=== PATIENT | female | born 1935 | race Caucasian/White ===

== ENCOUNTER 2018-07-26 19:15 | Inpatient (IN) ==
[2018-07-26 20:57] LABS: Basophils % 0.2 %; Eosinophils # 0.1 K/mcL (0.0-0.6); Eosinophils % 3.1 %; Hemoglobin 9.4 g/dL (11.5-15.4); Immature Granulocytes % 0.2 % (0-4); Lymphocytes # 0.7 K/mcL (0.6-4.6); Lymphocytes % 14.7 %; Mean Corpuscular HGB Conc 30.3 g/dL (31.6-35.5); Mean Corpuscular Hemoglobin 24.4 pg (28.0-33.3); Mean Corpuscular Volume 80.5 fL (83.0-100.0); Mean Platelet Volume 8.3 fL (9.4-12.4); Monocytes # 0.7 K/mcL (0.0-1.3); Monocytes % 15.6 %; Platelet Count 316 K/mcL (140-400); Red Blood Count 3.85 M/mcL (3.82-4.97); Red Cell Distribution Width 16.9 % (11.5-14.5); Segmented Neutrophils % 66.2 %; White Blood Count 4.5 K/mcL (4.3-11.1)
[2018-07-26 21:19] LABS: Alanine Aminotransferase 9 Units/L (7-52); Albumin 3.2 g/dL (3.5-5.7); Albumin/Globulin Ratio 1.2 (1.1-2.2); Alkaline Phosphatase 59 Units/L (34-104); Aspartate Amino Transferase 13 Units/L (13-39); BUN/Creatinine Ratio 20 (6-26); Bilirubin,Direct 0.1 mg/dL (0.0-0.2); Bilirubin,Indirect 0.2 mg/dL (0.0-1.2); Bilirubin,Total 0.3 mg/dL (0.3-1.0); Blood Urea Nitrogen 16 mg/dL (8-23); Calcium 9.3 mg/dL (8.6-10.3); Carbon Dioxide 28 mEq/L (23-29); Chloride 102 mEq/L (98-107); Globulin 2.7 g/dL (2.4-3.5); Glucose 104 mg/dL (70-105); Lipase 20 Units/L (11-82); Osmolality,Calculated 287 (280-300); Potassium 3.9 mEq/L (3.5-5.1); Sodium 138 mEq/L (136-145); Total Protein 5.9 g/dL (6.4-8.9); Troponin I < 0.03 ng/mL (< 0.04); eGFR For African Americans > 60 (> 60); eGFR For Non-African Americans > 60 (> 60)
--- NOTE | 2018-07-26 22:02 | Emergency Department Note ---
Disposition Clinical Impression: Decreased hemoglobin, Generalized weakness, Intussusception Abdominal pain Qualifiers: Abdominal location: generalized Qualified Code(s): R10.84 - Generalized abdominal pain Disposition: Admitted As Inpatient Condition: Fair Time of Disposition: 22:53 General Adult HPI - General Chief complaint: ED General Medical Stated complaint: swelling to feet/diarrhea Time Seen by Provider: 07/26/18 19:30 Source: patient, family Mode of arrival: ambulatory Limitations: no limitations Nursing Notes Reviewed: Yes Vital Signs Reviewed: Yes - History of Present Illness HPI Narrative: 83-year-old female presenting to the emergency department with multiple complaints. According to the patient biggest concern is diffuse abdominal pain. Has been intermittent for the past 3-4 weeks. She states that when she has a bowel movement there is a foam like liquid that comes out after. She states she is only able to eat bull and watermelon. She denies any nausea or vomiting. Denies any chest pain. Denies any changes in her baseline shortness of breath. Patient had followed up with her primary care physician who did baseline laboratory analysis, chest x-ray and a stool sample for C. difficile which were all negative. Patient continues to have symptoms this evening is having severe abdominal pain and came in for further evaluation. Pain Scale: 6 - Related Data Home Medications Medication Instructions Recorded Confirmed Lisinopril [Zestril] 5 mg PO DAILY 07/26/18 07/26/18 Torsemide [Demadex] 10 mg PO DAILY 07/26/18 07/26/18 Previous Rx's Medication Instructions Recorded Levothyroxine [Synthroid] 50 mcg PO DAILY 365 Days tablet 07/25/16 Simvastatin [Zocor] 20 mg PO HS 365 Days tablet 07/25/16 Allergies Allergy/AdvReac Type Severity Reaction Status Date / Time No Known Allergies Allergy Verified 07/26/18 19:17 All systems ED: reviewed and negative except as stated. Constitutional: Denies: fever Eyes: Reports: as per HPI ENT ED: Reports: as per HPI Cardiovascular: Denies: chest pain Respiratory: Reports: as per HPI Gastrointestinal: Reports: abdominal pain Genitourinary: Reports: as per HPI Musculoskeletal: Reports: as per HPI Integumentary: Reports: as per HPI Neurological: Reports: as per HPI Psychiatric: Reports: as per HPI Endocrine: Reports: as per HPI Hematological/Lymphatic: Reports: as per HPI Allergic/Immunologic: Reports: as per HPI Past Medical History - Past Medical History Attestation: Yes The following information was validated with the patient. Medical history: Reports: cancer, hypertension, other Psychiatric history: Reports: no psych history YARN WRAPPER history: Reports: no YARN WRAPPER history - Social History Smoking Status: Never smoker Smokeless Tobacco Status: No Alcohol use: Reports: none Drug use: Reports: none Physical Exam - General Limitations: no limitations General appearance: alert, in no apparent distress - Head Head exam: atraumatic, normocephalic, normal inspection - Eye Eye exam: Absent: scleral icterus - ENT ENT exam: mucous membranes moist - Neck Neck exam: Present: full ROM - Chest Chest inspection: Present: symmetric chest wall rise - Respiratory Respiratory exam: Present: normal lung sounds bilaterally. Absent: respiratory distress, wheezes - Cardiovascular Cardiovascular exam: Present: normal rhythm, tachycardia, normal heart sounds - Abdominal Exam Abdominal exam: Present: soft, tenderness. Absent: distention, guarding, rebound, rigidity Abdominal tenderness: Present: diffuse, moderate - Extremities Exam Extremities exam: Present: full ROM - Neurological Exam Neurological exam: Present: alert - Psychiatric Psychiatric exam: Present: normal affect - Skin Skin exam: Present: warm Course Course Narrative: 83-year-old female presenting with abdominal pain and stool changes. In the room she is alert and oriented 3 and hemodynamically stable. Her physical exam is significant for diffuse abdominal tenderness. Abdomen is not rigid at this time. Patient will obtain laboratory analysis and a CT of the abdomen and pelvis. Disposition pending. Patient agrees with this plan. - Reevaluation(s) Reevaluation #1: Patient's laboratory analysis significant for new onset anemia. CT of the abdomen and pelvis concerning for intussusception and possible neoplasm. I sp lawanda with the surgicalist projection technician Dr. Hernandez who states the patient will need colonoscopy tomorrow. Otherwise no further recommendation at this time. We will plan to admit to the hospitalist service. Patient remains alert and oriented 3 and hemodynamically stable. Patient agrees with this plan. I spoke with the hospitalist projection technician Dr. Smith who agrees to accept the patient at this time. Vital Signs Temperature 98.4 F 07/26/18 19:17 Pulse Rate 109 07/26/18 19:17 Respiratory Rate 18 07/26/18 19:17 Blood Pressure 110/57 07/26/18 19:17 O2 Sat by Pulse Oximetry 93 07/26/18 19:17 Temperature 98.1 F 07/27/18 06:54 Pulse Rate 91 07/27/18 06:54 Respiratory Rate 16 07/27/18 06:54 Blood Pressure 129/70 07/27/18 06:54 O2 Sat by Pulse Oximetry 95 07/27/18 06:54 Oxygen Delivery Oxygen Delivery Room Air Medical Decision Making - Lab Data Result diagrams: 07/26/18 20:42 07/26/18 20:42 Lab Results 07/26/18 07/26/18 07/26/18 Range/Units 20:42 20:42 21:54 WBC 4.5 (4.3-11.1) K/mcL RBC 3.85 (3.82-4.97) M/mcL Hgb 9.4 L (11.5-15.4) g/dL Hct 31.0 L (35.3-44.9) % MCV 80.5 L (83.0-100.0) fL MCH 24.4 L (28.0-33.3) pg MCHC 30.3 L (31.6-35.5) g/dL RDW 16.9 H (11.5-14.5) % Plt Count 316 (140-400) K/mcL MPV 8.3 L (9.4-12.4) fL Immature Gran % 0.2 (0-4) % Seg Neutrophils % 66.2 % Lymphocytes % 14.7 % Monocytes % 15.6 % Eosinophils % 3.1 % Basophils % 0.2 % Neutrophils # 3.0 (1.6-8.9) K/mcL Lymphocytes # 0.7 (0.6-4.6) K/mcL Monocytes # 0.7 (0.0-1.3) K/mcL Eosinophils # 0.1 (0.0-0.6) K/mcL Basophils # 0.0 (0.0-0.2) K/mcL Sodium 138 (136-145) mEq/L Potassium 3.9 (3.5-5.1) mEq/L Chloride 102 (98-107) mEq/L Carbon Dioxide 28 (23-29) mEq/L BUN 16 (8-23) mg/dL Creatinine 0.82 (0.60-1.20) mg/dL Est GFR ( Amer) > 60 (> 60) Est GFR (Non-Af Amer) > 60 (> 60) BUN/Creatinine Ratio 20 (6-26) Glucose 104 (70-105) mg/dL Calculated Osmolality 287 (280-300) Calcium 9.3 (8.6-10.3) mg/dL Total Bilirubin 0.3 (0.3-1.0) mg/dL Direct Bilirubin 0.1 (0.0-0.2) mg/dL Indirect Bilirubin 0.2 (0.0-1.2) mg/dL AST 13 (13-39) Units/L ALT 9 (7-52) Units/L Alkaline Phosphatase 59 (34-104) Units/L Troponin I < 0.03 (< 0.04) ng/mL Serum Total Protein 5.9 L (6.4-8.9) g/dL Albumin 3.2 L (3.5-5.7) g/dL Globulin 2.7 (2.4-3.5) g/dL Albumin/Globulin Ratio 1.2 (1.1-2.2) Lipase 20 (11-82) Units/L Urine Color Yellow (Yellow) Urine Clarity Clear (Clear) Urine pH 6.0 (5.0-8.0) pH Units Ur Specific [place] < 1.005 L (1.010-1.025) Urine Protein Negative (Neg-Trace) mg/dL Urine Glucose (UA) Normal (Normal) mg/dL Urine Ketones Negative (Negative) mg/dL Urine Blood Negative (Negative) Urine Nitrite Negative (Negative) Urine Bilirubin Negative (Negative) Urine Urobilinogen Normal (Normal) mg/dL Ur Leukocyte Esterase Negative (Negative) Ur Culture Indicated? NO (NO) - EKG Data EKG #1 EKG attestation: Yes I reviewed and interpreted this EKG. EKG results narrative: Sinus rhythm. Left bundle branch block. 93 bpm. WI interval 152, QRS 129, QTC 43. No sign of acute ST segment elevation or ischemia. Attestation Statement - Attestation Attestation: I have seen this patient with the resident physician, I have personally evaluated this patient. I had reviewed the chart and document dictation by the resident physician and aM in agreement with the information documented by the resident physician. Please see documentation by the resident physician for complete chart including past medical history, family medical history, review of systems, current history and physical and laboratory and imaging studies. I was present for all procedures, provided direct supervision for all procedures, was present for the entirety of all procedures and provided direct guidance during the procedures. Please see documentation by the resident physician for any procedures performed. I have reviewed all interpretations of EKGs, and reviewed all EKGs performed on patient's as well. I have also reviewed reports of imaging as provided by osmin bailey.
[2018-07-26 22:04] LABS: Bilirubin,Urine Negative (Negative); Blood,Urine Negative (Negative); Clarity,Urine Clear (Clear); Color,Urine Yellow (Yellow); Glucose,Urine (UA) Normal (Normal); Ketones,Urine Negative (Negative); Leukocyte Esterase,Urine Negative (Negative); Nitrite,Urine Negative (Negative); Protein,Urine Negative (Neg-Trace); Specific Gravity,Urine < 1.005 (1.010-1.025); Urobilinogen,Urine Normal (Normal)
--- NOTE | 2018-07-26 22:21 | Emergency Department Note ---
Disposition Clinical Impression: Decreased hemoglobin, Abdominal pain, Generalized weakness, Intussusception Disposition: Admitted As Inpatient Condition: Fair Referrals: NONE,PCP [Primary Care Provider] - Forms: ED Satisfaction Letter, Work/School Release Time of Disposition: 22:21 General Adult HPI - General Chief complaint: ED General Medical Stated complaint: swelling to feet/diarrhea Time Seen by Provider: 07/26/18 19:30 Source: patient Limitations: no limitations - History of Present Illness Pain Scale: 6 - Related Data Home Medications Medication Instructions Recorded Confirmed Lisinopril [Zestril] 5 mg PO DAILY 07/26/18 07/26/18 Torsemide [Demadex] 10 mg PO DAILY 07/26/18 07/26/18 Previous Rx's Medication Instructions Recorded Levothyroxine [Synthroid] 50 mcg PO DAILY 365 Days tablet 07/25/16 Simvastatin [Zocor] 20 mg PO HS 365 Days tablet 07/25/16 Allergies Allergy/AdvReac Type Severity Reaction Status Date / Time No Known Allergies Allergy Verified 07/26/18 19:17 Past Medical History - Past Medical History Medical history: Reports: cancer, hypertension, other Psychiatric history: Reports: no psych history COLD ROLLER history: Reports: no COLD ROLLER history - Social History Smoking Status: Never smoker Smokeless Tobacco Status: No Alcohol use: Reports: none Drug use: Reports: none Physical Exam - General Limitations: no limitations General appearance: alert Course Vital Signs Temperature 98.4 F 07/26/18 19:17 Pulse Rate 109 07/26/18 19:17 Respiratory Rate 18 07/26/18 19:17 Blood Pressure 110/57 07/26/18 19:17 O2 Sat by Pulse Oximetry 93 07/26/18 19:17 Temperature 98.4 F 07/26/18 19:43 Pulse Rate 93 07/26/18 20:44 Respiratory Rate 18 07/26/18 20:44 Blood Pressure 110/57 07/26/18 19:43 O2 Sat by Pulse Oximetry 100 07/26/18 20:44 Oxygen Delivery Oxygen Delivery Room Air Medical Decision Making - Lab Data Result diagrams: 07/26/18 20:42 07/26/18 20:42 Lab Results 07/26/18 07/26/18 07/26/18 Range/Units 20:42 20:42 21:54 WBC 4.5 (4.3-11.1) K/mcL RBC 3.85 (3.82-4.97) M/mcL Hgb 9.4 L (11.5-15.4) g/dL Hct 31.0 L (35.3-44.9) % MCV 80.5 L (83.0-100.0) fL MCH 24.4 L (28.0-33.3) pg MCHC 30.3 L (31.6-35.5) g/dL RDW 16.9 H (11.5-14.5) % Plt Count 316 (140-400) K/mcL MPV 8.3 L (9.4-12.4) fL Immature Gran % 0.2 (0-4) % Seg Neutrophils % 66.2 % Lymphocytes % 14.7 % Monocytes % 15.6 % Eosinophils % 3.1 % Basophils % 0.2 % Neutrophils # 3.0 (1.6-8.9) K/mcL Lymphocytes # 0.7 (0.6-4.6) K/mcL Monocytes # 0.7 (0.0-1.3) K/mcL Eosinophils # 0.1 (0.0-0.6) K/mcL Basophils # 0.0 (0.0-0.2) K/mcL Sodium 138 (136-145) mEq/L Potassium 3.9 (3.5-5.1) mEq/L Chloride 102 (98-107) mEq/L Carbon Dioxide 28 (23-29) mEq/L BUN 16 (8-23) mg/dL Creatinine 0.82 (0.60-1.20) mg/dL Est GFR ( Amer) > 60 (> 60) Est GFR (Non-Af Amer) > 60 (> 60) BUN/Creatinine Ratio 20 (6-26) Glucose 104 (70-105) mg/dL Calculated Osmolality 287 (280-300) Calcium 9.3 (8.6-10.3) mg/dL Total Bilirubin 0.3 (0.3-1.0) mg/dL Direct Bilirubin 0.1 (0.0-0.2) mg/dL Indirect Bilirubin 0.2 (0.0-1.2) mg/dL AST 13 (13-39) Units/L ALT 9 (7-52) Units/L Alkaline Phosphatase 59 (34-104) Units/L Troponin I < 0.03 (< 0.04) ng/mL Serum Total Protein 5.9 L (6.4-8.9) g/dL Albumin 3.2 L (3.5-5.7) g/dL Globulin 2.7 (2.4-3.5) g/dL Albumin/Globulin Ratio 1.2 (1.1-2.2) Lipase 20 (11-82) Units/L Urine Color Yellow (Yellow) Urine Clarity Clear (Clear) Urine pH 6.0 (5.0-8.0) pH Units Ur Specific [place] < 1.005 L (1.010-1.025) Urine Protein Negative (Neg-Trace) mg/dL Urine Glucose (UA) Normal (Normal) mg/dL Urine Ketones Negative (Negative) mg/dL Urine Blood Negative (Negative) Urine Nitrite Negative (Negative) Urine Bilirubin Negative (Negative) Urine Urobilinogen Normal (Normal) mg/dL Ur Leukocyte Esterase Negative (Negative) Ur Culture Indicated? NO (NO) Attestation Statement - Attestation Attestation: I have seen this patient with the resident physician, I have personally evaluated this patient. I had reviewed the chart and document dictation by the resident physician and aM in agreement with the information documented by the resident physician. Please see documentation by the resident physician for complete chart including past medical history, family medical history, review of systems, current history and physical and laboratory and imaging studies. I was present for all procedures, provided direct supervision for all procedures, was present for the entirety of all procedures and provided direct guidance during the procedures. Please see documentation by the resident physician for any procedures performed. I have reviewed all interpretations of EKGs, and reviewed all EKGs performed on patient's as well. I have also reviewed reports of imaging as provided by radiology. Patient presented emergency department with a few weeks of increasing episodic abdominal pain diarrhea generalized weakness. She has been seen by her primary care doctor throughout this and laboratory studies performed as an outpatient at a report were unremarkable and they were going to refer this patient. No imaging performed as an outpatient. Basic laboratory studies were ordered, showed a slight downtrend never hemoglobin, no other significant acute findings CT scan abdomen and pelvis show findings concerning for potential intussusception. Patient will require admission to the hospital will consult surgery discuss surgical admission versus medical admission with surgical consult.
[2018-07-27] MEDS ORDERED: Acetaminophen 325 MG TABLET PO PRN (07:33)
[2018-07-27] MEDS ORDERED: Naloxone 0.4 MG/ML INJ IVP PRN (07:33)
--- NOTE | 2018-07-27 08:19 | Internal Med History&Physical ---
Date of Encounter: 07/27/18 Time of Encounter: 08:18 Internal Medicine - H&P: HPI Chief complaint: Abd pain Admitted From: Emergency Dept History of present illness: Nicole Gunn is a pleasant deaf 83 F w hx HTN, HLD, hypothyroidism, remote breast cancer, who p/w abdominal pain. Pain persistent for a very long time but noticeably worse in last few weeks, and became unbearable which is why she came to ED. She also states that she has had frothy stool mixed with normal stool. No colonoscopy in several years. Says her PCP checked for C diff which was negative. Denies N/V and no blood in stool that she is aware of. No fevers, no CP, no SOB. In the ED, pt vitals remarkable for HR 100s. Labs showing Hb 9.4, Cr 0.8, normal UA. CT a/p showing telescoped appearance of the rectum concerning for intussusception. Pt admitted with GenSurg consultation. Past medical, surgical, social, and family histories reviewed and updated as below. Past Med Surg Social Fam HX - Past Medical History Medical history: cancer, hypertension, other Additional medical history: breast cancer , bilateral lymth nodes removed. Psychiatric history: no psych history - Past Surgical History Additional surgical history: GOITER REMOVED , - Social History Smoking Status: Never smoker Smokeless Tobacco Status: No Alcohol use: none Drug use: none - Family History Father Living Status: Hx Family Cardiac Disorders: Yes (CHF) Internal Medicine - H&P: Meds Levothyroxine [Synthroid] 50 mcg PO DAILY 365 Days tablet 07/25/16 [Rx] Simvastatin [Zocor] 20 mg PO HS 365 Days tablet 07/25/16 [Rx] Lisinopril [Zestril] 5 mg PO DAILY 07/26/18 [History] Torsemide [Demadex] 10 mg PO DAILY 07/26/18 [History] Allergy/AdvReac Type Severity Reaction Status Date / Time No Known Allergies Allergy Verified 07/26/18 19:17 All Systems PM: A 10-system review of systems was performed and is negative for pertinent findings except as documented above in the HPI. - Constitutional Vitals: Temp Pulse Resp BP Pulse Ox 98.1 F 91 16 129/70 95 07/27/18 06:54 07/27/18 06:54 07/27/18 06:54 07/27/18 06:54 07/27/18 06:54 Exam: General: NAD, AAOx3, good eye contact, well appearing, elderly, deaf and reads lips Head: Atraumatic, normocephalic. Face symmetric Eyes: EOMI, sclerae anicteric ENT: Mucous membranes dry. Normal oral mucosa. Trachea midline. Thoracic: No visible chest wall deformities. Normal breath sounds b/l, no wheezing or crackles Cardio: Normal S1 and S2, regular rate and rhythm, no murmurs. Abdomen: Soft, nontender, nondistended Extremities: Warm, well perfused. DP pulses 2+ b/l. No clubbing, cyanosis. No edema Skin: Intact. No rashes, bruises, or ulcers Neuro: Awake, fully oriented. Good memory, concentration, attention. Speech fluent. Unable to hear but can read lips. Strength 5/5 in b/l UE and LE. Internal Med - H&P Results - Labs CBC & Chem 7: 07/27/18 08:35 07/27/18 08:35 Labs: Short CBC 07/26/18 Range/Units 20:42 WBC 4.5 (4.3-11.1) K/mcL Hgb 9.4 L (11.5-15.4) g/dL Hct 31.0 L (35.3-44.9) % Plt Count 316 (140-400) K/mcL Neutrophils # 3.0 (1.6-8.9) K/mcL BMP 07/26/18 20:42 Sodium 138 Potassium 3.9 Chloride 102 Carbon Dioxide 28 BUN 16 Creatinine 0.82 Glucose 104 Calcium 9.3 Cardiac Enzymes 07/26/18 Range/Units 20:42 Troponin I < 0.03 (< 0.04) ng/mL Liver Function 07/26/18 Range/Units 20:42 Total Bilirubin 0.3 (0.3-1.0) mg/dL Direct Bilirubin 0.1 (0.0-0.2) mg/dL AST 13 (13-39) Units/L ALT 9 (7-52) Units/L Alkaline Phosphatase 59 (34-104) Units/L Albumin 3.2 L (3.5-5.7) g/dL Urine 07/26/18 Range/Units 21:54 Urine Color Yellow (Yellow) Urine Clarity Clear (Clear) Urine pH 6.0 (5.0-8.0) pH Units Ur Specific [place] < 1.005 L (1.010-1.025) Urine Protein Negative (Neg-Trace) mg/dL Urine Glucose (UA) Normal (Normal) mg/dL - Impressions ITS Impressions Abdomen/Pelvis CT 07/26/18 20:25 IMPRESSION: Telescoped appearance of the rectum has appearance concerning for intussusception. Associated filling defects can reflect impacted stool or neoplasm. Correlation with direct visualization would be helpful for further assessment. Sequela of granulomatous disease. Small hiatal hernia. D/ / Naman Hernández MD / Naman Hernández MD Interpreting Provider: Naman Hernández MD - Summary of Assessment and Plan Summary of Assessment and Plan: Nicole Gunn is a pleasant deaf 83 F w hx HTN, HLD, hypothyroidism, remote breast cancer, who p/w abdominal pain, tachycardia, CT showing possible intussusception. Abdominal pain: CT showing possible rectal pathology, the differential of which includes malignancy. Does not have acute abd. - GenSurg consultation, appreciate rec's - plan for bowel prep today and colonoscopy tomorrow - tylenol prn pain Acute microcytic anemia: unknown duration, normal Hb in early 2017, could be related to possible GI pathology/malignancy above - iron labs HTN: home lisinopril 5 HLD: home simvastatin 20 Hypothyroidism: home synthroid 50 mcg Unclear why on home torsemide 10 daily, will hold for now PPx: lovenox FEN: clears then NPO@MN, MIVF NS@75 while NPO Lines: PIV Consults: GenSurg Code: Full Dispo: patient requires inpatient eval and management at this time. Anticipate 2-3 days. Will be homegoing
--- NOTE | 2018-07-27 08:36 | AcuteCare Surgery Consult Note ---
Date of Encounter: 07/27/18 Time of Encounter: 06:30 Assessment and Plan (1) Abnormal abdominal CT scan Current Visit: Yes Status: Acute Abnormal rectum on CT. Recommend colonoscopy. Procedure, risk and benefits of colonscopy are discussed. Pt has not had colonoscopy in many years. Pt understands risks and possible complications. Possible complications include but, are not limited to bleeding, infection or perforation. Pt understands and wishes to proceed as recommended. Consent is obtained. Inpatient colonoscopy is scheduled. Prep today and scope tomorrow. (2) Abdominal pain Current Visit: Yes Status: Acute Qualifiers: Abdominal location: generalized Qualified Code(s): R10.84 - Generalized abdominal pain History of Present Illness Reason for consult: abdominal pain Requesting physician: Mindy Ramires History of present illness: This 83 y/o pt presents to [facility] ED c/o severe abdominal pain. Pt reports pain is predominantly diffuse. Known right low abdominal or inguinal hernia. Pain doesn't radiates. Pt reports pain has been present for months associated with abnormal BM. Pt states that the pain worsened to the point of intolerence today. Now, pain is resolving. Pt denies nausea or vomiting. Denies hemaochezia or melena. Denies fever. Denies CP or SOB. Reports normal appetite. Reports BM are followed by frothy movement. C. diff test neg. Past Med Surg Social Fam HX - Past Medical History Medical history: cancer, hypertension, other Additional medical history: breast cancer , bilateral lymth nodes removed. Psychiatric history: no psych history - Past Surgical History Additional surgical history: GOITER REMOVED , - Social History Smoking Status: Never smoker Smokeless Tobacco Status: No Alcohol use: none Drug use: none - Family History Father Living Status: Hx Family Cardiac Disorders: Yes (CHF) Medications and Allergies Levothyroxine [Synthroid] 50 mcg PO DAILY 365 Days tablet 07/25/16 [Rx] Simvastatin [Zocor] 20 mg PO HS 365 Days tablet 07/25/16 [Rx] Lisinopril [Zestril] 5 mg PO DAILY 07/26/18 [History] Torsemide [Demadex] 10 mg PO DAILY 07/26/18 [History] Allergy/AdvReac Type Severity Reaction Status Date / Time No Known Allergies Allergy Verified 07/26/18 19:17 Review of Systems All systems PM: The remainder of the systems were reviewed and are negative - Constitutional as per HPI, fatigue, weakness, no anorexia, no chills, no fever(s), no night sweats, no weight loss - EENT Ears: bilateral: decreased hearing Nose, mouth and throat: no dysphagia, no nasal congestion, no nasal discharge, no sinus pain, no sinus pressure, no sore throat - Cardiovascular no chest pain, no diaphoresis, no dyspnea, no edema - Respiratory no cough, no dyspnea, no wheezing - Gastrointestinal abdominal pain, bloating, change in bowel habits, cramping, no belching, no hematochezia, no melena, no nausea, no vomiting - Genitourinary Genitourinary: no dysuria, no flank pain, no urinary frequency - Musculoskeletal no back pain, no joint swelling, no limited range of motion, no neck pain - Integumentary no dry skin, no pruritus, no rash, no wounds, no jaundice - Neurological weakness, no dizziness, no focal weakness - Psychiatric no anxiety, no depression - Hematologic/Lymphatic no easy bleeding, no easy bruising General Surgery Exam Initial Vital Signs Temp Pulse Resp BP Pulse Ox 98.4 F 109 18 110/57 93 07/26/18 19:17 07/26/18 19:07/26/18 19:07/26/18 19:07/26/18 19:17 - General physical appearance no distress, no pain. negative: jaundice - Eyes PERRL, normal ocular movement - ENT Other (very [place]) - Neck no masses, no lymphadectomy, no venous distension - Respiratory normal respiratory effort, clear to auscultation - Cardiovascular Cardiovascular exam: Present: RRR. Absent: murmurs - Abdomen Abdomen general surgery: Present: bowel sounds present, soft, non tender. Absent: distended - Genitourinary Present: normal external genitalia - Integumentary Integumentary general surgery: Present: warm and dry - Neurologic Present: CN 2-12 grossly intact (very [place]), normal coordination - Musculoskeletal Present: normal posture - Psychiatric Psychiatric general surgery: Present: A&Ox3, appropriate Exam Initial Vital Signs Temp Pulse Resp BP Pulse Ox 98.4 F 109 18 110/57 93 07/26/18 19:17 07/26/18 19:17 07/26/18 19:17 07/26/18 19:17 07/26/18 19:17 Results - Labs 07/26/18 20:42 07/26/18 20:42 Abnormal lab results Hgb 9.4 g/dL (11.5-15.4) L 07/26/18 20:42 Hct 31.0 % (35.3-44.9) L 07/26/18 20:42 MCV 80.5 fL (83.0-100.0) L 07/26/18 20:42 MCH 24.4 pg (28.0-33.3) L 07/26/18 20:42 MCHC 30.3 g/dL (31.6-35.5) L 07/26/18 20:42 RDW 16.9 % (11.5-14.5) H 07/26/18 20:42 MPV 8.3 fL (9.4-12.4) L 07/26/18 20:42 5.9 g/dL (6.4-8.9) L 07/26/18 20:42 3.2 g/dL (3.5-5.7) L 07/26/18 20:42 Ur Specific [place] < 1.005 (1.010-1.025) L 07/26/18 21:54 Diabetes panel 07/26/18 Range/Units 20:42 Sodium 138 (136-145) mEq/L Potassium 3.9 (3.5-5.1) mEq/L Chloride 102 (98-107) mEq/L Carbon Dioxide 28 (23-29) mEq/L BUN 16 (8-23) mg/dL Creatinine 0.82 (0.60-1.20) mg/dL Glucose 104 (70-105) mg/dL Calcium 9.3 (8.6-10.3) mg/dL AST 13 (13-39) Units/L ALT 9 (7-52) Units/L Alkaline Phosphatase 59 (34-104) Units/L Albumin 3.2 L (3.5-5.7) g/dL Calcium panel 07/26/18 Range/Units 20:42 Calcium 9.3 (8.6-10.3) mg/dL Albumin 3.2 L (3.5-5.7) g/dL Pituitary panel 07/26/18 Range/Units 20:42 Sodium 138 (136-145) mEq/L Potassium 3.9 (3.5-5.1) mEq/L Chloride 102 (98-107) mEq/L Carbon Dioxide 28 (23-29) mEq/L BUN 16 (8-23) mg/dL Creatinine 0.82 (0.60-1.20) mg/dL Glucose 104 (70-105) mg/dL Calcium 9.3 (8.6-10.3) mg/dL Adrenal panel 07/26/18 Range/Units 20:42 Sodium 138 (136-145) mEq/L Potassium 3.9 (3.5-5.1) mEq/L Chloride 102 (98-107) mEq/L Carbon Dioxide 28 (23-29) mEq/L BUN 16 (8-23) mg/dL Creatinine 0.82 (0.60-1.20) mg/dL Glucose 104 (70-105) mg/dL Calcium 9.3 (8.6-10.3) mg/dL Total Bilirubin 0.3 (0.3-1.0) mg/dL AST 13 (13-39) Units/L ALT 9 (7-52) Units/L Alkaline Phosphatase 59 (34-104) Units/L Albumin 3.2 L (3.5-5.7) g/dL All other labs normal. - Imaging CT scan - abdomen: image reviewed CT scan - pelvis: image reviewed (Possible rectal intussusception. Cannot r/o neoplasm.) Consult Discharge Plan - Plan Referrals: NONE,PCP [Primary Care Provider] -
[2018-07-27] MEDS: 0.9 % Sodium Chloride 1,000 ML IVC SCH ×2 (08:57→20:58)
[2018-07-27 09:30] LABS: Basophils % 0.5 %; Eosinophils # 0.2 K/mcL (0.0-0.6); Eosinophils % 3.9 %; Hematocrit 30.7 % (35.3-44.9); Hemoglobin 9.2 g/dL (11.5-15.4); Immature Granulocytes % 0.3 % (0-4); Lymphocytes # 0.7 K/mcL (0.6-4.6); Lymphocytes % 18.8 %; Mean Corpuscular Hemoglobin 24.3 pg (28.0-33.3); Mean Corpuscular Volume 81.2 fL (83.0-100.0); Mean Platelet Volume 8.5 fL (9.4-12.4); Monocytes # 0.6 K/mcL (0.0-1.3); Monocytes % 16.7 %; Neutrophils # 2.3 K/mcL (1.6-8.9); Platelet Count 295 K/mcL (140-400); Red Blood Count 3.78 M/mcL (3.82-4.97); Red Cell Distribution Width 16.7 % (11.5-14.5); Segmented Neutrophils % 59.8 %; White Blood Count 3.8 K/mcL (4.3-11.1)
--- NOTE | 2018-07-27 09:37 | Electrocardiograph Report ---
[place] [address] Test Date: 2018-07-26 Pat Name: Nicole Gunn Department: [id number] Room: 3A35 Gender: F Presser Automatic: : 1935 Requested By: Mindy Ramires Order Number: [id number] Reading MD: Ike Dash Measurements Intervals [place] Rate: 93 P: 34 WV: 152 QRS: -13 QRSD: 129 T: 75 QT: 388 QTc: 483 Interpretive Statements Sinus rhythm Left bundle branch block Electronically Signed On 07-27-2018 9:36:19 EDT by Ike Dash
[2018-07-27 09:49] LABS: Alanine Aminotransferase 8 Units/L (7-52); Albumin/Globulin Ratio 1.3 (1.1-2.2); Alkaline Phosphatase 51 Units/L (34-104); BUN/Creatinine Ratio 19 (6-26); Bilirubin,Total 0.4 mg/dL (0.3-1.0); Blood Urea Nitrogen 13 mg/dL (8-23); Carbon Dioxide 25 mEq/L (23-29); Chloride 106 mEq/L (98-107); Globulin 2.3 g/dL (2.4-3.5); Glucose 97 mg/dL (70-105); Osmolality,Calculated 292 (280-300); Potassium 3.7 mEq/L (3.5-5.1); Sodium 141 mEq/L (136-145); Total Protein 5.3 g/dL (6.4-8.9); eGFR For African Americans > 60 (> 60); eGFR For Non-African Americans > 60 (> 60)
[2018-07-27 10:53] LABS: Aspartate Amino Transferase 13 Units/L (13-39)
[2018-07-28] MEDS: Ondansetron 4 MG/2 ML VIAL IVP PRN ×2 (00:26→20:39)
[2018-07-28] MEDS: *HR* Enoxaparin 40 MG/0.4 ML SYRINGE SQ SCH (05:00)
[2018-07-28 05:40] LABS: Hematocrit 30.4 % (35.3-44.9); Hemoglobin 8.9 g/dL (11.5-15.4); Mean Corpuscular HGB Conc 29.3 g/dL (31.6-35.5); Mean Corpuscular Hemoglobin 24.1 pg (28.0-33.3); Mean Corpuscular Volume 82.2 fL (83.0-100.0); Mean Platelet Volume 8.2 fL (9.4-12.4); Platelet Count 283 K/mcL (140-400); Red Cell Distribution Width 16.6 % (11.5-14.5); White Blood Count 5.3 K/mcL (4.3-11.1)
[2018-07-28 06:05] LABS: % Iron Saturation 4 % (15-50); BUN/Creatinine Ratio 15 (6-26); Blood Urea Nitrogen 9 mg/dL (8-23); Calcium 8.5 mg/dL (8.6-10.3); Carbon Dioxide 25 mEq/L (23-29); Chloride 110 mEq/L (98-107); Glucose 106 mg/dL (70-105); Iron 13 mcg/dL (50-170); Osmolality,Calculated 289 (280-300); Potassium 3.7 mEq/L (3.5-5.1); Sodium 140 mEq/L (136-145); Transferrin 241 mg/dL (203-362); eGFR For African Americans > 60 (> 60); eGFR For Non-African Americans > 60 (> 60)
[2018-07-28 06:20] LABS: Ferritin < 8 ng/mL (10-120)
[2018-07-28] MEDS ORDERED: *HR* Midazolam HCl 5 MG/5 ML VIAL IVP ONE ×2 (09:47→10:11)
[2018-07-28] MEDS ORDERED: *HR* FentaNYL (PF) 100 MCG/2 ML VIAL ONE (09:47)
[2018-07-28] MEDS ORDERED: *HR* FentaNYL (PF) 200 MCG/4 ML SYRINGE IVP PRN (10:11)
--- NOTE | 2018-07-28 10:11 | Internal Med Progress Note ---
<Riki Lamb R - Last Filed: 07/28/18 13:15> Hospitalist Progress Note - Encounter Date of Encounter: 07/28/18 Time of Encounter: 09:46 - Subjective Interval History: Ms. Gunn is a deaf 83 F with PMH of HTN, HLD, hypothyroidism, remote breast cancer, who p/w abdominal pain. CT with concern for intussesception. Awaiting colonoscopy. Patient seen and examined at bedside. No acute overnight events. Reports continued vomiting, diarrhea, and diffuse abdominal pain. Also reporting some rhinorrhea, lower extremity pain, and edema bilaterally. Denies fevers, chills, chest pain, dyspnea, or dysuria. - Exam Vitals: Temp Pulse Resp BP Pulse Ox 98.3 F 91 18 144/70 96 07/28/18 06:54 07/28/18 09:48 07/28/18 09:48 07/28/18 09:48 07/28/18 09:48 Exam: GEN: No acute distress, A&O3, good eye contact, reads lips well HEAD: Atraumatic, normocephalic EYES: Pupils symmetric, sclera white, conjunctiva pink HEART: RRR, normal S1 and S2, no murmurs LUNGS: Clear to auscultation bilaterally, no wheezes, rhonchi, or crackles ABD: Soft, diffuse tenderness, nondistended, no guarding or rigidity EXT: Mild pedal edema noted, pulses 2/4 NEURO: No focal deficits, cooperative with exam - Assessment and Plan (1) Abdominal pain Current Visit: Yes Status: Acute Assessment and Plan: Diffuse pain without rigidity or guarding CT with possible intusseception, filling defects possible impacted stool vs malignancy Liquid stool with BRB per nursing Gen Surg consulted - colonoscopy today - 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 Normal transferrin Possible related to rectal pathology (3) Hypertension Current Visit: Yes Status: Chronic Assessment and Plan: Stable. Continue home lisinopril (4) Hypothyroidism Current Visit: Yes Status: Acute Assessment and Plan: Continue home levothyroxine (5) Hyperlipidemia Current Visit: Yes Status: Acute Assessment and Plan: Continue home simvastatin DVT Prophylaxis: Lovenox - Time Spent with Patient Total time spent is greater than 50% in coordination of care (as documented) at patient's floor/unit and/or counseling patient: Internal Medicine: Result - Labs CBC & Chem 7: 07/28/18 05:20 07/28/18 05:20 Labs: Short CBC 07/28/18 Range/Units 05:20 WBC 5.3 (4.3-11.1) K/mcL Hgb 8.9 L (11.5-15.4) g/dL Hct 30.4 L (35.3-44.9) % Plt Count 283 (140-400) K/mcL BMP 07/28/18 05:20 Sodium 140 Potassium 3.7 Chloride 110 H Carbon Dioxide 25 BUN 9 Creatinine 0.59 L Glucose 106 H Calcium 8.5 L Liver Function 07/27/18 Range/Units 08:35 AST 13 (13-39) Units/L Consult Discharge Plan - Plan Referrals: Rashad Bullard MD [Partnered Physician] - <Aldo Murray - Last Filed: 07/28/18 15:32> Hospitalist Progress Note - Encounter Date of Encounter: 07/28/18 Internal Medicine: Result - Labs CBC & Chem 7: 07/28/18 05:20 07/28/18 05:20 - Attending Attestation Patient seen and examined independently, including review of objective data including labs. I agree with plan of care as documented above by the resident with the following comments: Pt went for colonoscopy today per GenSurg which showed large fungating rectal mass which was biopsied. Patient tolerated procedure well. Discussed results with patient and her daughter who is poa and they are determined that if it's cancer to fight it however necessary including surgery/chemo/radiation, and understand need to determine type and stage. Patient to remain clears then NPO@MA for possible resection tomorrow. <Riki Lamb R - Last Filed: 07/28/18 13:15> (1) Abdominal pain Qualifiers: Abdominal location: generalized Qualified Code(s): R10.84 - Generalized abdominal pain (3) Hypertension Qualifiers: Hypertension type: essential hypertension Qualified Code(s): I10 - Essential (primary) hypertension (4) Hypothyroidism Qualifiers: Hypothyroidism type: unspecified Qualified Code(s): E03.9 - Hypothyroidism, unspecified (5) Hyperlipidemia Qualifiers: Hyperlipidemia type: unspecified Qualified Code(s): E78.5 - Hyperlipidemia, unspecified
--- NOTE | 2018-07-28 10:15 | Pre-Sedation Evaluation ---
Pre-sedation evaluation - Pre-sedation checklist Date of procedure: 07/28/18 Procedure: colon Recent Vitals: Last Vital Signs Temp 98.3 F 07/28/18 06:54 Pulse 91 07/28/18 09:48 Resp 18 07/28/18 09:48 BP 144/70 07/28/18 09:48 Pulse Ox 96 07/28/18 09:48 H&P (including ROS) documented in medical record: Yes Dietary Status: NPO after Midnight Dentition: poor dentition ASA Classification *see protocol: CLASS III-Severe systemic disease Cardiac Registry (Cardio Only) - Functional Capacity Functional Capacity: < 4 METS - Clincal Frailty Scale Clinical Frailty Scale: Mildly Frail
[2018-07-28] MEDS ORDERED: *HR* FentaNYL (PF) 100 MCG/2 ML VIAL IVP ONE (10:20)
--- NOTE | 2018-07-28 12:19 | Acute Care Surgery Event Note ---
Date of Encounter: 07/28/18 Time of Encounter: 11:30 Pt underwent colonoscopy for abnormal rectum on CT. Colonoscopy reveals a fungating mass with intususception near the rectosigmoid juntion (15-20cm.) Biopsies taken. Bowel prep led to minor bleeding of the mass, as well as bx. At time of scope conclusion there was no active bleeding. Pt had c/o RLE calf pain beforescope. Will obtain RLE venous doppler. Will obtain chest CT for SOB and r/o lung mets. Plan for Low anterior resection in 1-2 days. Will discuss with patient after sedation resolves. Clear liquids only. NPO after MN.
[2018-07-28] MEDS ORDERED: Isovue-370 500 ML BOTTLE IVP ONE (13:19)
[2018-07-28 13:43] LABS: Carcinoembryonic Antigen 2.9 ng/mL (Less than 5.0)
[2018-07-29 04:38] LABS: Hematocrit 30.7 % (35.3-44.9); Hemoglobin 9.1 g/dL (11.5-15.4); Mean Corpuscular HGB Conc 29.6 g/dL (31.6-35.5); Mean Corpuscular Hemoglobin 24.4 pg (28.0-33.3); Mean Corpuscular Volume 82.3 fL (83.0-100.0); Mean Platelet Volume 8.5 fL (9.4-12.4); Platelet Count 280 K/mcL (140-400); Red Blood Count 3.73 M/mcL (3.82-4.97); Red Cell Distribution Width 16.4 % (11.5-14.5); White Blood Count 4.9 K/mcL (4.3-11.1)
[2018-07-29 04:57] LABS: BUN/Creatinine Ratio 15 (6-26); Blood Urea Nitrogen 10 mg/dL (8-23); Calcium 8.4 mg/dL (8.6-10.3); Carbon Dioxide 23 mEq/L (23-29); Chloride 108 mEq/L (98-107); Glucose 118 mg/dL (70-105); Osmolality,Calculated 282 (280-300); Potassium 3.7 mEq/L (3.5-5.1); Sodium 136 mEq/L (136-145); eGFR For African Americans > 60 (> 60); eGFR For Non-African Americans > 60 (> 60)
[2018-07-29] MEDS: *HR* Enoxaparin 40 MG/0.4 ML SYRINGE SQ SCH (05:25)
--- NOTE | 2018-07-29 08:26 | Internal Med Progress Note ---
<Riki Lamb R - Last Filed: 07/29/18 13:43> Hospitalist Progress Note - Encounter Date of Encounter: 07/29/18 Time of Encounter: 10:14 - Subjective Interval History: Ms. Gunn is a deaf 83 F with PMH of HTN, HLD, hypothyroidism, remote breast cancer, who p/w abdominal pain. CT with concern for intussesception. Awaiting colonoscopy. Patient seen and examined at bedside. No acute overnight events. Reports her abdominal pain is improving, and less nausea. She feels her leg pain has improved since yesterday. Also reporting some rhinorrhea. Denies fevers, chills, chest pain, dyspnea, or dysuria. She has surgery upcoming later today. - Exam Vitals: Temp Pulse Resp BP Pulse Ox 98.2 F 94 15 105/62 96 07/29/18 06:33 07/29/18 06:33 07/29/18 06:33 07/29/18 06:33 07/29/18 06:33 Exam: GEN: No acute distress, A&O3, good eye contact, reads lips well HEAD: Atraumatic, normocephalic EYES: Pupils symmetric, sclera white, conjunctiva pink HEART: RRR, normal S1 and S2, no murmurs LUNGS: Clear to auscultation bilaterally, no wheezes, rhonchi, or crackles ABD: Soft, diffuse tenderness, nondistended, no guarding or rigidity EXT: Mild pedal edema noted, pulses 2/4 NEURO: No focal deficits, cooperative with exam - Assessment and Plan (1) Abdominal pain Current Visit: Yes Status: Acute Assessment and Plan: Diffuse pain without rigidity or guarding - improving Liquid stool with BRB per nursing Tylenol PRN for pain Zofran for N/V (2) Microcytic anemia Current Visit: Yes Status: Acute Assessment and Plan: Hgb stable Likely multifactorial: chronic disease, iron deficiency, and blood loss related to rectal mass Will start iron supplement once able (3) Hypertension Current Visit: Yes Status: Chronic Assessment and Plan: Stable. 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 Planning resection later today DVT Prophylaxis: Lovenox - Time Spent with Patient Total time spent is greater than 50% in coordination of care (as documented) at patient's floor/unit and/or counseling patient: Internal Medicine: Result - Labs CBC & Chem 7: 07/29/18 04:01 07/29/18 04:01 Labs: Short CBC 07/29/18 Range/Units 04:01 WBC 4.9 (4.3-11.1) K/mcL Hgb 9.1 L (11.5-15.4) g/dL Hct 30.7 L (35.3-44.9) % Plt Count 280 (140-400) K/mcL BMP 07/29/18 04:01 Sodium 136 Potassium 3.7 Chloride 108 H Carbon Dioxide 23 BUN 10 Creatinine 0.66 Glucose 118 H Calcium 8.4 L - Impressions Impressions Chest CT 07/28/18 13:19 IMPRESSION: 1. No acute abnormality or evidence of metastatic disease in the chest. 2. 2 and 3 mm right lower lobe nodules which are most likely infectious or inflammatory given the small size. As there are no prior imaging studies for comparison, consider short-term CT follow-up to document stability given the history. 3. Left basilar atelectasis/scarring related to elevation of the hemidiaphragm. D/ / 07/28/2018 14:26:03 Leonardo Whitmore MD / [facility] Interpreting Provider: Leonardo Whitmore MD Consult Discharge Plan - Plan Referrals: Rashad Bullard MD [Partnered Physician] - <Aldo Murray - Last Filed: 07/29/18 16:47> Hospitalist Progress Note - Encounter Date of Encounter: 07/29/18 - Assessment and Plan (1) Hypertension Current Visit: Yes Status: Chronic (2) Abdominal pain Current Visit: Yes Status: Acute (3) Microcytic anemia Current Visit: Yes Status: Acute (4) Hyperlipidemia Current Visit: Yes Status: Acute (5) Hypothyroidism Current Visit: Yes Status: Acute (6) Mass of colon Current Visit: Yes Status: Acute Internal Medicine: Result - Labs CBC & Chem 7: 07/29/18 04:01 07/29/18 04:01 - Attending Attestation Patient seen and examined independently, including review of objective data including labs. I agree with plan of care as documented above by the resident with the following comments: Large mass on colonoscopy yesterday. Plan for resection today per Cammie Morris this afternoon. Pt remains full code and family wants to pursue treatment. Will have PT/OT see pt tomorrow. <Riki Lamb - Last Filed: 07/29/18 13:43> (1) Abdominal pain Qualifiers: Abdominal location: generalized Qualified Code(s): R10.84 - Generalized abdominal pain (3) Hypertension Qualifiers: Hypertension type: essential hypertension Qualified Code(s): I10 - Essential (primary) hypertension (4) Hypothyroidism Qualifiers: Hypothyroidism type: unspecified Qualified Code(s): E03.9 - Hypothyroidism, unspecified (5) Hyperlipidemia Qualifiers: Hyperlipidemia type: unspecified Qualified Code(s): E78.5 - Hyperlipidemia, unspecified <Aldo Murray - Last Filed: 07/29/18 16:47> (1) Hypertension Qualifiers: Hypertension type: essential hypertension Qualified Code(s): I10 - Essential (primary) hypertension (2) Abdominal pain Qualifiers: Abdominal location: generalized Qualified Code(s): R10.84 - Generalized abdominal pain (4) Hyperlipidemia Qualifiers: Hyperlipidemia type: unspecified Qualified Code(s): E78.5 - Hyperlipidemia, unspecified (5) Hypothyroidism Qualifiers: Hypothyroidism type: unspecified Qualified Code(s): E03.9 - Hypothyroidism, unspecified
--- NOTE | 2018-07-29 12:09 | Anesthesia Evaluation PreOp ---
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 Any Significant HX Other Medical History: Thyroid (hypo), Other (pt is deaf and can only read lips, hx of breast ca, colon mass, anemia) Anesthesia History: No Prior Anesthetic Complications, Past Anesthesia (madi, hysterectomy, breast) Alcohol Use: none Drug use: none Medications and Allergies Levothyroxine [Synthroid] 50 mcg PO DAILY 365 Days tablet 07/25/16 [Rx] Simvastatin [Zocor] 20 mg PO HS 365 Days tablet 07/25/16 [Rx] Lisinopril [Zestril] 5 mg PO DAILY 07/26/18 [History] Torsemide [Demadex] 10 mg PO DAILY 07/28/18 [History] Allergy/AdvReac Type Severity Reaction Status Date / Time No Known Allergies Allergy Verified 07/26/18 19:17 - Meds/Allergy Pre-op Review Medications Reviewed: Yes Allergies Reviewed: Yes Beta Blockers on Current Med List: No Anesthesia Results - Labs 07/29/18 04:01 07/29/18 04:01 - Imaging EKG: report reviewed (Sinus rhythm Left bundle branch block Electronically Signed On 07-27-2018 9:36:19 EDT by Ike Dash) Anesthesia Exam Vital Signs/O2 Sat/Glucose, Most Current Temp Pulse Resp BP Pulse Ox 07/29/18 11:27 98.2 F 85 15 104/57 97 Weight: 67kg NPO (# of Hours): >8 - HEENT Pupil (Motor): Pupils equal, EOMI Mallampati: II Teeth: Edentulous (upper), Poor dentition (lower) Oral Opening: Greater than 3 - BRAZING MACHINE SETTER LOC: Oriented BRAZING MACHINE SETTER Motor: Normal RUE, Normal LUE, Normal RLE, Normal LLE, Normal Face BRAZING MACHINE SETTER Sensory: Normal: RUE, LUE, RLE, LLE, Face - Cardiac Rhythm: Regular - Pulmonary Breath Sounds: bilateral Clear Respiratory Effort: Symmetrical Anesthesia Assess/Plan ASA Score: 2 Level of consciousness: Cooperative Anesthetic Plan: General Monitoring Plan: Standard Monitors Recovery Plan: PACU
[2018-07-29] MEDS ORDERED: Lidocaine -MPF 4% 5 ML AMPUL ONE (12:45)
[2018-07-29] MEDS ORDERED: *HR* Propofol 200 MG/20 ML VIAL IVP ONE (12:49)
[2018-07-29] MEDS ORDERED: Ondansetron 4 MG/2 ML VIAL ONE (12:49)
[2018-07-29] MEDS ORDERED: Lidocaine -MPF 2% 2 ML VIAL ONE (12:49)
[2018-07-29] MEDS ORDERED: Dexamethasone 4 MG/ML VIAL ONE (12:49)
[2018-07-29] MEDS ORDERED: *HR* FentaNYL (PF) 100 MCG/2 ML VIAL ONE (12:50)
[2018-07-29] MEDS ORDERED: *HR* FentaNYL (PF) 100 MCG/2 ML VIAL IVP PRN (13:37)
[2018-07-29] MEDS ORDERED: Ondansetron 4 MG/2 ML VIAL IVP ONE (13:37)
[2018-07-29] MEDS ORDERED: *HR* OxyCODONE Immed Rel 5 MG TABLET PO PRN (13:37)
[2018-07-29] MEDS ORDERED: Acetaminophen IV 1,000 MG/100 ML INFUS..BTL ONE (13:44)
[2018-07-29] MEDS ORDERED: MetroNIDAZOLE 500 MG/100 ML 500 MG/100 ML BAG IVPB ONE ×2 (14:19→15:34)
[2018-07-29] MEDS ORDERED: EPHEDrine 50 MG/ML VIAL ONE (14:49)
[2018-07-29] MEDS ORDERED: ceFAZolin 2,000 MG in Water for inj. (sterile) 20 ML IVP ONE (15:34)
[2018-07-29] MEDS ORDERED: CeFAZolin Syr 2,000MG/20 ML 2,000 MG/20 ML SYRINGE IVPB ONE (16:45)
[2018-07-29] MEDS ORDERED: SUGAMMADEX SODIUM 500 MG/5 ML VIAL IV ONE (20:37)
[2018-07-29] MEDS ORDERED: ROPIVACAINE HCL/PF 0.5% 30 ML VIAL ONE (20:43)
[2018-07-29] MEDS ORDERED: *HR* HYDROmorphone (PF) 1 MG/ML SYRINGE IVP PRN (20:56)
--- NOTE | 2018-07-29 21:25 | Anesthesia Procedures ---
Date of Encounter: 07/29/18 Time of Encounter: 20:55 Procedures: Anesthesia - Nerve Block Procedure Date: 07/29/18 Time: 20:55 Allergies/Adv Reactions: NKDA Checklist: Correct Patient Identifier, Correct procedure, History checked Blood Thinner: No Monitor Applied: EKG, BP, Pulse Oximetry Indication: Post Op Analgesia Pre-op Neuro Deficits: No Block Type: Other (Bilateral Subcostal TAP Blocks) Catheter placed: No Sterile Technique: Yes Ultrasound used: Yes Anatomy identified: Yes Visual spread of Local: Yes Neuro Stimulation: No Blood on Needle Aspiration: No Smooth Injection of Local: Yes Pain with Injection of Local: No Prep: Chlorhexadine Needle: 21 x 100 mm Stimuplex Local: Ropivacaine (Bilateral Subcostal TAP Blocks with 0.25% Ropivacaine (30mL on R and L side).) Number of Attempts: 1 Vitals: See Anesthesia Record. Comments: Pt under GA during block placement.
--- NOTE | 2018-07-29 21:47 | Anesthesia Evaluation Post Op ---
Date of Encounter: 07/29/18 Time of Encounter: 21:47 - Discharge PostOp Status: Transfer Patient to floor (Patient's vital signs have been reviewed. Patient is stable postoperatively and has adequately recovered from anesthesia. Patient is determined to have stable airway patency and respiratory function including respiratory rate and oxygen saturation. Patient has a stable heart rate, blood pressure and adequate hydration. Patients mental status is acceptable. Patients temperature is appropriate. Pain and nausea are adequately controlled.)
--- NOTE | 2018-07-29 21:47 | Event Note ---
Date of Encounter: 07/29/18 Time of Encounter: 20:40 Bilateral TAP block requested by surgeon, Dr. Taylor, to improve post operative pain control. This was not discussed with the patient preoperatively, but is entirely indicated and appropriate. Will proceed with the TAP blocks.
--- NOTE | 2018-07-29 21:52 | Operative Note ---
Date of procedure: 07/29/18 Pre-op diagnosis: obstructing rectal mass Post-op diagnosis: same Procedure: open low anterior resection repair of itragenic repair of left ureter - by urology Implants: none Complications: itragenic injury/distal transection of left ureter Anesthesia: GETA Local Anesthetics: 0.5% Sensorcaine HCL SubQ (cc) Surgeon: Giancarlo Taylor Was there an clinical data assistant present: Yes [place] Neck Whipper: Elvira Kowalski [place] Neck Whipper Other: Stewart - urology Estimated blood loss (cc): 100 Specimen: rectal mass, mesenteric lymph node, anastamotic ring Condition: stable Disposition: PACU Procedure in Detail: patient was brought into the operating room suite. placed in supine position. mechanical dvt prophylaxis was placed. patient underwent smooth induction of anesthesia. preoperative antibiotics were given. patient was placed in stirrups. patient was prepped and draped in the usual fashion. A timeout was held identifying correct patient, pathology, procedure, and physician. I created a midline incision, dissected through the soft tissue layers until I entered the abdomen. I set up the bookwalter self retaining system and exposed the pelvis by retracting the small bowel from the pelvis. I right away noticed the tattooing of the colon and the segment of bowel that had intussuscepted into the distal rectum down into the pelvis. I began to mobilize the bowel beginning at the lateral wall. I mobilized the descending and sigmoid colon along the white line of toldt and continued by the retroperitoneum. I was able to quickly identify the left ureter and swept it away from my dissection plane and the specimen. I then continued my dissection towards the peritoneal reflection and continued along the lateral aspect of the proximal rectum. I then began mobilizing along the medial aspect of the bowel. i scored the mesentery, the retroperitoneum and exposed the vascular pedical. using the ligasure/Impact machine I was able to perform a high ligation. i then stapled the bowel at the sacral promontory. I then performed by total meseorectum excision. I reflected the rectal stump anteriorly and using the electocautery and the impact/ligasure, I dissected within the aerolar plane until I reached the pelvic floor. I also dissected along the lateral aspect of the rectum in the same fashion. Again I was careful to avoid the left ureter. I then began my anterior dissection until I was able to appreciate that I was distal to the mass. I then used the contour stapler to staple distal to the mass. As I attempted to remove the specimen I noticed that the distal aspect of the left ureter was also stapled and connected to the left lateral aspect of the specimen. I then called urology to assist with the repair. please see their note for more details. I then used the automatic pursestringer to place the anvil for the anastamosis. My assisted then dilated the distal rectal stump, which measured about 5cm. The stapler was then inserted into the rectum, the male counter part was released and connected to the anvil. The anastamosis was made, tested and found not to have any evidence of leaking. A 19fr ashleigh drain was placed in the pelvis. I then closed the fascia in a running fashion with a 1 looped PDS. The subcutaneous layer was reapproximated with 3-0 vicryl and the skin was closed with a skin stapler. The patient tolerated the procedure and was escorted to pacu in stable condition.
--- NOTE | 2018-07-29 22:21 | AcuteCareSurgery Progress Note ---
Date of Encounter: 07/29/18 Time of Encounter: 22:18 - Assessment and Plan (1) Rectal mass Current Visit: Yes Status: Acute 83F with near obstructing rectal mass now s/p open low anterior resection with repair of itragenic injury of left ureter by urology; NPO except ice chips, meds IVF - likely will need TPN pain control: will order INVESTMENT ACCOUNTANT OOBTC when able to tolerate keep alejandro in place; do not manipulate do not take rectal temps or any rectal manipulation; Subjective Patient reports: no new complaints Objective Vital Signs - Last 8 Hours Temp Pulse Resp BP Pulse Ox 07/29/18 21:50 97.5 F L 75 16 126/66 98 07/29/18 21:40 97.5 F L 74 16 109/68 100 07/29/18 21:30 74 18 98/61 100 07/29/18 21:20 73 18 112/59 98 07/29/18 21:10 97.1 F L 74 16 112/53 95 Intake and Output 07/29/18 07/29/18 07/29/18 07:59 15:59 23:59 Intake Total 120 / 120 Output Total 0 / 390 0 / 390 390 / 390 Balance 0 / -270 120 / -270 -390 / -270 Intake: IV Fluids 120 / 120 Ancef 2,000 MG In Water for inj 20 / 20 . (sterile) 20 ML @ 200 mls/hr IVP [facility] Rx#:[id number] Flagyl Premix 500 MG/100 ML 500 100 / 100 mg In 100 ml @ 100 mls/hr IVPB ONCE ONE Rx#:[id number] Output: Urine 0 / 0 0 / 0 Estimated Blood Loss 100 / 100 Urine Amount (Catheter) 200 / 200 Wound Drainage 90 / 90 Other: Meal npo Stool Size Moderate Stool Consistency liquid Stool Color Brown Bright Red Blood Blood Tinged # Voids 1 # Bowel Movements 1 Weight 67.5 kg Blood Glucose* 113 123 Patient Weight 07/29/18 23:59 Weight 67.5 kg - General physical appearance no distress - Respiratory normal expansion, normal respiratory effort - Cardiovascular Cardiovascular exam: Present: RRR - Abdomen Abdomen: Present: soft, non tender - Incision Incision: Present: clean and dry, intact - Neurologic CN 2-12 grossly intact - Labs 07/29/18 04:01 07/29/18 04:01 Diabetes panel 07/29/18 Range/Units 04:01 Sodium 136 (136-145) mEq/L Potassium 3.7 (3.5-5.1) mEq/L Chloride 108 H (98-107) mEq/L Carbon Dioxide 23 (23-29) mEq/L BUN 10 (8-23) mg/dL Creatinine 0.66 (0.60-1.20) mg/dL Glucose 118 H (70-105) mg/dL Calcium 8.4 L (8.6-10.3) mg/dL Calcium panel 07/29/18 Range/Units 04:01 Calcium 8.4 L (8.6-10.3) mg/dL Pituitary panel 07/29/18 Range/Units 04:01 Sodium 136 (136-145) mEq/L Potassium 3.7 (3.5-5.1) mEq/L Chloride 108 H (98-107) mEq/L Carbon Dioxide 23 (23-29) mEq/L BUN 10 (8-23) mg/dL Creatinine 0.66 (0.60-1.20) mg/dL Glucose 118 H (70-105) mg/dL Calcium 8.4 L (8.6-10.3) mg/dL Adrenal panel 07/29/18 Range/Units 04:01 Sodium 136 (136-145) mEq/L Potassium 3.7 (3.5-5.1) mEq/L Chloride 108 H (98-107) mEq/L Carbon Dioxide 23 (23-29) mEq/L BUN 10 (8-23) mg/dL Creatinine 0.66 (0.60-1.20) mg/dL Glucose 118 H (70-105) mg/dL Calcium 8.4 L (8.6-10.3) mg/dL Consult Discharge Plan - Plan Referrals: Rashad Bullard MD [Partnered Physician] -
[2018-07-29] MEDS ORDERED: Ondansetron 4 MG/2 ML VIAL IVP PRN (22:22)
[2018-07-29] MEDS ORDERED: Naloxone 0.4 MG/ML INJ IVP PRN (22:22)
[2018-07-29] MEDS ORDERED: D5% in 0.45% NACL 1,000 ML IVC SCH (22:22)
[2018-07-30] MEDS: *HR* Enoxaparin 40 MG/0.4 ML SYRINGE SQ SCH (05:26)
[2018-07-30 07:26] LABS: Basophils % 0.1 %; Hematocrit 32.8 % (35.3-44.9); Hemoglobin 9.8 g/dL (11.5-15.4); Immature Granulocytes % 0.2 % (0-4); Lymphocytes # 0.3 K/mcL (0.6-4.6); Lymphocytes % 2.7 %; Mean Corpuscular HGB Conc 29.9 g/dL (31.6-35.5); Mean Corpuscular Hemoglobin 24.3 pg (28.0-33.3); Mean Corpuscular Volume 81.2 fL (83.0-100.0); Mean Platelet Volume 8.8 fL (9.4-12.4); Monocytes # 0.7 K/mcL (0.0-1.3); Monocytes % 6.1 %; Neutrophils # 9.7 K/mcL (1.6-8.9); Platelet Count 318 K/mcL (140-400); Red Blood Count 4.04 M/mcL (3.82-4.97); Red Cell Distribution Width 16.2 % (11.5-14.5); Segmented Neutrophils % 90.9 %
[2018-07-30 07:29] LABS: White Blood Count 10.7 K/mcL (4.3-11.1)
[2018-07-30] MEDS ORDERED: 0.9 % Sodium Chloride 1,000 ML IVC SCH (07:30)
[2018-07-30 07:44] LABS: Magnesium 1.8 mg/dL (1.6-2.6); Phosphorous 3.4 mg/dL (2.7-4.5)
[2018-07-30 07:46] LABS: BUN/Creatinine Ratio 21 (6-26); Blood Urea Nitrogen 15 mg/dL (8-23); Calcium 8.4 mg/dL (8.6-10.3); Carbon Dioxide 22 mEq/L (23-29); Chloride 107 mEq/L (98-107); Glucose 249 mg/dL (70-105); Osmolality,Calculated 287 (280-300); Potassium 3.9 mEq/L (3.5-5.1); Sodium 134 mEq/L (136-145); eGFR For African Americans > 60 (> 60); eGFR For Non-African Americans > 60 (> 60)
[2018-07-30] MEDS ORDERED: *HR* Metoprolol 5 MG/5 ML VIAL IVP PRN (09:18)
--- NOTE | 2018-07-30 09:18 | Oncology Inp Consult Note ---
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 CT abdomen with contrast not performed, to be obtained at later date for staging purposes. CT scan of the chest possible inflammation 3 nodule. Baseline CEA stable. Hgb slightly dropped. She is a prior history of left breast cancer, stage I treated with surgery, radiation therapy after that. She was noncompliant to Femara. I discussed with her pending diagnosis possible treatment options for rectal malignancy. She is concerned with chemotherapy, state that she would be willing to take it if it is a pill (was non compliant previously) . She has no desire to take radiation therapy and stated she does not want to go into the tunnel/tube again. Will follow up with more details after surgical pathology results. Plan was reviewed by me with patient bedside. - Data of Consult Requesting Physician: Aldo Murray Primary Care Provider: PCP NONE - Consult Narrative Reason for consult: colorectal mass History of present illness: 83-year-old female with medical history significant for left breast cancer stage I status post reresection in November 2011, noncompliant with treatments, history of hypertension, hyperlipidemia, hypothyroidism, who came to the hospital with abdominal pain with worsening prior to hospital stay, patient underwent a CT scan of the abdomen and pelvis and was seen by acute care surgical team. CT scan of the chest showed 2-3 mm right lower lobe nodules likely infectious or inflammatory origin, CT scan of the abdomen showed dilated rectum, with dense intraluminal filling defects, possible bowel intussusception in the rectal area. Lab work showed anemia, patient underwent a colonoscopy that showed obstructing rectal mass. Patient underwent open low anterior resection, iatrogenic injury of left ureter, s/p repair. Oncology consulted with the diagnosis of obstructing rectal mass/possible malignancy. CEA pre-op ~2 Past Med Surg Social Fam HX - Past Medical History Medical history: cancer, hypertension, other Additional medical history: breast cancer , bilateral lymth nodes removed. Psychiatric history: no psych history - Past Surgical History Additional surgical history: GOITER REMOVED , - Social History Smoking Status: Never smoker Smokeless Tobacco Status: No Alcohol use: none Drug use: none - Family History Father Living Status: Hx Family Cardiac Disorders: Yes (CHF) Medications and Allergies Levothyroxine [Synthroid] 50 mcg PO DAILY 365 Days tablet 07/25/16 [Rx] Simvastatin [Zocor] 20 mg PO HS 365 Days tablet 07/25/16 [Rx] Lisinopril [Zestril] 5 mg PO DAILY 07/26/18 [History] Torsemide [Demadex] 10 mg PO DAILY 07/28/18 [History] Allergy/AdvReac Type Severity Reaction Status Date / Time No Known Allergies Allergy Verified 07/26/18 19:17 Additional comments: denies pain, fatigue Additional comments: NGT bilious material Additional comments: left breast cancer, denies lumps Additional comments: denies chest discomfort or palpitations Additional comments: no cough/sob Additional comments: s/p surgery. denies pain Additional comments: swelling lt upper-cr Additional comments: denies headaches. deafness. Oncology - Exam - Constitutional General appearance: no acute distress - Head Head exam: Present: atraumatic, normal inspection - Eye Eye exam: Present: conjuntiva pink, sclera anicteric - ENT ENT exam: Present: mucous membranes moist Additional comments: NGT+ - Neck Neck exam: Present: full ROM Additional comments: no palpable mass - Respiratory Respiratory exam: Present: CTAB - Cardiovascular Cardiovascular exam: Present: +S1, +S2 - GI/Abdominal GI/Abdominal exam: Present: soft Additional comments: Dressing LAR, non distended - Extremities Exam Additional comments: LUext slight edema - Neurological Exam Neurological exam: Present: alert, oriented X3 Additional comments: no motor deficit, +hearing loss - Psychiatric Psychiatric exam: Present: normal affect Oncology Inpatient Results Ct abd 06/2018 reviewed. Endoscopy findings reviewed Consult Discharge Plan - Plan Referrals: Rashad Bullard MD [Partnered Physician] - Inpatient Charges Provider: Dr. Sp Smith Consult - Inpatient: [id number]
--- NOTE | 2018-07-30 09:18 | Operative Note ---
Date of procedure: 07/30/18 Pre-op diagnosis: Left ureteral injury Post-op diagnosis: same Procedure: Left ureteral reimplantation. Ureteral stent placement Anesthesia: GETA Surgeon: Jayce William Was there an video production assistant present: No Estimated blood loss (cc): 0 (For urology portion of the procedure) Specimen: None Condition: stable Disposition: PACU Procedure in Detail: I was called regarding a possible left ureteral injury during the APR procedure. As I entered the room, the patient was under anesthesia with a vertical midline incision and Bookwalter in place for retraction. I examined the left salvador- abdomen and pelvis. The specimen which which consisted of colon and associated mesentery was still attached to the left ureteral segment. It was evident that the left ureter had been transected by the staple device. Using Metzenbaum scissors I was able to free the specimen from the ureter and preserve significant length. The colon and mesenteric specimen was passed from the field. I examined the ureteral segment and excised approximately 1 cm of length which did contain some of the seun. This was done with Metzenbaum scissors. Clear urine was seen effluxing from the segment. I then attempted to identify the distal segment. Initially, I had some difficulty identifying its location. There was a tubular structure that was identified and dissected but it appeared to be the round ligament. Eventually I was able to identify a small distal segment of ureter. There were seun present further confirming my suspicion. Using the Metzenbaum scissors I did incise the seun and then obtained a 5- Vietnamese ureteral catheter, cannulated the segment and injected a small amount of methylene blue. The blue color was evident within the Lee bag indicating identification of the ureteral segment. I felt that the injury had occurred to distal to perform a primary ureteral anastomosis. I elected to proceed with a left ureteral reimplantation. I placed two 10 mm clips on the distal ureteral segment. The case was then turned back over to Dr. Taylor to complete the bowel anastomosis prior to performing the reimplant. Once the bowel anastomosis was completed. I proceeded with the left ureteral reimplantation. I performed a cystotomy by making a vertical incision near the dome of the bladder. I was able to enter the bladder lumen. Grossly the bladder appeared normal and the Lee catheter was in proper position. I then used a right angle to puncture a small opening in the bladder posterior to my cystotomy. Using the right angle leg graft the proximal ureteral segment and brought this through the small opening. The ureter coursed beneath the descending colon as this was the position seemed to provide the least tension. I placed 3 4-0 Vicryl sutures on the outer aspect of the bladder to the periureteral tissue to help secure the ureteral segment and place. I incised a small segment of the distal ureter to provide a "fresh" edge and then spatulated the ureteral segment using Zepeda scissors. I proceeded to anastomose the edges of the ureteral segment to the bladder mucosa. There is a total of 8 4-0 Monocryl sutures to complete the anastomosis. I then passed a zip wire which was placed without resistance. I could feel the zip wire within the more proximal portion of the ureter. I then threaded a 4.8 x 24 ureteral stent over the zip wire. Once the zip wire was removed and there was significant reflux of urine from the stent. The ureteral anastomosis appeared secure and without tension. I then closed my cystotomy in 3 layers. 4-0 Monocryl was used to close the mucosa and detrusor muscle was closed with a 3-0 Vicryl and then the peritoneal layer with 3-0 Vicryl. I appeared to have a watertight closure. At the end of the procedure I did secure the omentum posterior to my anastomosis to provide separation from the bowel anastomosis. The case was then turned back over to Dr. Taylor.
--- NOTE | 2018-07-30 09:20 | Urology Progress Note ---
Date of Encounter: 07/30/18 Time of Encounter: 09: - Assessment and Plan (1) Left ureteral injury Current Visit: Yes Status: Resolved Assessment and plan: Left ureteral reimplant completed intraoperatively. Patient doing well postop day #1. Urine is clearing. Patient will need catheter left in place for 2 weeks prior to removal. Ureteral stent will need left in place for 4 weeks. We will continue to follow while in the hospital. We will arrange appropriate follow-up after discharge. Do not remove catheter for any reason. Qualifiers: Encounter type: subsequent encounter Qualified Code(s): S37.10XD - Unspecified injury of ureter, subsequent encounter Progress Note Narrative: Patient states she feels okay. Minimal bladder spasms Objective Initial Vital Signs Temp Pulse Resp BP Pulse Ox 98.4 F 109 18 110/57 93 07/26/18 19:17 07/26/18 19:17 07/26/18 19:17 07/26/18 19:17 07/26/18 19:17 - General physical appearance Present: no distress - Additional Exam Urine with only light hematuria. - Labs 07/30/18 06:35 07/30/18 06:35 Diabetes panel 07/30/18 Range/Units 06:35 Sodium 134 L (136-145) mEq/L Potassium 3.9 (3.5-5.1) mEq/L Chloride 107 (98-107) mEq/L Carbon Dioxide 22 L (23-29) mEq/L BUN 15 (8-23) mg/dL Creatinine 0.70 (0.60-1.20) mg/dL Glucose 249 H (70-105) mg/dL Calcium 8.4 L (8.6-10.3) mg/dL Calcium panel 07/30/18 07/30/18 Range/Units 06:35 06:35 Calcium 8.4 L (8.6-10.3) mg/dL Phosphorus 3.4 (2.7-4.5) mg/dL Pituitary panel 07/30/18 Range/Units 06:35 Sodium 134 L (136-145) mEq/L Potassium 3.9 (3.5-5.1) mEq/L Chloride 107 (98-107) mEq/L Carbon Dioxide 22 L (23-29) mEq/L BUN 15 (8-23) mg/dL Creatinine 0.70 (0.60-1.20) mg/dL Glucose 249 H (70-105) mg/dL Calcium 8.4 L (8.6-10.3) mg/dL Adrenal panel 07/30/18 Range/Units 06:35 Sodium 134 L (136-145) mEq/L Potassium 3.9 (3.5-5.1) mEq/L Chloride 107 (98-107) mEq/L Carbon Dioxide 22 L (23-29) mEq/L BUN 15 (8-23) mg/dL Creatinine 0.70 (0.60-1.20) mg/dL Glucose 249 H (70-105) mg/dL Calcium 8.4 L (8.6-10.3) mg/dL Consult Discharge Plan - Plan Referrals: Rashad Bullard MD [Partnered Physician] -
[2018-07-30] MEDS ORDERED: OXYCODONE Oral CONC 10 MG/0.5 ML ORAL.SYG SL PRN (09:21)
[2018-07-30] MEDS: Ketorolac 15 MG/ML VIAL IVP SCH ×3 (11:22→18:05)
[2018-07-30] MEDS: 0.9 % Sodium Chloride 1,000 ML IVC SCH (11:38)
[2018-07-30] MEDS: Levothyroxine Sodium 100 MCG VIAL IVP SCH (11:39)
[2018-07-30] MEDS: Acetaminophen IV 1,000 MG/100 ML INFUS..BTL IVPB SCH ×2 (11:40→18:03)
--- NOTE | 2018-07-30 12:18 | AcuteCareSurgery Progress Note ---
<Cary Alvares - Last Filed: 07/30/18 12:16> Date of Encounter: 07/30/18 Time of Encounter: 08:15 - Assessment and Plan (1) Mass of colon Current Visit: Yes Status: Acute ate of procedure: 07/29/18 Pre-op diagnosis: obstructing rectal mass Post-op diagnosis: same Procedure: open low anterior resection repair of itragenic repair of left ureter - by urology Implants: none Complications: itragenic injury/distal transection of left ureter Anesthesia: GETA Local Anesthetics: 0.5% Sensorcaine HCL SubQ (cc) Surgeon: Giancarlo Taylor POD #1 as above. Pathology is pending. She is recovering as expected for POD1. NG is secure, no bowel sounds, denies n/v, pain is tolerable. Plan: -ABSOLUTELY NOTHING PER RECTUM -DO NOT MANIPULATE ORTIZ CATHETER; DO NOT REMOVE ORTIZ CATHETER -Continue supportive care and discomfort management while awaiting full return of bowel function scheduled Ofirmev, Toradol, and PRN oxycodone for moderate and severe breakthrough pain, antiemetics -Continue G.I. and DVT prophylaxis -Incentive spirometry 10 times every hour while awake -Out of bed to chair TID -Activity as tolerated, PT/OT/SW -Apply ice 20 minutes on 20 minutes off as needed -trend labs -cares per primary team -fully management per urology -trend labs (2) Intussusception Current Visit: Yes Status: Acute SEE ABOVE (3) Left ureteral injury Current Visit: Yes Status: Acute See above. See urology. Do not manipulate or remove Ortiz catheter for any reason. Qualifiers: Encounter type: subsequent encounter Qualified Code(s): S37.10XD - Unspecified injury of ureter, subsequent encounter Subjective Patient reports: no new complaints, still having pain, voiding w/o difficulty (per ortiz), no flatus, no bowel movement, afebrile Objective Vital Signs - Last 8 Hours Temp Pulse Resp BP Pulse Ox 07/30/18 07:00 98 F 104 18 122/76 95 Intake and Output 07/29/18 07/30/18 07/30/18 23:59 07:59 15:59 Intake Total 0 / 120 800 / 800 Output Total 390 / 390 325 / 355 30 / 355 Balance -390 / -270 475 / 445 -30 / 445 Intake: IV Fluids 800 / 800 D5% And 0.45% Nacl 1000 Ml Bag 800 / 800 1,000 ML @ 100 mls/hr IVC .Q10H [facility] Rx#:[id number] Oral 0 / 0 Output: Gastric Tube Lavage Amount 0 / 0 Right Nare 0 / 0 Estimated Blood Loss 100 / 100 Urine Amount (Catheter) 200 / 200 Catheter 250 / 250 Wound Drainage 90 / 90 75 / 105 30 / 105 Left lower quadrant 75 / 105 30 / 105 Other: Weight 67.812 kg Blood Glucose* 240 152 Patient Weight 07/30/18 23:59 Weight 67.812 kg - General physical appearance no distress - ENT normal nares, normal mucosa (NG secured Righ nares), Other (Edentulous) - Neck Neck exam: trachea midline - Respiratory other (Decreased) - Cardiovascular Cardiovascular exam: Present: RRR - Abdomen Abdomen: Present: soft, tender (Expected postoperative), wound (RAJAN site unremarkable). Absent: bowel sounds present - Incision Incision: Present: clean and dry, intact - Integumentary no rash - Neurologic normal sensation - Musculoskeletal normal posture - Psychiatric oriented to time, oriented to person, oriented to place, memory intact - Labs 07/30/18 06:35 07/30/18 06:35 Diabetes panel 07/30/18 Range/Units 06:35 Sodium 134 L (136-145) mEq/L Potassium 3.9 (3.5-5.1) mEq/L Chloride 107 (98-107) mEq/L Carbon Dioxide 22 L (23-29) mEq/L BUN 15 (8-23) mg/dL Creatinine 0.70 (0.60-1.20) mg/dL Glucose 249 H (70-105) mg/dL Calcium 8.4 L (8.6-10.3) mg/dL Calcium panel 07/30/18 07/30/18 Range/Units 06:35 06:35 Calcium 8.4 L (8.6-10.3) mg/dL Phosphorus 3.4 (2.7-4.5) mg/dL Pituitary panel 07/30/18 Range/Units 06:35 Sodium 134 L (136-145) mEq/L Potassium 3.9 (3.5-5.1) mEq/L Chloride 107 (98-107) mEq/L Carbon Dioxide 22 L (23-29) mEq/L BUN 15 (8-23) mg/dL Creatinine 0.70 (0.60-1.20) mg/dL Glucose 249 H (70-105) mg/dL Calcium 8.4 L (8.6-10.3) mg/dL Adrenal panel 07/30/18 Range/Units 06:35 Sodium 134 L (136-145) mEq/L Potassium 3.9 (3.5-5.1) mEq/L Chloride 107 (98-107) mEq/L Carbon Dioxide 22 L (23-29) mEq/L BUN 15 (8-23) mg/dL Creatinine 0.70 (0.60-1.20) mg/dL Glucose 249 H (70-105) mg/dL Calcium 8.4 L (8.6-10.3) mg/dL Consult Discharge Plan - Plan Referrals: Rashad Bullard MD [Partnered Physician] - <Alex Tran - Last Filed: 07/30/18 15:56> Date of Encounter: 07/30/18 - Assessment and Plan (1) Abnormal abdominal CT scan Current Visit: Yes Status: Acute (2) Abdominal pain Current Visit: Yes Status: Acute Qualifiers: Abdominal location: generalized Qualified Code(s): R10.84 - Generalized abdominal pain Objective Vital Signs - Last 8 Hours Temp Pulse Resp BP Pulse Ox 07/30/18 12:05 98 F 110 16 110/68 94 Intake and Output 07/29/18 07/30/18 07/30/18 23:59 07:59 15:59 Intake Total 0 / 120 800 / 800 Output Total 390 / 390 325 / 480 155 / 480 Balance -390 / -270 475 / 320 -155 / 320 Intake: IV Fluids 800 / 800 D5% And 0.45% Nacl 1000 Ml Bag 800 / 800 1,000 ML @ 100 mls/hr IVC .Q10H [facility] Rx#:[id number] Oral 0 / 0 Output: Gastric Tube Lavage Amount 0 / 0 Right Nare 0 / 0 Estimated Blood Loss 100 / 100 Urine Amount (Catheter) 200 / 200 Catheter 250 / 350 100 / 350 Wound Drainage 90 / 90 75 / 130 55 / 130 Left lower quadrant 75 / 130 55 / 130 Other: Weight 67.812 kg Blood Glucose* 240 152 Patient Weight 07/30/18 23:59 Weight 67.812 kg - Labs 07/30/18 06:35 07/30/18 06:35 Diabetes panel 07/30/18 Range/Units 06:35 Sodium 134 L (136-145) mEq/L Potassium 3.9 (3.5-5.1) mEq/L Chloride 107 (98-107) mEq/L Carbon Dioxide 22 L (23-29) mEq/L BUN 15 (8-23) mg/dL Creatinine 0.70 (0.60-1.20) mg/dL Glucose 249 H (70-105) mg/dL Calcium 8.4 L (8.6-10.3) mg/dL Calcium panel 07/30/18 07/30/18 Range/Units 06:35 06:35 Calcium 8.4 L (8.6-10.3) mg/dL Phosphorus 3.4 (2.7-4.5) mg/dL Pituitary panel 07/30/18 Range/Units 06:35 Sodium 134 L (136-145) mEq/L Potassium 3.9 (3.5-5.1) mEq/L Chloride 107 (98-107) mEq/L Carbon Dioxide 22 L (23-29) mEq/L BUN 15 (8-23) mg/dL Creatinine 0.70 (0.60-1.20) mg/dL Glucose 249 H (70-105) mg/dL Calcium 8.4 L (8.6-10.3) mg/dL Adrenal panel 07/30/18 Range/Units 06:35 Sodium 134 L (136-145) mEq/L Potassium 3.9 (3.5-5.1) mEq/L Chloride 107 (98-107) mEq/L Carbon Dioxide 22 L (23-29) mEq/L BUN 15 (8-23) mg/dL Creatinine 0.70 (0.60-1.20) mg/dL Glucose 249 H (70-105) mg/dL Calcium 8.4 L (8.6-10.3) mg/dL - Attending Attestation I examined this patient and my medical decision-making was reviewed with the SAWMILL PRODUCTION WORKER. I agree with the documented findings, disposition and treatment plan as described except to the extent set forth below.
--- NOTE | 2018-07-30 13:51 | Internal Med Progress Note ---
<AdonisRiki R - Last Filed: 07/30/18 15:49> Hospitalist Progress Note - Encounter Date of Encounter: 07/30/18 Time of Encounter: 13:48 - Subjective Interval History: Ms. 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 No acute overnight events. Patient states that her pain is fairly well-controlled from surgery. She does report d ifficulty with her left hand, stating that it "turns over on it's own" and it "comes up and hits me". She does feel that it is improving since earlier this morning. She feels her left hand is weaker than her right at this time. Denies any other acute complaints at this time. - Exam Vitals: Temp Pulse Resp BP Pulse Ox 98 F 104 18 122/76 95 07/30/18 07:00 07/30/18 07:00 07/30/18 07:00 07/30/18 07:00 07/30/18 07:00 Exam: GEN: No acute distress, A&O3, good eye contact, reads lips well HEAD: Atraumatic, normocephalic EYES: Pupils symmetric, sclera white, conjunctiva pink HEART: RRR, normal S1 and S2, no murmurs LUNGS: Clear to auscultation bilaterally, no wheezes, rhonchi, or crackles ABD: Soft, diffuse tenderness, nondistended, RAJAN drain with serosanginous fluid, bandage C/D/I EXT: Mild pedal edema noted, pulses 2/4, some mild left shoulder tenderness NEURO: Weakness of left charcoal unloader strength, decreased sensation of lateral left forearm, no facial drooping, speech clear, cooperative with exam - Assessment and Plan (1) Mass of colon Current Visit: Yes Status: Acute Assessment and Plan: s/p open low anterior resection on 07/29/[address] Taylor NG tube, RAJAN drain, and bandage appear in place Pain control, antiemetics, PT/OT Gen Surg following - appreciate recommendations Oncology consulted - appreciate recommendations (2) Abdominal pain Current Visit: Yes Status: Acute Assessment and Plan: Plan as above (3) Microcytic anemia Current Visit: Yes Status: Acute Assessment and Plan: Hgb stable Likely multifactorial: chronic disease, iron deficiency, and blood loss related to rectal mass Will start iron supplement once able (4) Hypertension Current Visit: Yes Status: Chronic Assessment and Plan: Stable. Continue home lisinopril (5) Hypothyroidism Current Visit: Yes Status: Acute Assessment and Plan: Continue home levothyroxine (6) Hyperlipidemia Current Visit: Yes Status: Acute Assessment and Plan: Continue home simvastatin (7) Left ureteral injury Current Visit: Yes Status: Acute Assessment and Plan: Iatrogenic left ureter injury - repair per urology Do not remove alejandro (8) Left hand weakness Current Visit: Yes Status: Acute Assessment and Plan: Left hand weakness appears to be distal nerve palsy either from compression while laying in bed or during surgery - possibly musculocutaneous (decreased sensation of lateral proximal forearm) or median nerve (weakness in first 3 digits of left hand) Conservative treatment at this time, decrease compression with padding under the left arm No other deficits noted on exam DVT Prophylaxis: Lovenox - Time Spent with Patient Total time spent is greater than 50% in coordination of care (as documented) at patient's floor/unit and/or counseling patient: Internal Medicine: Result - Labs CBC & Chem 7: 07/30/18 06:35 07/30/18 06:35 Labs: Short CBC 07/30/18 Range/Units 06:35 WBC 10.7 D (4.3-11.1) K/mcL Hgb 9.8 L (11.5-15.4) g/dL Hct 32.8 L (35.3-44.9) % Plt Count 318 (140-400) K/mcL Neutrophils # 9.7 H (1.6-8.9) K/mcL BMP 07/30/18 06:35 Sodium 134 L Potassium 3.9 Chloride 107 Carbon Dioxide 22 L BUN 15 Creatinine 0.70 Glucose 249 H Calcium 8.4 L Consult Discharge Plan - Plan Referrals: Rashad Bullard MD [Partnered Physician] - <Aldo Murray - Last Filed: 07/30/18 17:01> Hospitalist Progress Note - Encounter Date of Encounter: 07/30/18 - Assessment and Plan (1) Mass of colon Current Visit: Yes Status: Acute (2) Left ureteral injury Current Visit: Yes Status: Acute (3) Left hand weakness Current Visit: Yes Status: Acute Internal Medicine: Result - Labs CBC & Chem 7: 07/30/18 06:35 07/30/18 06:35 - Attending Attestation Patient seen and examined independently, including review of objective data including labs. I agree with plan of care as documented above by the resident with the following comments: Underwent open low anterior resection of rectal mass with repair of transected L ureter. Alejandro in place not to be removed/manipulated. NG in place, tolerated. RAJAN drain present. Pt says she tolerated procedure well and has only minimal abdominal pain. Pt wearing SCDs and enjoys the "massage". Does have LUE paresthesia and palsy, difficult to assess but appears possibly to be radial nerve palsy with wrist drop, difficulty extending elbow, and scattered numbness; is starting to get sensation and movement back and is able to oppose thumb; possibly from positioning of arm either during surgery or lying overnight in bed; will pad the arm at shoulder and elbow to offload pressure. Appreciate [facility] co-management. <Riki Lamb - Last Filed: 07/30/18 15:49> (2) Abdominal pain Qualifiers: Abdominal location: generalized Qualified Code(s): R10.84 - Generalized abdominal pain (4) Hypertension Qualifiers: Hypertension type: essential hypertension Qualified Code(s): I10 - Essential (primary) hypertension (5) Hypothyroidism Qualifiers: Hypothyroidism type: unspecified Qualified Code(s): E03.9 - Hypothyroidism, unspecified (6) Hyperlipidemia Qualifiers: Hyperlipidemia type: unspecified Qualified Code(s): E78.5 - Hyperlipidemia, unspecified (7) Left ureteral injury Qualifiers: Encounter type: subsequent encounter Qualified Code(s): S37.10XD - Unspecified injury of ureter, subsequent encounter <Aldo Murray - Last Filed: 07/30/18 17:01> (2) Left ureteral injury Qualifiers: Encounter type: subsequent encounter Qualified Code(s): S37.10XD - Unspecified injury of ureter, subsequent encounter
[2018-07-31] MEDS: Ketorolac 15 MG/ML VIAL IVP SCH ×4 (00:02→18:26)
[2018-07-31] MEDS: Acetaminophen IV 1,000 MG/100 ML INFUS..BTL IVPB SCH ×4 (00:03→18:27)
[2018-07-31] MEDS: OXYCODONE Oral CONC 10 MG/0.5 ML ORAL.SYG SL PRN ×2 (00:04→21:04)
[2018-07-31] MEDS: 0.9 % Sodium Chloride 1,000 ML IVC SCH (00:05)
[2018-07-31] MEDS: *HR* Enoxaparin 40 MG/0.4 ML SYRINGE SQ SCH (05:49)
[2018-07-31 06:40] LABS: Hematocrit 28.9 % (35.3-44.9); Hemoglobin 8.8 g/dL (11.5-15.4); Immature Granulocytes % 0.6 % (0-4); Lymphocytes # 0.6 K/mcL (0.6-4.6); Lymphocytes % 6.9 %; Mean Corpuscular HGB Conc 30.4 g/dL (31.6-35.5); Mean Corpuscular Hemoglobin 24.4 pg (28.0-33.3); Mean Corpuscular Volume 80.1 fL (83.0-100.0); Mean Platelet Volume 8.6 fL (9.4-12.4); Monocytes # 0.8 K/mcL (0.0-1.3); Monocytes % 9.2 %; Neutrophils # 7.6 K/mcL (1.6-8.9); Platelet Count 340 K/mcL (140-400); Red Blood Count 3.61 M/mcL (3.82-4.97); Red Cell Distribution Width 16.6 % (11.5-14.5); Segmented Neutrophils % 83.3 %; White Blood Count 9.1 K/mcL (4.3-11.1)
[2018-07-31 06:53] LABS: BUN/Creatinine Ratio 29 (6-26); Blood Urea Nitrogen 28 mg/dL (8-23); Calcium 8.5 mg/dL (8.6-10.3); Carbon Dioxide 25 mEq/L (23-29); Chloride 109 mEq/L (98-107); Glucose 122 mg/dL (70-105); Osmolality,Calculated 295 (280-300); Potassium 4.5 mEq/L (3.5-5.1); Sodium 139 mEq/L (136-145); eGFR For African Americans > 60 (> 60); eGFR For Non-African Americans 55 (> 60)
--- NOTE | 2018-07-31 07:57 | Urology Progress Note ---
Date of Encounter: 07/31/18 Time of Encounter: 07:56 - Assessment and Plan (1) Left ureteral injury Current Visit: Yes Status: Acute Assessment and plan: No issues postoperatively. Urine is clearing. No excessive drain output. Qualifiers: Encounter type: subsequent encounter Qualified Code(s): S37.10XD - Unspecified injury of ureter, subsequent encounter Progress Note Narrative: Postoperative day #2 status post left ureteral reimplantation. No acute issues. No issues with Lee catheter Objective Initial Vital Signs Temp Pulse Resp BP Pulse Ox 98.4 F 109 18 110/57 93 07/26/18 19:17 07/26/18 19:17 07/26/18 19:17 07/26/18 19:17 07/26/18 19:17 - General physical appearance Present: no distress - Additional Exam Lee catheter in place draining dusky transparent urine - Labs 07/31/18 06:15 07/31/18 06:15 Diabetes panel 07/31/18 Range/Units 06:15 Sodium 139 (136-145) mEq/L Potassium 4.5 (3.5-5.1) mEq/L Chloride 109 H (98-107) mEq/L Carbon Dioxide 25 (23-29) mEq/L BUN 28 H (8-23) mg/dL Creatinine 0.97 (0.60-1.20) mg/dL Glucose 122 H (70-105) mg/dL Calcium 8.5 L (8.6-10.3) mg/dL Calcium panel 07/31/18 Range/Units 06:15 Calcium 8.5 L (8.6-10.3) mg/dL Pituitary panel 07/31/18 Range/Units 06:15 Sodium 139 (136-145) mEq/L Potassium 4.5 (3.5-5.1) mEq/L Chloride 109 H (98-107) mEq/L Carbon Dioxide 25 (23-29) mEq/L BUN 28 H (8-23) mg/dL Creatinine 0.97 (0.60-1.20) mg/dL Glucose 122 H (70-105) mg/dL Calcium 8.5 L (8.6-10.3) mg/dL Adrenal panel 07/31/18 Range/Units 06:15 Sodium 139 (136-145) mEq/L Potassium 4.5 (3.5-5.1) mEq/L Chloride 109 H (98-107) mEq/L Carbon Dioxide 25 (23-29) mEq/L BUN 28 H (8-23) mg/dL Creatinine 0.97 (0.60-1.20) mg/dL Glucose 122 H (70-105) mg/dL Calcium 8.5 L (8.6-10.3) mg/dL Consult Discharge Plan - Plan Referrals: Rashad Bullard MD [Partnered Physician] -
[2018-07-31] MEDS: Levothyroxine Sodium 100 MCG VIAL IVP SCH (08:59)
--- NOTE | 2018-07-31 11:06 | Internal Med Progress Note ---
<AdonisRiki R - Last Filed: 07/31/18 11:04> Hospitalist Progress Note - Encounter Date of Encounter: 07/31/18 Time of Encounter: 11:04 - Subjective Interval History: Ms. 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 She is sitting upright in a chair. No acute overnight events. Patient states that her pain is fairly well-controlled from surgery. Reports her left hand is improving and she can move it more. Denies other acute complaints. - Exam Vitals: Temp Pulse Resp BP Pulse Ox 97.9 F 101 17 137/72 97 07/31/18 10:18 07/31/18 10:18 07/31/18 10:18 07/31/18 10:18 07/31/18 10:18 Exam: GEN: No acute distress, alert and oriented, good eye contact, reads lips well HEAD: Atraumatic, normocephalic EYES: Pupils symmetric, sclera white, conjunctiva pink HEART: RRR, normal S1 and S2, no murmurs LUNGS: Clear to auscultation bilaterally, no wheezes, rhonchi, or crackles ABD: Soft, diffuse tenderness, nondistended, RAJAN drain with serosanginous fluid, bandage C/D/I : alejandro with dark urine EXT: Mild pedal edema noted, pulses 2/4 NEURO: Weakness of left concrete sculptor strength (improving), decreased sensation of lateral left forearm, no facial drooping, speech clear, cooperative with exam - Assessment and Plan (1) Mass of colon Current Visit: Yes Status: Acute Assessment and Plan: s/p open low anterior resection on 07/29/[address] Taylor NG tube, RAJAN drain, and bandage appear in place Pain control, antiemetics, PT/OT Gen Surg following - appreciate recommendations Oncology consulted - appreciate recommendations (2) Left ureteral injury Current Visit: Yes Status: Acute Assessment and Plan: Iatrogenic left ureter injury - repair per urology Do not remove alejandro (3) Hypertension Current Visit: Yes Status: Chronic Assessment and Plan: Stable. Continue home lisinopril (4) Hyperlipidemia Current Visit: Yes Status: Acute Assessment and Plan: Continue home simvastatin (5) Hypothyroidism Current Visit: Yes Status: Acute Assessment and Plan: Continue home levothyroxine (6) Left hand weakness Current Visit: Yes Status: Acute Assessment and Plan: Left hand weakness appears to be distal nerve palsy either from compression while laying in bed or during surgery. Showing improvement. - possibly musculocutaneous (decreased sensation of lateral proximal forearm) or median nerve (weakness in first 3 digits of left hand) Conservative treatment at this time, decrease compression with padding under the left arm No other deficits noted on exam DVT Prophylaxis: Lovenox - Time Spent with Patient Total time spent is greater than 50% in coordination of care (as documented) at patient's floor/unit and/or counseling patient: Internal Medicine: Result - Labs CBC & Chem 7: 07/31/18 06:15 07/31/18 06:15 Labs: Short CBC 07/31/18 Range/Units 06:15 WBC 9.1 (4.3-11.1) K/mcL Hgb 8.8 L (11.5-15.4) g/dL Hct 28.9 L (35.3-44.9) % Plt Count 340 (140-400) K/mcL Neutrophils # 7.6 (1.6-8.9) K/mcL BMP 07/31/18 06:15 Sodium 139 Potassium 4.5 Chloride 109 H Carbon Dioxide 25 BUN 28 H Creatinine 0.97 Glucose 122 H Calcium 8.5 L Consult Discharge Plan - Plan Referrals: Rashad Bullard MD [Partnered Physician] - <Aldo Murray - Last Filed: 07/31/18 12:13> Hospitalist Progress Note - Encounter Date of Encounter: 07/31/18 - Exam Vitals: Temp Pulse Resp BP Pulse Ox 97.9 F 101 17 137/72 97 07/31/18 10:18 07/31/18 10:18 07/31/18 10:18 07/31/18 10:18 07/31/18 10:18 - Assessment and Plan (1) Mass of colon Current Visit: Yes Status: Acute (2) Left ureteral injury Current Visit: Yes Status: Acute (3) Left hand weakness Current Visit: Yes Status: Acute Internal Medicine: Result - Labs CBC & Chem 7: 07/31/18 06:15 07/31/18 06:15 - Attending Attestation Patient seen and examined independently, including review of objective data including labs. I agree with plan of care as documented above by the resident with the following comments: Doing relatively well, seen sitting in bedside chair today, reports improved post-op pain and wants to drink liquids today, and that her LUE sensation and motor function is gradually returning. CBC/BMP today unremarkable, stable mild anemia noted as well as some hyperchloremia for which we'll change from NS to LR. Management of diet, NG, and RAJAN per GenSurg. Management of Alejandro per Urology. PT/OT consulted. <Riki Lamb R - Last Filed: 07/31/18 11:04> (2) Left ureteral injury Qualifiers: Encounter type: subsequent encounter Qualified Code(s): S37.10XD - Unspecified injury of ureter, subsequent encounter (3) Hypertension Qualifiers: Hypertension type: essential hypertension Qualified Code(s): I10 - Essential (primary) hypertension (4) Hyperlipidemia Qualifiers: Hyperlipidemia type: unspecified Qualified Code(s): E78.5 - Hyperlipidemia, unspecified (5) Hypothyroidism Qualifiers: Hypothyroidism type: unspecified Qualified Code(s): E03.9 - Hypothyroidism, unspecified <Aldo Murray G - Last Filed: 07/31/18 12:13> (2) Left ureteral injury Qualifiers: Encounter type: subsequent encounter Qualified Code(s): S37.10XD - Unspecified injury of ureter, subsequent encounter
[2018-07-31] MEDS: Ringers Solution, Lactated 1,000 ML IVC SCH (15:51)
[2018-07-31] MEDS: Ondansetron 4 MG/2 ML VIAL IVP PRN (18:30)
--- NOTE | 2018-07-31 20:11 | AcuteCareSurgery Progress Note ---
Date of Encounter: 07/31/18 Time of Encounter: 08:00 - Assessment and Plan (1) Rectosigmoid cancer Current Visit: Yes Status: Acute POD#2 LAR withe repair ureter. Maintain NGT until increased bowel activity and no nausea. Increase activity. Subjective Patient reports: no new complaints, feels better, still having pain, pain is less, no flatus, no bowel movement (POD#2 LAR with ureter repair by reimplantation over stent, Pt c/o RUE loss of control and weakness and stinging pain in RLE.), nausea Objective Vital Signs - Last 8 Hours Temp Pulse Resp BP Pulse Ox 07/31/18 19:19 97.6 F 107 16 129/78 94 07/31/18 16:12 98.0 F 102 15 108/63 91 Intake and Output 07/31/18 07/31/18 07/31/18 07:59 15:59 23:59 Intake Total 1200 / 1200 0 / 1200 0 / 1200 Output Total 620 / 1620 450 / 1620 550 / 1620 Balance 580 / -420 -450 / -420 -550 / -420 Intake: IV Fluids 1200 / 1200 0 / 1200 0.9 % Sodium Chloride 1,000 ML 1000 / 1000 @ 75 mls/hr IVC .[id number] [facility] Rx #:[id number] Ofirmev 1,000 mg/100 ml 1,000 200 / 200 0 / 200 mg In 100 ml @ 400 mls/hr IVPB Q6HR [facility] Rx#:[id number] Oral 0 / 0 0 / 0 Output: Urine 0 / 0 Gastric Tube Lavage Amount 350 / 350 Right Nare 350 / 350 Catheter 100 / 400 300 / 400 0 / 400 Urethral (Lee) 100 / 100 Gastric Drainage 150 / 850 150 / 850 550 / 850 Wound Drainage 20 / 20 0 / 20 0 / 20 Left lower quadrant 20 / 20 0 / 20 0 / 20 Other: Meal NPO NPO Percent of Meal Consumed 0% Blood Glucose* 139 113 95 - General physical appearance no distress, moderate pain - Eyes PERRL, normal ocular movement - ENT no congestion, dry mucosa - Neck Neck exam: trachea midline, no lymphadectomy, no venous distension - Respiratory normal respiratory effort, clear to auscultation - Cardiovascular Cardiovascular exam: Present: RRR. Absent: murmurs, JVD - Abdomen Abdomen: Present: soft, tender. Absent: bowel sounds present - Incision Incision: Present: clean and dry, intact - Integumentary no rash - Neurologic CN 2-12 grossly intact, normal coordination - Musculoskeletal normal posture - Psychiatric oriented to time, oriented to person, oriented to place - Labs 07/31/18 06:15 07/31/18 06:15 Diabetes panel 07/31/18 Range/Units 06:15 Sodium 139 (136-145) mEq/L Potassium 4.5 (3.5-5.1) mEq/L Chloride 109 H (98-107) mEq/L Carbon Dioxide 25 (23-29) mEq/L BUN 28 H (8-23) mg/dL Creatinine 0.97 (0.60-1.20) mg/dL Glucose 122 H (70-105) mg/dL Calcium 8.5 L (8.6-10.3) mg/dL Calcium panel 07/31/18 Range/Units 06:15 Calcium 8.5 L (8.6-10.3) mg/dL Pituitary panel 07/31/18 Range/Units 06:15 Sodium 139 (136-145) mEq/L Potassium 4.5 (3.5-5.1) mEq/L Chloride 109 H (98-107) mEq/L Carbon Dioxide 25 (23-29) mEq/L BUN 28 H (8-23) mg/dL Creatinine 0.97 (0.60-1.20) mg/dL Glucose 122 H (70-105) mg/dL Calcium 8.5 L (8.6-10.3) mg/dL Adrenal panel 07/31/18 Range/Units 06:15 Sodium 139 (136-145) mEq/L Potassium 4.5 (3.5-5.1) mEq/L Chloride 109 H (98-107) mEq/L Carbon Dioxide 25 (23-29) mEq/L BUN 28 H (8-23) mg/dL Creatinine 0.97 (0.60-1.20) mg/dL Glucose 122 H (70-105) mg/dL Calcium 8.5 L (8.6-10.3) mg/dL Consult Discharge Plan - Plan Referrals: Rashad Bullard MD [Partnered Physician] -
[2018-08-01] MEDS: Acetaminophen IV 1,000 MG/100 ML INFUS..BTL IVPB SCH ×4 (00:14→17:57)
[2018-08-01] MEDS: Ketorolac 15 MG/ML VIAL IVP SCH ×4 (00:14→17:58)
[2018-08-01 02:32] LABS: Hematocrit 25.1 % (35.3-44.9); Hemoglobin 7.7 g/dL (11.5-15.4); Mean Corpuscular HGB Conc 30.7 g/dL (31.6-35.5); Mean Corpuscular Hemoglobin 24.8 pg (28.0-33.3); Mean Platelet Volume 8.3 fL (9.4-12.4); Platelet Count 305 K/mcL (140-400); Red Cell Distribution Width 16.9 % (11.5-14.5); White Blood Count 7.1 K/mcL (4.3-11.1)
[2018-08-01 02:50] LABS: BUN/Creatinine Ratio 45 (6-26); Blood Urea Nitrogen 35 mg/dL (8-23); Calcium 8.5 mg/dL (8.6-10.3); Carbon Dioxide 29 mEq/L (23-29); Chloride 107 mEq/L (98-107); Glucose 104 mg/dL (70-105); Magnesium 2.2 mg/dL (1.6-2.6); Osmolality,Calculated 302 (280-300); Potassium 3.7 mEq/L (3.5-5.1); Sodium 142 mEq/L (136-145); eGFR For African Americans > 60 (> 60); eGFR For Non-African Americans > 60 (> 60)
[2018-08-01] MEDS: *HR* Enoxaparin 40 MG/0.4 ML SYRINGE SQ SCH (05:19)
[2018-08-01] MEDS: Ringers Solution, Lactated 1,000 ML IVC SCH (05:48)
[2018-08-01] MEDS: Ondansetron 4 MG/2 ML VIAL IVP PRN (05:49)
--- NOTE | 2018-08-01 08:26 | Internal Med Progress Note ---
Hospitalist Progress Note - Encounter Date of Encounter: 08/01/18 Time of Encounter: 08:26 - Subjective Interval History: Pt still not passing flatus, NG still in place. Hands and legs are getting swollen. Her left hand and arm are much more functional today. Pt is concerned that she is not feeling all that well. - Exam Vitals: Temp Pulse Resp BP Pulse Ox 98.0 F 98 17 144/85 92 08/01/18 06:47 08/01/18 06:47 08/01/18 06:47 08/01/18 06:47 08/01/18 06:47 Exam: General: NAD, good eye contact, relatively well appearing, elderly, deaf but reads lips well Thoracic: Normal breath sounds b/l, no wheezing or crackles Cardio: Normal S1 and S2, regular rate and rhythm Abdomen: Soft, nondistended. Is mildly tender lower abd. Bandage in place. RAJAN drain L abd w small serosanguinous drainage Extremities: Warm, well perfused. DP pulses 2+ b/l. Does have distal LUE edema and mild edema b/l legs Neuro: Awake, fully oriented. Speech fluent - Summary of Assessment and Plan Summary of Assessment and Plan: Nicole Gunn is an 83 F w hx HTN, HLD, hypothyroidism, remote breast cancer, who p/w abd pain, CT showing rectal intussusception, admitted for concern for obstruction or mass. Follow up colonoscopy revealed rectal mass now s/p low anterior resection and iatrogenic ureter repair on 07/29. Rectal mass: s/p LAR 07/[address] Taylor, still not passing flatus - SurgPath pending - GenSurg following, NG management and diet - Oncology following, follow up pathology/immunology - pain control prn with oxycodone, tylenol - PT/OT consulted L ureteral iatrogenic resection and repair: Lee in place until outpatient Uro follow up LUE weakness and neuropathy: improving, pt has much better control of LUE today. Continue offloading pressure w padding under elbow Acute blood loss anemia: transfuse 1u prbc today HTN: home lisinopril 5 when able to PO HLD: home zocor 20 when able to PO Hypothyroidism: home synthroid when able to PO, currently synthroid 25 IV PPx: lovenox FEN: NPO, MIVF LR@75 Lines: PIV, NG, RAJAN, Lee Consults: GenSurg, Uro, Onc Code: Full Dispo: patient requires inpatient eval and management at this time. Anticipate 3-4 days. Will likely need SNF, to assist Internal Medicine: Result - Labs CBC & Chem 7: 08/01/18 02:16 08/01/18 02:16 Labs: Short CBC 08/01/18 Range/Units 02:16 WBC 7.1 (4.3-11.1) K/mcL Hgb 7.7 L (11.5-15.4) g/dL Hct 25.1 L (35.3-44.9) % Plt Count 305 (140-400) K/mcL BMP 08/01/18 02:16 Sodium 142 Potassium 3.7 Chloride 107 Carbon Dioxide 29 BUN 35 H Creatinine 0.78 Glucose 104 Calcium 8.5 L Consult Discharge Plan - Plan Referrals: Rashad Bullard MD [Partnered Physician] -
--- NOTE | 2018-08-01 08:28 | AcuteCareSurgery Progress Note ---
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 * vitals 98F, pul 98, BP 144/85 , sat 92% Labs : White cell count 7.1, hemoglobin 7.7, hematocrit 25.1 Plan : Continue IV fluid, NG tube * Watch for s/s nausea and vomiting, daily output, wound drainage, * Continue G.I. and DVT prophylaxis * out of bed to chair TID * Activity as tolerated, PT/OT/SW * trend labs * cares per primary team * fully management per urology (2) Abdominal pain Current Visit: Yes Status: Acute * The patient was admitted for abdominal pain for long time and getting more severe in last couple of days * POD#3 LAR with left repair ureter * patient gradually feeling better Qualifiers: Abdominal location: generalized Qualified Code(s): R10.84 - Generalized abdominal pain (3) Left ureteral injury Current Visit: Yes Status: Acute * today is 3 days status post left ureteral reimplantation procedure, urology team on board * Patient is aware she will likely require indwelling Lee catheter for extended period of time, up to 4 weeks ( urology recommendation) Qualifiers: Encounter type: subsequent encounter Qualified Code(s): S37.10XD - Unspecified injury of ureter, subsequent encounter Subjective Patient reports: no new complaints, feels better, pain is less, afebrile Narrative: Today's 3rd POD after LAR with repair of urethra , patient is gradually getting better after surgery, vital signs stable: Temperature 90.8 Fahrenheit, pulse 98 4 minute, blood pressure 144/85, saturation 92%. Abdomen pain is present but less . labs are within normal limit ( white cell count 7.1, hemoglobin 7.7, hematocrit 25.1 ).She has complaining swelling over her left hand , we planned to consult occupational therapist . Objective Vital Signs - Last 8 Hours Temp Pulse Resp BP Pulse Ox 08/01/18 06:47 98.0 F 98 17 144/85 92 08/01/18 04:55 98.1 F 110 15 150/76 89 Intake and Output 07/31/18 08/01/18 08/01/18 23:59 07:59 15:59 Intake Total 200 / 1400 1100 / 1100 Output Total 750 / 1840 705 / 705 Balance -550 / -440 395 / 395 Intake: IV Fluids 100 / 1300 1100 / 1100 Lactated Ringers 1,000 ML @ 75 1000 / 1000 mls/hr IVC .[id number] [facility] Rx#: [id number] Ofirmev 1,000 mg/100 ml 1,000 100 / 300 100 / 100 mg In 100 ml @ 400 mls/hr IVPB Q6HR [facility] Rx#:[id number] Oral 100 / 100 Output: Gastric Tube Lavage Amount 200 / 550 400 / 400 Right Nare 200 / 550 400 / 400 Catheter 0 / 400 75 / 75 Gastric Drainage 550 / 850 200 / 200 Wound Drainage 0 / 40 30 / 30 Left lower quadrant 0 / 40 30 / 30 Other: Meal NPO Percent of Meal Consumed 0% Blood Glucose* 95 117 - General physical appearance no distress, moderate pain - Eyes PERRL, normal ocular movement - ENT normal nares, normal mucosa, no congestion - Neck Neck exam: trachea midline, no lymphadectomy, no venous distension - Respiratory normal expansion, normal respiratory effort - Cardiovascular Cardiovascular exam: Present: RRR, regular rhythm, no murmurs/rubs/gallops - Abdomen Abdomen: Present: bowel sounds present, soft, distended, tender Hernia: none - Incision Incision: Present: clean and dry, intact - Integumentary no rash - Neurologic CN 2-12 grossly intact, normal coordination, normal sensation - Psychiatric oriented to time, oriented to person, speech is normal - Labs 08/01/18 02:16 08/01/18 02:16 Diabetes panel 08/01/18 Range/Units 02:16 Sodium 142 (136-145) mEq/L Potassium 3.7 (3.5-5.1) mEq/L Chloride 107 (98-107) mEq/L Carbon Dioxide 29 (23-29) mEq/L BUN 35 H (8-23) mg/dL Creatinine 0.78 (0.60-1.20) mg/dL Glucose 104 (70-105) mg/dL Calcium 8.5 L (8.6-10.3) mg/dL Calcium panel 08/01/18 Range/Units 02:16 Calcium 8.5 L (8.6-10.3) mg/dL Pituitary panel 08/01/18 Range/Units 02:16 Sodium 142 (136-145) mEq/L Potassium 3.7 (3.5-5.1) mEq/L Chloride 107 (98-107) mEq/L Carbon Dioxide 29 (23-29) mEq/L BUN 35 H (8-23) mg/dL Creatinine 0.78 (0.60-1.20) mg/dL Glucose 104 (70-105) mg/dL Calcium 8.5 L (8.6-10.3) mg/dL Adrenal panel 08/01/18 Range/Units 02:16 Sodium 142 (136-145) mEq/L Potassium 3.7 (3.5-5.1) mEq/L Chloride 107 (98-107) mEq/L Carbon Dioxide 29 (23-29) mEq/L BUN 35 H (8-23) mg/dL Creatinine 0.78 (0.60-1.20) mg/dL Glucose 104 (70-105) mg/dL Calcium 8.5 L (8.6-10.3) mg/dL Consult Discharge Plan - Plan Referrals: Rashad Bullard MD [Partnered Physician] - <Rashad Leal T - Last Filed: 08/01/18 12:37> Date of Encounter: 08/01/18 Objective Vital Signs - Last 8 Hours Temp Pulse Resp BP Pulse Ox 08/01/18 10:08 97.7 F 102 17 146/76 92 08/01/18 06:47 98.0 F 98 17 144/85 92 08/01/18 04:55 98.1 F 110 15 150/76 89 Intake and Output 07/31/18 08/01/18 08/01/18 23:59 07:59 15:59 Intake Total 200 / 1400 1100 / 1100 Output Total 750 / 1840 705 / 935 230 / 935 Balance -550 / -440 395 / 165 -230 / 165 Intake: IV Fluids 100 / 1300 1100 / 1100 Lactated Ringers 1,000 ML @ 75 1000 / 1000 mls/hr IVC .[id number] [facility] Rx#: [id number] Ofirmev 1,000 mg/100 ml 1,000 100 / 300 100 / 100 mg In 100 ml @ 400 mls/hr IVPB Q6HR [facility] Rx#:[id number] Oral 100 / 100 Output: Gastric Tube Lavage Amount 200 / 550 400 / 400 Right Nare 200 / 550 400 / 400 Catheter 0 / 400 75 / 125 50 / 125 Gastric Drainage 550 / 850 200 / 350 150 / 350 Wound Drainage 0 / 40 30 / 60 30 / 60 Left lower quadrant 0 / 40 30 / 60 30 / 60 Other: Meal NPO Percent of Meal Consumed 0% Stool Size Small Stool Consistency loose liquid Stool Color Brown # Bowel Movements 1 Blood Glucose* 95 117 102 - Labs 08/01/18 02:16 08/01/18 02:16 Diabetes panel 08/01/18 Range/Units 02:16 Sodium 142 (136-145) mEq/L Potassium 3.7 (3.5-5.1) mEq/L Chloride 107 (98-107) mEq/L Carbon Dioxide 29 (23-29) mEq/L BUN 35 H (8-23) mg/dL Creatinine 0.78 (0.60-1.20) mg/dL Glucose 104 (70-105) mg/dL Calcium 8.5 L (8.6-10.3) mg/dL Calcium panel 08/01/18 Range/Units 02:16 Calcium 8.5 L (8.6-10.3) mg/dL Pituitary panel 08/01/18 Range/Units 02:16 Sodium 142 (136-145) mEq/L Potassium 3.7 (3.5-5.1) mEq/L Chloride 107 (98-107) mEq/L Carbon Dioxide 29 (23-29) mEq/L BUN 35 H (8-23) mg/dL Creatinine 0.78 (0.60-1.20) mg/dL Glucose 104 (70-105) mg/dL Calcium 8.5 L (8.6-10.3) mg/dL Adrenal panel 08/01/18 Range/Units 02:16 Sodium 142 (136-145) mEq/L Potassium 3.7 (3.5-5.1) mEq/L Chloride 107 (98-107) mEq/L Carbon Dioxide 29 (23-29) mEq/L BUN 35 H (8-23) mg/dL Creatinine 0.78 (0.60-1.20) mg/dL Glucose 104 (70-105) mg/dL Calcium 8.5 L (8.6-10.3) mg/dL - Attending Attestation I examined this patient and my medical decision-making was reviewed with the Resident Physician. I agree with the documented findings, disposition and treatment plan as described except to the extent set forth below. The patient is seen and evaluated on morning rounds with the acute care surgery team. Bowel sounds are still silent. Continue nasogastric tube drainage. She had reconstruction of the left ureter over a double-J stent. Maintain urinary catheter. Management of the catheter per urology. Rashad Leal MD FACS
--- NOTE | 2018-08-01 08:36 | Urology Progress Note ---
<Jada Gomez N - Last Filed: 08/01/18 08:31> Date of Encounter: 08/01/18 Time of Encounter: 07:45 - Assessment and Plan (1) Left ureteral injury Current Visit: Yes Status: Acute Assessment and plan: Patient is an 83-year-old female who presents 3 days status post left ureteral reimplantation procedure. Lee catheter is indwelling and draining sufficiently. No new urologic concerns. Patient is aware she will likely require indwelling Lee catheter for extended period of time, up to 4 weeks. Patient is concerned as she does not have any caretaking at home. director of home health services have been consulted by primary team. Qualifiers: Encounter type: subsequent encounter Qualified Code(s): S37.10XD - Unspecified injury of ureter, subsequent encounter Progress Note Subjective: no new complaints Narrative: POD #3. Patient seen and examined sitting upright in chair. Patient reports pa in is well-controlled. Lee catheter indwelling and draining cloudy, pink lemonade urine into bedside bag. Objective Initial Vital Signs Temp Pulse Resp BP Pulse Ox 98.4 F 109 18 110/57 93 07/26/18 19:17 07/26/18 19:17 07/26/18 19:17 07/26/18 19:17 07/26/18 19:17 - General physical appearance Present: no distress, no pain - Respiratory Present: normal expansion, normal respiratory effort - Abdomen Present: wound (Primary dressings clean, dry, intact) - Genitourinary Urine Appearance: Present: Cloudy, Hematuria - Integumentary Present: no rash, no abnormal pigmentation - Musculoskeletal Present: normal posture - Psychiatric Present: oriented to time, oriented to person, oriented to place, speech is normal, memory intact - Labs 08/01/18 02:16 08/01/18 02:16 Diabetes panel 08/01/18 Range/Units 02:16 Sodium 142 (136-145) mEq/L Potassium 3.7 (3.5-5.1) mEq/L Chloride 107 (98-107) mEq/L Carbon Dioxide 29 (23-29) mEq/L BUN 35 H (8-23) mg/dL Creatinine 0.78 (0.60-1.20) mg/dL Glucose 104 (70-105) mg/dL Calcium 8.5 L (8.6-10.3) mg/dL Calcium panel 08/01/18 Range/Units 02:16 Calcium 8.5 L (8.6-10.3) mg/dL Pituitary panel 08/01/18 Range/Units 02:16 Sodium 142 (136-145) mEq/L Potassium 3.7 (3.5-5.1) mEq/L Chloride 107 (98-107) mEq/L Carbon Dioxide 29 (23-29) mEq/L BUN 35 H (8-23) mg/dL Creatinine 0.78 (0.60-1.20) mg/dL Glucose 104 (70-105) mg/dL Calcium 8.5 L (8.6-10.3) mg/dL Adrenal panel 08/01/18 Range/Units 02:16 Sodium 142 (136-145) mEq/L Potassium 3.7 (3.5-5.1) mEq/L Chloride 107 (98-107) mEq/L Carbon Dioxide 29 (23-29) mEq/L BUN 35 H (8-23) mg/dL Creatinine 0.78 (0.60-1.20) mg/dL Glucose 104 (70-105) mg/dL Calcium 8.5 L (8.6-10.3) mg/dL Consult Discharge Plan - Plan Referrals: Rashad Bullard MD [Partnered Physician] - <Jayce William - Last Filed: 08/02/18 06:46> Date of Encounter: 08/02/18 - Assessment and Plan (1) Left ureteral injury Current Visit: Yes Status: Acute Assessment and plan: Patient seen and examined in conjunction with physician music assistant. Lee catheter can actually be removed in 10-14 days after negative cystogram. Ureteral stent will need to be left in place for weeks Qualifiers: Encounter type: subsequent encounter Qualified Code(s): S37.10XD - Unspecified injury of ureter, subsequent encounter Objective Initial Vital Signs Temp Pulse Resp BP Pulse Ox 98.4 F 109 18 110/57 93 07/26/18 19:17 07/26/18 19:17 07/26/18 19:17 07/26/18 19:17 07/26/18 19:17 - Labs 08/02/18 04:47 08/02/18 04:47 Diabetes panel 08/02/18 Range/Units 04:47 Sodium 145 (136-145) mEq/L Potassium 3.6 (3.5-5.1) mEq/L Chloride 106 (98-107) mEq/L Carbon Dioxide 32 H (23-29) mEq/L BUN 35 H (8-23) mg/dL Creatinine 0.64 (0.60-1.20) mg/dL Glucose 111 H (70-105) mg/dL Calcium 8.6 (8.6-10.3) mg/dL Calcium panel 08/02/18 Range/Units 04:47 Calcium 8.6 (8.6-10.3) mg/dL Pituitary panel 08/02/18 Range/Units 04:47 Sodium 145 (136-145) mEq/L Potassium 3.6 (3.5-5.1) mEq/L Chloride 106 (98-107) mEq/L Carbon Dioxide 32 H (23-29) mEq/L BUN 35 H (8-23) mg/dL Creatinine 0.64 (0.60-1.20) mg/dL Glucose 111 H (70-105) mg/dL Calcium 8.6 (8.6-10.3) mg/dL Adrenal panel 08/02/18 Range/Units 04:47 Sodium 145 (136-145) mEq/L Potassium 3.6 (3.5-5.1) mEq/L Chloride 106 (98-107) mEq/L Carbon Dioxide 32 H (23-29) mEq/L BUN 35 H (8-23) mg/dL Creatinine 0.64 (0.60-1.20) mg/dL Glucose 111 H (70-105) mg/dL Calcium 8.6 (8.6-10.3) mg/dL
[2018-08-01] MEDS: Levothyroxine Sodium 100 MCG VIAL IVP SCH (11:22)
--- NOTE | 2018-08-01 11:39 | Oncology Inp Progress Note ---
Date of Encounter: 08/01/18 Time of Encounter: 09:00 (1) Mass of colon Current Visit: Yes Status: Acute Assessment and plan: Rectosigmoid mass, obstructive in nature, status post low anterior resection, trauma to ureter status post repair, margins, staging/LN status pending. CT abdomen with contrast not performed, to be obtained at later date for staging purposes. CT scan of the chest possible inflammation 3 nodule. Baseline CEA stable. Hgb slightly dropped. She is a prior history of left breast cancer, stage I treated with surgery, r adiation therapy after that. She was noncompliant to Femara. Hgb/Hct trending down. f/U labs/pathology. Oncology: Subj Interval history: No new events, patient states feeling well - Constitutional General appearance: no acute distress - Head Head exam: Present: atraumatic, normal inspection - Eye Eye exam: Present: sclera anicteric - ENT Additional comments: NGT - Neck Neck exam: Present: full ROM - Cardiovascular Cardiovascular exam: Present: +S1, +S2 - GI/Abdominal GI/Abdominal exam: Present: soft Additional comments: non tender surg dressing - Extremities Exam Additional comments: LUext swelling>rt no tenderness - Neurological Exam Neurological exam: Present: alert, oriented X3 Oncology: Obj Data - Labs CBC & Chem 7: 08/01/18 02:16 08/01/18 02:16 Consult Discharge Plan - Plan Referrals: Rashad Bullard MD [Partnered Physician] - Inpatient Charges Provider: Dr. Sp Smith Follow up - Inpatient: [id number]
[2018-08-01] MEDS ORDERED: 0.9 % Sodium Chloride Mini Bag 100 ML ONE (14:03)
[2018-08-01] MEDS ORDERED: 0.9 % Sodium Chloride 250 ML ONE (18:36)
[2018-08-01] MEDS: 0.9 % Sodium Chloride 1,000 ML IVC SCH (19:57)
[2018-08-02] MEDS: Ketorolac 15 MG/ML VIAL IVP SCH ×2 (00:09→05:12)
[2018-08-02] MEDS: Acetaminophen IV 1,000 MG/100 ML INFUS..BTL IVPB SCH ×5 (00:09→23:57)
[2018-08-02] MEDS: Ringers Solution, Lactated 1,000 ML IVC SCH ×2 (00:20→14:49)
[2018-08-02] MEDS: Ondansetron 4 MG/2 ML VIAL IVP PRN ×2 (01:41→08:50)
[2018-08-02 05:05] LABS: Hematocrit 32.6 % (35.3-44.9); Hemoglobin 10.1 g/dL (11.5-15.4); Mean Corpuscular Hemoglobin 25.1 pg (28.0-33.3); Mean Corpuscular Volume 81.1 fL (83.0-100.0); Mean Platelet Volume 8.4 fL (9.4-12.4); Platelet Count 282 K/mcL (140-400); Red Blood Count 4.02 M/mcL (3.82-4.97); Red Cell Distribution Width 16.5 % (11.5-14.5); White Blood Count 7.4 K/mcL (4.3-11.1)
[2018-08-02] MEDS: *HR* Enoxaparin 40 MG/0.4 ML SYRINGE SQ SCH (05:13)
[2018-08-02 05:22] LABS: BUN/Creatinine Ratio 55 (6-26); Blood Urea Nitrogen 35 mg/dL (8-23); Calcium 8.6 mg/dL (8.6-10.3); Carbon Dioxide 32 mEq/L (23-29); Chloride 106 mEq/L (98-107); Glucose 111 mg/dL (70-105); Osmolality,Calculated 309 (280-300); Potassium 3.6 mEq/L (3.5-5.1); Sodium 145 mEq/L (136-145); eGFR For African Americans > 60 (> 60); eGFR For Non-African Americans > 60 (> 60)
[2018-08-02] MEDS: Levothyroxine Sodium 100 MCG VIAL IVP SCH (08:55)
--- NOTE | 2018-08-02 09:09 | Urology Progress Note ---
Date of Encounter: 08/02/18 Time of Encounter: 08:20 - Assessment and Plan (1) Left ureteral injury Current Visit: Yes Status: Acute Assessment and plan: Patient is an 83-year-old female who presents 3 days status post left ureteral reimplantation, ureteral stent placement. Lee catheter indwelling and draining sufficiently. Patient will likely be discharged with catheter for 10- 14 days. Catheter may be removed only after a negative cystogram. Patient has indwelling ureteral stent, and she will follow up within 2-[address] William. Qualifiers: Encounter type: subsequent encounter Qualified Code(s): S37.10XD - Unspecified injury of ureter, subsequent encounter Progress Note Subjective: no new complaints Narrative: POD #3. Objective Initial Vital Signs Temp Pulse Resp BP Pulse Ox 98.4 F 109 18 110/57 93 07/26/18 19:17 07/26/18 19:17 07/26/18 19:17 07/26/18 19:17 07/26/18 19:17 - Labs 08/02/18 04:47 08/02/18 04:47 Diabetes panel 08/02/18 Range/Units 04:47 Sodium 145 (136-145) mEq/L Potassium 3.6 (3.5-5.1) mEq/L Chloride 106 (98-107) mEq/L Carbon Dioxide 32 H (23-29) mEq/L BUN 35 H (8-23) mg/dL Creatinine 0.64 (0.60-1.20) mg/dL Glucose 111 H (70-105) mg/dL Calcium 8.6 (8.6-10.3) mg/dL Calcium panel 08/02/18 Range/Units 04:47 Calcium 8.6 (8.6-10.3) mg/dL Pituitary panel 08/02/18 Range/Units 04:47 Sodium 145 (136-145) mEq/L Potassium 3.6 (3.5-5.1) mEq/L Chloride 106 (98-107) mEq/L Carbon Dioxide 32 H (23-29) mEq/L BUN 35 H (8-23) mg/dL Creatinine 0.64 (0.60-1.20) mg/dL Glucose 111 H (70-105) mg/dL Calcium 8.6 (8.6-10.3) mg/dL Adrenal panel 06/04/19 Range/Units 04:47 Sodium 145 (136-145) mEq/L Potassium 3.6 (3.5-5.1) mEq/L Chloride 106 (98-107) mEq/L Carbon Dioxide 32 H (23-29) mEq/L BUN 35 H (8-23) mg/dL Creatinine 0.64 (0.60-1.20) mg/dL Glucose 111 H (70-105) mg/dL Calcium 8.6 (8.6-10.3) mg/dL Consult Discharge Plan - Plan Referrals: Rashad Bullard MD [Partnered Physician] -
--- NOTE | 2018-08-02 09:36 | Event Note ---
Date of Encounter: 08/02/18 Time of Encounter: 09:34 Left RAJAN drain was not functional. Attempted replacement of bulb, cut end of line to bulb, and attempted to secure/tape around the site. Noted whistling and no suction maintained each time. Appeared to have hole in tubing, but was not able to identify/obstruct leak. ALso noted, RAJAN drain slipped in and out of suture. RAJAN drain removed. No drainage from abdomen noted.
--- NOTE | 2018-08-02 16:15 | Internal Med Progress Note ---
Hospitalist Progress Note - Encounter Date of Encounter: 08/02/18 Time of Encounter: 08:45 - Subjective Interval History: Pt states almost emphatically this AM that she had a BM overnight and again this AM, and is hoping she can have her NG removed and maybe even have some sips of the pearl neo that she's been wanting for a few days. Says her LUE is working almost back at baseline now. Her legs are swelling a bit. - Exam Vitals: Temp Pulse Resp BP Pulse Ox 98.1 F 92 14 159/74 98 08/02/18 13:46 08/02/18 13:46 08/02/18 13:46 08/02/18 13:46 08/02/18 13:46 Exam: General: NAD, good eye contact, relatively well appearing, elderly, deaf but reads lips well Thoracic: Normal breath sounds b/l, no wheezing or crackles Cardio: Normal S1 and S2, regular rate and rhythm Abdomen: Soft, nondistended. Is mildly tender lower abd. Bandage in place. RAJAN drain L abd w no serosanguinous drainage Extremities: Warm, well perfused. DP pulses 2+ b/l. Does have distal LUE edema and mild edema b/l legs Neuro: Awake, fully oriented. Speech fluent - Summary of Assessment and Plan Summary of Assessment and Plan: Nicole Gunn is an 83 F w hx HTN, HLD, hypothyroidism, remote breast cancer, who p/w abd pain, CT showing rectal intussusception, admitted for concern for obstruction or mass. Follow up colonoscopy revealed rectal mass now s/p low anterior resection of rectal mass and repair of iatrogenic ureter resection on 07/29. 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 07/[address] Taylor, path today shows adenocarcinoma, finally had BM evening of 6/3 and more BMs today - GenSurg following, NG management and diet, RAJAN drain removed - Oncology following, follow up pathology/immunology - pain control prn with oxycodone, tylenol - PT/OT consulted for deconditioning - consider medical office administrator consult when GenSurg advances diet L ureteral iatrogenic resection and repair: Lee in place until outpatient Uro follow up LUE weakness and neuropathy: nearly resolved, continue offloading pressure w padding under L elbow when sitting in chair and lying in bed Acute blood loss anemia: improved s/p transfusion 1u prbc on 08/01 HTN: home lisinopril 5 when able to PO HLD: home zocor 20 when able to PO Hypothyroidism: home synthroid when able to PO, currently synthroid 25 IV PPx: lovenox FEN: diet per [facility] Bonds LR@75 Lines: PIV, NG, RAJAN, Lee Consults: GenSurg, Uro, Onc Code: Full Dispo: patient requires inpatient eval and management at this time. Anticipate 3-4 days. Will likely need SNF, SW to assist Internal Medicine: Result - Labs CBC & Chem 7: 08/02/18 04:47 08/02/18 04:47 Labs: Short CBC 08/02/18 Range/Units 04:47 WBC 7.4 (4.3-11.1) K/mcL Hgb 10.1 L D (11.5-15.4) g/dL Hct 32.6 L (35.3-44.9) % Plt Count 282 (140-400) K/mcL BMP 08/02/18 04:47 Sodium 145 Potassium 3.6 Chloride 106 Carbon Dioxide 32 H BUN 35 H Creatinine 0.64 Glucose 111 H Calcium 8.6 Consult Discharge Plan - Plan Referrals: Rashad Bullard MD [Partnered Physician] -
--- NOTE | 2018-08-02 17:51 | Oncology Inp Progress Note ---
<Sandra Cross - Last Filed: 08/02/18 17:48> Date of Encounter: 08/02/18 Time of Encounter: 13:50 (1) Mass of colon Current Visit: Yes Status: Acute Assessment and plan: Rectosigmoid mass, obstructive in nature, status post low anterior resection, trauma to ureter status post repair, margins, staging/LN status pending. CT abdomen with contrast not performed, to be obtained at later date for staging purposes. CT scan of the chest possible inflammation 3 nodule. Baseline CEA stable. Hgb/Hct trending down. Received 2 units pRBCs on 08/01/18. Hgb 10.1 Hematuria noted (alejandro catheter intact and draining). NG clamped. RAJAN drained removed 08/02/18. Plan: Awaiting pathology results. Continue to monitor H+H. (2) Breast cancer, left Current Visit: No Status: Acute Assessment and plan: She is a prior history of left breast cancer, stage I treated with surgery, radiation therapy after that. She was noncompliant to Femara. Qualifiers: Estrogen receptor status: positive Patient sex: female Qualified Code(s): C50.912 - Malignant neoplasm of unspecified site of left female breast; Z17.0 - Estrogen receptor positive status [ER+] - Constitutional General appearance: cooperative, no acute distress - Respiratory Respiratory exam: Present: decreased breath sounds - Cardiovascular Cardiovascular exam: Present: RRR, +S1, +S2 - GI/Abdominal GI/Abdominal exam: Present: soft, tenderness Additional comments: dressing c/d/i. RAJAN drain removed earlier. Dressing c/d/i. - Additional comments: hematuria. Alejandro intact and draining. - Neurological Exam Neurological exam: Present: alert, oriented X3 - Psychiatric Psychiatric exam: Present: normal affect, normal mood Oncology: Obj Data - Labs CBC & Chem 7: 08/02/18 04:47 08/02/18 04:47 Consult Discharge Plan - Plan Referrals: Rashad Bullard MD [Partnered Physician] - Inpatient Charges Provider: Dr. Sp Smith <Javi Smith - Last Filed: 08/03/18 08:54> Date of Encounter: 08/03/18 (1) Mass of colon Current Visit: Yes Status: Acute Assessment and plan: PAtient was seen bedside, follow up plan reviewed. I examined this patient and my medical decision-making was reviewed with the Advanced Practice Nurse, Sandra Cross. I agree with the documented findings, disposition and treatment plan as described except to the extent set forth below. Oncology: Obj Data - Labs CBC & Chem 7: 08/03/18 05:12 08/03/18 05:12 Inpatient Charges Provider: Dr. Sp Smith Follow up - Inpatient: [id number]
--- NOTE | 2018-08-02 19:37 | AcuteCareSurgery Progress Note ---
Date of Encounter: 08/02/18 Time of Encounter: 07:15 - Assessment and Plan (1) Mass of colon Current Visit: Yes Status: Acute The patient is doing well after low anterior resection: And ureteral repair. She is having multiple bowel movements. We will place the nasogastric tube to Lee bag and try to remove this later today. Subjective Narrative: The patient is resting comfortably. She has excellent pain control. The drain in the left lower quadrant at the ureteral anastomosis is no longer functional. There is an air leak likely from a drain hole close to the skin edge. The patient had multiple bowel movements. We will place her nasogastric tube to Lee bag and removed the nasogastric tube if she fails to have any drainage today. She is progressing quite well from low anterior resection of a near obstructing colon mass Objective Vital Signs - Last 8 Hours Temp Pulse Resp BP Pulse Ox 08/02/18 16:09 98.3 F 96 15 159/75 94 08/02/18 13:46 98.1 F 92 14 159/74 98 Intake and Output 08/02/18 08/02/18 08/02/18 07:59 15:59 23:59 Intake Total 200 / 1400 1100 / 1400 100 / 1400 Output Total 1125 / 1900 650 / 1900 125 / 1900 Balance -925 / -500 450 / -500 -25 / -500 Intake: IV Fluids 200 / 1400 1100 / 1400 100 / 1400 Lactated Ringers 1,000 ML @ 75 1000 / 1000 mls/hr IVC .[id number] MARY Rx#: [id number] Ofirmev 1,000 mg/100 ml 1,000 200 / 400 100 / 400 100 / 400 mg In 100 ml @ 400 mls/hr IVPB Q6HR MARY Rx#:[id number] Oral 0 / 0 Output: Catheter 400 / 675 150 / 675 125 / 675 Gastric Drainage 700 / 1200 500 / 1200 Wound Drainage 25 / 25 Left lower quadrant 25 / 25 Other: Meal Npo Stool Size Moderate Moderate Stool Consistency loose soft Stool Color Brown Brown Yellow Yellow # Bowel Movements 0 0 # Bowel Movement Diapers 1 0 0 Weight 69.1 kg Blood Glucose* 100 91 83 Patient Weight 08/02/18 23:59 Weight 69.1 kg - General physical appearance well developed, chronically ill - Respiratory normal expansion, normal respiratory effort, clear to percussion, clear to auscultation - Cardiovascular Cardiovascular exam: Present: RRR, no murmurs/rubs/gallops - Abdomen Abdomen: Present: bowel sounds present, soft, non tender - Incision Incision: Present: clean and dry - Genitourinary other (Lee catheter is draining red tinged urine. No drainage in the pelvic Gregory-Michelle) - Neurologic normal coordination, normal sensation - Psychiatric oriented to time, oriented to person, oriented to place, speech is normal, memory intact - Labs 08/02/18 04:47 08/02/18 04:47 Diabetes panel 08/02/18 Range/Units 04:47 Sodium 145 (136-145) mEq/L Potassium 3.6 (3.5-5.1) mEq/L Chloride 106 (98-107) mEq/L Carbon Dioxide 32 H (23-29) mEq/L BUN 35 H (8-23) mg/dL Creatinine 0.64 (0.60-1.20) mg/dL Glucose 111 H (70-105) mg/dL Calcium 8.6 (8.6-10.3) mg/dL Calcium panel 08/02/18 Range/Units 04:47 Calcium 8.6 (8.6-10.3) mg/dL Pituitary panel 08/02/18 Range/Units 04:47 Sodium 145 (136-145) mEq/L Potassium 3.6 (3.5-5.1) mEq/L Chloride 106 (98-107) mEq/L Carbon Dioxide 32 H (23-29) mEq/L BUN 35 H (8-23) mg/dL Creatinine 0.64 (0.60-1.20) mg/dL Glucose 111 H (70-105) mg/dL Calcium 8.6 (8.6-10.3) mg/dL Adrenal panel 08/02/18 Range/Units 04:47 Sodium 145 (136-145) mEq/L Potassium 3.6 (3.5-5.1) mEq/L Chloride 106 (98-107) mEq/L Carbon Dioxide 32 H (23-29) mEq/L BUN 35 H (8-23) mg/dL Creatinine 0.64 (0.60-1.20) mg/dL Glucose 111 H (70-105) mg/dL Calcium 8.6 (8.6-10.3) mg/dL Consult Discharge Plan - Plan Referrals: Rashad Bullard MD [Partnered Physician] -
[2018-08-03] MEDS: Ondansetron 4 MG/2 ML VIAL IVP PRN ×3 (00:03→17:55)
[2018-08-03] MEDS: Acetaminophen IV 1,000 MG/100 ML INFUS..BTL IVPB SCH ×3 (05:12→17:53)
[2018-08-03] MEDS: *HR* Enoxaparin 40 MG/0.4 ML SYRINGE SQ SCH (05:12)
[2018-08-03 05:35] LABS: Hematocrit 30.3 % (35.3-44.9); Hemoglobin 9.5 g/dL (11.5-15.4); Mean Corpuscular HGB Conc 31.4 g/dL (31.6-35.5); Mean Corpuscular Hemoglobin 25.4 pg (28.0-33.3); Mean Platelet Volume 7.7 fL (9.4-12.4); Platelet Count 277 K/mcL (140-400); Red Blood Count 3.74 M/mcL (3.82-4.97); Red Cell Distribution Width 16.2 % (11.5-14.5)
[2018-08-03] MEDS: Ringers Solution, Lactated 1,000 ML IVC SCH ×2 (05:37→18:03)
[2018-08-03 05:57] LABS: BUN/Creatinine Ratio 54 (6-26); Blood Urea Nitrogen 29 mg/dL (8-23); Calcium 8.5 mg/dL (8.6-10.3); Carbon Dioxide 32 mEq/L (23-29); Chloride 106 mEq/L (98-107); Glucose 90 mg/dL (70-105); Osmolality,Calculated 301 (280-300); Potassium 3.7 mEq/L (3.5-5.1); Sodium 143 mEq/L (136-145); eGFR For African Americans > 60 (> 60); eGFR For Non-African Americans > 60 (> 60)
--- NOTE | 2018-08-03 08:16 | AcuteCareSurgery Progress Note ---
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 * vitals 97.9, BP 160/73 , sat 96% 1L Oxygen Labs : White cell count 6.0 hemoglobin 9.5, hematocrit 30.3 Plan : Gradually advance diet as she tolerates ,NG tube out * Watch for s/s nausea and vomiting, daily output, wound drainage, * Continue G.I. and DVT prophylaxis * out of bed to chair TID * Activity as tolerated, PT/OT/SW * trend labs * cares per primary team * fully management per urology (2) Abdominal pain Current Visit: Yes Status: Acute * The patient was admitted for abdominal pain for long time and getting more severe in last couple of days * POD#5 LAR with left repair ureter * patient gradually feeling better Qualifiers: Abdominal location: generalized Qualified Code(s): R10.84 - Generalized abdominal pain (3) Left ureteral injury Current Visit: Yes Status: Acute * today is 5th POD post left ureteral reimplantation procedure, urology team on board * Patient is aware she will likely require indwelling Lee catheter for extended period of time, up to 4 weeks ( urology recommendation) Qualifiers: Encounter type: subsequent encounter Qualified Code(s): S37.10XD - Unspecified injury of ureter, subsequent encounter Subjective Patient reports: no new complaints, feels better, pain is less, bowel movement Narrative: Today is fifth postop day, patient is gradually getting better, pain is progressively less and she has a bowel movement. We took out her NG tube and gradually advancing diet as she tolerated. Her vitals are stable; temperature 97.9, pulse 85, blood pressure 160/73, saturation 96% with 1 L oxygen. Her postop hemoglobin is 9.5 and hematocrit 30.3, sodium, electrolyte normal, renal function normal Objective Vital Signs - Last 8 Hours Temp Pulse Resp BP Pulse Ox 08/03/18 05:27 97.9 F 85 16 160/73 96 Intake and Output 08/02/18 08/03/18 08/03/18 23:59 07:59 15:59 Intake Total 100 / 1400 1200 / 1200 Output Total 125 / 1900 250 / 250 Balance -25 / -500 950 / 950 Intake: IV Fluids 100 / 1400 1200 / 1200 Lactated Ringers 1,000 ML @ 75 1000 / 1000 mls/hr IVC .[id number] MARY Rx#: [id number] Ofirmev 1,000 mg/100 ml 1,000 100 / 400 200 / 200 mg In 100 ml @ 400 mls/hr IVPB Q6HR MARY Rx#:[id number] Oral 0 / 0 Output: Catheter 125 / 675 250 / 250 Urethral (Lee) 250 / 250 Other: Meal NPO # Bowel Movements 0 # Bowel Movement Diapers 0 Blood Glucose* 83 78 - General physical appearance well developed, well nourished, no distress - Eyes PERRL, normal ocular movement - ENT normal nares, normal mucosa - Neck Neck exam: no bruits, trachea midline, no lymphadectomy - Respiratory normal expansion, normal respiratory effort, clear to percussion - Cardiovascular Cardiovascular exam: Present: regular rhythm, no murmurs/rubs/gallops - Abdomen Abdomen: Present: bowel sounds present, soft, non tender - Incision Incision: Present: clean and dry, intact - Integumentary no rash - Neurologic CN 2-12 grossly intact - Psychiatric oriented to time, oriented to person, oriented to place - Labs 08/03/18 05:12 08/03/18 05:12 Diabetes panel 08/03/18 Range/Units 05:12 Sodium 143 (136-145) mEq/L Potassium 3.7 (3.5-5.1) mEq/L Chloride 106 (98-107) mEq/L Carbon Dioxide 32 H (23-29) mEq/L BUN 29 H (8-23) mg/dL Creatinine 0.54 L (0.60-1.20) mg/dL Glucose 90 (70-105) mg/dL Calcium 8.5 L (8.6-10.3) mg/dL Calcium panel 08/03/18 Range/Units 05:12 Calcium 8.5 L (8.6-10.3) mg/dL Pituitary panel 08/03/18 Range/Units 05:12 Sodium 143 (136-145) mEq/L Potassium 3.7 (3.5-5.1) mEq/L Chloride 106 (98-107) mEq/L Carbon Dioxide 32 H (23-29) mEq/L BUN 29 H (8-23) mg/dL Creatinine 0.54 L (0.60-1.20) mg/dL Glucose 90 (70-105) mg/dL Calcium 8.5 L (8.6-10.3) mg/dL Adrenal panel 08/03/18 Range/Units 05:12 Sodium 143 (136-145) mEq/L Potassium 3.7 (3.5-5.1) mEq/L Chloride 106 (98-107) mEq/L Carbon Dioxide 32 H (23-29) mEq/L BUN 29 H (8-23) mg/dL Creatinine 0.54 L (0.60-1.20) mg/dL Glucose 90 (70-105) mg/dL Calcium 8.5 L (8.6-10.3) mg/dL Consult Discharge Plan - Plan Referrals: Rashad Bullard MD [Partnered Physician] - <Jose Benjamin - Last Filed: 08/04/18 05:56> Date of Encounter: 08/03/18 Objective Vital Signs - Last 8 Hours Temp Pulse Resp BP Pulse Ox 08/04/18 03:50 98.0 F 90 15 157/76 96 Intake and Output 08/03/18 08/03/18 08/04/18 15:59 23:59 07:59 Intake Total 100 / 2400 1100 / 2400 100 / 100 Output Total 450 / 700 250 / 250 Balance -350 / 1700 1100 / 1700 -150 / -150 Intake: IV Fluids 100 / 2400 1100 / 2400 100 / 100 Lactated Ringers 1,000 ML @ 75 1000 / 2000 mls/hr IVC .[id number] MARY Rx#: [id number] Ofirmev 1,000 mg/100 ml 1,000 100 / 400 100 / 400 100 / 100 mg In 100 ml @ 400 mls/hr IVPB Q6HR MARY Rx#:[id number] Output: Urine 250 / 250 Catheter 450 / 700 Other: Meal NPO for breakfast # Bowel Movement Diapers 0 Weight 78.471 kg Blood Glucose* 76 97 92 Patient Weight 08/04/18 23:59 Weight 78.471 kg - Labs 08/03/18 05:12 08/03/18 05:12 Diabetes panel 08/03/18 Range/Units 05:12 Sodium 143 (136-145) mEq/L Potassium 3.7 (3.5-5.1) mEq/L Chloride 106 (98-107) mEq/L Carbon Dioxide 32 H (23-29) mEq/L BUN 29 H (8-23) mg/dL Creatinine 0.54 L (0.60-1.20) mg/dL Glucose 90 (70-105) mg/dL Calcium 8.5 L (8.6-10.3) mg/dL Calcium panel 08/03/18 Range/Units 05:12 Calcium 8.5 L (8.6-10.3) mg/dL Pituitary panel 08/03/18 Range/Units 05:12 Sodium 143 (136-145) mEq/L Potassium 3.7 (3.5-5.1) mEq/L Chloride 106 (98-107) mEq/L Carbon Dioxide 32 H (23-29) mEq/L BUN 29 H (8-23) mg/dL Creatinine 0.54 L (0.60-1.20) mg/dL Glucose 90 (70-105) mg/dL Calcium 8.5 L (8.6-10.3) mg/dL Adrenal panel 08/03/18 Range/Units 05:12 Sodium 143 (136-145) mEq/L Potassium 3.7 (3.5-5.1) mEq/L Chloride 106 (98-107) mEq/L Carbon Dioxide 32 H (23-29) mEq/L BUN 29 H (8-23) mg/dL Creatinine 0.54 L (0.60-1.20) mg/dL Glucose 90 (70-105) mg/dL Calcium 8.5 L (8.6-10.3) mg/dL - Attending Attestation I examined this patient and my medical decision-making was reviewed with the Resident Physician. I agree with the documented findings, disposition and treatment plan as described except to the extent set forth below. I reviewed the above assessment and evaluation and agree with the above- mentioned plan.
[2018-08-03] MEDS: Levothyroxine Sodium 100 MCG VIAL IVP SCH (09:41)
--- NOTE | 2018-08-03 13:37 | Oncology Inp Progress Note ---
Date of Encounter: 08/03/18 Time of Encounter: 08:00 (1) Mass of colon Current Visit: Yes Status: Acute Assessment and plan: Rectosigmoid mass, obstructive in nature, status post low anterior resection, trauma to ureter status post repair, margins, staging/LN status pending. Will review path in tumor board. CT abdomen with contrast not performed, to be obtained at later date for staging purposes. Recovering from surgery, clear diet. CT scan of the chest possible inflammation 3 nodule. s/p PRBC for anemia She is a prior history of left breast cancer, stage I treated with surgery, radiation therapy after that. She was noncompliant to Femara. Oncology: Subj Interval history: Taking clears today, NGT out. Denies pain - Constitutional General appearance: no acute distress - Head Head exam: Present: atraumatic, normal inspection - Eye Eye exam: Present: sclera anicteric - ENT ENT exam: Present: mucous membranes moist - Respiratory Respiratory exam: Present: CTAB - Extremities Exam Extremities exam: Present: normal inspection - Neurological Exam Neurological exam: Present: alert, oriented X3 Oncology: Obj Data - Labs CBC & Chem 7: 08/03/18 05:12 08/03/18 05:12 Consult Discharge Plan - Plan Referrals: Rashad Bullard MD [Partnered Physician] - Inpatient Charges Provider: Dr. Sp Smith Follow up - Inpatient: [id number]
[2018-08-03] MEDS ORDERED: *HR* Promethazine 25 MG/ML VIAL IVP ONE (14:11)
--- NOTE | 2018-08-03 18:12 | Internal Med Progress Note ---
Hospitalist Progress Note - Encounter Date of Encounter: 08/03/18 Time of Encounter: 08:50 - Subjective Interval History: Ms Gunn is currently admitted for colon cancer s/p resection. She remains moderate to high risk due to potential for worsening clinical status. Ms Gunn started clear liquids today but was unable to tolerate more than a few bites. No fever or chills. Nauseated now. No CP or SOB. Had BM. - Exam Vitals: Temp Pulse Resp BP Pulse Ox 98.0 F 92 16 125/82 94 08/03/18 14:55 08/03/18 14:55 08/03/18 14:55 08/03/18 14:55 08/03/18 14:55 Exam: General: Alert and oriented. Moderate distress due to nausea. Skin: Normal color, no rash, H: Normocephalic. EENT: EOMI, pupils equal. Mucus membranes moist. Cardiovascular: Normal S1 & S2, Pulse regular. Not tachycardic Lungs: Normal breath sounds, no wheezes or crackles. Abdomen: Soft, Faint bowel sounds noted. Extremities: Moderate OA. No edema. Neurological: Normal cognition and motor skills. Pulses: radial pulses normal +2. Rest of the physical exam is non contributory - Assessment and Plan (1) Primary adenocarcinoma of rectosigmoid junction Current Visit: Yes Status: Acute Assessment and Plan: Pt presented and found to have colon mass. She is s/p resection. Oncology following for further post op plans. Pain control. Diet as per surgery. (2) Ileus following gastrointestinal surgery Current Visit: Yes Status: Suspected Assessment and Plan: Pt appears to have had post op ileus. Started on clear liquids today and not tolerating well. Continue PRN meds. (3) Left ureteral injury Current Visit: Yes Status: Acute Assessment and Plan: Per urology. Lee in place till follow up. (4) Anemia Current Visit: Yes Status: Acute Assessment and Plan: Pt has anemia due to blood loss from surgery. (5) Hypertension Current Visit: Yes Status: Chronic Assessment and Plan: Essentially controlled at this time. (6) Hyperlipidemia Current Visit: Yes Status: Chronic Assessment and Plan: Chronic issue. Meds on hold for now. (7) Hypothyroidism Current Visit: Yes Status: Chronic Assessment and Plan: Currently on IV synthroid pending ability to take PO. (8) Intussusception Current Visit: Yes Status: Resolved Assessment and Plan: S/p resection of tumor. - Time Spent with Patient Total time spent is greater than 50% in coordination of care (as documented) at patient's floor/unit and/or counseling patient: Internal Medicine: Result - Labs CBC & Chem 7: 08/03/18 05:12 08/03/18 05:12 Labs: Short CBC 08/03/18 Range/Units 05:12 WBC 6.0 (4.3-11.1) K/mcL Hgb 9.5 L (11.5-15.4) g/dL Hct 30.3 L (35.3-44.9) % Plt Count 277 (140-400) K/mcL BMP 08/03/18 05:12 Sodium 143 Potassium 3.7 Chloride 106 Carbon Dioxide 32 H BUN 29 H Creatinine 0.54 L Glucose 90 Calcium 8.5 L Consult Discharge Plan - Plan Referrals: Rashad Bullard MD [Partnered Physician] - (3) Left ureteral injury Qualifiers: Encounter type: subsequent encounter Qualified Code(s): S37.10XD - Unspecified injury of ureter, subsequent encounter (4) Anemia Qualifiers: Anemia type: other cause Other causes of anemia: acute posthemorrhagic Qualified Code(s): D62 - Acute posthemorrhagic anemia (5) Hypertension Qualifiers: Hypertension type: essential hypertension Qualified Code(s): I10 - Essential (primary) hypertension (6) Hyperlipidemia Qualifiers: Hyperlipidemia type: mixed hyperlipidemia Qualified Code(s): E78.2 - Mixed hyperlipidemia (7) Hypothyroidism Qualifiers: Hypothyroidism type: acquired Qualified Code(s): E03.9 - Hypothyroidism, unspecified
[2018-08-04] MEDS: Acetaminophen IV 1,000 MG/100 ML INFUS..BTL IVPB SCH ×2 (00:57→05:43)
[2018-08-04] MEDS: Ondansetron 4 MG/2 ML VIAL IVP PRN (00:58)
[2018-08-04] MEDS: *HR* Enoxaparin 40 MG/0.4 ML SYRINGE SQ SCH (05:43)
[2018-08-04 06:03] LABS: Basophils % 0.2 %; Eosinophils # 0.3 K/mcL (0.0-0.6); Eosinophils % 4.8 %; Hematocrit 30.6 % (35.3-44.9); Hemoglobin 9.4 g/dL (11.5-15.4); Immature Granulocytes % 0.4 % (0-4); Lymphocytes # 0.7 K/mcL (0.6-4.6); Lymphocytes % 13.3 %; Mean Corpuscular HGB Conc 30.7 g/dL (31.6-35.5); Mean Corpuscular Hemoglobin 25.3 pg (28.0-33.3); Mean Corpuscular Volume 82.3 fL (83.0-100.0); Monocytes # 0.5 K/mcL (0.0-1.3); Monocytes % 9.6 %; Neutrophils # 3.9 K/mcL (1.6-8.9); Platelet Count 272 K/mcL (140-400); Red Blood Count 3.72 M/mcL (3.82-4.97); Red Cell Distribution Width 16.1 % (11.5-14.5); Segmented Neutrophils % 71.7 %; White Blood Count 5.4 K/mcL (4.3-11.1)
[2018-08-04 06:23] LABS: BUN/Creatinine Ratio 38 (6-26); Blood Urea Nitrogen 20 mg/dL (8-23); Calcium 8.5 mg/dL (8.6-10.3); Carbon Dioxide 32 mEq/L (23-29); Chloride 102 mEq/L (98-107); Glucose 90 mg/dL (70-105); Magnesium 1.8 mg/dL (1.6-2.6); Osmolality,Calculated 292 (280-300); Potassium 3.5 mEq/L (3.5-5.1); Sodium 140 mEq/L (136-145); eGFR For African Americans > 60 (> 60); eGFR For Non-African Americans > 60 (> 60)
[2018-08-04] MEDS ORDERED: *HR* OxyCODONE/APAP 5/325 TABLET PO PRN (09:50)
[2018-08-04] MEDS: Levothyroxine Sodium 100 MCG VIAL IVP SCH (10:42)
--- NOTE | 2018-08-04 10:51 | AcuteCareSurgery Progress Note ---
<GiorgioCary Sin - Last Filed: 08/04/18 10:45> Date of Encounter: 08/04/18 Time of Encounter: 07:10 - Assessment and Plan (1) Mass of colon Current Visit: Yes Status: Acute ate of procedure: 07/29/18 Pre-op diagnosis: obstructing rectal mass Post-op diagnosis: same Procedure: open low anterior resection repair of itragenic repair of left ureter - by urology Implants: none Complications: itragenic injury/distal transection of left ureter Anesthesia: GETA Local Anesthetics: 0.5% Sensorcaine HCL SubQ (cc) Surgeon: Giancarlo Taylor POD #6 as above. Rectosigmoid colon mass positive for adenocarcinoma per colonoscopy ()07/29/2018). Her surgical pathology remains pending. Plan: -ABSOLUTELY NOTHING PER RECTUM -DO NOT MANIPULATE ORTIZ CATHETER; DO NOT REMOVE ORTIZ CATHETER -Continue supportive care and discomfort management while awaiting full return of bowel function stop IV or sublingual pain control. Added ibuprofen and PO Percocet. Recommend premedicate with Zofran prior to narcotics to reduce nausea and vomiting. -Continue G.I. and DVT prophylaxis -Incentive spirometry 10 times every hour while awake -Out of bed to chair TID -Activity as tolerated, PT/OT/SW -Apply ice 20 minutes on 20 minutes off as needed -full liquid diet with protein supplements. May advance diet as tolerated she is having bowel movements and passing flatus. -cares per primary team -ortiz management per urology -she is okay to discharge to SNF/ECF from a surgical standpoint; do not recommend HHC from a surgical standpoint given the nature of her surgical intervention, ortiz cath, and fall risk -surgery will follow from a distance at this time. Please call or reconsult if further questions or needs arise. (2) Intussusception Current Visit: Yes Status: Resolved SEE ABOVE (3) Left ureteral injury Current Visit: Yes Status: Acute See above. See urology. Qualifiers: Encounter type: subsequent encounter Qualified Code(s): S37.10XD - Unspecified injury of ureter, subsequent encounter Subjective Patient reports: no new complaints, feels better, still having pain, pain is less, voiding w/o difficulty (Per Ortiz), flatus, bowel movement, afebrile Objective Vital Signs - Last 8 Hours Temp Pulse Resp BP Pulse Ox 08/04/18 10:22 98.1 F 83 16 145/70 96 08/04/18 07:06 98.5 F 81 16 160/77 97 08/04/18 03:50 98.0 F 90 15 157/76 96 Intake and Output 08/03/18 08/04/18 08/04/18 23:59 07:59 15:59 Intake Total 1100 / 2400 200 / 1200 1000 / 1200 Output Total 375 / 575 200 / 575 Balance 1100 / 1700 -175 / 625 800 / 625 Intake: IV Fluids 1100 / 2400 200 / 1200 1000 / 1200 Lactated Ringers 1,000 ML @ 75 1000 / 2000 1000 / 1000 mls/hr IVC .[id number] MARY Rx#: [id number] Ofirmev 1,000 mg/100 ml 1,000 100 / 400 200 / 200 mg In 100 ml @ 400 mls/hr IVPB Q6HR MARY Rx#:[id number] Output: Urine 250 / 250 Catheter 125 / 325 200 / 325 Other: # Bowel Movement Diapers 0 Weight 78.471 kg Blood Glucose* 97 92 Patient Weight 08/04/18 23:59 Weight 78.471 kg - General physical appearance no distress, no pain (At rest) - Eyes normal ocular movement - ENT poor snf, atraumatic, normocephalic - Neck Neck exam: trachea midline - Respiratory normal expansion, normal respiratory effort - Cardiovascular Cardiovascular exam: Present: RRR, murmurs - Abdomen Abdomen: Present: bowel sounds present, soft, tender (Expected postoperative) - Incision Incision: Present: clean and dry, intact - Integumentary no rash - Neurologic normal sensation - Musculoskeletal normal posture - Psychiatric oriented to time, oriented to person, oriented to place, speech is normal - Labs 08/04/18 04:00 08/04/18 04:00 Diabetes panel 08/04/18 Range/Units 04:00 Sodium 140 (136-145) mEq/L Potassium 3.5 (3.5-5.1) mEq/L Chloride 102 (98-107) mEq/L Carbon Dioxide 32 H (23-29) mEq/L BUN 20 (8-23) mg/dL Creatinine 0.52 L (0.60-1.20) mg/dL Glucose 90 (70-105) mg/dL Calcium 8.5 L (8.6-10.3) mg/dL Calcium panel 08/04/18 Range/Units 04:00 Calcium 8.5 L (8.6-10.3) mg/dL Pituitary panel 08/04/18 Range/Units 04:00 Sodium 140 (136-145) mEq/L Potassium 3.5 (3.5-5.1) mEq/L Chloride 102 (98-107) mEq/L Carbon Dioxide 32 H (23-29) mEq/L BUN 20 (8-23) mg/dL Creatinine 0.52 L (0.60-1.20) mg/dL Glucose 90 (70-105) mg/dL Calcium 8.5 L (8.6-10.3) mg/dL Adrenal panel 08/04/18 Range/Units 04:00 Sodium 140 (136-145) mEq/L Potassium 3.5 (3.5-5.1) mEq/L Chloride 102 (98-107) mEq/L Carbon Dioxide 32 H (23-29) mEq/L BUN 20 (8-23) mg/dL Creatinine 0.52 L (0.60-1.20) mg/dL Glucose 90 (70-105) mg/dL Calcium 8.5 L (8.6-10.3) mg/dL Consult Discharge Plan - Plan Instructions: Colectomy (DC) Additional Instructions: General Surgical Discharge Instructions 1. No pushing, pulling, or lifting greater than 15 lbs for 6 weeks. 2. You may shower beginning today, but no tub baths, soaking, or swimming for 2 weeks. 3. Follow your rehab instructions. 4. Take ibuprofen every 8 hours for discomfort. If this does not relieve discomfort, you may take the as needed Percocet. Take narcotics as directed. Do not take more narcotics then directed and do not share your narcotics with any other person. Do not drink alcohol while on narcotics. 5. Take stool softeners (Colace) or a water based laxative (Miralax) while taking narcotics. You may hold for loose stools. 6. Report any fevers greater than 100.5F, increase abdominal discomfort, drainage that looks like pus, increased redness or pain at the surgical site, or any vomiting. 7. Report any pain in the calves, shortness of breath, or rapid heartbeat. 8. Follow-up in the office as directed. 9. If you were prescribed antibiotics, do not stop them without talking to your provider. 10. Nothing is to be put in the rectum for any reason until directed otherwise. Referrals: Rashad Bullard MD [Partnered Physician] - Cary Alvares CNP [Advanced Practice Nurse] - 08/15/18 3:00 pm <Rashad Leal - Last Filed: 08/04/18 18:13> Date of Encounter: 08/04/18 - Assessment and Plan (1) Mass of colon Current Visit: Yes Status: Acute Objective Vital Signs - Last 8 Hours Temp Pulse Resp BP Pulse Ox 08/04/18 14:13 98.4 F 99 16 154/83 92 08/04/18 10:22 98.1 F 83 16 145/70 96 Intake and Output 08/04/18 08/04/18 08/04/18 07:59 15:59 23:59 Intake Total 200 / 1680 1480 / 1680 Output Total 375 / 825 450 / 825 Balance -175 / 855 1030 / 855 Intake: IV Fluids 200 / 1200 1000 / 1200 Lactated Ringers 1,000 ML @ 75 1000 / 1000 mls/hr IVC .[id number] MARY Rx#: [id number] Ofirmev 1,000 mg/100 ml 1,000 200 / 200 mg In 100 ml @ 400 mls/hr IVPB Q6HR MARY Rx#:[id number] Oral 480 / 480 Output: Urine 250 / 250 Catheter 125 / 575 450 / 575 Other: Meal Lunch Percent of Meal Consumed 0% # Bowel Movements 0 # Bowel Movement Diapers 0 Weight 78.471 kg Blood Glucose* 92 97 Patient Weight 08/04/18 23:59 Weight 78.471 kg - Labs 08/04/18 04:00 08/04/18 04:00 Diabetes panel 08/04/18 Range/Units 04:00 Sodium 140 (136-145) mEq/L Potassium 3.5 (3.5-5.1) mEq/L Chloride 102 (98-107) mEq/L Carbon Dioxide 32 H (23-29) mEq/L BUN 20 (8-23) mg/dL Creatinine 0.52 L (0.60-1.20) mg/dL Glucose 90 (70-105) mg/dL Calcium 8.5 L (8.6-10.3) mg/dL Calcium panel 08/04/18 Range/Units 04:00 Calcium 8.5 L (8.6-10.3) mg/dL Pituitary panel 08/04/18 Range/Units 04:00 Sodium 140 (136-145) mEq/L Potassium 3.5 (3.5-5.1) mEq/L Chloride 102 (98-107) mEq/L Carbon Dioxide 32 H (23-29) mEq/L BUN 20 (8-23) mg/dL Creatinine 0.52 L (0.60-1.20) mg/dL Glucose 90 (70-105) mg/dL Calcium 8.5 L (8.6-10.3) mg/dL Adrenal panel 08/04/18 Range/Units 04:00 Sodium 140 (136-145) mEq/L Potassium 3.5 (3.5-5.1) mEq/L Chloride 102 (98-107) mEq/L Carbon Dioxide 32 H (23-29) mEq/L BUN 20 (8-23) mg/dL Creatinine 0.52 L (0.60-1.20) mg/dL Glucose 90 (70-105) mg/dL Calcium 8.5 L (8.6-10.3) mg/dL - Attending Attestation I have personally performed a face to face evaluation on this patient. I have reviewed and agree with the care plan. History and Exam by me shows: The patient is seen and evaluated on morning rounds with the acute care surgery team. The patient is having flatus and bowel movements and we will advance her diet. She continues to have blood-tinged urine through the Ortiz catheter. The urology plan is to leave the Ortiz catheter in place for 4 weeks. He is progressing well. Advance to full liquid diet Rashad Leal MD FACS
--- NOTE | 2018-08-04 16:09 | Internal Med Progress Note ---
Hospitalist Progress Note - Encounter Date of Encounter: 08/04/18 Time of Encounter: 11:30 - Subjective Interval History: Ms Gunn is currently admitted for bowel obstruction due to colon cancer. She remains moderate to high risk due to potential for worsening clinical and GI issues. Ms Gunn is still not eating much. She is only taking few sips and still has nausea. Phenergan helped yesterday. She expresses wish to go to rehab to get stronger to go home. No fever or chills. No CP or SOB. - Exam Vitals: Temp Pulse Resp BP Pulse Ox 98.4 F 99 16 154/83 92 08/04/18 14:13 08/04/18 14:13 08/04/18 14:13 08/04/18 14:13 08/04/18 14:13 Exam: General: Alert and oriented. No distress currently Skin: Normal color, no rash, H: Normocephalic. EENT: EOMI, Mucus membranes dry. Cardiovascular: Normal S1 & S2, Pulse regular. Distant. Lungs: Normal breath sounds, no wheezes or crackles. Diminished. Abdomen: Soft, Dressing intact Extremities: Moderate OA. No edema. Neurological: Normal cognition and motor skills. Pulses: radial pulses normal +2. Rest of the physical exam is non contributory - Assessment and Plan (1) Primary adenocarcinoma of rectosigmoid junction Current Visit: Yes Status: Acute Assessment and Plan: Pt presented and found to have colon mass. She is s/p resection. Oncology following for further post op plans. Not tolerating much PO intake due to nausea. Will add Phenergan before meals. (2) Ileus following gastrointestinal surgery Current Visit: Yes Status: Suspected Assessment and Plan: Pt appears to have had post op ileus. Continues to have issues with nausea and poor PO intake. Will try Phenergan before meals. If doesn't help may benefit from short course of Reglan. (3) Left ureteral injury Current Visit: Yes Status: Acute Assessment and Plan: Per urology. Lee in place till follow up. (4) Anemia Current Visit: Yes Status: Acute Assessment and Plan: Pt has anemia due to blood loss from surgery. H/H has remained stable at this time. (5) Hypertension Current Visit: Yes Status: Chronic Assessment and Plan: Systolic in 150s. No change for now. (6) Hyperlipidemia Current Visit: Yes Status: Chronic Assessment and Plan: Chronic issue. Continue to hold meds due to nausea (7) Hypothyroidism Current Visit: Yes Status: Chronic Assessment and Plan: Change to PO Synthroid. (8) Intussusception Current Visit: Yes Status: Resolved Assessment and Plan: S/p resection of tumor. DVT Prophylaxis: Lovenox - Time Spent with Patient Total time spent is greater than 50% in coordination of care (as documented) at patient's floor/unit and/or counseling patient: Internal Medicine: Result - Labs CBC & Chem 7: 08/04/18 04:00 08/04/18 04:00 Labs: Short CBC 08/04/18 Range/Units 04:00 WBC 5.4 (4.3-11.1) K/mcL Hgb 9.4 L (11.5-15.4) g/dL Hct 30.6 L (35.3-44.9) % Plt Count 272 (140-400) K/mcL Neutrophils # 3.9 (1.6-8.9) K/mcL BMP 08/04/18 04:00 Sodium 140 Potassium 3.5 Chloride 102 Carbon Dioxide 32 H BUN 20 Creatinine 0.52 L Glucose 90 Calcium 8.5 L Consult Discharge Plan - Plan Instructions: Colectomy (DC) Additional Instructions: General Surgical Discharge Instructions 1. No pushing, pulling, or lifting greater than 15 lbs for 6 weeks. 2. You may shower beginning today, but no tub baths, soaking, or swimming for 2 weeks. 3. Follow your rehab instructions. 4. Take ibuprofen every 8 hours for discomfort. If this does not relieve discomfort, you may take the as needed Percocet. Take narcotics as directed. Do not take more narcotics then directed and do not share your narcotics with any other person. Do not drink alcohol while on narcotics. 5. Take stool softeners (Colace) or a water based laxative (Miralax) while taking narcotics. You may hold for loose stools. 6. Report any fevers greater than 100.5F, increase abdominal discomfort, drainage that looks like pus, increased redness or pain at the surgical site, or any vomiting. 7. Report any pain in the calves, shortness of breath, or rapid heartbeat. 8. Follow-up in the office as directed. 9. If you were prescribed antibiotics, do not stop them without talking to your provider. 10. Nothing is to be put in the rectum for any reason until directed otherwise. Referrals: Rashad Bullard MD [Partnered Physician] - Cary Alvares CNP [Advanced Practice Nurse] - 08/15/18 3:00 pm (3) Left ureteral injury Qualifiers: Encounter type: subsequent encounter Qualified Code(s): S37.10XD - Unspecified injury of ureter, subsequent encounter (4) Anemia Qualifiers: Anemia type: other cause Other causes of anemia: acute posthemorrhagic Qualified Code(s): D62 - Acute posthemorrhagic anemia (5) Hypertension Qualifiers: Hypertension type: essential hypertension Qualified Code(s): I10 - Essential (primary) hypertension (6) Hyperlipidemia Qualifiers: Hyperlipidemia type: mixed hyperlipidemia Qualified Code(s): E78.2 - Mixed hyperlipidemia (7) Hypothyroidism Qualifiers: Hypothyroidism type: acquired Qualified Code(s): E03.9 - Hypothyroidism, unspecified
[2018-08-04] MEDS: Ibuprofen 600 MG TABLET PO PRN (18:17)
[2018-08-05] MEDS: Ondansetron 4 MG/2 ML VIAL IVP PRN (05:28)
[2018-08-05] MEDS: *HR* Enoxaparin 40 MG/0.4 ML SYRINGE SQ SCH (05:29)
[2018-08-05 05:32] LABS: Hematocrit 30.3 % (35.3-44.9); Hemoglobin 9.2 g/dL (11.5-15.4); Mean Corpuscular HGB Conc 30.4 g/dL (31.6-35.5); Mean Corpuscular Hemoglobin 25.1 pg (28.0-33.3); Mean Corpuscular Volume 82.6 fL (83.0-100.0); Platelet Count 243 K/mcL (140-400); Red Blood Count 3.67 M/mcL (3.82-4.97); Red Cell Distribution Width 15.9 % (11.5-14.5); White Blood Count 3.7 K/mcL (4.3-11.1)
[2018-08-05 05:55] LABS: BUN/Creatinine Ratio 39 (6-26); Blood Urea Nitrogen 20 mg/dL (8-23); Calcium 8.7 mg/dL (8.6-10.3); Carbon Dioxide 32 mEq/L (23-29); Chloride 101 mEq/L (98-107); Glucose 102 mg/dL (70-105); Osmolality,Calculated 291 (280-300); Potassium 3.6 mEq/L (3.5-5.1); Sodium 139 mEq/L (136-145); eGFR For African Americans > 60 (> 60); eGFR For Non-African Americans > 60 (> 60)
[2018-08-05] MEDS: Ibuprofen 600 MG TABLET PO PRN (09:45)
--- NOTE | 2018-08-05 10:22 | Internal Med Progress Note ---
Hospitalist Progress Note - Encounter Date of Encounter: 08/05/18 Time of Encounter: 10:00 - Subjective Interval History: Ms Gunn is currently admitted for acute bowel obstruction secondary to adenocarcinoma of the colon. She is s/p resection. She remains moderate to high risk due to potential for worsening clinical status. Ms Gunn has had multiple bowel movements. She is feeling better today and is more hungry. No fever or chills. Less nausea. Wants ice cream. No CP or SOB. - Exam Vitals: Temp Pulse Resp BP Pulse Ox 98.5 F 90 16 144/79 94 08/05/18 07:03 08/05/18 07:03 08/05/18 07:03 08/05/18 07:03 08/05/18 07:03 Exam: General: Alert and oriented. Pleasant. Skin: Normal color, no rash, H: Normocephalic. EENT: EOMI, Mucus membranes dry. Cardiovascular: Normal S1 & S2, Pulse regular. Distant. Lungs: Normal breath sounds Diminished. Abdomen: Soft, Dressing intact Extremities: No edema. Neurological: Normal cognition and motor skills. Pulses: radial pulses normal +2. Rest of the physical exam is non contributory - Assessment and Plan (1) Primary adenocarcinoma of rectosigmoid junction Current Visit: Yes Status: Acute Assessment and Plan: Pt presented and found to have colon mass. She is s/p resection. Oncology following for further post op plans. Had bowel movements last night and tolerating more PO at this time. (2) Ileus following gastrointestinal surgery Current Visit: Yes Status: Resolved Assessment and Plan: Had multiple bowel movements last night. Tolerating more oral intake now. (3) Left ureteral injury Current Visit: Yes Status: Acute Assessment and Plan: Per urology. Lee in place till follow up. (4) Anemia Current Visit: Yes Status: Acute Assessment and Plan: Pt has anemia due to blood loss from surgery. Continued stable H/H (5) Hypertension Current Visit: Yes Status: Chronic Assessment and Plan: Systolic remains elevated. Add BP med today. (6) Hyperlipidemia Current Visit: Yes Status: Chronic Assessment and Plan: Chronic issue. Continue to hold meds for now (7) Hypothyroidism Current Visit: Yes Status: Chronic Assessment and Plan: PO Synthroid. - Time Spent with Patient Total time spent is greater than 50% in coordination of care (as documented) at patient's floor/unit and/or counseling patient: Internal Medicine: Result - Labs CBC & Chem 7: 08/05/18 05:20 08/05/18 05:20 Labs: Short CBC 08/05/18 Range/Units 05:20 WBC 3.7 L (4.3-11.1) K/mcL Hgb 9.2 L (11.5-15.4) g/dL Hct 30.3 L (35.3-44.9) % Plt Count 243 (140-400) K/mcL BMP 08/05/18 05:20 Sodium 139 Potassium 3.6 Chloride 101 Carbon Dioxide 32 H BUN 20 Creatinine 0.51 L Glucose 102 Calcium 8.7 Consult Discharge Plan - Plan Instructions: Colectomy (DC) Additional Instructions: General Surgical Discharge Instructions 1. No pushing, pulling, or lifting greater than 15 lbs for 6 weeks. 2. You may shower beginning today, but no tub baths, soaking, or swimming for 2 weeks. 3. Follow your rehab instructions. 4. Take ibuprofen every 8 hours for discomfort. If this does not relieve discomfort, you may take the as needed Percocet. Take narcotics as directed. Do not take more narcotics then directed and do not share your narcotics with any other person. Do not drink alcohol while on narcotics. 5. Take stool softeners (Colace) or a water based laxative (Miralax) while taking narcotics. You may hold for loose stools. 6. Report any fevers greater than 100.5F, increase abdominal discomfort, drainage that looks like pus, increased redness or pain at the surgical site, or any vomiting. 7. Report any pain in the calves, shortness of breath, or rapid heartbeat. 8. Follow-up in the office as directed. 9. If you were prescribed antibiotics, do not stop them without talking to your provider. 10. Nothing is to be put in the rectum for any reason until directed otherwise. Referrals: Rashad Bullard MD [Partnered Physician] - Cary Alvares CNP [Advanced Practice Nurse] - 08/15/18 3:00 pm Jayce William MD [Partnered Physician] - (Call office.) (3) Left ureteral injury Qualifiers: Encounter type: subsequent encounter Qualified Code(s): S37.10XD - Unspecified injury of ureter, subsequent encounter (4) Anemia Qualifiers: Anemia type: other cause Other causes of anemia: acute posthemorrhagic Qualified Code(s): D62 - Acute posthemorrhagic anemia (5) Hypertension Qualifiers: Hypertension type: essential hypertension Qualified Code(s): I10 - Essential (primary) hypertension (6) Hyperlipidemia Qualifiers: Hyperlipidemia type: mixed hyperlipidemia Qualified Code(s): E78.2 - Mixed hyperlipidemia (7) Hypothyroidism Qualifiers: Hypothyroidism type: acquired Qualified Code(s): E03.9 - Hypothyroidism, unspecified
[2018-08-06] MEDS: Ibuprofen 600 MG TABLET PO PRN (03:29)
[2018-08-06 04:05] LABS: Hematocrit 29.9 % (35.3-44.9); Hemoglobin 9.2 g/dL (11.5-15.4); Mean Corpuscular HGB Conc 30.8 g/dL (31.6-35.5); Mean Corpuscular Hemoglobin 25.6 pg (28.0-33.3); Mean Corpuscular Volume 83.3 fL (83.0-100.0); Mean Platelet Volume 8.2 fL (9.4-12.4); Platelet Count 247 K/mcL (140-400); Red Blood Count 3.59 M/mcL (3.82-4.97); Red Cell Distribution Width 16.3 % (11.5-14.5); White Blood Count 4.1 K/mcL (4.3-11.1)
[2018-08-06 04:16] LABS: BUN/Creatinine Ratio 31 (6-26); Blood Urea Nitrogen 16 mg/dL (8-23); Calcium 8.8 mg/dL (8.6-10.3); Carbon Dioxide 31 mEq/L (23-29); Chloride 101 mEq/L (98-107); Glucose 109 mg/dL (70-105); Osmolality,Calculated 288 (280-300); Potassium 3.8 mEq/L (3.5-5.1); Sodium 138 mEq/L (136-145); eGFR For African Americans > 60 (> 60); eGFR For Non-African Americans > 60 (> 60)
[2018-08-06] MEDS: *HR* Enoxaparin 40 MG/0.4 ML SYRINGE SQ SCH (06:22)
--- NOTE | 2018-08-06 08:43 | Discharge Summary ---
- NOTES TO OUTPATIENT PROVIDER Notes to Outpatient Provider: Ms Gunn was admitted for bowel obstruction and found to have adenocarcinoma of the rectosigmoid. She is now s/p resection. She is to follow with oncology and is now going to rehab. Orders not resulted at time of discharge: Pending orders 07/29/18 19:30 Surgical Pathology [PTH] Routine Date of Encounter: 08/06/18 Time of Encounter: 08:41 - Discharge Diagnosis (1) Intussusception Priority: Primary Status: Resolved (2) Primary adenocarcinoma of rectosigmoid junction Priority: Primary Status: Acute (3) Ileus following gastrointestinal surgery Priority: Secondary Status: Resolved (4) Left ureteral injury Priority: Secondary Status: Acute Qualifiers: Encounter type: subsequent encounter Qualified Code(s): S37.10XD - Unspecified injury of ureter, subsequent encounter (5) Anemia Priority: Secondary Status: Acute Qualifiers: Anemia type: other cause Other causes of anemia: acute posthemorrhagic Qualified Code(s): D62 - Acute posthemorrhagic anemia (6) Hypertension Priority: Secondary Status: Chronic Qualifiers: Hypertension type: essential hypertension Qualified Code(s): I10 - Essential (primary) hypertension (7) Hyperlipidemia Priority: Secondary Status: Chronic Qualifiers: Hyperlipidemia type: mixed hyperlipidemia Qualified Code(s): E78.2 - Mixed hyperlipidemia (8) Hypothyroidism Priority: Secondary Status: Chronic Qualifiers: Hypothyroidism type: acquired Qualified Code(s): E03.9 - Hypothyroidism, unspecified Hospital course: Ms. Gunn is a 83 year old female with HTN presented to ED with abdominal pain. CT showed possible intussusception and she was subsequently admitted. Ms Gunn was admitted to med surg with possible intussusception. CT showed possible mass in rectal area. She underwent colonoscopy and large mass found in rectosigmoid junctions. She had surgical resection of the area on 07/29. She was evaluated by oncology and will need further assessment after discharge. She slowly improved and the NG was removed. She had issues with nausea and difficulty taking in any PO. She was given antiemetics with improvement. She eventually had good bowel movements and was able to take better PO (with Phenergan). Today she feels well. She is tolerating some oral intake. She is afebrile and ready for discharge to SNF. Discharge discussed with: patient - Time Spent with Patient Total time spent providing and/or coordinating discharge services: 40min - Discharge Medications Prescriptions: New Enoxaparin [Lovenox] 40 mg SQ 0600 syringe Ibuprofen [Motrin] 600 mg PO TID PRN tablet PRN Reason: Mild Pain OxyCODONE/APAP 5/325 [Percocet 5/325 MG] 1 each PO Q6HR PRN 2 Days #8 tablet PRN Reason: Moderate Pain Promethazine [Phenergan] 12.5 mg PO ACHS tablet Lisinopril [Zestril] 5 mg PO BID tablet Continued Levothyroxine [Synthroid] 50 mcg PO DAILY 365 Days tablet Simvastatin [Zocor] 20 mg PO HS 365 Days tablet Discontinued Lisinopril [Zestril] 5 mg PO DAILY Torsemide [Demadex] 10 mg PO DAILY Home Medications: Levothyroxine [Synthroid] 50 mcg PO DAILY 365 Days tablet 07/25/16 [Rx] Simvastatin [Zocor] 20 mg PO HS 365 Days tablet 07/25/16 [Rx] Enoxaparin [Lovenox] 40 mg SQ 0600 syringe 08/06/18 [Rx] Ibuprofen [Motrin] 600 mg PO TID PRN tablet 08/06/18 [Rx] Lisinopril [Zestril] 5 mg PO BID tablet 08/06/18 [Rx] OxyCODONE/APAP 5/325 [Percocet 5/325 MG] 1 each PO Q6HR PRN 2 Days #8 tablet 08/06/18 [Rx] Promethazine [Phenergan] 12.5 mg PO ACHS tablet 08/06/18 [Rx] Allergies/Adverse Reactions: Allergy/AdvReac Type Severity Reaction Status Date / Time No Known Allergies Allergy Verified 07/26/18 19:17 Date of admission: 07/27/18 07:41 Primary care physician: PCP NONE Consults: 07/26/18 22:24 Consult to Surgery [CONS] Stat Consulting Provider: Acute Care Surgery Reason for Consult: intusseption Call Completed: Yes 07/27/18 00:45 Consult to Nutrition [CONS] Routine Comment: Consulting Provider: NUTRITION Reason for Dietary Consult: MST Score 07/27/18 06:40 Consult to Marketing Systems Analyst [CONS] Routine Reason for SW Consult: advanced directives 07/29/18 22:22 Consult to Oncology [CONS] Routine Consulting Provider: Oncology [facility] Reason for Consult: s/p LAR for obstructing rectal cancer Call Completed: No 07/30/18 09:16 Consult to Occupational Therapy [CONS] Routine Comment: Evaluate, develop and implement POC Reason for Consult: Mobilization and discharge planning Does patient have active BEDREST order?: No Is patient medically & hemodynamically stable?: Yes Patient assessed for mobility or mobilized this visit?: No Consult to Physical Therapy [CONS] Routine Comment: Evaluate, develop and implement POC Reason for Consult: Mobilization and discharge planning Does patient have active BEDREST order?: No Is patient medically & hemodynamically stable?: Yes Patient assessed for mobility or mobilized this visit?: No 07/31/18 11:03 Consult to Urology [CONS] Routine Consulting Provider: Urology Nanda Reason for Consult: s/p left ureter repair, already following, consult placed Call Completed: No 08/01/18 10:22 Consult to Invasive Line Access Team [CONS] Stat Reason for Consult: limited access Line Type: EPIV Discharging clinician: [place] Anticipated date of discharge: 08/06/18 - Constitutional Vitals: Temp Pulse Resp BP Pulse Ox 98.2 F 82 17 112/67 94 08/06/18 07:56 08/06/18 07:56 08/06/18 07:56 08/06/18 07:56 08/06/18 07:56 General appearance: Present: A&O X 3, pleasant Exam: See below - Head Head exam: Present: normocephalic - Eye Eye exam: Present: EOMI, conjuntiva pink - ENT ENT exam: Present: mucous membranes moist - Respiratory Respiratory exam: Present: CTAB. Absent: rales, rhonchi, wheezes - Cardiovascular Cardiovascular exam: Present: RRR. Absent: tachycardia - GI/Abdominal GI/Abdominal exam: Present: soft, tenderness - Extremities Exam Extremities exam: Present: warm. Absent: tenderness - Neurological Exam Neurological exam: Present: alert, oriented X3 - Skin Skin exam: Present: dry, warm - Patient Status Disposition: Transfer SNF Condition: Fair Functional capacity at discharge: uses cane/walker Overall status at discharge: patient is progressing back to baseline - Discharge Instructions Instructions: Colectomy (DC) Follow Up With: Rashda Bullard MD [Partnered Physician] - Cary Alvares CNP [Advanced Practice Nurse] - 08/15/18 3:00 pm Jayce William MD [Partnered Physician] - (Call office.) Additional Instructions: General Surgical Discharge Instructions 1. No pushing, pulling, or lifting greater than 15 lbs for 6 weeks. 2. You may shower beginning today, but no tub baths, soaking, or swimming for 2 weeks. 3. Follow your rehab instructions. 4. Take ibuprofen every 8 hours for discomfort. If this does not relieve discomfort, you may take the as needed Percocet. Take narcotics as directed. Do not take more narcotics then directed and do not share your narcotics with any other person. Do not drink alcohol while on narcotics. 5. Take stool softeners (Colace) or a water based laxative (Miralax) while taking narcotics. You may hold for loose stools. 6. Report any fevers greater than 100.5F, increase abdominal discomfort, drainage that looks like pus, increased redness or pain at the surgical site, or any vomiting. 7. Report any pain in the calves, shortness of breath, or rapid heartbeat. 8. Follow-up in the office as directed. 9. If you were prescribed antibiotics, do not stop them without talking to your provider. 10. Nothing is to be put in the rectum for any reason until directed otherwise. - Diet and Activity Activity: as per physical therapy, increase activity as tolerated Diet: low salt diet
--- NOTE | 2018-08-06 09:08 | Physician Discharge Referral ---
ExtendedCare Referral Info Provider in Charge after Transfer: PCP Institutional Level of Care: Skilled - Diagnosis (1) Intussusception Priority: Primary Status: Resolved (2) Primary adenocarcinoma of rectosigmoid junction Priority: Primary Status: Acute (3) Ileus following gastrointestinal surgery Priority: Secondary Status: Resolved (4) Left ureteral injury Priority: Secondary Status: Acute (5) Anemia Priority: Secondary Status: Acute (6) Hypertension Priority: Secondary Status: Chronic (7) Hyperlipidemia Priority: Secondary Status: Chronic (8) Hypothyroidism Priority: Secondary Status: Chronic Prognosis: Fair Aware of Diagnosis: Patient, Family Aware of Prognosis: Patient, Family - Transfer Medications Prescriptions: OxyCODONE/APAP 5/325 [Percocet 5/325 MG] 1 each PO Q6HR PRN 2 Days #8 tablet PRN Reason: Moderate Pain Home Medications: Levothyroxine [Synthroid] 50 mcg PO DAILY 365 Days tablet 07/25/16 [Rx] Simvastatin [Zocor] 20 mg PO HS 365 Days tablet 07/25/16 [Rx] Enoxaparin [Lovenox] 40 mg SQ 0600 syringe 08/06/18 [Rx] Ibuprofen [Motrin] 600 mg PO TID PRN tablet 08/06/18 [Rx] Lisinopril [Zestril] 5 mg PO BID tablet 08/06/18 [Rx] OxyCODONE/APAP 5/325 [Percocet 5/325 MG] 1 each PO Q6HR PRN 2 Days #8 tablet 08/06/18 [Rx] Promethazine [Phenergan] 12.5 mg PO ACHS tablet 08/06/18 [Rx] Allergies/Adverse Reactions: Allergy/AdvReac Type Severity Reaction Status Date / Time No Known Allergies Allergy Verified 07/26/18 19:17 - Respiratory Orders None Smoking Cessation: Smoking cessation has been advised. For more information, call the [place] Tobacco Quit Line at 2-931-WHTL-NOW. - Ancillary Orders May use pressure relief devices daily prn, May consult with Dentist, Borough Coordinator, Parcel Post Truck Driver PRN - Advance Directives Code Status: Full Code - Mobility Orders Chair, Ambulate - Rehabiliation Orders Rehab Orders: Evaluation for Physical Therapy, Evaluation for Occupational Therapy Other: Further orders per surgery. - Treatments Skin tear care topically daily PRN per policy List/Other: Wound: Open to air or cover with dry dressing daily per patient preference 1. No pushing, pulling, or lifting greater than 15 lbs for 6 weeks. 2. You may shower beginning today, but no tub baths, soaking, or swimming for 2 weeks. 3. Follow your rehab instructions. 4. Take ibuprofen every 8 hours for discomfort. If this does not relieve discomfort, you may take the as needed Percocet. Take narcotics as directed. Do not take more narcotics then directed and do not share your narcotics with any other person. Do not drink alcohol while on narcotics. 5. Take stool softeners (Colace) or a water based laxative (Miralax) while taking narcotics. You may hold for loose stools. 6. Report any fevers greater than 100.5F, increase abdominal discomfort, drainage that looks like pus, increased redness or pain at the surgical site, or any vomiting. 7. Report any pain in the calves, shortness of breath, or rapid heartbeat. 8. Follow-up in the office as directed. 9. If you were prescribed antibiotics, do not stop them without talking to your provider. 10. Nothing is to be put in the rectum for any reason until directed otherwise. - Diet Orders Cardiac CERTIFICATION: I certify that the transfer of the above named patient to an Extended Care Facility is necessary for the continuing treatment of the diagnosis listed. The above information is true and accurate reflection of patient's current condition. Confidential - Redisclosure prohibited without a patient's written consent.
[2018-08-06 16:30] VITALS: BP 125/61
== END 2018-08-06 19:48 | DRG 332 ==
LOC: 3ANU 19:15 → EMEROOARM 19:15 → SUATTDRO 23:52 → 3ANU 07-27 00:05 → SUATTDRO 07-27 07:41
PROVIDERS: ADMIT Internal Medicine; ATTEND Internal Medicine

== ENCOUNTER 2018-11-03 19:17 | Inpatient (IN) ==
[2018-11-03] MEDS ORDERED: Ondansetron 4 MG/2 ML VIAL IVP ONE (19:29)
[2018-11-03] MEDS ORDERED: 0.9 % Sodium Chloride 1,000 ML IVC ONE (19:29)
[2018-11-03] MEDS ORDERED: Isovue-370 500 ML BOTTLE IVP ONE (19:35)
[2018-11-03 19:54] LABS: Bilirubin,Urine Small (Negative); Blood,Urine Negative (Negative); Clarity,Urine Cloudy (Clear); Color,Urine Yellow (Yellow); Glucose,Urine (UA) Normal (Normal); Ketones,Urine 15 mg/dL (Negative); Leukocyte Esterase,Urine Moderate (Negative); Nitrite,Urine Negative (Negative); PH,Urine 5.5 pH Units (5.0-8.0); Protein,Urine Trace mg/dL (Neg-Trace); Specific Gravity,Urine 1.024 (1.010-1.025); Urobilinogen,Urine Normal (Normal)
[2018-11-03 19:55] LABS: RBC,Urine 0-3 per hpf (0-3); Squamous Epithelial Cell,Urine Many per lpf (None-Few); WBC,Urine 50-100 per hpf (0-3)
--- NOTE | 2018-11-03 19:55 | Emergency Department Note ---
Disposition Clinical Impression: Left bundle branch block, Diverticulitis Nausea & vomiting Qualifiers: Vomiting type: unspecified Vomiting Intractability: non-intractable Qualified Code(s): R11.2 - Nausea with vomiting, unspecified Diarrhea Qualifiers: Diarrhea type: unspecified type Qualified Code(s): R19.7 - Diarrhea, unspecified Abdominal pain Qualifiers: Abdominal location: lower abdomen, unspecified Qualified Code(s): R10.30 - Lower abdominal pain, unspecified Diverticulitis large intestine Qualifiers: Diverticulitis bleeding: unspecified bleeding status Diverticulitis complication: without perforation or abscess Qualified Code(s): K57.32 - Diverticulitis of large intestine without perforation or abscess without bleeding Disposition: Admitted As Inpatient Condition: Fair Time of Disposition: 22:19 Abdominal Pain HPI - General Chief Complaint: ED Abdominal Pain Stated Complaint: general weakness Time Seen by Provider: 11/03/18 19:21 Source: EMS, other Mode of arrival: EMS ([facility]) Limitations: no limitations Nursing Notes Reviewed: Yes Vital Signs Reviewed: Yes - History of Present Illness HPI Narrative: 83-year-old female patient presents for evaluation of nausea and vomiting. She has not been on down any solid food for the last 2 days. She has consumed liquids but but appears to go right through her or she comes nauseated and vomits. He is concerned that she is dehydrated. Patient's history of breast cancer roughly 6 years ago. 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 She previously had an indwelling catheter after the surgery as she reports the bladder was nicked. That has since resolved and she is able to urinate without any difficulty. She complains of abdominal pain mostly lower in nature. She has noted some dark stools and her tongue was had black substance on it as well. She has been taken Pepto-Bismol the last week; for her diarrhea. They deny noting any coffee- ground or dark colored emesis. Pt Subjective Complaint: abdominal pain Consistency: intermittent Location: diffuse, LLQ, RLQ Pain Severity: moderate Pain Scale: 8 Quality: cramping, fullness, sharp Radiation: none Migration to: no migration Improves with: vomiting, rest Worsens with: eating - Related Data Home Medications Medication Instructions Recorded Confirmed Lisinopril [Zestril] 5 mg PO DAILY 09/09/18 11/03/18 Levothyroxine [Synthroid] 50 mcg PO QAM 11/03/18 11/03/18 Omeprazole 20 mg PO BID 11/03/18 11/03/18 Torsemide [Demadex] 20 mg PO DAILY 11/03/18 11/03/18 Previous Rx's Medication Instructions Recorded Simvastatin [Zocor] 20 mg PO HS 365 Days tablet 07/25/16 Allergies Allergy/AdvReac Type Severity Reaction Status Date / Time No Known Allergies Allergy Verified 11/03/18 22:34 All systems ED: reviewed and negative except as stated. Constitutional: Reports: chills, weakness. Denies: fever, weight change Eyes: Denies: eye pain, eye discharge, vision change ENT ED: Denies: ear pain, throat pain, dental pain, hearing loss, epistaxis, congestion, dysphagia Cardiovascular: Denies: chest pain, palpitations, dyspnea on exertion, edema, syncope Respiratory: Denies: cough, dyspnea, wheezes, hemoptysis, stridor Gastrointestinal: Reports: abdominal pain, nausea, vomiting, diarrhea, other (Dark stools but has been taking Pepto bismol). Denies: constipation, hematemesis, melena, hematochezia Genitourinary: Denies: dysuria, frequency, hematuria, discharge Musculoskeletal: Denies: back pain, neck pain, arthralgia, myalgia Integumentary: Denies: rash, abrasion, lesions Neurological: Denies: headache, weakness, numbness, paresthesias, confusion, abnormal gait, vertigo Psychiatric: Denies: anxiety, depression, suicidal thoughts, homicidal thoughts, auditory hallucinations, visual hallucinations Endocrine: Denies: fatigue Hematological/Lymphatic: Denies: easy bleeding, easy bruising Allergic/Immunologic: Denies: facial swelling, urticaria Abdominal Pain PMH - Past Medical History Medical history: Reports: cancer, hyperlipidemia, hypertension, migraine, thyroid disease, other Female Surgical History: Reports: other EMT P history: Reports: no EMT P history Psychiatric history: Reports: no psych history - Social History Smoking status: Never smoker Alcohol use: Reports: none Drug use: Reports: none Physical Exam - General Limitations: physical limitation, other General appearance: alert - Head Head exam: atraumatic, normocephalic, normal inspection - Eye Eye exam: Present: normal appearance, PERRL, EOMI - Expanded Eye Exam Pupils: Left: reactive - ENT ENT exam: normal exam, normal oropharynx, mucous membranes dry, TM's normal bilaterally, other (The tongue does have some black discoloration.) - Expanded ENT Exam External ear exam: Present: normal external inspection Mouth exam: Present: normal external inspection Teeth exam: Present: normal inspection Throat exam: Present: normal inspection - Neck Neck exam: Present: normal inspection, full ROM, trachea midline - Chest Chest inspection: Present: normal inspection, symmetric chest wall rise. Absent: tenderness - Respiratory Respiratory exam: Present: normal lung sounds bilaterally. Absent: respiratory distress, wheezes - Cardiovascular Cardiovascular exam: Present: regular rate, normal rhythm, normal heart sounds - Abdominal Exam Abdominal exam: Present: soft, tenderness (Throughout the lower abdomen.), h yperactive bowel sounds, scar (Midline from the pubic symphysis to just below the sternum). Absent: distention, guarding, rebound, rigidity, obturator sign, heel tap sign, tenderness at McBurney's Point, ascites, mass, bruit, pulsatile mass, hernia - Rectal Exam Operator Vacuum present during exam: Yes Rectal exam: Present: normal inspection, normal rectal tone ( ), black stool (Is noted to be black but patient is taken Pepto-Bismol but occult stool was obtained), hemorrhoids (Nonthrombosed). Absent: mass, tenderness - Extremities Exam Extremities exam: Present: normal inspection, full ROM. Absent: tenderness, pedal edema - Expanded Upper Extremity Exam Shoulder exam: Present: normal inspection, full ROM Arm exam: Present: normal inspection, full ROM Elbow exam: Present: normal inspection, full ROM Forearm/Wrist exam: Present: normal inspection, full ROM Hand exam: Present: normal inspection, full ROM Vascular exam: Normal: capillary refill, radial pulse - Expanded Lower Extremity Exam Hip/Pelvis exam: Present: normal inspection, full ROM Upper leg exam: Present: normal inspection, full ROM Knee exam: Present: normal inspection, full ROM Lower leg exam: Present: normal inspection, full ROM Ankle exam: Present: normal inspection, full ROM Foot/toe exam: Present: normal inspection, full ROM Neurovascular/Tendon exam: Absent: motor deficit, sensory deficit, tendon deficit - Back Exam Back exam: Present: normal inspection, full ROM. Absent: tenderness, CVA tenderness (R), CVA tenderness (L), muscle spasm - Neurological Exam Neurological exam: Present: alert, oriented X3, CN II-XII intact - Expanded Neurological Exam Patient oriented to: Present: person, place, time Coma Scale Eye Opening: Spontaneous Coma Scale Motor Response: Obeys Commands Coma Scale Verbal Response: Oriented Coma Scale Total: 15 - Psychiatric Psychiatric exam: Present: normal affect, normal mood - Skin Skin exam: Present: warm, dry, intact, normal color Course Course Narrative: Patient had basic lab work. A CT scan was obtained to rule out diverticulitis. CT scan demonstrated acute ascending and rectosigmoid diverticulitis. Vision was given Protonix 80 mg IV push. Initially a drip was ordered but this was changed by pharmacy Unasyn was given IV for this. Patient had a hemoglobin of 7.3. She did have dark tarry stools but this most likely was secondary to the bismuth as her Hemoccult was negative. However, she was typed and crossmatched and transfused 2 units of blood. Patient was admitted to the hospitalist - Reevaluation(s) Reevaluation #1: Patient is feeling better. Patient has been given fluid bolus. Time: 20:53 Vital Signs Temperature 99.5 F 11/03/18 19:28 Pulse Rate 94 11/03/18 19:28 Respiratory Rate 22 11/03/18 19:28 Blood Pressure 143/60 11/03/18 19:28 O2 Sat by Pulse Oximetry 96 11/03/18 19:28 Temperature 98.7 F 11/04/18 07:11 Pulse Rate 87 11/04/18 07:11 Respiratory Rate 16 11/04/18 07:11 Blood Pressure 127/59 11/04/18 07:11 O2 Sat by Pulse Oximetry 95 11/04/18 07:11 Oxygen Delivery Oxygen Delivery Room Air Abdominal Pain - Medical Records Medical records reviewed: Yes I reviewed the patient's medical records. - Lab Data Lab results reviewed: Yes I reviewed the patient's lab results. Result diagrams: 11/04/18 07:42 11/04/18 07:42 Lab Results 11/03/18 11/03/18 11/03/18 Range/Units 19:45 19:55 19:55 WBC 4.8 (4.3-11.1) K/mcL RBC 3.01 L (3.82-4.97) M/mcL Hgb 7.3 L (11.5-15.4) g/dL Hct 24.3 L (35.3-44.9) % MCV 80.7 L (83.0-100.0) fL MCH 24.3 L (28.0-33.3) pg MCHC 30.0 L (31.6-35.5) g/dL RDW 19.1 H (11.5-14.5) % Plt Count 301 (140-400) K/mcL MPV 8.5 L (9.4-12.4) fL Immature Gran % 0.2 (0-4) % Seg Neutrophils % 70.8 % Lymphocytes % 10.5 % Monocytes % 16.4 % Eosinophils % 1.7 % Basophils % 0.4 % Neutrophils # 3.4 (1.6-8.9) K/mcL Lymphocytes # 0.5 L (0.6-4.6) K/mcL Monocytes # 0.8 (0.0-1.3) K/mcL Eosinophils # 0.1 (0.0-0.6) K/mcL Basophils # 0.0 (0.0-0.2) K/mcL PT 12.0 (9.4-12.1) Seconds INR 1.1 APTT 25.6 L (26.0-36.0) Seconds Sodium (136-145) mEq/L Potassium (3.5-5.1) mEq/L Chloride (98-107) mEq/L Carbon Dioxide (23-29) mEq/L BUN (8-23) mg/dL Creatinine (0.60-1.20) mg/dL Est GFR ( Amer) (> 60) Est GFR (Non-Af Amer) (> 60) BUN/Creatinine Ratio (6-26) Glucose (70-105) mg/dL Calculated Osmolality (280-300) Lactic Acid (0.5-2.2) mmol/L Calcium (8.6-10.3) mg/dL Total Bilirubin (0.3-1.0) mg/dL Direct Bilirubin (0.0-0.2) mg/dL Indirect Bilirubin (0.0-1.2) mg/dL AST (13-39) Units/L ALT (7-52) Units/L Alkaline Phosphatase (34-104) Units/L Troponin I (< 0.04) ng/mL Serum Total Protein (6.4-8.9) g/dL Albumin (3.5-5.7) g/dL Globulin (2.4-3.5) g/dL Albumin/Globulin Ratio (1.1-2.2) Amylase (29-103) Units/L Lipase (11-82) Units/L Urine Color Yellow (Yellow) Urine Clarity Cloudy A (Clear) Urine pH 5.5 (5.0-8.0) pH Units Ur Specific Mountain 1.024 (1.010-1.025) Urine Protein Trace (Neg-Trace) mg/dL Urine Glucose (UA) Normal (Normal) mg/dL Urine Ketones 15 H (Negative) mg/dL Urine Blood Negative (Negative) Urine Nitrite Negative (Negative) Urine Bilirubin Small H (Negative) Urine Urobilinogen Normal (Normal) mg/dL Ur Leukocyte Esterase Moderate H (Negative) Urine Microscopic RBC 0-3 (0-3) per hpf Urine Microscopic WBC 50-100 H (0-3) per hpf Ur Squamous Epith Cells Many H (None-Few) per lpf Urine Bacteria Moderate H (None-Few) per hpf Urine Mucus Moderate H (Few) Ur Culture Indicated? YES A (NO) Stool Occult Bld Scrn (Negative) Blood Type Antibody Screen Crossmatch 11/03/18 11/03/18 11/03/18 Range/Units 19:55 20:09 20:47 WBC (4.3-11.1) K/mcL RBC (3.82-4.97) M/mcL Hgb (11.5-15.4) g/dL Hct (35.3-44.9) % MCV (83.0-100.0) fL MCH (28.0-33.3) pg MCHC (31.6-35.5) g/dL RDW (11.5-14.5) % Plt Count (140-400) K/mcL MPV (9.4-12.4) fL Immature Gran % (0-4) % Seg Neutrophils % % Lymphocytes % % Monocytes % % Eosinophils % % Basophils % % Neutrophils # (1.6-8.9) K/mcL Lymphocytes # (0.6-4.6) K/mcL Monocytes # (0.0-1.3) K/mcL Eosinophils # (0.0-0.6) K/mcL Basophils # (0.0-0.2) K/mcL PT (9.4-12.1) Seconds INR APTT (26.0-36.0) Seconds Sodium 137 (136-145) mEq/L Potassium 3.7 (3.5-5.1) mEq/L Chloride 105 (98-107) mEq/L Carbon Dioxide 26 (23-29) mEq/L BUN 17 (8-23) mg/dL Creatinine 0.54 L (0.60-1.20) mg/dL Est GFR ( Amer) > 60 (> 60) Est GFR (Non-Af Amer) > 60 (> 60) BUN/Creatinine Ratio 31 H (6-26) Glucose 98 (70-105) mg/dL Calculated Osmolality 286 (280-300) Lactic Acid 1.1 (0.5-2.2) mmol/L Calcium 9.2 (8.6-10.3) mg/dL Total Bilirubin 0.5 (0.3-1.0) mg/dL Direct Bilirubin 0.1 (0.0-0.2) mg/dL Indirect Bilirubin 0.4 (0.0-1.2) mg/dL AST 7 L (13-39) Units/L ALT 4 L (7-52) Units/L Alkaline Phosphatase 46 (34-104) Units/L Troponin I < 0.03 (< 0.04) ng/mL Serum Total Protein 5.6 L (6.4-8.9) g/dL Albumin 3.1 L (3.5-5.7) g/dL Globulin 2.5 (2.4-3.5) g/dL Albumin/Globulin Ratio 1.2 (1.1-2.2) Amylase 19 L (29-103) Units/L Lipase 8 L (11-82) Units/L Urine Color (Yellow) Urine Clarity (Clear) Urine pH (5.0-8.0) pH Units Ur Specific Mountain (1.010-1.025) Urine Protein (Neg-Trace) mg/dL Urine Glucose (UA) (Normal) mg/dL Urine Ketones (Negative) mg/dL Urine Blood (Negative) Urine Nitrite (Negative) Urine Bilirubin (Negative) Urine Urobilinogen (Normal) mg/dL Ur Leukocyte Esterase (Negative) Urine Microscopic RBC (0-3) per hpf Urine Microscopic WBC (0-3) per hpf Ur Squamous Epith Cells (None-Few) per lpf Urine Bacteria (None-Few) per hpf Urine Mucus (Few) Ur Culture Indicated? (NO) Stool Occult Bld Scrn Negative (Negative) Blood Type Antibody Screen Crossmatch 11/03/18 Range/Units 21:38 WBC (4.3-11.1) K/mcL RBC (3.82-4.97) M/mcL Hgb (11.5-15.4) g/dL Hct (35.3-44.9) % MCV (83.0-100.0) fL MCH (28.0-33.3) pg MCHC (31.6-35.5) g/dL RDW (11.5-14.5) % Plt Count (140-400) K/mcL MPV (9.4-12.4) fL Immature Gran % (0-4) % Seg Neutrophils % % Lymphocytes % % Monocytes % % Eosinophils % % Basophils % % Neutrophils # (1.6-8.9) K/mcL Lymphocytes # (0.6-4.6) K/mcL Monocytes # (0.0-1.3) K/mcL Eosinophils # (0.0-0.6) K/mcL Basophils # (0.0-0.2) K/mcL PT (9.4-12.1) Seconds INR APTT (26.0-36.0) Seconds Sodium (136-145) mEq/L Potassium (3.5-5.1) mEq/L Chloride (98-107) mEq/L Carbon Dioxide (23-29) mEq/L BUN (8-23) mg/dL Creatinine (0.60-1.20) mg/dL Est GFR ( Amer) (> 60) Est GFR (Non-Af Amer) (> 60) BUN/Creatinine Ratio (6-26) Glucose (70-105) mg/dL Calculated Osmolality (280-300) Lactic Acid (0.5-2.2) mmol/L Calcium (8.6-10.3) mg/dL Total Bilirubin (0.3-1.0) mg/dL Direct Bilirubin (0.0-0.2) mg/dL Indirect Bilirubin (0.0-1.2) mg/dL AST (13-39) Units/L ALT (7-52) Units/L Alkaline Phosphatase (34-104) Units/L Troponin I (< 0.04) ng/mL Serum Total Protein (6.4-8.9) g/dL Albumin (3.5-5.7) g/dL Globulin (2.4-3.5) g/dL Albumin/Globulin Ratio (1.1-2.2) Amylase (29-103) Units/L Lipase (11-82) Units/L Urine Color (Yellow) Urine Clarity (Clear) Urine pH (5.0-8.0) pH Units Ur Specific Mountain (1.010-1.025) Urine Protein (Neg-Trace) mg/dL Urine Glucose (UA) (Normal) mg/dL Urine Ketones (Negative) mg/dL Urine Blood (Negative) Urine Nitrite (Negative) Urine Bilirubin (Negative) Urine Urobilinogen (Normal) mg/dL Ur Leukocyte Esterase (Negative) Urine Microscopic RBC (0-3) per hpf Urine Microscopic WBC (0-3) per hpf Ur Squamous Epith Cells (None-Few) per lpf Urine Bacteria (None-Few) per hpf Urine Mucus (Few) Ur Culture Indicated? (NO) Stool Occult Bld Scrn (Negative) Blood Type O POSITIVE Antibody Screen NEGATIVE Crossmatch See Detail - Radiology Data Radiology results reviewed: Yes I reviewed the patient's radiology results. Chest X-Ray 11/03/18 19:33 IMPRESSION: Atelectasis or early infiltrate in the right lung base. Suspected airspace disease in the left lung base. Follow up to resolution is suggested. No obvious free air underneath the hemidiaphragm. D/ / 11/03/2018 20:25:30 Georgina Naranjo MD / bisi Interpreting Provider: Georgina Naranjo MD Abdomen/Pelvis CT 11/03/18 19:35 IMPRESSION: Small bilateral pleural effusions with dependent lower lobe consolidation, atelectasis and/or pneumonia. Descending and rectosigmoid colitis, infectious or inflammatory. D/ / Jania Fam Cha, MD / Jania Fam Cha, MD Interpreting Provider: Jania Fam Cha, MD - EKG Data EKG attestation: Yes I reviewed and interpreted this EKG. EKG results narrative: EKG is reviewed and interpreted by me: Normal sinus rhythm 93 bpm, normal axis, prolonged QRS duration at 126, interventricular conduction delay, left bundle branch block, occasional PVC Negative Sgarbosso's criteria Left bundle-branch block is not new as it was previously noted on 07/26/2018 EKG performed at 8:43 PM Critical Care Time Critical Care Time: Yes Total Critical Care Time: 30 Attestation: The high probability of a clinically significant, sudden or life threatening deterioration of the patient's condition required my full and direct attention, intervention and personal management.
[2018-11-03 20:11] LABS: Bacteria,Urine Moderate per hpf (None-Few); Mucus,Urine Moderate (Few)
[2018-11-03 20:17] LABS: Basophils % 0.4 %; Eosinophils # 0.1 K/mcL (0.0-0.6); Eosinophils % 1.7 %; Hematocrit 24.3 % (35.3-44.9); Hemoglobin 7.3 g/dL (11.5-15.4); Immature Granulocytes % 0.2 % (0-4); Lymphocytes # 0.5 K/mcL (0.6-4.6); Lymphocytes % 10.5 %; Mean Corpuscular Hemoglobin 24.3 pg (28.0-33.3); Mean Corpuscular Volume 80.7 fL (83.0-100.0); Mean Platelet Volume 8.5 fL (9.4-12.4); Monocytes # 0.8 K/mcL (0.0-1.3); Monocytes % 16.4 %; Neutrophils # 3.4 K/mcL (1.6-8.9); Platelet Count 301 K/mcL (140-400); Red Blood Count 3.01 M/mcL (3.82-4.97); Red Cell Distribution Width 19.1 % (11.5-14.5); Segmented Neutrophils % 70.8 %; White Blood Count 4.8 K/mcL (4.3-11.1)
[2018-11-03 20:26] LABS: INR 1.1
[2018-11-03 20:29] LABS: Activated Partial Thrombo Time 25.6 Seconds (26.0-36.0)
[2018-11-03 20:37] LABS: Alanine Aminotransferase 4 Units/L (7-52); Albumin 3.1 g/dL (3.5-5.7); Albumin/Globulin Ratio 1.2 (1.1-2.2); Alkaline Phosphatase 46 Units/L (34-104); Amylase 19 Units/L (29-103); Aspartate Amino Transferase 7 Units/L (13-39); BUN/Creatinine Ratio 31 (6-26); Bilirubin,Direct 0.1 mg/dL (0.0-0.2); Bilirubin,Indirect 0.4 mg/dL (0.0-1.2); Bilirubin,Total 0.5 mg/dL (0.3-1.0); Blood Urea Nitrogen 17 mg/dL (8-23); Calcium 9.2 mg/dL (8.6-10.3); Carbon Dioxide 26 mEq/L (23-29); Chloride 105 mEq/L (98-107); Globulin 2.5 g/dL (2.4-3.5); Glucose 98 mg/dL (70-105); Osmolality,Calculated 286 (280-300); Potassium 3.7 mEq/L (3.5-5.1); Sodium 137 mEq/L (136-145); Total Protein 5.6 g/dL (6.4-8.9); Troponin I < 0.03 ng/mL (< 0.04); eGFR For African Americans > 60 (> 60); eGFR For Non-African Americans > 60 (> 60)
[2018-11-03] MEDS ORDERED: Pantoprazole 40 MG VIAL IVP ONE (20:50)
[2018-11-03] MEDS ORDERED: Pantoprazole 40 MG in 0.9 % Sodium Chloride Mini Bag 100 ML IVC SCH (21:00)
[2018-11-03 21:11] LABS: Lipase 8 Units/L (11-82)
[2018-11-03] MEDS ORDERED: Ampicillin/Sulbactam 3,000 MG in 0.9 % Sodium Chloride Mini Bag 100 ML IVPB ONE (23:42)
[2018-11-04] MEDS ORDERED: Pantoprazole 40 MG VIAL IVP SCH (06:00)
[2018-11-04] MEDS ORDERED: Naloxone 0.4 MG/ML INJ IVP PRN (06:46)
--- NOTE | 2018-11-04 07:38 | Internal Med History&Physical ---
Date of Encounter: 11/04/18 Time of Encounter: 06:20 Internal Medicine - H&P: HPI Chief complaint: Colitis Admitted From: Emergency Dept Plans for Post Hospital Care: Home History of present illness: Ms. Gunn is a 83 year old female Patient presented to the Er with nausea and vomiting for 2 days. She is very hard of hearing, and difficult to obtain detailed history. She does however read lips well. She states that she has been having diarrhea with vomiting for the past 2 days, and recently underwent major abdominal surgery to remove a rectal mass, with complications with bladder perforation. She has since recovered form this, and is following with oncology. She also states that she has had abdominal pain as well. She has tried pepto-bismol at home, but did not have improvements in her symptoms. She came to the ER for further evaluation. Vital signs in the ER: Temperature 99.5, pulse 94, respiratory rate 22, blood pressure 143/60, O2 saturation 96% CBC notable for hemoglobin of 7.3 BMP unremarkable Lactic acid 1.1 Initial troponin undetectable Lipase 8 Urinalysis: Negative nitrite, moderate Leukocyte esterase, 50-100 wbcs, moderate mucus. Culture indicated. Stool occult blood negative. Chest x-ray showed possible early infiltrate in right lung base, no free air under diaphragm Abdominal CT: Small bilateral pleural effusions with dependent lower lobe consolidation, atelectasis and/or pneumonia. Patient also had descending and rectosigmoid colitis, infectious or inflammatory Patient received IV fluids in the ER and started on unasyn and protonix. She was type and screened, and given 1 unit of pRBCs. She was admitted to the hospital for further evaluation. Upon my evaluation, patient is resting comfortably in the hospital bed in no acute distress. She currently denies chest pain, abdominal pain, nausea, vomiting. She has had diarrhea that is liquid in quality. She is a full code as per family. 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 Psychiatric history: no psych history - Past Surgical History Surgical History: cholecystectomy, hysterectomy Additional surgical history: GOITER REMOVED , , urethral stent, thyroid nodule removal - Social History Smoking Status: Never smoker Smokeless Tobacco Status: No Alcohol use: none Drug use: none - Family History Father Living Status: Hx Family Cardiac Disorders: Yes (CHF) Internal Medicine - H&P: Meds Simvastatin [Zocor] 20 mg PO HS 365 Days tablet 07/25/16 [Rx] Lisinopril [Zestril] 5 mg PO DAILY 09/09/18 [History] Levothyroxine [Synthroid] 50 mcg PO QAM 11/03/18 [History] Omeprazole 20 mg PO BID 11/03/18 [History] Torsemide [Demadex] 20 mg PO DAILY 11/03/18 [History] Allergy/AdvReac Type Severity Reaction Status Date / Time No Known Allergies Allergy Verified 11/03/18 22:34 All Systems PM: A 10-system review of systems was performed and is negative for pertinent findings except as documented above in the HPI. - Constitutional Vitals: Temp Pulse Resp BP Pulse Ox 98.7 F 87 16 127/59 95 11/04/18 07:11 11/04/18 07:11 11/04/18 07:11 11/04/18 07:11 11/04/18 07:11 General appearance: Present: cooperative, A&O X 3, pleasant, no acute distress, answers questions appropriately Exam: Very hard of hearing, does read lips well however - Head Head exam: Present: normal inspection - Eye Eye exam: Present: EOMI, normal appearance - Respiratory Respiratory exam: Present: CTAB. Absent: rales, respiratory distress, rhonchi, wheezes - Cardiovascular Cardiovascular exam: Present: RRR. Absent: diastolic murmur, systolic murmur - GI/Abdominal GI/Abdominal exam: Present: normal bowel sounds, soft, tenderness Additional comments: Mild tenderness. Linear scar from previous abdominal surgery, healed well - Extremities Exam Extremities exam: Present: pedal edema, tenderness, warm, radial pulses palpable and symmetrical Additional comments: Bilateral pitting edema 2+, with chronic tenderness in feet. - Incison Incision: Present: red, inflamed - Neurological Exam Neurological exam: Present: CN II-XII intact, no focal deficits, strengths equal and symetr throughout. Absent: motor sensory deficit, facial droop, speech deficit - Skin Skin exam: Present: dry, normal color, warm Internal Med - H&P Results - Labs CBC & Chem 7: 11/03/18 19:55 11/03/18 19:55 Labs: Short CBC 11/03/18 Range/Units 19:55 WBC 4.8 (4.3-11.1) K/mcL Hgb 7.3 L (11.5-15.4) g/dL Hct 24.3 L (35.3-44.9) % Plt Count 301 (140-400) K/mcL Neutrophils # 3.4 (1.6-8.9) K/mcL BMP 11/03/18 19:55 Sodium 137 Potassium 3.7 Chloride 105 Carbon Dioxide 26 BUN 17 Creatinine 0.54 L Glucose 98 Calcium 9.2 Cardiac Enzymes 11/03/18 Range/Units 19:55 Troponin I < 0.03 (< 0.04) ng/mL Liver Function 11/03/18 Range/Units 19:55 Total Bilirubin 0.5 (0.3-1.0) mg/dL Direct Bilirubin 0.1 (0.0-0.2) mg/dL AST 7 L (13-39) Units/L ALT 4 L (7-52) Units/L Alkaline Phosphatase 46 (34-104) Units/L Albumin 3.1 L (3.5-5.7) g/dL Urine 11/03/18 Range/Units 19:45 Urine Color Yellow (Yellow) Urine Clarity Cloudy A (Clear) Urine pH 5.5 (5.0-8.0) pH Units Ur Specific [place] 1.024 (1.010-1.025) Urine Protein Trace (Neg-Trace) mg/dL Urine Glucose (UA) Normal (Normal) mg/dL - Impressions ITS Impressions Chest X-Ray 11/03/18 19:33 IMPRESSION: Atelectasis or early infiltrate in the right lung base. Suspected airspace disease in the left lung base. Follow up to resolution is suggested. No obvious free air underneath the hemidiaphragm. D/ / 11/03/2018 20:25:30 Georgina Naranjo MD / bisi Interpreting Provider: Georgina Naranjo MD Abdomen/Pelvis CT 11/03/18 19:35 IMPRESSION: Small bilateral pleural effusions with dependent lower lobe consolidation, atelectasis and/or pneumonia. Descending and rectosigmoid colitis, infectious or inflammatory. D/ / Jania Fam Cha, MD / Jania Fam Cha, MD Interpreting Provider: Jania Fam Cha, MD - Assessment and Plan (1) Colitis Current Visit: Yes Status: Acute Assessment and plan: As seen on CT, patient also had associated lower abdominal pain. Recent surgery in June for an obstructing rectal mass. She has since recovered, and has been following with oncology. Started on unasyn in the ER. Obtain stool panel Start cipro and flagyl Continue to monitor for worsening signs of infection. IV protonix IV fluid hydration (2) UTI (urinary tract infection) Current Visit: Yes Status: Acute Assessment and plan: Possible UTI, patient's UA showed moderate LEs, moderate bacteria and 50-100 WBCs. Started on Cipro and flagyl. Follow up urine culture Continue IV antibiotics Qualifiers: Urinary tract infection type: site unspecified Hematuria presence: without hematuria Qualified Code(s): N39.0 - Urinary tract infection, site not specified (3) Lung consolidation Current Visit: Yes Status: Acute Assessment and plan: As seen on imaging, however patient does not have abnormal breath sounds. Started on cipro and flagyl. Blood cultures also drawn. Continue to monitor for signs of possible pneumonia, can consider adding broadened coverage if needed Follow up blood cultures. (4) Abdominal pain Current Visit: Yes Status: Acute Assessment and plan: Likely secondary to colitis. Treatment as above. Qualifiers: Abdominal location: lower abdomen, unspecified Qualified Code(s): R10.30 - Lower abdominal pain, unspecified (5) Diarrhea Current Visit: Yes Status: Acute Assessment and plan: Patient having liquid stools, appears to have colitis on CT of abdomen. Obtain GI stool panel NPO Starting cipro and flagyl for colitis, if C. dif is found, switch to oral vancomycin Qualifiers: Diarrhea type: unspecified type Qualified Code(s): R19.7 - Diarrhea, unspecified (6) Nausea & vomiting Current Visit: Yes Status: Acute Assessment and plan: Improved after given zofran. Continue to monitor Qualifiers: Vomiting type: unspecified Vomiting Intractability: non-intractable Qualified Code(s): R11.2 - Nausea with vomiting, unspecified (7) Anemia Current Visit: No Status: Acute Assessment and plan: Hemoglobin dropped form 9.2 in July to 7.3 today. Stool occult blood test was negative. No obvious signs of bleeding. Patient does appear to have colitis on CT of abdomen, but no obvious signs of bleeding there either. Started on unasyn in the ER. Also given Protonix as well. She was also transfused 1 unit of pRBCs. Continue to monitor hemoglobin Monitor for signs of bleeding. Qualifiers: Anemia type: other cause Other causes of anemia: acute posthemorrhagic Qualified Code(s): D62 - Acute posthemorrhagic anemia (8) DVT prophylaxis Current Visit: Yes Status: Acute Assessment and plan: SCDs - Time Spent With Patient Total time spent is greater than 50% in coordination of care (as documented) at patient's floor/unit and/or counseling patient: Greater than 35 minutes
[2018-11-04] MEDS ORDERED: MetroNIDAZOLE 500 MG/100 ML 500 MG/100 ML BAG IVPB SCH (08:00)
[2018-11-04 08:14] LABS: Hematocrit 25.1 % (35.3-44.9); Hemoglobin 7.7 g/dL (11.5-15.4); Mean Corpuscular HGB Conc 30.7 g/dL (31.6-35.5); Mean Corpuscular Hemoglobin 24.8 pg (28.0-33.3); Mean Corpuscular Volume 80.7 fL (83.0-100.0); Mean Platelet Volume 8.4 fL (9.4-12.4); Platelet Count 276 K/mcL (140-400); Red Blood Count 3.11 M/mcL (3.82-4.97); Red Cell Distribution Width 18.9 % (11.5-14.5); White Blood Count 4.3 K/mcL (4.3-11.1)
[2018-11-04 08:39] LABS: BUN/Creatinine Ratio 29 (6-26); Blood Urea Nitrogen 15 mg/dL (8-23); Calcium 8.5 mg/dL (8.6-10.3); Carbon Dioxide 26 mEq/L (23-29); Chloride 105 mEq/L (98-107); Glucose 93 mg/dL (70-105); Osmolality,Calculated 285 (280-300); Potassium 3.4 mEq/L (3.5-5.1); Sodium 137 mEq/L (136-145); eGFR For African Americans > 60 (> 60); eGFR For Non-African Americans > 60 (> 60)
[2018-11-04] MEDS: 0.9 % Sodium Chloride 1,000 ML IVC SCH ×2 (08:56→21:20)
[2018-11-04] MEDS: Piperacillin/Tazobactam 3.375 GM in 0.9 % Sodium Chloride Mini Bag 100 ML IVPB SCH ×3 (10:35→23:51)
--- NOTE | 2018-11-04 12:31 | Event Note ---
Date of Encounter: 11/04/18 Time of Encounter: 10:10 History and physical noted. Patient was examined this morning. She is 83-year-old female with recent partial bowel resection due to rectal mass who came into the hospital due to nausea/vomiting and abdominal pain. Symptoms are managed as following: Colitis: - Found on CT scan, patient had a chronic diarrhea since her surgery. GI panel ordered, switch Cipro and Flagyl to Zosyn. Start with clear liquid diet. UTI: UA was positive, urine cultures pending. Diffuse thickened urinary bladder on CT scan of the abdomen. Continue Zosyn as above. Pneumonia: Patient was complaining about cough however no chest pain or shortness of breath. Continue with Zosyn. We will get MRSA swab. Anemia: No source of bleeding, got 1 unit of blood in the ED. Her hemoglobin decline since her last surgery. Recent EGD was negative. Occult blood is negative. Check iron profile, TSH, B12 and folic acid. Repeat CBC tomorrow. DVT prophylaxis: Subcutaneous heparin
--- NOTE | 2018-11-04 17:40 | Electrocardiograph Report ---
[facility] Test Date: 2018-11-03 Pat Name: Nicole Gunn Department: [id number] Room: 3A13 Gender: F Pathology Technologist: : [id number] Requested By: [id number] Order Number: [id number] Reading MD: Samy Farrell Measurements Intervals [place] Rate: 93 P: 49 GA: 142 QRS: 26 QRSD: 126 T: 59 QT: 386 QTc: 481 Interpretive Statements Sinus rhythm Ventricular premature complex Left bundle branch block Electronically Signed On 11-04-2018 17:38:46 EDT by Samy Farrell
[2018-11-04] MEDS: *HR* Heparin 5,000 UNIT/ML VIAL SQ SCH (22:06)
[2018-11-05 01:34] LABS: Adenovirus F 40/41 PCR Not detected (Not detect); Astrovirus PCR Not detected (Not detect); Campylobacter by PCR Not detected (Not detect); Cryptosporidium by PCR Not detected (Not detect); Cyclospora cayetanensis PCR Not detected (Not detect); E. coli O157 by PCR Not detected (Not detect); Entamoeba histolytica PCR Not detected (Not detect); Enteroaggregative E.coli(EAEC) Not detected (Not detect); Enteropathogenic E.coli(EPEC) Not detected (Not detect); Enterotoxigenic E.coli (ETEC) Not detected (Not detect); Giardia lamblia PCR Not detected (Not detect); Norovirus GI/GII PCR Not detected (Not detect); Plesiomonas shigelloides PCR Not detected (Not detect); Rotavirus A PCR Not detected (Not detect); Salmonella PCR Not detected (Not detect); Sapovirus PCR Not detected (Not detect); Shig/EnteroinvasiveE coli EIEC Not detected (Not detect); Shigalike tox-prod E coli STEC Not detected (Not detect); Vibrio PCR Not detected (Not detect); Vibrio cholerae PCR Not detected (Not detect); Yersinia enterocolitica PCR Not detected (Not detect)
[2018-11-05 01:36] LABS: C.difficile Toxin A/B Gene PCR DETECTED (Not detect)
[2018-11-05] MEDS: *HR* Heparin 5,000 UNIT/ML VIAL SQ SCH ×2 (05:09→17:41)
[2018-11-05 07:26] LABS: Hematocrit 24.2 % (35.3-44.9); Hemoglobin 7.4 g/dL (11.5-15.4); Mean Corpuscular HGB Conc 30.6 g/dL (31.6-35.5); Mean Corpuscular Hemoglobin 24.8 pg (28.0-33.3); Mean Corpuscular Volume 81.2 fL (83.0-100.0); Mean Platelet Volume 8.1 fL (9.4-12.4); Platelet Count 242 K/mcL (140-400); Red Blood Count 2.98 M/mcL (3.82-4.97); Red Cell Distribution Width 18.9 % (11.5-14.5); White Blood Count 3.2 K/mcL (4.3-11.1)
[2018-11-05 07:57] LABS: BUN/Creatinine Ratio 28 (6-26); Blood Urea Nitrogen 14 mg/dL (8-23); Calcium 8.6 mg/dL (8.6-10.3); Carbon Dioxide 24 mEq/L (23-29); Chloride 109 mEq/L (98-107); Glucose 103 mg/dL (70-105); Iron < 10 mcg/dL (50-170); Osmolality,Calculated 285 (280-300); Potassium 3.1 mEq/L (3.5-5.1); Sodium 137 mEq/L (136-145); Thyroid Stimulating Hormone 3.507 mcIU/mL (0.340-5.600); Transferrin 196 mg/dL (203-362); eGFR For African Americans > 60 (> 60); eGFR For Non-African Americans > 60 (> 60)
[2018-11-05 08:09] LABS: Folate 19.8 ng/mL (3.0-16.0)
[2018-11-05] MEDS: Piperacillin/Tazobactam 3.375 GM in 0.9 % Sodium Chloride Mini Bag 100 ML IVPB SCH (08:43)
--- NOTE | 2018-11-05 11:31 | Internal Med Progress Note ---
Hospitalist Progress Note - Encounter Date of Encounter: 11/05/18 Time of Encounter: 10:20 - Subjective Interval History: Patient was seen this morning. She is hard of hearing. She denied any nausea or vomiting. She has no abdominal pain. - Exam Vitals: Temp Pulse Resp BP Pulse Ox 97.8 F 85 14 118/66 95 11/05/18 06:46 11/05/18 06:46 11/05/18 06:46 11/05/18 06:46 11/05/18 06:46 Exam: General: Patient is alert, oriented 3. No ocular distress Head: Atraumatic, normal inspection, normocephalic. Eye: EOMI, PERRLA. ENT: Mucous membranes moist. Neck: Normal inspection, Respiratory: No respiratory distress, rhonchi, or wheezes noted. Cardiovascular: Regular rate and regular rhythm, S1 and S2 audible. No murmurs, rubs, or gallops. GI: Soft, nondistended, normal bowel sounds. Extremities:No joint swelling, pedal edema, or tenderness noted. Neurological: Alert, oriented 3, no focal deficits. Psychiatric: normal affect, normal mood. Skin: Dry, intact, warm. Normal color. No rashes. - Assessment and Plan (1) Nausea & vomiting Current Visit: Yes Status: Resolved (2) Diarrhea Current Visit: Yes Status: Chronic (3) Colitis Current Visit: Yes Status: Acute (4) UTI (urinary tract infection) Current Visit: Yes Status: Acute (5) DVT prophylaxis Current Visit: Yes Status: Acute (6) Iron deficiency anemia Current Visit: Yes Status: Acute - Summary of Assessment and Plan Summary of Assessment and Plan: 83-year-old female with recent partial bowel resection due to rectal mass who came into the hospital due to nausea/vomiting and abdominal pain. Symptoms are managed as following: Colitis: Infectious vs inflammatory Found on CT scan, patient had a chronic diarrhea since her surgery. GI panel revealed positive C.diff gene but negative PCR. switch to Cipro and Flagyl and add oral Vanc. Consult ID. UTI: urine cultures revealed pseudomona. switch back to cipro. Pneumonia: low suspicion, followed on the lung window of CT scan. MRSA is neg ative. Abx as per above. Anemia: No source of bleeding, got 1 unit of blood in the ED. Hg is 7.4 today, Her hemoglobin decline since her last surgery. Recent EGD was negative. Occult blood is negative. TSH, B12 and folic acid are WNL. Low Iron profile, started on IV iron. Repeat CBC tomorrow. DVT prophylaxis: Subcutaneous heparin - Time Spent with Patient Total time spent is greater than 50% in coordination of care (as documented) at patient's floor/unit and/or counseling patient: Greater than 35 minutes Plan of Care Discussed with: patient Internal Medicine: Result - Labs CBC & Chem 7: 11/05/18 06:48 11/05/18 06:48 Labs: Short CBC 11/05/18 Range/Units 06:48 WBC 3.2 L (4.3-11.1) K/mcL Hgb 7.4 L (11.5-15.4) g/dL Hct 24.2 L (35.3-44.9) % Plt Count 242 (140-400) K/mcL BMP 11/05/18 06:48 Sodium 137 Potassium 3.1 L Chloride 109 H Carbon Dioxide 24 BUN 14 Creatinine 0.50 L Glucose 103 Calcium 8.6 - ABG Interpretation ABG results: PT/INR, D-dimer PT 12.0 Seconds (9.4-12.1) 11/03/18 19:55 Consult Discharge Plan - Plan Referrals: Rashad Bullard MD [Primary Care Provider] - (1) Nausea & vomiting Qualifiers: Vomiting type: unspecified Vomiting Intractability: non-intractable Qualified Code(s): R11.2 - Nausea with vomiting, unspecified (2) Diarrhea Qualifiers: Diarrhea type: infectious Qualified Code(s): A09 - Infectious gastroenteritis and colitis, unspecified (4) UTI (urinary tract infection) Qualifiers: Urinary tract infection type: site unspecified Hematuria presence: without hematuria Qualified Code(s): N39.0 - Urinary tract infection, site not specified (6) Iron deficiency anemia Qualifiers: Iron deficiency anemia type: unspecified iron deficiency Qualified Code(s): D50.9 - Iron deficiency anemia, unspecified
[2018-11-05] MEDS: Vancomycin Oral Soln 125 MG/2.5 ML UDC PO SCH ×3 (12:21→21:28)
[2018-11-05] MEDS: MetroNIDAZOLE 500 MG/100 ML 500 MG/100 ML BAG IVPB SCH (17:41)
[2018-11-05] MEDS: Potassium Chloride Elixir 20 MEQ/15 ML UDC PO SCH (21:28)
[2018-11-06] MEDS: MetroNIDAZOLE 500 MG/100 ML 500 MG/100 ML BAG IVPB SCH ×3 (01:07→15:41)
[2018-11-06] MEDS: *HR* Heparin 5,000 UNIT/ML VIAL SQ SCH ×2 (06:11→18:55)
[2018-11-06 06:58] LABS: Hematocrit 26.9 % (35.3-44.9); Hemoglobin 8.1 g/dL (11.5-15.4); Mean Corpuscular HGB Conc 30.1 g/dL (31.6-35.5); Mean Corpuscular Volume 79.8 fL (83.0-100.0); Mean Platelet Volume 8.5 fL (9.4-12.4); Platelet Count 285 K/mcL (140-400); Red Blood Count 3.37 M/mcL (3.82-4.97); Red Cell Distribution Width 18.5 % (11.5-14.5); White Blood Count 3.6 K/mcL (4.3-11.1)
[2018-11-06 07:18] LABS: BUN/Creatinine Ratio 24 (6-26); Blood Urea Nitrogen 11 mg/dL (8-23); Calcium 8.8 mg/dL (8.6-10.3); Carbon Dioxide 23 mEq/L (23-29); Chloride 107 mEq/L (98-107); Glucose 107 mg/dL (70-105); Osmolality,Calculated 284 (280-300); Potassium 3.5 mEq/L (3.5-5.1); Sodium 137 mEq/L (136-145); eGFR For African Americans > 60 (> 60); eGFR For Non-African Americans > 60 (> 60)
[2018-11-06] MEDS: Vancomycin Oral Soln 125 MG/2.5 ML UDC PO SCH ×4 (08:01→20:04)
[2018-11-06] MEDS: Potassium Chloride Elixir 20 MEQ/15 ML UDC PO SCH ×2 (08:04→20:05)
--- NOTE | 2018-11-06 10:06 | Internal Med Progress Note ---
Hospitalist Progress Note - Encounter Date of Encounter: 11/06/18 Time of Encounter: 09:40 - Subjective Interval History: Patient was seen this morning. She has cough with yellow sputum production. She denied chest pain or shortness of breath. She is worried about her infections and I reassured her that she is getting antibiotics which would cover her infection. - Exam Vitals: Temp Pulse Resp BP Pulse Ox 98.3 F 88 15 145/70 93 11/06/18 06:57 11/06/18 06:57 11/06/18 06:57 11/06/18 06:57 11/06/18 06:57 Exam: General: Patient is alert, oriented 3. Head: Atraumatic, normal inspection, normocephalic. Eye: EOMI, PERRLA. ENT: Mucous membranes moist. Neck: Normal inspection, Respiratory: No respiratory distress, rhonchi, or wheezes noted. Cardiovascular: Regular rate and regular rhythm, S1 and S2 audible. No murmurs, rubs, or gallops. GI: Soft, nondistended, normal bowel sounds. Extremities:No joint swelling, pedal edema, or tenderness noted. Neurological: Alert, oriented 3, no focal deficits. Psychiatric: normal affect, normal mood. Skin: Dry, intact, warm. Normal color. No rashes. - Assessment and Plan (1) UTI (urinary tract infection) Current Visit: Yes Status: Acute (2) Colitis Current Visit: Yes Status: Acute (3) Nausea & vomiting Current Visit: Yes Status: Resolved (4) Diarrhea Current Visit: Yes Status: Chronic (5) DVT prophylaxis Current Visit: Yes Status: Acute (6) Iron deficiency anemia Current Visit: Yes Status: Acute - Summary of Assessment and Plan Summary of Assessment and Plan: 83-year-old female with recent partial bowel resection due to rectal mass who came into the hospital due to nausea/vomiting and abdominal pain. Symptoms are managed as following: Colitis: Infectious vs inflammatory Found on CT scan, patient had a chronic diarrhea since her surgery. GI panel revealed positive C.diff gene but negative PCR. On Cipro and Flagyl and add oral Vanc day 2. Consult ID. UTI: urine cultures revealed pseudomona. Abx as pre above Pneumonia: followed on the lung window of CT scan. MRSA is negative. Abx as per above. Anemia: No source of bleeding, got 1 unit of blood in the ED. Hg is 8.1 today, Her hemoglobin decline since her last surgery. Recent EGD was negative. Occult blood is negative. TSH, B12 and folic acid are WNL. Low Iron profile, started on IV iron day 2. Can switch to po upon discharge. Repeat CBC tomorrow. DVT prophylaxis: Subcutaneous heparin Disposition: PT/OT consulted, discharge in 2 days. - Time Spent with Patient Total time spent is greater than 50% in coordination of care (as documented) at patient's floor/unit and/or counseling patient: Internal Medicine: Result - Labs CBC & Chem 7: 11/06/18 05:37 11/06/18 05:37 Labs: Short CBC 11/06/18 Range/Units 05:37 WBC 3.6 L (4.3-11.1) K/mcL Hgb 8.1 L (11.5-15.4) g/dL Hct 26.9 L (35.3-44.9) % Plt Count 285 (140-400) K/mcL BMP 11/06/18 05:37 Sodium 137 Potassium 3.5 Chloride 107 Carbon Dioxide 23 BUN 11 Creatinine 0.46 L Glucose 107 H Calcium 8.8 - ABG Interpretation ABG results: PT/INR, D-dimer PT 12.0 Seconds (9.4-12.1) 11/03/18 19:55 - Impressions Impressions Chest X-Ray 11/03/18 19:33 IMPRESSION: Atelectasis or early infiltrate in the right lung base. Suspected airspace disease in the left lung base. Follow up to resolution is suggested. No obvious free air underneath the hemidiaphragm. D/ / 11/03/2018 20:25:30 Georgina Naranjo MD / bisi Interpreting Provider: Georgina Naranjo MD Consult Discharge Plan - Plan Referrals: Rashad Bullard MD [Primary Care Provider] - (1) UTI (urinary tract infection) Qualifiers: Urinary tract infection type: site unspecified Hematuria presence: without hematuria Qualified Code(s): N39.0 - Urinary tract infection, site not specified (3) Nausea & vomiting Qualifiers: Vomiting type: unspecified Vomiting Intractability: non-intractable Qualified Code(s): R11.2 - Nausea with vomiting, unspecified (4) Diarrhea Qualifiers: Diarrhea type: infectious Qualified Code(s): A09 - Infectious gastroenteritis and colitis, unspecified (6) Iron deficiency anemia Qualifiers: Iron deficiency anemia type: unspecified iron deficiency Qualified Code(s): D50.9 - Iron deficiency anemia, unspecified
[2018-11-06] MEDS: Sodium Ferric Gluconat/Sucrose 125 MG in 0.9 % Sodium Chloride 100 ML IVPB SCH (10:26)
[2018-11-07] MEDS: MetroNIDAZOLE 500 MG/100 ML 500 MG/100 ML BAG IVPB SCH ×2 (00:12→09:38)
[2018-11-07 04:33] LABS: Hematocrit 29.2 % (35.3-44.9); Hemoglobin 8.8 g/dL (11.5-15.4); Mean Corpuscular HGB Conc 30.1 g/dL (31.6-35.5); Mean Corpuscular Hemoglobin 23.8 pg (28.0-33.3); Mean Corpuscular Volume 78.9 fL (83.0-100.0); Mean Platelet Volume 8.2 fL (9.4-12.4); Platelet Count 293 K/mcL (140-400); Red Cell Distribution Width 18.5 % (11.5-14.5); White Blood Count 5.2 K/mcL (4.3-11.1)
[2018-11-07 04:34] LABS: BUN/Creatinine Ratio 12 (6-26); Blood Urea Nitrogen 5 mg/dL (8-23); Calcium 8.7 mg/dL (8.6-10.3); Carbon Dioxide 22 mEq/L (23-29); Chloride 107 mEq/L (98-107); Glucose 115 mg/dL (70-105); Osmolality,Calculated 278 (280-300); Potassium 3.9 mEq/L (3.5-5.1); Sodium 135 mEq/L (136-145); eGFR For African Americans > 60 (> 60); eGFR For Non-African Americans > 60 (> 60)
[2018-11-07] MEDS: *HR* Heparin 5,000 UNIT/ML VIAL SQ SCH ×2 (06:05→17:27)
[2018-11-07] MEDS ORDERED: Ondansetron 4 MG/2 ML VIAL IVP ONE (06:33)
[2018-11-07] MEDS: Vancomycin Oral Soln 125 MG/2.5 ML UDC PO SCH ×4 (09:40→20:21)
--- NOTE | 2018-11-07 11:12 | Internal Med Progress Note ---
Hospitalist Progress Note - Encounter Date of Encounter: 11/07/18 Time of Encounter: 10:20 - Subjective Interval History: Patient was seen this morning, she denied any chest pain, shortness of breath or palpitation. She had no nausea/vomiting or abdominal pain. She still coughing and bringing up yellowish phlegm. She had no fever, chills or night sweats. - Exam Vitals: Temp Pulse Resp BP Pulse Ox 98.6 F 103 15 129/52 93 11/07/18 10:08 11/07/18 10:08 11/07/18 08:00 11/07/18 10:08 11/07/18 10:08 Exam: General: Patient is alert, oriented 3. Head: Atraumatic, normal inspection, normocephalic. Eye: EOMI, PERRLA. ENT: Mucous membranes moist. Neck: Normal inspection, Respiratory: No respiratory distress, rhonchi, or wheezes noted. Cardiovascular: Regular rate and regular rhythm, S1 and S2 audible. No murmurs, rubs, or gallops. GI: Soft, nondistended, normal bowel sounds. Extremities:No joint swelling, pedal edema, or tenderness noted. Neurological: Alert, oriented 3, no focal deficits. Psychiatric: normal affect, normal mood. Skin: Dry, intact, warm. Normal color. No rashes. - Assessment and Plan (1) UTI (urinary tract infection) Current Visit: Yes Status: Acute (2) Colitis Current Visit: Yes Status: Acute (3) Nausea & vomiting Current Visit: Yes Status: Resolved (4) Diarrhea Current Visit: Yes Status: Chronic (5) DVT prophylaxis Current Visit: Yes Status: Acute (6) Iron deficiency anemia Current Visit: Yes Status: Chronic - Summary of Assessment and Plan Summary of Assessment and Plan: 83-year-old female with recent partial bowel resection due to rectal mass who came into the hospital due to nausea/vomiting and abdominal pain. Symptoms are managed as following: Colitis: Infectious vs inflammatory Found on CT scan, patient had a chronic diarrhea since her surgery. GI panel revealed positive C.diff gene but negative PCR. On Cipro and Flagyl and add oral Vanc day 3. Consult ID. UTI: urine cultures revealed pseudomona. Abx as pre above Pneumonia: found on the lung window of CT scan. MRSA is negative. SCx is pending. Abx as per above. Anemia: No source of bleeding, got 1 unit of blood in the ED. Hg is 8.8today, Her hemoglobin decline since her last surgery. Recent EGD was negative. Occult blood is negative. TSH, B12 and folic acid are WNL. Low Iron profile, started on IV iron day 3. Can switch to po upon discharge. Repeat CBC tomorrow. DVT prophylaxis: Subcutaneous heparin Disposition: PT/OT consulted, HH recommended, will D/W SS, discharge in 1-2 days. - Time Spent with Patient Total time spent is greater than 50% in coordination of care (as documented) at patient's floor/unit and/or counseling patient: Plan of Care Discussed with: patient Internal Medicine: Result - Labs CBC & Chem 7: 11/07/18 03:59 11/07/18 03:59 Labs: Short CBC 11/07/18 Range/Units 03:59 WBC 5.2 (4.3-11.1) K/mcL Hgb 8.8 L (11.5-15.4) g/dL Hct 29.2 L (35.3-44.9) % Plt Count 293 (140-400) K/mcL BMP 11/07/18 03:59 Sodium 135 L Potassium 3.9 Chloride 107 Carbon Dioxide 22 L BUN 5 L Creatinine 0.42 L Glucose 115 H Calcium 8.7 - ABG Interpretation ABG results: PT/INR, D-dimer PT 12.0 Seconds (9.4-12.1) 11/03/18 19:55 Consult Discharge Plan - Plan Referrals: Rashad Bullard MD [Primary Care Provider] - (1) UTI (urinary tract infection) Qualifiers: Urinary tract infection type: site unspecified Hematuria presence: without hematuria Qualified Code(s): N39.0 - Urinary tract infection, site not specified (3) Nausea & vomiting Qualifiers: Vomiting type: unspecified Vomiting Intractability: non-intractable Qualified Code(s): R11.2 - Nausea with vomiting, unspecified (4) Diarrhea Qualifiers: Diarrhea type: infectious Qualified Code(s): A09 - Infectious gastroenteritis and colitis, unspecified (6) Iron deficiency anemia Qualifiers: Iron deficiency anemia type: unspecified iron deficiency Qualified Code(s): D50.9 - Iron deficiency anemia, unspecified
[2018-11-07] MEDS: Sodium Ferric Gluconat/Sucrose 125 MG in 0.9 % Sodium Chloride 100 ML IVPB SCH (11:29)
--- NOTE | 2018-11-07 14:59 | Infectious Disease Consult ---
Infectious Disease-Consult - Encounter Date/Time Date of Encounter: 11/07/18 Time of Encounter: 14:48 - Data of Consult Patient: new to practice Reason for consult: colitis and pseudomonas UTI and questionable pneumonia? Consult date: 11/07/18 Requesting Physician: Phil Skinner Primary Care Provider: Rashad Bullard MD - HPI HPI: Patient is an 83-year-old woman who presented to [facility] on 11/03/2018 with abdominal pain and generalized weakness. We are consulted on 11/07/2018 or UTI with pseudomonas, C. difficile colitis and questionable pneumonia. Patient is an 83-year-old woman with past medical history significant for hypertension, thyroid disease, hyperlipidemia, history of breast cancer, deafness presented to the emergency department with nausea and vomiting for 2 days prior to admission. Patient unable to give me much history so most of the information was taken patient is deaf but can read lips and she did not tell me her name and she knows where she is but no limitations all there. It was very hard to assess. Patient was recently admitted to [facility] in June 2018 for abdominal pain as well and was noted to have obstructing rectal mass and she underwent open low anterior resection on 07/29/2018. Pathology report was positive for adenocarcinoma. 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 William. As for the cancer the recommendation was chemotherapy and radiation therapy but the records showed that the patient refused chemotherapy. And when patient was seen by radiation oncology they did not recommend adjuvant radiotherapy Since admission, patient has been afebrile with a MAXIMUM TEMPERATURE of 99.5, tachycardic and tachypneic initially. Presenting labs revealed W24.8 with normal differential no bands. BUN 17 creatinine 0.54 and the lactic acid is 1.1. Total protein was 5.6. A urine culture was obtained and patient had many epithelial cells pyuria and moderate leukocyte esterase and negative nitrites a urine culture was positive for pansensitive pseudomonas aeruginosa. C. difficile PCR was positive by EIA was negative. Blood cultures obtained 11/03/2018 2/2 sets no growth. A chest x-ray was obtained which was read as "atelectasis or early infiltrate in the right lung base. Suspected airspace disease in the left lung base. Patient had urine legionella and pneumococcal antigen obtained and are both negative. CT abdomen and pelvis was obtained which was read as "small bilateral pleural effusion with dependent lower lobe consolidation, atelectasis and or pneumonia". Patient was started on empiric antibiotics. We are asked to evaluate the patient and make further recommendations. Currently patient is laying in bed does not appear to be in distress pleasant no acute respiratory failure no use of accessory respiratory muscles. Patient denies pain anywhere. She still has diarrhea. Patient denies any urinary symptoms. - ROS Review of Systems: 10 point review of systems done, negative other than mentioned in history of present illness. - Results CBC & Chem 7: 11/07/18 03:59 11/07/18 03:59 - Exam Vitals: Temp Pulse Resp BP Pulse Ox 98.6 F 95 18 121/68 91 11/07/18 14:11 11/07/18 14:11 11/07/18 14:11 11/07/18 14:11 11/07/18 14:11 Exam: GENERAL: Laying in bed, appears comfortable. HEAD: Normocephalic atraumatic EYES: PERRLA, EOMI, no conjunctival hemorrhage, sclera anicteric ENT: Mucous membranes moist, no oral thrush NECK: Supple. No meningeal signs. No masses LUNGS: Chest expanding symmetrically. Lungs sounds audible both lung cervantes. No wheezing, no rhonchi CV: RRR, S1S2, ABDOMEN: Soft, nontender, nondistended. Bowel sounds audible BACK: No CVA tenderness. Normal inspection. No tenderness over the spine EXTREMITY: Adequate perfusion. No joint effusion. SKIN: Normal color. No rash. NEURO: Awake alert oriented 3. Patient is deaf and cannot hear me PSYCH: Calm and appropriate. No agitation. Simvastatin [Zocor] 20 mg PO HS 365 Days tablet 07/25/16 [Rx] Lisinopril [Zestril] 5 mg PO DAILY 09/09/18 [History] Levothyroxine [Synthroid] 50 mcg PO QAM 11/03/18 [History] Omeprazole 20 mg PO BID 11/03/18 [History] Torsemide [Demadex] 20 mg PO DAILY 11/03/18 [History] Allergy/AdvReac Type Severity Reaction Status Date / Time No Known Allergies Allergy Verified 11/03/18 22:34 - Assessment and Plan (1) Sepsis Current Visit: Yes Status: Acute has 2 SIRS criteria likely due to C diff colitis Qualifiers: Sepsis type: sepsis due to unspecified organism Sepsis acute organ dysfunction status: unspecified Qualified Code(s): A41.9 - Sepsis, unspecified organism SNOMED Code(s): 82072478 (2) C. difficile colitis Current Visit: Yes Status: Acute continue oral vancomycin 125 mg qid through 11/18/19 d/c IV flagyl might benefit from probiotics SNOMED Code(s): 994454644 (3) Adenocarcinoma Current Visit: Yes Status: Acute of the colon diagnosed 07/29/18 not on any treatment (patient refused chemotherapy) SNOMED Code(s): 370780722, 871558223 (4) UTI (urinary tract infection) Current Visit: Yes Status: Acute urine was contaminated with many epitherlial cells culture 11/03 positive for pansensitive PSEA Patient asymptomatic received cipro/zosyn since 11/04 Qualifiers: Urinary tract infection type: site unspecified Hematuria presence: without hematuria Qualified Code(s): N39.0 - Urinary tract infection, site not specified SNOMED Code(s): 04459507 (5) Lung consolidation Current Visit: Yes Status: Acute bilateral lower lobes consolidation (atelectasis vs pneumonia?) clinically she does not appear to have a pneumonia but i'm seeing her on day 4 of hospital stay SNOMED Code(s): 99071918 - Recommendations Recommendations: I recommend getting a MRSA screen check procalcitonin level repeat CXR to see if consolidation is still there recommend d/c IV flagyl d/c cipro start zosyn until repeat CXR is finalized continue oral vancomycin 125 mg qid through 11/18/19 Past Med Surg Social Fam HX - Past Medical History Medical history: cancer, hyperlipidemia, hypertension, migraine, thyroid disease, other Additional medical history: breast cancer , bilateral lymth nodes removed, deaf, 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
[2018-11-07] MEDS: Piperacillin/Tazobactam 3.375 GM in 0.9 % Sodium Chloride Mini Bag 100 ML IVPB SCH (17:21)
[2018-11-07 19:50] LABS: Adenovirus Not Detected (Not Detect); Bordetella Pertussis Not Detected (Not Detect); Chlamydophila pneumoniae Not Detected (Not Detect); Coronavirus 229E Not Detected (Not Detect); Coronavirus HKU1 Not Detected (Not Detect); Coronavirus NL63 Not Detected (Not Detect); Coronavirus OC43 Not Detected (Not Detect); Human Metapneumovirus Not Detected (Not Detect); Human Rhinovirus/Enterovirus DETECTED (Not Detect); Influenza A Subtype 2009 H1 Not Detected (Not Detect); Influenza A Untypeable Not Detected (Not Detect); Influenza B Not Detected (Not Detect); Mycoplasma pneumoniae Not Detected (Not Detect); Parainfluenza Virus 1 Not Detected (Not Detect); Parainfluenza Virus 2 Not Detected (Not Detect); Parainfluenza Virus 3 Not Detected (Not Detect); Parainfluenza Virus 4 Not Detected (Not Detect); Respiratory Syncytial Virus Not Detected (Not Detect)
[2018-11-08] MEDS: Piperacillin/Tazobactam 3.375 GM in 0.9 % Sodium Chloride Mini Bag 100 ML IVPB SCH ×2 (00:15→09:34)
[2018-11-08] MEDS: *HR* Heparin 5,000 UNIT/ML VIAL SQ SCH (05:22)
[2018-11-08] MEDS: Sodium Ferric Gluconat/Sucrose 125 MG in 0.9 % Sodium Chloride 100 ML IVPB SCH (09:32)
[2018-11-08] MEDS: Vancomycin Oral Soln 125 MG/2.5 ML UDC PO SCH ×2 (09:34→13:59)
[2018-11-08 12:01] VITALS: BP 128/72
--- NOTE | 2018-11-08 12:49 | Discharge Summary ---
- NOTES TO OUTPATIENT PROVIDER Notes to Outpatient Provider: Patient was admitted for nausea/vomiting and abdominal pain and was treated for C. difficile colitis with oral vanc. She also had Pseudomonas in her urine and pneumonia on chest x-ray and infectious disease was consulted and patient will be discharged on oral vanc and levof loxacin. Orders not resulted at time of discharge: Pending orders 11/03/18 21:00 Culture,Blood [] Stat 11/06/18 12:40 Sputum Culture [Culture,Sputum with Gram Stain] [] Routine Date of Encounter: 11/08/18 Time of Encounter: 10:35 - Discharge Diagnosis (1) UTI (urinary tract infection) Priority: Primary Status: Acute Qualifiers: Urinary tract infection type: site unspecified Hematuria presence: without hematuria Qualified Code(s): N39.0 - Urinary tract infection, site not specified (2) Colitis Priority: Secondary Status: Acute (3) Nausea & vomiting Priority: Secondary Status: Resolved Qualifiers: Vomiting type: unspecified Vomiting Intractability: non-intractable Qualified Code(s): R11.2 - Nausea with vomiting, unspecified (4) Diarrhea Priority: Secondary Status: Chronic Qualifiers: Diarrhea type: infectious Qualified Code(s): A09 - Infectious gastroenteritis and colitis, unspecified (5) DVT prophylaxis Priority: Secondary Status: Acute (6) Iron deficiency anemia Priority: Secondary Status: Chronic Qualifiers: Iron deficiency anemia type: unspecified iron deficiency Qualified Code(s): D50.9 - Iron deficiency anemia, unspecified (7) Pneumonia Priority: Secondary Status: Acute Qualifiers: Pneumonia type: due to unspecified organism Laterality: bilateral Lung location: lower lobe of lung Qualified Code(s): J18.1 - Lobar pneumonia, unspecified organism Hospital course: Patient was admitted for nausea/vomiting and abdominal pain and was treated for C. difficile colitis with oral vanc. She also had Pseudomonas in her urine and pneumonia on chest x-ray with positive respiratory culture for rhinovirus. Infectious disease was consulted and patient will be discharged on oral vanc and levofloxacin. She was also found to have anemia with low iron level and she received IV iron. Her stool was negative for blood. Today, patient is hemodynamically stable, afebrile. She will be discharged to skilled nursing in stable condition. Discharge discussed with: patient - Time Spent with Patient Total time spent providing and/or coordinating discharge services: 45 minutes - Discharge Medications Prescriptions: New levoFLOXacin [Levaquin] 750 mg PO DAILY #5 tablet Vancomycin HCl 125 mg PO QID 10 Days #40 capsule Ferrous Sulfate 325 mg PO DAILY #90 tablet Continued Lisinopril [Zestril] 5 mg PO DAILY Levothyroxine [Synthroid] 50 mcg PO QAM Omeprazole 20 mg PO BID Torsemide [Demadex] 20 mg PO DAILY Simvastatin [Zocor] 20 mg PO HS 365 Days tablet Home Medications: Simvastatin [Zocor] 20 mg PO HS 365 Days tablet 07/25/16 [Rx] Lisinopril [Zestril] 5 mg PO DAILY 09/09/18 [History] Levothyroxine [Synthroid] 50 mcg PO QAM 11/03/18 [History] Omeprazole 20 mg PO BID 11/03/18 [History] Torsemide [Demadex] 20 mg PO DAILY 11/03/18 [History] Ferrous Sulfate 325 mg PO DAILY #90 tablet 11/08/18 [Rx] Vancomycin HCl 125 mg PO QID 10 Days #40 capsule 11/08/18 [Rx] levoFLOXacin [Levaquin] 750 mg PO DAILY #5 tablet 11/08/18 [Rx] Allergies/Adverse Reactions: Allergy/AdvReac Type Severity Reaction Status Date / Time No Known Allergies Allergy Verified 11/03/18 22:34 Date of admission: 11/05/18 16:05 Primary care physician: Rashad Bullard MD Consults: 11/04/18 22:28 Consult to Manager Shell [CONS] Routine Reason for SW Consult: per Dr. Cid, patient's son is concerned about when patient discharges and goes back home. Her daughter who is suppose to be caring for her is unable to. Son states daughter and him do not talk and daughter will not give patient's son any information. This nurse spoke with patient who okayed this nurse to give information to patient's son. 11/05/18 11:28 Consult to Infectious Diseases [CONS] Routine Consulting Provider: Infectious Disease [place] Reason for Consult: colitis - stool PCR but positive carries, also has psudomonas UTI and ? PNA. Call Completed: No 11/06/18 08:21 Consult to Occupational Therapy [CONS] Routine Comment: Evaluate, develop and implement POC Reason for Consult: eval and treat Does patient have active BEDREST order?: No Is patient medically & hemodynamically stable?: Yes Consult to Physical Therapy [CONS] Routine Comment: Evaluate, develop and implement POC Reason for Consult: eval and trerat Does patient have active BEDREST order?: No Is patient medically & hemodynamically stable?: Yes - Constitutional Vitals: Temp Pulse Resp BP Pulse Ox 98.3 F 92 18 128/72 94 11/08/18 12:00 11/08/18 12:00 11/08/18 12:00 11/08/18 12:00 11/08/18 12:00 General appearance: Present: cooperative, A&O X 3, pleasant, no acute distress, answers questions appropriately Exam: General: Patient is alert, oriented 3. Head: Atraumatic, normal inspection, normocephalic. Eye: EOMI, PERRLA. ENT: Mucous membranes moist. Hard of hearing. Neck: Normal inspection, Respiratory: No respiratory distress, rhonchi, or wheezes noted. Cardiovascular: Regular rate and regular rhythm, S1 and S2 audible. No murmurs, rubs, or gallops. GI: Soft, nondistended, normal bowel sounds. Extremities:No joint swelling, pedal edema, or tenderness noted. Neurological: Alert, oriented 3, no focal deficits. Psychiatric: normal affect, normal mood. Skin: Dry, intact, warm. Normal color. No rashes. - Patient Status Disposition: Transfer SNF Condition: Good Functional capacity at discharge: uses cane/walker Overall status at discharge: patient is back to baseline - Discharge Instructions Instructions: Clostridium Difficile Infection (GEN), Anemia (GEN), Infectious Colitis, Environmental Health And Safety Leader (GEN) Follow Up With: Rashad Bullard MD [Primary Care Provider] - - Diet and Activity Activity: as per physical therapy
--- NOTE | 2018-11-08 12:56 | Physician Discharge Referral ---
ExtendedCare Referral Info Transfer To: SNF Provider in Charge after Transfer: PCP Institutional Level of Care: Skilled - Diagnosis (1) UTI (urinary tract infection) Priority: Primary Status: Acute (2) Colitis Priority: Secondary Status: Acute (3) Nausea & vomiting Priority: Secondary Status: Resolved (4) Diarrhea Priority: Secondary Status: Chronic (5) DVT prophylaxis Priority: Secondary Status: Acute (6) Iron deficiency anemia Priority: Secondary Status: Chronic (7) Pneumonia Priority: Secondary Status: Acute Prognosis: Good - Transfer Medications Prescriptions: Ferrous Sulfate 325 mg PO DAILY #90 tablet levoFLOXacin [Levaquin] 750 mg PO DAILY #5 tablet Vancomycin HCl 125 mg PO QID 10 Days #40 capsule Home Medications: Simvastatin [Zocor] 20 mg PO HS 365 Days tablet 07/25/16 [Rx] Lisinopril [Zestril] 5 mg PO DAILY 09/09/18 [History] Levothyroxine [Synthroid] 50 mcg PO QAM 11/03/18 [History] Omeprazole 20 mg PO BID 11/03/18 [History] Torsemide [Demadex] 20 mg PO DAILY 11/03/18 [History] Ferrous Sulfate 325 mg PO DAILY #90 tablet 11/08/18 [Rx] Vancomycin HCl 125 mg PO QID 10 Days #40 capsule 11/08/18 [Rx] levoFLOXacin [Levaquin] 750 mg PO DAILY #5 tablet 11/08/18 [Rx] Allergies/Adverse Reactions: Allergy/AdvReac Type Severity Reaction Status Date / Time No Known Allergies Allergy Verified 11/03/18 22:34 - Respiratory Orders Smoking Cessation: Smoking cessation has been advised. For more information, call the [place] Tobacco Quit Line at 8-684-HRFW-NOW. - Mobility Orders Chair, Ambulate - Rehabiliation Orders Rehab Orders: Evaluation for Physical Therapy, Evaluation for Occupational Therapy - Treatments Skin tear care topically daily PRN per policy - Diet Orders Regular CERTIFICATION: I certify that the transfer of the above named patient to an Extended Care Facility is necessary for the continuing treatment of the diagnosis listed. The above information is true and accurate reflection of patient's current condition. Confidential - Redisclosure prohibited without a patient's written consent.
--- NOTE | 2018-11-08 13:13 | Infectious Disease Progress No ---
ID Progress Note Date of Encounter: 11/08/18 Time of Encounter: 13:11 - Subjective Subjective: Patient seen and examined. Laying in bed. Appears comfortable. Denies any headache. Apparently she is coughing up thick phlegm. She told me she also had such a hacking cough that she threw up once. Had one watery bowel movements at 7 AM and I think she needs to be changed so 2 bowel movements so far today. Vital signs noted Labs reviewed Imaging reviewed - Objective CBC & Chem 7: 11/07/18 03:59 11/07/18 03:59 - Exam Vitals: Temp Pulse Resp BP Pulse Ox 98.3 F 92 18 128/72 94 11/08/18 12:00 11/08/18 12:00 11/08/18 12:00 11/08/18 12:00 11/08/18 12:00 Exam: GENERAL: Comfortable. Laying in bed NAD HEENT: OLGA, EOMI LUNGS: Good air sounds bilaterally, no wheezing or rhonchi CV: RRR, S1 S2 ABDOMEN: Soft, tender with guarding all 4 quadrants. Surgical incision scar fully healed with no wound dehiscence EXT: Adequate perfusion. No edema NEURO: A&OX3; no focal deficit - Assessment and Plan (1) Sepsis Current Visit: Yes Status: Acute has 2 SIRS criteria likely due to C diff colitis Qualifiers: Sepsis type: sepsis due to unspecified organism Sepsis acute organ dysfunction status: unspecified Qualified Code(s): A41.9 - Sepsis, unspecified organism SNOMED Code(s): 78561053 (2) C. difficile colitis Current Visit: Yes Status: Acute continue oral vancomycin 125 mg qid through 11/18/19 d/c IV flagyl might benefit from probiotics SNOMED Code(s): 126720826 (3) Adenocarcinoma Current Visit: Yes Status: Acute of the colon diagnosed 07/29/18 not on any treatment (patient refused chemotherapy) SNOMED Code(s): 352702932, 530391682 (4) UTI (urinary tract infection) Current Visit: Yes Status: Acute urine was contaminated with many epitherlial cells culture 11/03 positive for pansensitive PSEA Patient asymptomatic received cipro/zosyn since 11/04 Qualifiers: Urinary tract infection type: site unspecified Hematuria presence: without hematuria Qualified Code(s): N39.0 - Urinary tract infection, site not s pecified SNOMED Code(s): 69591682 (5) Lung consolidation Current Visit: Yes Status: Acute bilateral lower lobes consolidation (atelectasis vs pneumonia?) Repeat chest x-ray 11/07/2018 also reveals bilateral lower extremity consolidation atelectasis versus pneumonia Respiratory infectious panel positive for rhinovirus procalcitonin 0.07 within normal limit MRSA screen negative SNOMED Code(s): 83496292 - Recommendations Recommendations: Initially I was thinking of just doing oral vancomycin to finish a 10-14 days course But with thick sputum production and this cough. I am concerned about superimposed bacterial on viral pneumonia. Patient already received 5 days worth of IV antibiotics. Discussed with the hospitalist team. Consider 3-5 more days of oral levofloxacin Also start the patient on probiotics Consult Discharge Plan - Plan Instructions: Clostridium Difficile Infection (GEN), Anemia (GEN), Infectious Colitis, Cloud Systems Architect (GEN) Referrals: Rashad Bullard MD [Primary Care Provider] - Prescriptions: Ferrous Sulfate 325 mg PO DAILY #90 tablet levoFLOXacin [Levaquin] 750 mg PO DAILY #5 tablet Vancomycin HCl 125 mg PO QID 10 Days #40 capsule
== END 2018-11-08 15:02 | DRG 871 ==
LOC: EMEROOARM 19:17 → 3ANU 19:17 → SUATTDRO 11-04 01:05 → 3ANU 11-04 01:30
PROVIDERS: ADMIT Family Medicine; ATTEND Internal Medicine

== ENCOUNTER 2018-11-14 19:54 | Observation (INO) ==
[2018-11-14] MEDS ORDERED: 0.9 % Sodium Chloride 1,000 ML IVC ONE (20:06)
[2018-11-14] MEDS ORDERED: Isovue-370 500 ML BOTTLE IVP ONE (20:07)
[2018-11-14 20:44] LABS: Basophils % 0.3 %; Eosinophils # 0.1 K/mcL (0.0-0.6); Eosinophils % 1.7 %; Hematocrit 39.3 % (35.3-44.9); Hemoglobin 11.6 g/dL (11.5-15.4); Immature Granulocytes % 0.7 % (0-4); Lymphocytes # 0.7 K/mcL (0.6-4.6); Mean Corpuscular HGB Conc 29.5 g/dL (31.6-35.5); Mean Corpuscular Hemoglobin 24.5 pg (28.0-33.3); Mean Corpuscular Volume 82.9 fL (83.0-100.0); Mean Platelet Volume 8.1 fL (9.4-12.4); Monocytes # 0.4 K/mcL (0.0-1.3); Monocytes % 7.2 %; Neutrophils # 4.8 K/mcL (1.6-8.9); Platelet Count 415 K/mcL (140-400); Red Blood Count 4.74 M/mcL (3.82-4.97); Red Cell Distribution Width 22.5 % (11.5-14.5); Segmented Neutrophils % 79.1 %
--- NOTE | 2018-11-14 20:49 | Emergency Department Note ---
Disposition Clinical Impression: Altered mental status Disposition: Admitted As Inpatient Condition: Fair Referrals: Rashad Bullard MD [Primary Care Provider] - Forms: ED Satisfaction Letter Time of Disposition: 23:39 Altered Mental Status HPI - General Chief Complaint: ED Altered Mental Status Stated Complaint: AMS Time Seen by Provider: 11/14/18 19:57 Source: patient, EMS Limitations: no limitations - History of Present Illness HPI Narrative: Patient 83-year-old female who presents from with chief complaint of generalized weakness. Patient family reports that she has been not acting herself today and has been more confused of the patient recently was admitted to the hospital for C. difficile and also UTI. The patient has reportedly not having loose stools anymore but is not been eating and drinking well at the alf where she resides. - Related Data Home Medications Medication Instructions Recorded Confirmed Lisinopril [Zestril] 5 mg PO DAILY 09/09/18 11/03/18 Levothyroxine [Synthroid] 50 mcg PO QAM 11/03/18 11/03/18 Omeprazole 20 mg PO BID 11/03/18 11/03/18 Torsemide [Demadex] 20 mg PO DAILY 11/03/18 11/03/18 Previous Rx's Medication Instructions Recorded Simvastatin [Zocor] 20 mg PO HS 365 Days tablet 07/25/16 Ferrous Sulfate 325 mg PO DAILY #90 tablet 11/08/18 Vancomycin HCl 125 mg PO QID 10 Days #40 capsule 11/08/18 levoFLOXacin [Levaquin] 750 mg PO DAILY #5 tablet 11/08/18 Allergies Allergy/AdvReac Type Severity Reaction Status Date / Time No Known Allergies Allergy Verified 11/03/18 22:34 All systems ED: reviewed and negative except as stated. Past Medical History - Past Medical History Attestation: Yes The following information was validated with the patient. Medical history: Reports: cancer, hyperlipidemia, hypertension, migraine, thyroid disease, other Surgical history: Reports: cholecystectomy, hysterectomy Psychiatric history: Reports: no psych history ARTIST SUSPECT history: Reports: no ARTIST SUSPECT history - Social History Smoking Status: Never smoker Smokeless Tobacco Status: No Alcohol use: Reports: none Drug use: Reports: none Physical Exam General: pleasant interactive and nontoxic. Head: Normocephalic/atraumatic Eyes:PERRLA, EOMI, no conjunctivitis Nares: Without d/c. Ears: No erythema or d/c noted. Oralpharnyx: P&MMM noted, Neck: Supple, no JVD or TANKMAN noted. Cardovascular: regular rate and rhythm without murmur, brisk capillary refill, no peripheral edema. Lungs: Clear to ascultation bilaterally, non-labored Abd: Soft tender to palpation, Non Distended, no guarding, no rebound. : Defered Extremities: moves all extremities equally Neuro: Alert, no obvious gross neuro deficit Psych: Normal Affect Derm: No rash noted - General Limitations: no limitations General appearance: alert, in no apparent distress Course Course Narrative: Additional family members arrive she told of low the patient was at the alf she has not been eating and drinking well they also noticed that tonight she had an episode where she was looking at the family members her eyes rolled back in her head and she became unresponsive. They also noticed that the patient was unable to recognize family members that she has known for her entire life. Family states they are concerned that she is dying. Vital Signs Temperature 98.1 F 11/14/18 20:02 Pulse Rate 100 11/14/18 20:02 Respiratory Rate 16 11/14/18 20:02 Blood Pressure 128/66 11/14/18 20:02 O2 Sat by Pulse Oximetry 97 11/14/18 20:02 Temperature 98.1 F 11/14/18 20:02 Pulse Rate 99 11/14/18 20:36 Respiratory Rate 16 11/14/18 20:36 Blood Pressure 114/63 11/14/18 20:36 O2 Sat by Pulse Oximetry 96 11/14/18 20:36 Oxygen Delivery Oxygen Delivery Room Air Altered Mental Status - Lab Data Result diagrams: 11/14/18 20:22 11/14/18 20:22 Lab Results 11/14/18 11/14/18 11/14/18 Range/Units 20:22 20:22 20:22 WBC 6.0 (4.3-11.1) K/mcL RBC 4.74 (3.82-4.97) M/mcL Hgb 11.6 (11.5-15.4) g/dL Hct 39.3 (35.3-44.9) % MCV 82.9 L (83.0-100.0) fL MCH 24.5 L (28.0-33.3) pg MCHC 29.5 L (31.6-35.5) g/dL RDW 22.5 H (11.5-14.5) % Plt Count 415 H (140-400) K/mcL MPV 8.1 L (9.4-12.4) fL Immature Gran % 0.7 (0-4) % Seg Neutrophils % 79.1 % Lymphocytes % 11.0 % Monocytes % 7.2 % Eosinophils % 1.7 % Basophils % 0.3 % Neutrophils # 4.8 (1.6-8.9) K/mcL Lymphocytes # 0.7 (0.6-4.6) K/mcL Monocytes # 0.4 (0.0-1.3) K/mcL Eosinophils # 0.1 (0.0-0.6) K/mcL Basophils # 0.0 (0.0-0.2) K/mcL PT 11.7 (9.4-12.1) Seconds INR 1.0 APTT 27.2 (26.0-36.0) Seconds Sodium 141 (136-145) mEq/L Potassium 3.6 (3.5-5.1) mEq/L Chloride 102 (98-107) mEq/L Carbon Dioxide 30 H (23-29) mEq/L BUN 14 (8-23) mg/dL Creatinine 0.91 (0.60-1.20) mg/dL Est GFR ( Amer) > 60 (> 60) Est GFR (Non-Af Amer) 59 L (> 60) BUN/Creatinine Ratio 15 (6-26) Glucose 114 H (70-105) mg/dL Calculated Osmolality 293 (280-300) Lactic Acid (0.5-2.2) mmol/L Calcium 9.1 (8.6-10.3) mg/dL Total Bilirubin 0.4 (0.3-1.0) mg/dL Direct Bilirubin 0.0 (0.0-0.2) mg/dL Indirect Bilirubin 0.4 (0.0-1.2) mg/dL AST 21 (13-39) Units/L ALT 8 (7-52) Units/L Alkaline Phosphatase 49 (34-104) Units/L Troponin I < 0.03 (< 0.04) ng/mL Serum Total Protein 6.0 L (6.4-8.9) g/dL Albumin 3.4 L (3.5-5.7) g/dL Globulin 2.6 (2.4-3.5) g/dL Albumin/Globulin Ratio 1.3 (1.1-2.2) Urine Color (Yellow) Urine Clarity (Clear) Urine pH (5.0-8.0) pH Units Ur Specific [place] (1.010-1.025) Urine Protein (Neg-Trace) mg/dL Urine Glucose (UA) (Normal) mg/dL Urine Ketones (Negative) mg/dL Urine Blood (Negative) Urine Nitrite (Negative) Urine Bilirubin (Negative) Urine Urobilinogen (Normal) mg/dL Ur Leukocyte Esterase (Negative) Ur Culture Indicated? (NO) Ethyl Alcohol < 10 (Less than 10) mg/dL 11/14/18 11/14/18 Range/Units 20:22 22:02 WBC (4.3-11.1) K/mcL RBC (3.82-4.97) M/mcL Hgb (11.5-15.4) g/dL Hct (35.3-44.9) % MCV (83.0-100.0) fL MCH (28.0-33.3) pg MCHC (31.6-35.5) g/dL RDW (11.5-14.5) % Plt Count (140-400) K/mcL MPV (9.4-12.4) fL Immature Gran % (0-4) % Seg Neutrophils % % Lymphocytes % % Monocytes % % Eosinophils % % Basophils % % Neutrophils # (1.6-8.9) K/mcL Lymphocytes # (0.6-4.6) K/mcL Monocytes # (0.0-1.3) K/mcL Eosinophils # (0.0-0.6) K/mcL Basophils # (0.0-0.2) K/mcL PT (9.4-12.1) Seconds INR APTT (26.0-36.0) Seconds Sodium (136-145) mEq/L Potassium (3.5-5.1) mEq/L Chloride (98-107) mEq/L Carbon Dioxide (23-29) mEq/L BUN (8-23) mg/dL Creatinine (0.60-1.20) mg/dL Est GFR ( Amer) (> 60) Est GFR (Non-Af Amer) (> 60) BUN/Creatinine Ratio (6-26) Glucose (70-105) mg/dL Calculated Osmolality (280-300) Lactic Acid 1.1 (0.5-2.2) mmol/L Calcium (8.6-10.3) mg/dL Total Bilirubin (0.3-1.0) mg/dL Direct Bilirubin (0.0-0.2) mg/dL Indirect Bilirubin (0.0-1.2) mg/dL AST (13-39) Units/L ALT (7-52) Units/L Alkaline Phosphatase (34-104) Units/L Troponin I (< 0.04) ng/mL Serum Total Protein (6.4-8.9) g/dL Albumin (3.5-5.7) g/dL Globulin (2.4-3.5) g/dL Albumin/Globulin Ratio (1.1-2.2) Urine Color Yellow (Yellow) Urine Clarity Clear (Clear) Urine pH 5.5 (5.0-8.0) pH Units Ur Specific Edwards 1.015 (1.010-1.025) Urine Protein Negative (Neg-Trace) mg/dL Urine Glucose (UA) Normal (Normal) mg/dL Urine Ketones Negative (Negative) mg/dL Urine Blood Negative (Negative) Urine Nitrite Negative (Negative) Urine Bilirubin Negative (Negative) Urine Urobilinogen Normal (Normal) mg/dL Ur Leukocyte Esterase Negative (Negative) Ur Culture Indicated? NO (NO) Ethyl Alcohol (Less than 10) mg/dL TPA Checklist - LKW: 3-4.5 hrs Add. Warnings/Precautions Patient/family understanding: The patient/family members have been counseled and understood the risk, benefit, and alternatives of treatment.
[2018-11-14 20:53] LABS: Prothrombin Time 11.7 Seconds (9.4-12.1)
[2018-11-14 20:56] LABS: Activated Partial Thrombo Time 27.2 Seconds (26.0-36.0)
[2018-11-14 21:08] LABS: Alanine Aminotransferase 8 Units/L (7-52); Albumin 3.4 g/dL (3.5-5.7); Albumin/Globulin Ratio 1.3 (1.1-2.2); Alkaline Phosphatase 49 Units/L (34-104); Aspartate Amino Transferase 21 Units/L (13-39); BUN/Creatinine Ratio 15 (6-26); Bilirubin,Indirect 0.4 mg/dL (0.0-1.2); Bilirubin,Total 0.4 mg/dL (0.3-1.0); Blood Urea Nitrogen 14 mg/dL (8-23); Calcium 9.1 mg/dL (8.6-10.3); Carbon Dioxide 30 mEq/L (23-29); Chloride 102 mEq/L (98-107); Ethanol < 10 mg/dL (Less than 10); Globulin 2.6 g/dL (2.4-3.5); Glucose 114 mg/dL (70-105); Osmolality,Calculated 293 (280-300); Potassium 3.6 mEq/L (3.5-5.1); Sodium 141 mEq/L (136-145); Troponin I < 0.03 ng/mL (< 0.04); eGFR For African Americans > 60 (> 60); eGFR For Non-African Americans 59 (> 60)
[2018-11-14 22:10] LABS: Bilirubin,Urine Negative (Negative); Blood,Urine Negative (Negative); Clarity,Urine Clear (Clear); Color,Urine Yellow (Yellow); Glucose,Urine (UA) Normal (Normal); Ketones,Urine Negative (Negative); Leukocyte Esterase,Urine Negative (Negative); Nitrite,Urine Negative (Negative); PH,Urine 5.5 pH Units (5.0-8.0); Protein,Urine Negative (Neg-Trace); Specific Gravity,Urine 1.015 (1.010-1.025); Urobilinogen,Urine Normal (Normal)
--- NOTE | 2018-11-14 23:51 | Internal Med History&Physical ---
<Katty Childers - Last Filed: 11/15/18 01:52> Date of Encounter: 11/15/18 Time of Encounter: 23:50 Internal Medicine - H&P: HPI Chief complaint: Altered mental status Admitted From: Emergency Dept Plans for Post Hospital Care: Transfer [facility] History of present illness: Ms. Gunn is a 83 year old female with past medical history of thyroid disease, hypertension, breast cancer, adenocarcinoma the colon who presented to [facility] from [facility] due to altered mental status. On my examination of the patient her family is at that bedside. The patient is a poor historian. She is deaf but can read lips. The patient's family reported that they were sitting with her at the table eating dinner when all of a sudden she tilted her head back in her eyes rolled to the back of her head. She came to after a few seconds and was confused not knowing who her family members were. She was then taken to the ED to be evaluated. The patient reported having a burning sensation in the back of her throat down her chest, abdomen, and to her vagina. She admits to some shortness of breath. She denied fever, chills, cough, headache, change in vision, fall. No history of drug use, alcohol use, cigarettes. After a thorough discussion of code status with the patient and her family including the POA whom is the daughter it was decided that she would be a DNR CCA DNI. The patient had stated she would not want chest compressions on intubated and the daughter who is the POA stated that she agreed. In the ED initial vitals were: 98.1F, HR 100, RR 16, BP 120/66, 96% on room air. WBC 6.0, hemoglobin 11.6, platelets 415. CMP, urinalysis, ethyl alcohol unremarkable. -Head CT show no acute intracranial abnormality -abdomen/pelvis CT showing decreased residual thickening of sigmoid colon and rectum. [place] stool in large bowel. Small bilateral pleural effusion mildly increased. -Chest x-ray show acute cardiopulmonary process. -EKG showing NSR with LBBB that is similar and seen on prior EKG's. In the ED the patient was given a leader fluids. Past Med Surg Social Fam HX - Past Medical History Attestation: Yes The following information was validated with the patient. 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 Psychiatric history: no psych history - Past Surgical History Surgical History: cholecystectomy, hysterectomy Additional surgical history: GOITER REMOVED , , urethral stent, thyroid nodule removal - Social History Smoking Status: Never smoker Smokeless Tobacco Status: No Alcohol use: none Drug use: none - Family History Father Living Status: Hx Family Cardiac Disorders: Yes (CHF) Hx Family Cancer: Yes (Pancreatic cancer) Mother Hx Family Cancer: Yes (Lung cancer) Internal Medicine - H&P: Meds Simvastatin [Zocor] 20 mg PO HS 365 Days tablet 07/25/16 [Rx] Lisinopril [Zestril] 5 mg PO DAILY 09/09/18 [History] Levothyroxine [Synthroid] 50 mcg PO QAM 11/03/18 [History] Omeprazole 20 mg PO BID 11/03/18 [History] Torsemide [Demadex] 20 mg PO DAILY 11/03/18 [History] Ferrous Sulfate 325 mg PO DAILY #90 tablet 11/08/18 [Rx] Cholestyramine 2 gm PO DAILY 11/15/18 [History] Vancomycin Oral Soln [Firvanq] 2.5 ml PO QID 11/15/18 [History] Allergy/AdvReac Type Severity Reaction Status Date / Time No Known Allergies Allergy Verified 11/03/18 22:34 All Systems PM: A 10-system review of systems was performed and is negative for pertinent findings except as documented above in the HPI. - Constitutional Constitutional: no chills, no fever(s), no falls - EENT Eyes: no change in vision Nose, mouth and throat: sore throat (Burning) - Cardiovascular Cardiovascular ROS IM: no chest pain, no edema, no palpitations - Respiratory Respiratory: dyspnea, no cough, no wheezing, no excessive phlegm production - Gastrointestinal Gastrointestinal: abdominal pain, heartburn, no diarrhea, no nausea, no vomiting - Genitourinary Genitourinary: no dysuria - Integumentary Integumentary IM: no rash, no sores - Neurological Neurological ROS: confusion, no dizziness, no frequent falls - Psychiatric Psychiatric: confusion - Endocrine Endocrine IM: no flushing - Constitutional Vitals: Temp Pulse Resp BP Pulse Ox 98.1 F 99 16 114/63 96 11/14/18 20:02 11/14/18 20:36 11/14/18 20:36 11/14/18 20:36 11/14/18 20:36 Exam: Gen.: Vitals noted. No acute distress. AAOx0 HEENT: oropharynx clear, Normocephalic, atraumatic Neck: Supple. No adenopathy. Cardiac: RRR, no murmur, +S1/S2 Pulmonary: CTA bilaterally, no wheezes, rales or rhonchi, equal chest expansion Abdomen: soft, nontender, Bowel sounds noted, no guarding MSK: no joint swelling noted Extremities: nonpitting BLE edema, nontender calf, no cyanosis or clubbing Neuro: A&Ox0, moves all extremities, no focal deficits Psych: Appropriate mood and behavior Internal Med - H&P Results - Labs CBC & Chem 7: 11/14/18 20:22 11/14/18 20:22 Labs: Short CBC 11/14/18 Range/Units 20:22 WBC 6.0 (4.3-11.1) K/mcL Hgb 11.6 (11.5-15.4) g/dL Hct 39.3 (35.3-44.9) % Plt Count 415 H (140-400) K/mcL Neutrophils # 4.8 (1.6-8.9) K/mcL BMP 11/14/18 20:22 Sodium 141 Potassium 3.6 Chloride 102 Carbon Dioxide 30 H BUN 14 Creatinine 0.91 Glucose 114 H Calcium 9.1 Cardiac Enzymes 11/14/18 Range/Units 20:22 Troponin I < 0.03 (< 0.04) ng/mL Liver Function 11/14/18 Range/Units 20:22 Total Bilirubin 0.4 (0.3-1.0) mg/dL Direct Bilirubin 0.0 (0.0-0.2) mg/dL AST 21 (13-39) Units/L ALT 8 (7-52) Units/L Alkaline Phosphatase 49 (34-104) Units/L Albumin 3.4 L (3.5-5.7) g/dL Urine 11/14/18 Range/Units 22:02 Urine Color Yellow (Yellow) Urine Clarity Clear (Clear) Urine pH 5.5 (5.0-8.0) pH Units Ur Specific [place] 1.015 (1.010-1.025) Urine Protein Negative (Neg-Trace) mg/dL Urine Glucose (UA) Normal (Normal) mg/dL - Impressions ITS Impressions Chest X-Ray 11/14/18 21:30 IMPRESSION: No focal consolidation. D/ / 11/14/2018 22:17:03 Leonardo Guadarrama MD / lilian Interpreting Provider: Leonardo Guadarrama MD Head CT 11/14/18 22:01 IMPRESSION: No acute intracranial abnormality. D/ / Giorgio Matos MD / Giorgio Matos MD Interpreting Provider: Giorgio Matos MD Abdomen/Pelvis CT 11/14/18 22:09 IMPRESSION: Residual mural thickening of the sigmoid colon and rectum is again identified, but decreased considerably when compared to the previous exam. Large amount of stool within the more proximal aspects of the large bowel. Correlate with clinical evidence of constipation. Small bilateral pleural effusions, which are mildly increased when compared to the previous exam, with adjacent airspace disease, atelectasis versus less likely pneumonia. D/ / Alex Suarez MD / Alex Suarez MD Interpreting Provider: Alex Suarez MD - Assessment and Plan (1) Acute encephalopathy Current Visit: Yes Status: Acute Assessment and plan: Acute encephalopathy of unknown etiology but suspect that this may be multifactrial in the setting of dehydration and older age. The patient does not have an elevated WBC, lactic acid, imaging concerning for and infectious etiology. She is no history of liver disease to suspect elevated ammonia. Head CT showed no acute intracranial abnormality concerning for stroke. Not ACS as troponin negative and EKG is stable from previous EKG. -Afebrile, hemodynamically stable -WBC WNL, CMP unremarkable, troponin negative -urinalysis unremarkable -abdomen/pelvis CT showing decreased residual thickening of sigmoid colon and rectum. [place] stool in large bowel. Small bilateral pleural effusion mildly increased. -Chest x-ray show acute cardiopulmonary process. -EKG showing NSR with LBBB that is similar and seen on prior EKG's. plan: -will continue to observe and monitor as antibiotics are not indicated at this time. Patient seems improved and is able to answer more questions. She is deaf but can read lips. -blood culture pending -social work consulted for discharge placement as family are very unhappy with current ECF -continue cardiac telemetry (2) Dysuria Current Visit: Yes Status: Acute Assessment and plan: Patient is complaining of dysuria. During this admission patient was treated for UTI on 11/04/2018. -Urinalysis unremarkable -pyridium ordered prn (3) GERD (gastroesophageal reflux disease) Current Visit: Yes Status: Acute Assessment and plan: Patient is complaining of heartburn with a burning sensation down her throat and through her chest. She has known history of GERD taking omeprazole. 2 months ago she had esophageal dilation. -Continue home omeprazole -carafate ordered Qualifiers: Esophagitis presence: without esophagitis Qualified Code(s): K21.9 - Gastro-esophageal reflux disease without esophagitis (4) C. difficile colitis Current Visit: No Status: Acute Assessment and plan: Patient presents with known C diff currently undergoing treatment through 11/17/2018 per the infectious disease doctor Dr. Suresh's last note. -Continue vancomycin through 11/17/2018 for treatment of known C diff (5) DVT prophylaxis Current Visit: No Status: Acute Assessment and plan: Heparin SQ - Time Spent With Patient Total time spent is greater than 50% in coordination of care (as documented) at patient's floor/unit and/or counseling patient: <Ary Don - Last Filed: 11/15/18 03:40> Date of Encounter: 11/15/18 All Systems PM: A 10-system review of systems was performed and is negative for pertinent findings except as documented above in the HPI. - Constitutional Vitals: Temp Pulse Resp BP Pulse Ox 98.1 F 90 16 122/60 92 11/15/18 01:45 11/15/18 01:45 11/15/18 01:45 11/15/18 01:45 11/15/18 01:45 Internal Med - H&P Results - Labs CBC & Chem 7: 11/14/18 20:22 11/14/18 20:22 Labs: Short CBC 11/14/18 Range/Units 20:22 WBC 6.0 (4.3-11.1) K/mcL Hgb 11.6 (11.5-15.4) g/dL Hct 39.3 (35.3-44.9) % Plt Count 415 H (140-400) K/mcL Neutrophils # 4.8 (1.6-8.9) K/mcL BMP 11/14/18 20:22 Sodium 141 Potassium 3.6 Chloride 102 Carbon Dioxide 30 H BUN 14 Creatinine 0.91 Glucose 114 H Calcium 9.1 Cardiac Enzymes 11/14/18 Range/Units 20:22 Troponin I < 0.03 (< 0.04) ng/mL Liver Function 11/14/18 Range/Units 20:22 Total Bilirubin 0.4 (0.3-1.0) mg/dL Direct Bilirubin 0.0 (0.0-0.2) mg/dL AST 21 (13-39) Units/L ALT 8 (7-52) Units/L Alkaline Phosphatase 49 (34-104) Units/L Albumin 3.4 L (3.5-5.7) g/dL Urine 11/14/18 Range/Units 22:02 Urine Color Yellow (Yellow) Urine Clarity Clear (Clear) Urine pH 5.5 (5.0-8.0) pH Units Ur Specific [place] 1.015 (1.010-1.025) Urine Protein Negative (Neg-Trace) mg/dL Urine Glucose (UA) Normal (Normal) mg/dL - Impressions ITS Impressions Chest X-Ray 11/14/18 21:30 IMPRESSION: No focal consolidation. D/ / 11/14/2018 22:17:03 Leonardo Guadarrama MD / lilian Interpreting Provider: Leonardo Guadarrama MD Head CT 11/14/18 22:01 IMPRESSION: No acute intracranial abnormality. D/ / Giorgio Matos MD / Giorgio Matos MD Interpreting Provider: Giorgio Matos MD Abdomen/Pelvis CT 11/14/18 22:09 IMPRESSION: Residual mural thickening of the sigmoid colon and rectum is again identified, but decreased considerably when compared to the previous exam. Large amount of stool within the more proximal aspects of the large bowel. Correlate with clinical evidence of constipation. Small bilateral pleural effusions, which are mildly increased when compared to the previous exam, with adjacent airspace disease, atelectasis versus less likely pneumonia. D/ / Alex Suarez MD / Alex Suarez MD Interpreting Provider: Alex Suarez MD - Assessment and Plan (1) Acute encephalopathy Current Visit: Yes Status: Acute (2) Dysuria Current Visit: Yes Status: Acute (3) GERD (gastroesophageal reflux disease) Current Visit: Yes Status: Acute Qualifiers: Esophagitis presence: without esophagitis Qualified Code(s): K21.9 - G mignon-esophageal reflux disease without esophagitis (4) C. difficile colitis Current Visit: No Status: Acute (5) DVT prophylaxis Current Visit: No Status: Acute - Time Spent With Patient Total time spent is greater than 50% in coordination of care (as documented) at patient's floor/unit and/or counseling patient: - Attending Attestation I performed a history and physical exam of the patient and discussed management with the resident. I reviewed the resident's note and agree with the documented findings and plan of care.
[2018-11-15] MEDS ORDERED: Naloxone 0.4 MG/ML INJ IVP PRN (00:52)
[2018-11-15] MEDS ORDERED: Ondansetron ODT 4 MG TAB.RAPDIS SL PRN (00:52)
[2018-11-15] MEDS: *HR* Heparin 5,000 UNIT/ML VIAL SQ SCH ×3 (06:01→20:54)
[2018-11-15] MEDS: Vancomycin Oral Soln 125 MG/2.5 ML UDC PO SCH ×4 (08:16→20:55)
--- NOTE | 2018-11-15 12:00 | Event Note ---
Date of Encounter: 11/15/18 Time of Encounter: 11:57 Patient was seen and examined at bedside. Patient is a poor historian. Patient is deaf but can read lips. Patient examined and the patient's grandson and spouse. Patient's grandson and spouse provided additional history. Patient blood work, imaging and physical exam reviewed with patient and patient's grandson. Patient is nodding any acute distress on exam. Exam is benign. Patient came from [facility] yesterday. There was a concern on confusion. However, patient has recovered well. Patient has a POA, who is pt's daughter. We will consult social work. We will call the patient's daughter, who at the time of admission expressed concern about her current rehabilitation place. Will attempt and fine needle rehabilitation place. Anticipate discharge today or tomorrow
--- NOTE | 2018-11-15 15:58 | Electrocardiograph Report ---
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
--- NOTE | 2018-11-15 16:02 | Electrocardiograph Report ---
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
[2018-11-16 03:42] LABS: Adenovirus F 40/41 PCR Not detected (Not detect); Astrovirus PCR Not detected (Not detect); C.difficile Toxin A/B Gene PCR DETECTED (Not detect); Campylobacter by PCR Not detected (Not detect); Cryptosporidium by PCR Not detected (Not detect); Cyclospora cayetanensis PCR Not detected (Not detect); E. coli O157 by PCR Not detected (Not detect); Entamoeba histolytica PCR Not detected (Not detect); Enteroaggregative E.coli(EAEC) Not detected (Not detect); Enteropathogenic E.coli(EPEC) Not detected (Not detect); Enterotoxigenic E.coli (ETEC) Not detected (Not detect); Giardia lamblia PCR Not detected (Not detect); Norovirus GI/GII PCR Not detected (Not detect); Plesiomonas shigelloides PCR Not detected (Not detect); Rotavirus A PCR Not detected (Not detect); Salmonella PCR Not detected (Not detect); Sapovirus PCR Not detected (Not detect); Shig/EnteroinvasiveE coli EIEC Not detected (Not detect); Shigalike tox-prod E coli STEC Not detected (Not detect); Vibrio PCR Not detected (Not detect); Vibrio cholerae PCR Not detected (Not detect); Yersinia enterocolitica PCR Not detected (Not detect)
[2018-11-16] MEDS: *HR* Heparin 5,000 UNIT/ML VIAL SQ SCH ×2 (06:14→13:30)
[2018-11-16 06:16] LABS: Basophils % 0.6 %; Eosinophils # 0.1 K/mcL (0.0-0.6); Eosinophils % 3.7 %; Hematocrit 31.3 % (35.3-44.9); Hemoglobin 9.3 g/dL (11.5-15.4); Immature Granulocytes % 0.6 % (0-4); Lymphocytes # 0.6 K/mcL (0.6-4.6); Lymphocytes % 18.3 %; Mean Corpuscular HGB Conc 29.7 g/dL (31.6-35.5); Mean Corpuscular Hemoglobin 24.8 pg (28.0-33.3); Mean Corpuscular Volume 83.5 fL (83.0-100.0); Mean Platelet Volume 8.2 fL (9.4-12.4); Monocytes # 0.4 K/mcL (0.0-1.3); Monocytes % 11.4 %; Neutrophils # 2.3 K/mcL (1.6-8.9); Platelet Count 324 K/mcL (140-400); Red Blood Count 3.75 M/mcL (3.82-4.97); Segmented Neutrophils % 65.4 %; White Blood Count 3.5 K/mcL (4.3-11.1)
[2018-11-16 06:27] LABS: BUN/Creatinine Ratio 22 (6-26); Blood Urea Nitrogen 14 mg/dL (8-23); Calcium 9.6 mg/dL (8.6-10.3); Carbon Dioxide 29 mEq/L (23-29); Chloride 103 mEq/L (98-107); Glucose 95 mg/dL (70-105); Osmolality,Calculated 288 (280-300); Potassium 3.3 mEq/L (3.5-5.1); Sodium 139 mEq/L (136-145); eGFR For African Americans > 60 (> 60); eGFR For Non-African Americans > 60 (> 60)
[2018-11-16] MEDS: Vancomycin Oral Soln 125 MG/2.5 ML UDC PO SCH ×2 (08:47→13:30)
--- NOTE | 2018-11-16 13:32 | Discharge Summary ---
Orders not resulted at time of discharge: Pending orders 11/14/18 20:15 Culture,Blood [BC] Stat Date of Encounter: 11/16/18 Time of Encounter: 08:30 - Discharge Diagnosis (1) Acute encephalopathy Priority: Primary Status: Acute (2) Dysuria Priority: Secondary Status: Acute (3) GERD (gastroesophageal reflux disease) Priority: Secondary Status: Acute Qualifiers: Esophagitis presence: without esophagitis Qualified Code(s): K21.9 - Gastro-esophageal reflux disease without esophagitis (4) C. difficile colitis Priority: Secondary Status: Acute (5) DVT prophylaxis Priority: Secondary Status: Acute Hospital course: Ms. Gunn is a 83 year old female who was transferred to [facility] from a alf on account of an acute confusion state. Patient however returned to her baseline shortly after admission and has remained so. Pt and family do not was to return to alf but prefer she be discharged home with [facility]. C has been set up and patient will go home. Discharge discussed with: patient, social work, case management - Time Spent with Patient Total time spent providing and/or coordinating discharge services: - Discharge Medications Prescriptions: Continued Lisinopril [Zestril] 5 mg PO DAILY Levothyroxine [Synthroid] 50 mcg PO QAM Omeprazole 20 mg PO BID Torsemide [Demadex] 20 mg PO DAILY Ferrous Sulfate 325 mg PO DAILY #90 tablet Cholestyramine 2 gm PO DAILY Vancomycin Oral Soln [Firvanq] 2.5 ml PO QID Simvastatin [Zocor] 20 mg PO HS 365 Days tablet Home Medications: Simvastatin [Zocor] 20 mg PO HS 365 Days tablet 07/25/16 [Rx] Lisinopril [Zestril] 5 mg PO DAILY 09/09/18 [History] Levothyroxine [Synthroid] 50 mcg PO QAM 11/03/18 [History] Omeprazole 20 mg PO BID 11/03/18 [History] Torsemide [Demadex] 20 mg PO DAILY 11/03/18 [History] Ferrous Sulfate 325 mg PO DAILY #90 tablet 11/08/18 [Rx] Cholestyramine 2 gm PO DAILY 11/15/18 [History] Vancomycin Oral Soln [Firvanq] 2.5 ml PO QID 11/15/18 [History] Allergies/Adverse Reactions: Allergy/AdvReac Type Severity Reaction Status Date / Time No Known Allergies Allergy Verified 11/03/18 22:34 Date of admission: 11/14/18 23:50 Primary care physician: Rashad Bullard MD Consults: 11/15/18 01:47 Consult to [facility] [CONS] Routine Reason for SW Consult: ECF 11/15/18 16:07 Consult to Nurse Navigator [CONS] Routine Comment: [facility] Referral - Constitutional Vitals: Temp Pulse Resp BP Pulse Ox 37.4 C 86 14 113/63 91 11/16/18 11:55 11/16/18 11:55 11/16/18 11:55 11/16/18 11:55 11/16/18 11:55 Exam: Gen.: No acute distress. AAOx3 HEENT: oropharynx clear, Normocephalic, atraumatic Neck: Supple. No adenopathy. Cardiac: RRR, no murmur, +S1/S2 Pulmonary: CTA bilaterally, no wheezes, rales or rhonchi, equal chest expansion Abdomen: soft, nontender, Bowel sounds noted, no guarding MSK: no joint swelling noted Extremities: nonpitting BLE edema, nontender calf, no cyanosis or clubbing Neuro: A&Ox3, moves all extremities, no focal deficits Psych: Appropriate mood and behavior - Patient Status Disposition: Home Health Service Condition: Fair Functional capacity at discharge: uses cane/walker Overall status at discharge: patient is progressing back to baseline - Discharge Instructions Follow Up With: Rashad Bullard MD [Primary Care Provider] - 11/21/18 3:00 pm - Diet and Activity Activity: increase activity as tolerated Diet: advance to your usual diet
[2018-11-16 14:14] VITALS: BP 108/55
--- NOTE | 2018-11-16 15:04 | Physician Discharge Referral ---
Home Health/Hosp Referral Info Transfer to: Home Health - Diagnosis (1) Acute encephalopathy Priority: Primary Status: Acute (2) Dysuria Priority: Secondary Status: Acute (3) GERD (gastroesophageal reflux disease) Priority: Secondary Status: Acute (4) C. difficile colitis Priority: Secondary Status: Acute (5) DVT prophylaxis Priority: Secondary Status: Acute - Respiratory Orders Smoking Cessation: Smoking cessation has been advised. For more information, call the [place] Tobacco Quit Line at 5-645-HGJX-NOW. - Services Needed Following services are medically necessary services: Nursing, Home Health Aide, Physical Therapy, Occupational Therapy - Transfer Medications Home Medications: Simvastatin [Zocor] 20 mg PO HS 365 Days tablet 07/25/16 [Rx] Lisinopril [Zestril] 5 mg PO DAILY 09/09/18 [History] Levothyroxine [Synthroid] 50 mcg PO QAM 11/03/18 [History] Omeprazole 20 mg PO BID 11/03/18 [History] Torsemide [Demadex] 20 mg PO DAILY 11/03/18 [History] Ferrous Sulfate 325 mg PO DAILY #90 tablet 11/08/18 [Rx] Cholestyramine 2 gm PO DAILY 11/15/18 [History] Vancomycin Oral Soln [Firvanq] 2.5 ml PO QID 11/15/18 [History] Allergies/Adverse Reactions: Allergy/AdvReac Type Severity Reaction Status Date / Time No Known Allergies Allergy Verified 11/03/18 22:34 Certification: Further, I certify that my clinical findings support that this patient is homebound (i.e. absences from home require considerable and taxing effort and are for medical reasons or anabaptist services or infrequently or short duration when for other reasons) because: Homebound Reason: Severity of cardiac or pulmonary status limits activity tolerance Attestation: My signature below is to certify that this patient is under my care and that I, or nurse practitioner, or a physician's housekeeper and laundry assistant working with me, has a [id number] encounter with this patient.
== END 2018-11-16 19:59 | disposition home health service (06) ==
LOC: 3ANU 19:54 → EMEROOARM 19:54 → SUATTDRO 23:50 → 3ANU 11-15 00:41
PROVIDERS: ADMIT Internal Medicine; ATTEND Internal Medicine

== ENCOUNTER 2018-11-22 22:07 | Observation (INO) ==
--- NOTE | 2018-11-22 23:04 | Emergency Department Note ---
Disposition Clinical Impression: Fall Qualifiers: Encounter type: initial encounter Qualified Code(s): W19.XXXA - Unspecified fall, initial encounter Disposition: Admitted As Inpatient Condition: Good Time of Disposition: 00:57 Fall HPI - General Chief Complaint: ED Fall Stated Complaint: Fall Time Seen by Provider: 11/22/18 22:10 Source: patient, EMS Mode of arrival: EMS Limitations: no limitations Nursing Notes Reviewed: Yes Vital Signs Reviewed: Yes - History of Present Illness HPI Narrative: 83F with PMHx of HTN, HLD and thyroid disease presents after mechanical fall at home. Patient states she was standing up going to the bathroom when she slipped in the bathroom and fell backwards, hitting the top of her head on the bathtub. She denies loss of consciousness but now complains of top of head and lower neck pain. She does not admit to any weakness, numbness or tingling of her extremities or any vision changes. - Related Data Home Medications Medication Instructions Recorded Confirmed Lisinopril [Zestril] 5 mg PO DAILY 09/09/18 11/24/18 Levothyroxine [Synthroid] 50 mcg PO QAM 11/03/18 11/24/18 Omeprazole 20 mg PO BID 11/03/18 11/24/18 Torsemide [Demadex] 20 mg PO DAILY 11/03/18 11/24/18 Cholestyramine 2 gm PO DAILY 11/15/18 11/24/18 Previous Rx's Medication Instructions Recorded Simvastatin [Zocor] 20 mg PO HS 365 Days tablet 07/25/16 Ferrous Sulfate 325 mg PO DAILY #90 tablet 11/08/18 Lactobacillus Acidophilus 1 each PO BID #30 capsule 11/25/18 [Acidophilus] Vancomycin Oral Soln [Firvanq] 125 mg PO QID 12 Days #120 ml 11/25/18 Allergies Allergy/AdvReac Type Severity Reaction Status Date / Time No Known Allergies Allergy Verified 11/23/18 02:59 All systems ED: reviewed and negative except as stated. Review of Systems: As Per HPI Constitutional: Denies: fever, chills, weakness Eyes: Denies: vision change Cardiovascular: Denies: chest pain, palpitations, dyspnea on exertion Respiratory: Denies: cough, dyspnea, wheezes Gastrointestinal: Denies: abdominal pain, nausea, vomiting Musculoskeletal: Reports: neck pain. Denies: back pain Neurological: Reports: headache Endocrine: Denies: fatigue Fall PMH - Past Medical History Medical history: Reports: cancer, GERD, hyperlipidemia, hypertension, migraine, thyroid disease, other Surgical history: Reports: cholecystectomy, hysterectomy Psychiatric history: Reports: no psych history PRODUCT DELIVERY SPECIALIST history: Reports: no PRODUCT DELIVERY SPECIALIST history - Social History Smoking Status: Never smoker Alcohol use: Reports: none Drug use: Reports: none Physical Exam - General Limitations: no limitations, other General appearance: alert, in no apparent distress - Head Head exam: atraumatic, normocephalic - Eye Eye exam: Present: normal appearance, PERRL, EOMI - ENT ENT exam: normal exam, normal oropharynx, TM's normal bilaterally - Neck Neck exam: Present: tenderness (left sided tenderness to palpation) - Chest Chest inspection: Present: normal inspection. Absent: tenderness - Respiratory Respiratory exam: Present: normal lung sounds bilaterally. Absent: wheezes - Cardiovascular Cardiovascular exam: Present: regular rate, normal rhythm - Abdominal Exam Abdominal exam: Present: soft, Non-Tender. Absent: distention, guarding, rebound, rigidity - Extremities Exam Extremities exam: Present: normal inspection. Absent: tenderness, pedal edema - Neurological Exam Neurological exam: Present: alert, oriented X3 - Psychiatric Psychiatric exam: Present: normal affect, normal mood - Skin Skin exam: Present: warm, dry, intact Course Vital Signs Temperature 98.2 F 11/22/18 22:07 Pulse Rate 91 11/22/18 22:07 Respiratory Rate 18 11/22/18 22:07 Blood Pressure 145/68 11/22/18 22:07 O2 Sat by Pulse Oximetry 99 11/22/18 22:07 Temperature 98.2 F 11/22/18 22:07 Pulse Rate 91 11/22/18 22:07 Respiratory Rate 18 11/22/18 22:07 Blood Pressure 145/68 11/22/18 22:07 O2 Sat by Pulse Oximetry 99 11/22/18 22:07 Oxygen Delivery Oxygen Delivery Room Air Fall - [facility] Narrative Medical decision making narrative: Patient presents after a mechanical fall at home complaining of head and lower neck pain. We will do CT imaging of the head, cervical and thoracic spine as well as an EKG. 0055 - after a normal imaging workup, the patient's grandchildren showed up and gave more the story. Grandchildren state that they are unsure of how long the patient was lying on the ground as the patient's stated that the patient was in the bathroom for quite a while. They are also unsure if she had a syncopal event versus a mechanical fall but they do not believe she had a mechanical fall. They state the patient has been acting more confused than normal as well. The grandchildren state that the power of assistant district attorney is the patient's daughter and they have no medical decision-making abilities. They do not the patient is safe to go home and would suggest the patient not be discharged home unless we are able to get a hold of the patient's daughter to make sure she will be there to help take care of the patient as the patient's is unable to take care of himself little on the patient. We have ordered lab work and urinalysis to look for causes of syncope and possible rhabdomyolysis. The patient's care will be signed out to the [address] Villalobos and Dr. Méndez to try to make contact with the patient's daughter if she is amenable to going home and if not disposition will be admission for observation and placement of the patient. - Medical Records Medical records reviewed: Yes I reviewed the patient's medical records. - Lab Data Lab results reviewed: Yes I reviewed the patient's lab results. Result diagrams: 11/25/18 00:38 11/25/18 00:38 Lab Results 11/23/18 11/23/18 Range/Units 00:06 00:27 WBC 2.8 L (4.3-11.1) K/mcL RBC 4.08 (3.82-4.97) M/mcL Hgb 10.4 L (11.5-15.4) g/dL Hct 35.1 L (35.3-44.9) % MCV 86.0 (83.0-100.0) fL MCH 25.5 L (28.0-33.3) pg MCHC 29.6 L (31.6-35.5) g/dL RDW 23.6 H (11.5-14.5) % Plt Count 256 (140-400) K/mcL MPV 8.6 L (9.4-12.4) fL Urine Color Yellow (Yellow) Urine Clarity Clear (Clear) Urine pH 5.5 (5.0-8.0) pH Units Ur Specific [place] 1.022 (1.010-1.025) Urine Protein Negative (Neg-Trace) mg/dL Urine Glucose (UA) Normal (Normal) mg/dL Urine Ketones Negative (Negative) mg/dL Urine Blood Negative (Negative) Urine Nitrite Negative (Negative) Urine Bilirubin Negative (Negative) Urine Urobilinogen Normal (Normal) mg/dL Ur Leukocyte Esterase Negative (Negative) Ur Culture Indicated? NO (NO) - Radiology Data Radiology results reviewed: Yes I reviewed the patient's radiology results. - EKG Data EKG attestation: Yes I reviewed and interpreted this EKG. EKG results narrative: EKG obtained at 2228 on 11/22/2018 Heart rate 89 bpm, FL interval 165, QRS duration 136, QT 426, QTC 519 Sinus rhythm with left bundle branch block. No signs of ST segment elevation or depression significant for sgarbossa criteria. No arrhythmia or other causes for syncope. No old EKG for comparison at this time. Attestation Statement - Attestation Attestation: I have seen this patient with the resident physician, I have personally evaluated this patient. I had reviewed the chart and document dictation by the resident physician and aM in agreement with the information documented by the resident physician. Please see documentation by the resident physician for complete chart including past medical history, family medical history, review of systems, current history and physical and laboratory and imaging studies. I was present for all procedures, provided direct supervision for all procedures, was present for the entirety of all procedures and provided direct guidance during the procedures. Please see documentation by the resident physician for any procedures performed. I have reviewed all interpretations of EKGs, and reviewed all EKGs performed on patient's as well. I have also reviewed reports of imaging as provided by radiology.
[2018-11-23 00:35] LABS: Basophils % 1.1 %; Eosinophils # 0.1 K/mcL (0.0-0.6); Eosinophils % 3.5 %; Hematocrit 35.1 % (35.3-44.9); Hemoglobin 10.4 g/dL (11.5-15.4); Immature Granulocytes % 0.4 % (0-4); Lymphocytes # 0.6 K/mcL (0.6-4.6); Lymphocytes % 20.4 %; Mean Corpuscular HGB Conc 29.6 g/dL (31.6-35.5); Mean Corpuscular Hemoglobin 25.5 pg (28.0-33.3); Mean Platelet Volume 8.6 fL (9.4-12.4); Monocytes # 0.4 K/mcL (0.0-1.3); Monocytes % 14.8 %; Neutrophils # 1.7 K/mcL (1.6-8.9); Platelet Count 256 K/mcL (140-400); Red Blood Count 4.08 M/mcL (3.82-4.97); Red Cell Distribution Width 23.6 % (11.5-14.5); Segmented Neutrophils % 59.8 %; White Blood Count 2.8 K/mcL (4.3-11.1)
--- NOTE | 2018-11-23 00:43 | Emergency Department Note ---
Disposition Clinical Impression: Fall Qualifiers: Encounter type: initial encounter Qualified Code(s): W19.XXXA - Unspecified fall, initial encounter Disposition: Admitted As Inpatient Condition: Good Time of Disposition: 02:13 (accepted by Dr. Mane) General Adult HPI - General Chief complaint: ED Fall Stated complaint: Fall Time Seen by Provider: 11/22/18 22:10 Source: patient, EMS Mode of arrival: EMS Limitations: no limitations Nursing Notes Reviewed: Yes Vital Signs Reviewed: Yes - History of Present Illness HPI Narrative: Patient was signed out to myself as well as my attending Dr. Villalobos by the day team Dr. Fernandez and Dr. Joy, please refer to their history of present illness, physical exam and MDM for further information and further reference. Pain Scale: 0 - Related Data Home Medications Medication Instructions Recorded Confirmed Lisinopril [Zestril] 5 mg PO DAILY 09/09/18 11/23/18 Levothyroxine [Synthroid] 50 mcg PO QAM 11/03/18 11/23/18 Omeprazole 20 mg PO BID 11/03/18 11/23/18 Torsemide [Demadex] 20 mg PO DAILY 11/03/18 11/23/18 Cholestyramine 2 gm PO DAILY 11/15/18 11/23/18 Vancomycin Oral Soln [Firvanq] 2.5 ml PO QID 11/15/18 11/23/18 Previous Rx's Medication Instructions Recorded Simvastatin [Zocor] 20 mg PO HS 365 Days tablet 07/25/16 Ferrous Sulfate 325 mg PO DAILY #90 tablet 11/08/18 Allergies Allergy/AdvReac Type Severity Reaction Status Date / Time No Known Allergies Allergy Verified 11/23/18 02:59 All systems ED: reviewed and negative except as stated. Review of Systems: As Per HPI Constitutional: Denies: fever, chills, weakness Eyes: Denies: vision change Cardiovascular: Denies: chest pain, palpitations, dyspnea on exertion Respiratory: Denies: cough, dyspnea, wheezes Gastrointestinal: Denies: abdominal pain, nausea, vomiting Musculoskeletal: Reports: neck pain. Denies: back pain Neurological: Reports: headache Endocrine: Denies: fatigue Past Medical History - Past Medical History Medical history: Reports: cancer, GERD, hyperlipidemia, hypertension, migraine, thyroid disease, other Surgical history: Reports: cholecystectomy, hysterectomy Psychiatric history: Reports: no psych history CREDIT CARD CONTROL CLERK history: Reports: no CREDIT CARD CONTROL CLERK history - Social History Smoking Status: Never smoker Smokeless Tobacco Status: No Alcohol use: Reports: none Drug use: Reports: none Physical Exam - General Limitations: no limitations General appearance: alert, in no apparent distress Course Vital Signs Temperature 98.2 F 11/22/18 22:07 Pulse Rate 91 11/22/18 22:07 Respiratory Rate 18 11/22/18 22:07 Blood Pressure 145/68 11/22/18 22:07 O2 Sat by Pulse Oximetry 99 11/22/18 22:07 Temperature 98.2 F 11/23/18 02:57 Pulse Rate 86 11/23/18 02:57 Respiratory Rate 20 11/23/18 02:57 Blood Pressure 125/67 11/23/18 02:57 O2 Sat by Pulse Oximetry 95 11/23/18 02:57 Oxygen Delivery Oxygen Delivery Room Air Medical Decision Making - MDM Narrative Medical decision making narrative: Patient is an 83-year-old female who was signed out to me for recurrent fall. Patient was signed out to me by the ED team, Dr. Wade and Dr. Joy. At time of sign out, patient had laboratory work as well as disposition pending. Laboratory work shows continued leukopenia, hypokalemia at 3.1, this was replaced. Further imaging including CT of the head and neck are negative for acute fracture. I did have a conversation with the patient as well as the daughter and family members in the room. Initial disposition was possible discharge to home if the daughter who has POA and primary care chart taker was willing to take care of the patient, upon further discussion with the patient, she states that she has been living at her own home with her and her daughter will occasionally come over to provide care, she states that she is not been able to clean herself and her daughter has not been doing a appropriate job cleaning her or bathing her, she also states that she is only been eating Jell-O and cottage cheese and has not been eating a whole meal for quite some time since discharge approximate 5-6 days ago. She states she does not necessarily feel safe to go home secondary to this reason, she does state that if her daughter was to completely move in with her that she feels as though this would be would be better and more appropriate, however with further discussion with family members it appears as though this is been discussed multiple times and has not happened. At this point in time given the patient's history of recurrent falls and unable to care for herself, I feel as though the patient will be best served being admitted for further social work and consult is I am significant a concern for the patient's well-being going back to her home at this time. The family members in the room at this time, the patient's grandson and his also had significant concern for her well-being going home. I was able to speak with the daughter who states that she agrees with the patient being admitted and being further evaluated. Patient agrees with admission. Patient will be a dmitted for social work consults with most likely disposition requiring further extended-care facility. - Medical Records Medical records reviewed: Yes I reviewed the patient's medical records. - Lab Data Lab results reviewed: Yes I reviewed the patient's lab results. Result diagrams: 11/23/18 00:06 11/23/18 00:06 Lab Results 11/23/18 11/23/18 11/23/18 Range/Units 00:06 00:06 00:27 WBC 2.8 L (4.3-11.1) K/mcL RBC 4.08 (3.82-4.97) M/mcL Hgb 10.4 L (11.5-15.4) g/dL Hct 35.1 L (35.3-44.9) % MCV 86.0 (83.0-100.0) fL MCH 25.5 L (28.0-33.3) pg MCHC 29.6 L (31.6-35.5) g/dL RDW 23.6 H (11.5-14.5) % Plt Count 256 (140-400) K/mcL MPV 8.6 L (9.4-12.4) fL Immature Gran % 0.4 (0-4) % Seg Neutrophils % 59.8 % Lymphocytes % 20.4 % Monocytes % 14.8 % Eosinophils % 3.5 % Basophils % 1.1 % Neutrophils # 1.7 (1.6-8.9) K/mcL Lymphocytes # 0.6 (0.6-4.6) K/mcL Monocytes # 0.4 (0.0-1.3) K/mcL Eosinophils # 0.1 (0.0-0.6) K/mcL Basophils # 0.0 (0.0-0.2) K/mcL Platelet Estimate Normal (Normal) Anisocytosis 1+ A (Not Present) Sodium 142 (136-145) mEq/L Potassium 3.1 L (3.5-5.1) mEq/L Chloride 107 (98-107) mEq/L Carbon Dioxide 26 (23-29) mEq/L BUN 15 (8-23) mg/dL Creatinine 0.73 (0.60-1.20) mg/dL Est GFR ( Amer) > 60 (> 60) Est GFR (Non-Af Amer) > 60 (> 60) BUN/Creatinine Ratio 21 (6-26) Glucose 95 (70-105) mg/dL Calculated Osmolality 295 (280-300) Calcium 10.0 (8.6-10.3) mg/dL Creatine Kinase 33 (30-223) Units/L Troponin I < 0.03 (< 0.04) ng/mL Urine Color Yellow (Yellow) Urine Clarity Clear (Clear) Urine pH 5.5 (5.0-8.0) pH Units Ur Specific [place] 1.022 (1.010-1.025) Urine Protein Negative (Neg-Trace) mg/dL Urine Glucose (UA) Normal (Normal) mg/dL Urine Ketones Negative (Negative) mg/dL Urine Blood Negative (Negative) Urine Nitrite Negative (Negative) Urine Bilirubin Negative (Negative) Urine Urobilinogen Normal (Normal) mg/dL Ur Leukocyte Esterase Negative (Negative) Ur Culture Indicated? NO (NO) - Radiology Data Radiology results reviewed: Yes I reviewed the patient's radiology results. Cervical Spine CT 11/22/18 23:07 IMPRESSION: No acute abnormality of the cervical spine. No acute abnormality of the thoracic spine. No acute intracranial abnormality. D/ / Jania Fam Cha, MD / Jania Fam Cha, MD Interpreting Provider: Jania Fam Cha, MD Head CT 11/22/18 23:07 IMPRESSION: No acute abnormality of the cervical spine. No acute abnormality of the thoracic spine. No acute intracranial abnormality. D/ / Jania Fam Cha, MD / Jania Fam Cha, MD Interpreting Provider: Jania Fam Cha, MD Thoracic Spine CT 11/22/18 23:07 IMPRESSION: No acute abnormality of the cervical spine. No acute abnormality of the thoracic spine. No acute intracranial abnormality. D/ / Jania Fam Cha, MD / Jania Fam Cha, MD Interpreting Provider: Jania Fam Cha, MD Attestation Statement - Attestation Attestation: I, Cecil Villalobos MD, personally evaluated this patient and discussed their management with the resident physician. I reviewed the resident's note and agree with the documented findings, medical decision making, and plan of care. This patient was signed out at shift change from Dr. Joy and Dr. Medeiros. Please refer to their notes for complete details of the history and physical examination. At shift change patient is awaiting test results and final disposition. Labs and CT reviewed. No significant acute abnormalities. On further discussion with patient and family that are present patient does not appear to be able to care for herself at home. She has a daughter who is her power of mergers and acquisitions attorney who is supposed to be caring for her however the patient r eports that the daughter just comes and spends the night and then leaves in the morning and does not come back until evening. The daughter is not feeding her or helping to clean her. Patient has been placed in nursing homes previously. At this point we will admit the patient for social service consult and evaluation as it appears she needs some kind of placement or additional home care because she is unable to care for herself or her who lives with her.
[2018-11-23 00:46] LABS: Bilirubin,Urine Negative (Negative); Blood,Urine Negative (Negative); Clarity,Urine Clear (Clear); Color,Urine Yellow (Yellow); Glucose,Urine (UA) Normal (Normal); Ketones,Urine Negative (Negative); Leukocyte Esterase,Urine Negative (Negative); Nitrite,Urine Negative (Negative); PH,Urine 5.5 pH Units (5.0-8.0); Protein,Urine Negative (Neg-Trace); Specific Gravity,Urine 1.022 (1.010-1.025); Urobilinogen,Urine Normal (Normal)
--- NOTE | 2018-11-23 00:55 | Emergency Department Note ---
Disposition Clinical Impression: Fall Disposition: Still a Patient Condition: Undetermined Referrals: Rashad Bullard MD [Primary Care Provider] - Forms: ED Satisfaction Letter Time of Disposition: 00:55 General Adult HPI - General Chief complaint: ED Fall Stated complaint: Fall Time Seen by Provider: 11/22/18 22:10 Source: patient, EMS Mode of arrival: EMS Limitations: no limitations Nursing Notes Reviewed: Yes Vital Signs Reviewed: Yes - History of Present Illness Pain Scale: 0 - Related Data Home Medications Medication Instructions Recorded Confirmed Lisinopril [Zestril] 5 mg PO DAILY 09/09/18 11/15/18 Levothyroxine [Synthroid] 50 mcg PO QAM 11/03/18 11/15/18 Omeprazole 20 mg PO BID 11/03/18 11/15/18 Torsemide [Demadex] 20 mg PO DAILY 11/03/18 11/15/18 Cholestyramine 2 gm PO DAILY 11/15/18 11/15/18 Vancomycin Oral Soln [Firvanq] 2.5 ml PO QID 11/15/18 11/15/18 Previous Rx's Medication Instructions Recorded Simvastatin [Zocor] 20 mg PO HS 365 Days tablet 07/25/16 Ferrous Sulfate 325 mg PO DAILY #90 tablet 11/08/18 Allergies Allergy/AdvReac Type Severity Reaction Status Date / Time No Known Allergies Allergy Verified 11/03/18 22:34 All systems ED: reviewed and negative except as stated. Review of Systems: As Per HPI Constitutional: Denies: fever, chills, weakness Eyes: Denies: vision change Cardiovascular: Denies: chest pain, palpitations, dyspnea on exertion Respiratory: Denies: cough, dyspnea, wheezes Gastrointestinal: Denies: abdominal pain, nausea, vomiting Musculoskeletal: Reports: neck pain. Denies: back pain Neurological: Reports: headache Endocrine: Denies: fatigue Past Medical History - Past Medical History Medical history: Reports: cancer, GERD, hyperlipidemia, hypertension, migraine, thyroid disease, other Surgical history: Reports: cholecystectomy, hysterectomy Psychiatric history: Reports: no psych history MUSEUM PREPARATOR history: Reports: no MUSEUM PREPARATOR history - Social History Smoking Status: Never smoker Smokeless Tobacco Status: No Alcohol use: Reports: none Drug use: Reports: none Physical Exam - General Limitations: no limitations General appearance: alert, in no apparent distress Course Vital Signs Temperature 98.2 F 11/22/18 22:07 Pulse Rate 91 11/22/18 22:07 Respiratory Rate 18 11/22/18 22:07 Blood Pressure 145/68 11/22/18 22:07 O2 Sat by Pulse Oximetry 99 11/22/18 22:07 Temperature 98.2 F 11/22/18 22:07 Pulse Rate 91 11/22/18 22:07 Respiratory Rate 18 11/22/18 22:07 Blood Pressure 145/68 11/22/18 22:07 O2 Sat by Pulse Oximetry 99 11/22/18 22:07 Oxygen Delivery Oxygen Delivery Room Air Medical Decision Making - Lab Data Result diagrams: 11/23/18 00:06 Lab Results 11/23/18 11/23/18 Range/Units 00:06 00:27 WBC 2.8 L (4.3-11.1) K/mcL RBC 4.08 (3.82-4.97) M/mcL Hgb 10.4 L (11.5-15.4) g/dL Hct 35.1 L (35.3-44.9) % MCV 86.0 (83.0-100.0) fL MCH 25.5 L (28.0-33.3) pg MCHC 29.6 L (31.6-35.5) g/dL RDW 23.6 H (11.5-14.5) % Plt Count 256 (140-400) K/mcL MPV 8.6 L (9.4-12.4) fL Urine Color Yellow (Yellow) Urine Clarity Clear (Clear) Urine pH 5.5 (5.0-8.0) pH Units Ur Specific [place] 1.022 (1.010-1.025) Urine Protein Negative (Neg-Trace) mg/dL Urine Glucose (UA) Normal (Normal) mg/dL Urine Ketones Negative (Negative) mg/dL Urine Blood Negative (Negative) Urine Nitrite Negative (Negative) Urine Bilirubin Negative (Negative) Urine Urobilinogen Normal (Normal) mg/dL Ur Leukocyte Esterase Negative (Negative) Ur Culture Indicated? NO (NO) Attestation Statement - Attestation Attestation: I have seen this patient with the resident physician, I have personally evaluated this patient. I had reviewed the chart and document dictation by the resident physician and aM in agreement with the information documented by the resident physician. Please see documentation by the resident physician for complete chart including past medical history, family medical history, review of systems, current history and physical and laboratory and imaging studies. I was present for all procedures, provided direct supervision for all procedures, was present for the entirety of all procedures and provided direct guidance during the procedures. Please see documentation by the resident physician for any procedures performed. I have reviewed all interpretations of EKGs, and reviewed all EKGs performed on patient's as well. I have also reviewed reports of imaging as provided by radiology. Patient had initially presented for a Fall from the toilet and falling reported hitting her head she complained of headache and neck pain. She reports that she lost her balance while standing up off the toilet. The patient is very hard of hearing which does make some history gathering limited she also has some underlying dementia but is oriented currently. Paramedics report that they do not how long the patient was on the ground that they were called by the . The patient denies syncope chest pain shortness of breath abdominal pain nausea vomiting only complains of headache and neck pain. Head CT cervical spine CT thoracic spine CT were ordered based upon patient's areas of complaints of pain being in her head lower cervical upper thoracic spine but there is no step-off or deformity. All imaging showed no evidence of acute abnormality. Grandchildren show up and report that they are concerned that the patient cannot take care of herself, she does have her there but he cannot really take care of her, there is mostly having home health, and the patient's daughter who is the medical power of commercial attorney, wants the patient at home and called the police on the grandchildren because they called the paramedics to bring her in and she did not want the patient to be brought in. They report that they do not think that the daughter is doing a great job taking care of her as well, and are concerned about her but are also concerned that she might a passed out and that she has had progressive issues with confusion and dementia. Because of this added information basic laboratory studies were ordered, we did try to contact medical power of commercial attorney who is the daughter, who called several times but were unsuccessful at contacting her at the time of this dictation laboratory studies and contact with the daughter who is power of commercial attorney was pending, the grandchildren state that they do not think that this patient can go back to the house if we do not get in touch with the daughter who supposed be taking care of her because she has nobody that can take care of her. If all laboratory studies are normal and we cannot contact the medical power of commercial attorney who is living with this patient by report, she will likely require admission for social reasons, as well as gentle generalized weakness and falls, they were concerned the patient might have actually passed out as the cause of this as well. EKG showed no acute findings and laboratory studies were pending, please see dictation by Dr. Villalobos, for laboratory studies and final disposition.
[2018-11-23 00:58] LABS: BUN/Creatinine Ratio 21 (6-26); Blood Urea Nitrogen 15 mg/dL (8-23); Carbon Dioxide 26 mEq/L (23-29); Chloride 107 mEq/L (98-107); Creatine Kinase 33 Units/L (30-223); Glucose 95 mg/dL (70-105); Osmolality,Calculated 295 (280-300); Potassium 3.1 mEq/L (3.5-5.1); Sodium 142 mEq/L (136-145); Troponin I < 0.03 ng/mL (< 0.04); eGFR For African Americans > 60 (> 60); eGFR For Non-African Americans > 60 (> 60)
[2018-11-23 01:48] LABS: Anisocytosis 1+ (Not Present); Platelet Estimate Normal (Normal)
[2018-11-23] MEDS ORDERED: Potassium Chloride Elixir 20 MEQ/15 ML UDC PO ONE (02:27)
[2018-11-23] MEDS ORDERED: Naloxone 0.4 MG/ML INJ IVP PRN ×2 (08:54→09:28)
[2018-11-23] MEDS ORDERED: *HR* HYDROcodone/Acet 5/325 mg TABLET PO PRN (08:54)
[2018-11-23] MEDS ORDERED: Ondansetron 4 MG/2 ML VIAL IVP PRN (08:54)
[2018-11-23] MEDS ORDERED: Acetaminophen 325 MG TABLET PO PRN (08:54)
[2018-11-23] MEDS ORDERED: 0.9 % Sodium Chloride 1,000 ML IVC SCH (09:00)
--- NOTE | 2018-11-23 09:29 | Internal Med History&Physical ---
Date of Encounter: 11/23/18 Time of Encounter: 08:40 Internal Medicine - H&P: HPI History of present illness: Ms. 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 Psychiatric history: no psych history - Past Surgical History Surgical History: cholecystectomy, hysterectomy Additional surgical history: GOITER REMOVED , , urethral stent, thyroid nodule removal - Social History Smoking Status: Never smoker Smokeless Tobacco Status: No Alcohol use: none Drug use: none - Family History Father Living Status: Hx Family Cardiac Disorders: Yes (CHF) Hx Family Cancer: Yes (Pancreatic cancer) Mother Hx Family Cancer: Yes (Lung cancer) Internal Medicine - H&P: Meds Simvastatin [Zocor] 20 mg PO HS 365 Days tablet 07/25/16 [Rx] Lisinopril [Zestril] 5 mg PO DAILY 09/09/18 [History] Levothyroxine [Synthroid] 50 mcg PO QAM 11/03/18 [History] Omeprazole 20 mg PO BID 11/03/18 [History] Torsemide [Demadex] 20 mg PO DAILY 11/03/18 [History] Ferrous Sulfate 325 mg PO DAILY #90 tablet 11/08/18 [Rx] Cholestyramine 2 gm PO DAILY 11/15/18 [History] Vancomycin Oral Soln [Firvanq] 2.5 ml PO QID 11/15/18 [History] Allergy/AdvReac Type Severity Reaction Status Date / Time No Known Allergies Allergy Verified 11/23/18 02:59 All Systems PM: A 10-system review of systems was performed and is negative for pertinent findings except as documented above in the HPI. - Constitutional Vitals: Temp Pulse Resp BP Pulse Ox 98.1 F 88 16 132/65 90 11/23/18 07:53 11/23/18 07:53 11/23/18 07:53 11/23/18 07:53 11/23/18 07:53 Internal Med - H&P Results - Labs CBC & Chem 7: 11/23/18 00:06 11/23/18 00:06 Labs: Short CBC 11/23/18 Range/Units 00:06 WBC 2.8 L (4.3-11.1) K/mcL Hgb 10.4 L (11.5-15.4) g/dL Hct 35.1 L (35.3-44.9) % Plt Count 256 (140-400) K/mcL Neutrophils # 1.7 (1.6-8.9) K/mcL BMP 11/23/18 00:06 Sodium 142 Potassium 3.1 L Chloride 107 Carbon Dioxide 26 BUN 15 Creatinine 0.73 Glucose 95 Calcium 10.0 Cardiac Enzymes 11/23/18 Range/Units 00:06 Troponin I < 0.03 (< 0.04) ng/mL Urine 11/23/18 Range/Units 00:27 Urine Color Yellow (Yellow) Urine Clarity Clear (Clear) Urine pH 5.5 (5.0-8.0) pH Units Ur Specific [place] 1.022 (1.010-1.025) Urine Protein Negative (Neg-Trace) mg/dL Urine Glucose (UA) Normal (Normal) mg/dL - Impressions ITS Impressions Cervical Spine CT 11/22/18 23:07 IMPRESSION: No acute abnormality of the cervical spine. No acute abnormality of the thoracic spine. No acute intracranial abnormality. D/ / Jania Fam Cha, MD / Jania Fam Cha, MD Interpreting Provider: Jania Fam Cha, MD Head CT 11/22/18 23:07 IMPRESSION: No acute abnormality of the cervical spine. No acute abnormality of the thoracic spine. No acute intracranial abnormality. D/ / Jania Fam Cha, MD / Jania Fam Cha, MD Interpreting Provider: Jania Fam Cha, MD Thoracic Spine CT 11/22/18 23:07 IMPRESSION: No acute abnormality of the cervical spine. No acute abnormality of the thoracic spine. No acute intracranial abnormality. D/ / Jania Fam Cha, MD / Jania Fam Cha, MD Interpreting Provider: Jania Fam Cha, MD - Time Spent With Patient Total time spent is greater than 50% in coordination of care (as documented) at patient's floor/unit and/or counseling patient:
[2018-11-23 09:33] LABS: Eosinophils # 0.1 K/mcL (0.0-0.6); Hematocrit 30.6 % (35.3-44.9); Hemoglobin 9.3 g/dL (11.5-15.4); Lymphocytes # 0.6 K/mcL (0.6-4.6); Mean Corpuscular HGB Conc 30.4 g/dL (31.6-35.5); Mean Corpuscular Hemoglobin 25.6 pg (28.0-33.3); Mean Corpuscular Volume 84.3 fL (83.0-100.0); Mean Platelet Volume 8.8 fL (9.4-12.4); Platelet Count 225 K/mcL (140-400); Red Blood Count 3.63 M/mcL (3.82-4.97); Red Cell Distribution Width 23.3 % (11.5-14.5); White Blood Count 2.5 K/mcL (4.3-11.1)
[2018-11-23 09:55] LABS: Alanine Aminotransferase 6 Units/L (7-52); Albumin/Globulin Ratio 1.5 (1.1-2.2); Alkaline Phosphatase 40 Units/L (34-104); Aspartate Amino Transferase 13 Units/L (13-39); BUN/Creatinine Ratio 24 (6-26); Bilirubin,Total 0.4 mg/dL (0.3-1.0); Blood Urea Nitrogen 15 mg/dL (8-23); Calcium 9.5 mg/dL (8.6-10.3); Carbon Dioxide 27 mEq/L (23-29); Chloride 110 mEq/L (98-107); Chol/HDL Ratio 2.7 (0-4.9); Cholesterol 101 mg/dL (< 200); Glucose 99 mg/dL (70-105); HDL Cholesterol 37 mg/dL (40-59); LDL Cholesterol,Calculated 50 mg/dL (0-99); Osmolality,Calculated 297 (280-300); Phosphorous 3.3 mg/dL (2.7-4.5); Potassium 3.5 mEq/L (3.5-5.1); Sodium 143 mEq/L (136-145); Triglycerides 72 mg/dL (< 150); eGFR For African Americans > 60 (> 60); eGFR For Non-African Americans > 60 (> 60)
[2018-11-23 12:04] LABS: Basophils # 0.1 K/mcL (0.0-0.2); Monocytes # 0.3 K/mcL (0.0-1.3); Neutrophils # 1.5 K/mcL (1.6-8.9); Platelet Estimate Normal (Normal); Poikilocytosis 1+ (Not Present)
[2018-11-23 12:05] LABS: Anisocytosis 2+ (Not Present)
--- NOTE | 2018-11-23 12:19 | Internal Med History&Physical ---
Date of Encounter: 11/23/18 Time of Encounter: 10:30 Internal Medicine - H&P: HPI Chief complaint: Failure to thrive Admitted From: Emergency Dept Plans for Post Hospital Care: Home History of present illness: Ms. Gunn is a 83 year old female with known past medical history of hypertension, hypothyroidism, breast cancer, adenocarcinoma of the colon, s/p open low anterior resection on 07/29/2018 getting chemo and radiation therapy and recently diagnosed C. Diff colitis d/c d home from our hospital on 11/16/18, now she was brought into ER last night by family stating she had a mechanical fall. as per ER records she was standing up going to the bathroom when she slipped in the bathroom and fell backwards, hitting the top of her head on the bathtub.She denies loss of consciousness. When I examined the pt on the floor, she is alert, awake and O to self. Pt stated she was recently here for colon infection and she thinks her family brought her in for the same problem. She did not remember of the fall from last night. She denied any abdominal pain. Tolerating PO Intake well. She denied any diarrhea. 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 Psychiatric history: no psych history - Past Surgical History Surgical History: cholecystectomy, hysterectomy Additional surgical history: GOITER REMOVED , , urethral stent, thyroid nodule removal - Social History Smoking Status: Never smoker Smokeless Tobacco Status: No Alcohol use: none Drug use: none - Family History Father Living Status: Hx Family Cardiac Disorders: Yes (CHF) Hx Family Cancer: Yes (Pancreatic cancer) Mother Hx Family Cancer: Yes (Lung cancer) Internal Medicine - H&P: Meds Simvastatin [Zocor] 20 mg PO HS 365 Days tablet 07/25/16 [Rx] Lisinopril [Zestril] 5 mg PO DAILY 09/09/18 [History] Levothyroxine [Synthroid] 50 mcg PO QAM 11/03/18 [History] Omeprazole 20 mg PO BID 11/03/18 [History] Torsemide [Demadex] 20 mg PO DAILY 11/03/18 [History] Ferrous Sulfate 325 mg PO DAILY #90 tablet 11/08/18 [Rx] Cholestyramine 2 gm PO DAILY 11/15/18 [History] Vancomycin Oral Soln [Firvanq] 2.5 ml PO QID 11/15/18 [History] Allergy/AdvReac Type Severity Reaction Status Date / Time No Known Allergies Allergy Verified 11/23/18 02:59 All Systems PM: A 10-system review of systems was performed and is negative for pertinent findings except as documented above in the HPI. Review of systems: All the systems are reviewed everything is benign except the systems and symptom s I mentioned in the history of present illness - Constitutional Vitals: Temp Pulse Resp BP Pulse Ox 98.1 F 88 16 136/68 96 11/23/18 11:14 11/23/18 11:14 11/23/18 11:14 11/23/18 11:14 11/23/18 11:14 General appearance: Present: cooperative, A&O X 1, no acute distress Exam: Looks very weak and lethargic - Head Head exam: Present: atraumatic, normal inspection - Neck Neck exam general surgery: Present: normal inspection, supple - Respiratory Respiratory exam: Present: decreased breath sounds. Absent: rales, respiratory distress, rhonchi, wheezes - Cardiovascular Cardiovascular exam: Present: RRR, +S1, +S2 - GI/Abdominal GI/Abdominal exam: Present: normal bowel sounds, soft. Absent: guarding, rebound, rigid, tenderness - Extremities Exam Extremities exam: Present: normal inspection. Absent: calf tenderness, tenderness - Back Exam Back exam: Absent: CVA tenderness (L), CVA tenderness (R) - Neurological Exam Neurological exam: Present: alert, altered (demented) - Psychiatric Psychiatric exam: Present: anxious - Skin Skin exam: Absent: rash Internal Med - H&P Results - Labs CBC & Chem 7: 11/23/18 09:22 11/23/18 09:22 Labs: Short CBC 11/23/18 11/23/18 Range/Units 00:06 09:22 WBC 2.8 L 2.5 L (4.3-11.1) K/mcL Hgb 10.4 L 9.3 L (11.5-15.4) g/dL Hct 35.1 L 30.6 L (35.3-44.9) % Plt Count 256 225 (140-400) K/mcL Neutrophils # 1.7 1.5 L (1.6-8.9) K/mcL BMP 11/23/18 11/23/18 00:06 09:22 Sodium 142 143 Potassium 3.1 L 3.5 Chloride 107 110 H Carbon Dioxide 26 27 BUN 15 15 Creatinine 0.73 0.63 Glucose 95 99 Calcium 10.0 9.5 Cardiac Enzymes 11/23/18 Range/Units 00:06 Troponin I < 0.03 (< 0.04) ng/mL Liver Function 11/23/18 Range/Units 09:22 Total Bilirubin 0.4 (0.3-1.0) mg/dL AST 13 (13-39) Units/L ALT 6 L (7-52) Units/L Alkaline Phosphatase 40 (34-104) Units/L Albumin 3.0 L (3.5-5.7) g/dL Urine 11/23/18 Range/Units 00:27 Urine Color Yellow (Yellow) Urine Clarity Clear (Clear) Urine pH 5.5 (5.0-8.0) pH Units Ur Specific [place] 1.022 (1.010-1.025) Urine Protein Negative (Neg-Trace) mg/dL Urine Glucose (UA) Normal (Normal) mg/dL - Impressions ITS Impressions Cervical Spine CT 11/22/18 23:07 IMPRESSION: No acute abnormality of the cervical spine. No acute abnormality of the thoracic spine. No acute intracranial abnormality. D/ / Jania Fam Cha, MD / Jania Fam Cha, MD Interpreting Provider: Jania Fam Cha, MD Head CT 11/22/18 23:07 IMPRESSION: No acute abnormality of the cervical spine. No acute abnormality of the thoracic spine. No acute intracranial abnormality. D/ / Jania Fam Cha, MD / Jania Fam Cha, MD Interpreting Provider: Jania Fam Cha, MD Thoracic Spine CT 11/22/18 23:07 IMPRESSION: No acute abnormality of the cervical spine. No acute abnormality of the thoracic spine. No acute intracranial abnormality. D/ / Jania Fam Cha, MD / Jania Fam Cha, MD Interpreting Provider: Jania Fam Cha, MD - Assessment and Plan (1) Failure to thrive Current Visit: Yes Status: Acute Assessment and plan: Place the pt into med surg for observation She does look severe protein caloric malnutrition with failure to thrive consulted assurance officer ordered prealbumin level PT / OT eval May need ECF placement Consulted palliative care team to discuss with pt and family about goals of care Qualifiers: Failure to thrive age range: in adult Qualified Code(s): R62.7 - Adult failure to thrive (2) Protein-calorie malnutrition, severe Current Visit: Yes Status: Acute (3) Fall Current Visit: Yes Status: Acute Assessment and plan: reviewed Heat CT, Cervical and Thoracic spine - no fracture noticed PT / OT eval Qualifiers: Encounter type: initial encounter Qualified Code(s): W19.XXXA - Unspecified fall, initial encounter (4) C. difficile colitis Current Visit: No Status: Acute Assessment and plan: No more diarrhea resumed home dose of PO Vancomycin (5) Adenocarcinoma Current Visit: No Status: Acute Assessment and plan: currently following with [facility] / Radiation oncology Getting chemo and Radiation therapy Will talk to Heme Onc about her overall prognosis (6) Dementia Current Visit: Yes Status: Acute Assessment and plan: looks like she does have dementia will talk to family about further care options Qualifiers: Dementia type: Alzheimer's disease Alzheimer's disease onset: unspecified onset Dementia behavioral disturbance: without behavioral disturbance Qualified Code(s): G30.9 - Alzheimer's disease, unspecified; F02.80 - Dementia in other diseases classified elsewhere without behavioral disturbance - Time Spent With Patient Total time spent is greater than 50% in coordination of care (as documented) at patient's floor/unit and/or counseling patient:
--- NOTE | 2018-11-23 13:13 | Palliative - Consult Note ---
Date of Encounter: 11/23/18 Time of Encounter: 13:12 - Assessment and Plan (1) Poor social situation Current Visit: Yes Status: Acute Assessment and plan: Pt reports difficult social situation at home. She reports her daughter Malini laura, grandson Jeremiah and Chadd are frequently arguing and she has concerns that she is receiving the proper support she needs at home. She reports that her family is not feeding her enough food at home. She expressed that her is on crutches and he is not able to adequately care for her d/t his condition. She expressed that "he doesn't seem to care" about her getting the support she needs. Pt frequently requests to be discharged to a snf. She voices her caregiver Massiel Welch whom she calls her granddaughter is a strong source of support to her. She voices that Massiel takes her to all of her appointments and checks on her daily at home. Discussed with patient that her daughter Jodi is currently listed as her HCPOA. Pt voices that she would like to change her HCPOA to her son Samy. Palliative Care completed paperwork with patient and placed in file. Phone call placed to son Samy to update him on plan of care, Samy shares story consistent with pt's reports of poor care at home. Samy reports that he lives 100 miles away and is working to try to get his mother the help she needs. Samy voices that his mother has custody of an 11 y/o great grandson (Nasir) at home. Discussed with Samy that we would be in contact over the coming days. Case discussed with ANNA Crystal (2) Palliative care by specialist Current Visit: Yes Status: Acute Assessment and plan: Pt has capacity to make complex decisions. New HCPOA paperwork completed naming her son Samy as HCPOA. (3) Failure to thrive Current Visit: Yes Status: Acute Assessment and plan: likely r/t complex living situation and presumed lack of adequate care at home. PT/OT following, Nutrition following. Management per primary team. Qualifiers: Failure to thrive age range: in adult Qualified Code(s): R62.7 - Adult failure to thrive (4) Adenocarcinoma Current Visit: No Status: Acute Assessment and plan: Follows with [facility]--adenocarcinoma s/p anterior resection on 07/29/18. Per oncology note review and pt report, appears no active cancer. (5) Fall Current Visit: Yes Status: Acute Qualifiers: Encounter type: initial encounter Qualified Code(s): W19.XXXA - Unspecified fall, initial encounter Palliative-CN HPI - Data of Consult Requesting Physician: Angelita Farias MD Primary Care Provider: Rashad Bullard MD - Consult Narrative Palliative Care/Comfort Measures: Palliative care Reason for consult: goals of care History of present illness: Ms. Gunn is a 83 year old female with past hx of HTN, hypothyroidism, breast cancer, adenocarcinoma s/p anterior resection on 07/29/18. Per oncology note review and pt report, appears no active cancer. Pt recently diagnosed with C- diff colitis d/c home from [place] 11/16/18. She was brought to the ER last night by her family d/t a mechanical fall at home. Per discussion with grandchildren, son and close family friends there is concern that she is not receiving adequate care at home. Palliative Care consulted to assist with complex social situation and goals of care. Pt lying in bed, NAD, appears comfortable on exam. Pt is awake, alert and oriented on exam today. She denies pain or any additional symptoms at this time. She reports she is "eating better" here at the hospital. Pt's lunch tray at bedside, appears she has eaten well today. Pt reports difficult social situation at home. She reports her daughter Jodi, grandson Jeremiah and Chadd are frequently arguing and she has concerns that she is receiving the proper support she needs at home. She reports that her family is not feeding her enough food at home. She expressed that her is on crutches and he is not able to adequately care for her d/t his condition. She expressed that "he d oesn't seem to care" about her getting the support she needs. Pt frequently requests to be discharged to a snf. She voices her caregiver Massiel Welch whom she calls her granddaughter is a strong source of support to her. She voices that Massiel takes her to all of her appointments and checks on her daily at home. Discussed with patient that her daughter Jodi is currently listed as her HCPOA. Pt voices that she would like to change her HCPOA to her son Samy. Palliative Care completed paperwork with patient and placed in file. Phone call placed to son Smay to update him on plan of care, Samy shares story consistent with pt's reports of poor care at home. Samy reports that he lives 100 miles away and is working to try to get his mother the help she needs. Samy voices that his mother has custody of an 11 y/o great grandson (Nasir) at home. Discussed with Samy that we would be in contact over the coming days. 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 Psychiatric history: no psych history - Past Surgical History Surgical History: cholecystectomy, hysterectomy Additional surgical history: GOITER REMOVED , , urethral stent, thyroid nodule removal - Social History Smoking Status: Never smoker Smokeless Tobacco Status: No Alcohol use: none Drug use: none - Family History Father Living Status: Hx Family Cardiac Disorders: Yes (CHF) Hx Family Cancer: Yes (Pancreatic cancer) Mother Hx Family Cancer: Yes (Lung cancer) Medications and Allergies Simvastatin [Zocor] 20 mg PO HS 365 Days tablet 07/25/16 [Rx] Lisinopril [Zestril] 5 mg PO DAILY 09/09/18 [History] Levothyroxine [Synthroid] 50 mcg PO QAM 11/03/18 [History] Omeprazole 20 mg PO BID 11/03/18 [History] Torsemide [Demadex] 20 mg PO DAILY 11/03/18 [History] Ferrous Sulfate 325 mg PO DAILY #90 tablet 11/08/18 [Rx] Cholestyramine 2 gm PO DAILY 11/15/18 [History] Vancomycin Oral Soln [Firvanq] 2.5 ml PO QID 11/15/18 [History] Allergy/AdvReac Type Severity Reaction Status Date / Time No Known Allergies Allergy Verified 11/23/18 02:59 - Constitutional Constitutional ROS PAL: as per HPI, weight loss - EENT Eyes: as per HPI Ears: decreased hearing - Cardiovascular Cardiovascular ROS: as per HPI - Respiratory Respiratory: as per HPI, no dyspnea on exertion - Gastrointestinal Gastrointestinal: as per HPI, diarrhea - Genitourinary Palliative ROS female: as per HPI, urinary incontinence - Musculoskeletal Musculoskeletal ROS IM: as per HPI - Integumentary ROS Integumentary: as per HPI - Neurological Neurological ROS: as per HPI - Psychiatric Psychiatric general PM: no change in appetite Palliative Care-Exam - Constitutional Vitals: Temp Pulse Resp BP Pulse Ox 98.1 F 88 16 136/68 96 11/23/18 11:14 11/23/18 11:14 11/23/18 11:14 11/23/18 11:14 11/23/18 11:14 Exam: CONSTITUTIONAL/GENERAL: Awake, interactive, cachectic, NAD, lying in bed. Ear/Nose/Mouth/Throat (EMNT): Patent, atraumatic. [place]. CARDIOVASCULAR: Pulse regular; No edema. No cyanosis/ischemia. RESPIRATORY: Unlabored. Symmetric, normal effort. Room air. GASTROINTESTINAL: Soft, non-distended. GENITOURINARY: Voiding in briefs. MUSCULOSKELETAL: No deformities; No joint swelling or erythema. INTEGUMENTARY: No rashes or lesions noted. NEUROLOGIC: No gross motor or sensory deficits appreciated. PSYCHIATRY: Alert, attentive. Tearful at times when discussing social situation. Internal Medicine - CN: Reslt - Labs CBC & Chem 7: 11/23/18 09:22 11/23/18 09:22 Labs: Short CBC 11/23/18 11/23/18 Range/Units 00:06 09:22 WBC 2.8 L 2.5 L (4.3-11.1) K/mcL Hgb 10.4 L 9.3 L (11.5-15.4) g/dL Hct 35.1 L 30.6 L (35.3-44.9) % Plt Count 256 225 (140-400) K/mcL Neutrophils # 1.7 1.5 L (1.6-8.9) K/mcL BMP 11/23/18 11/23/18 00:06 09:22 Sodium 142 143 Potassium 3.1 L 3.5 Chloride 107 110 H Carbon Dioxide 26 27 BUN 15 15 Creatinine 0.73 0.63 Glucose 95 99 Calcium 10.0 9.5 Cardiac Enzymes 11/23/18 Range/Units 00:06 Troponin I < 0.03 (< 0.04) ng/mL Liver Function 11/23/18 Range/Units 09:22 Total Bilirubin 0.4 (0.3-1.0) mg/dL AST 13 (13-39) Units/L ALT 6 L (7-52) Units/L Alkaline Phosphatase 40 (34-104) Units/L Albumin 3.0 L (3.5-5.7) g/dL Urine 11/23/18 Range/Units 00:27 Urine Color Yellow (Yellow) Urine Clarity Clear (Clear) Urine pH 5.5 (5.0-8.0) pH Units Ur Specific [place] 1.022 (1.010-1.025) Urine Protein Negative (Neg-Trace) mg/dL Urine Glucose (UA) Normal (Normal) mg/dL - Impressions Impressions Cervical Spine CT 11/22/18 23:07 IMPRESSION: No acute abnormality of the cervical spine. No acute abnormality of the thoracic spine. No acute intracranial abnormality. D/ / Jania Fam Cha, MD / Jania Fam Cha, MD Interpreting Provider: Jania Fam Cha, MD Head CT 11/22/18 23:07 IMPRESSION: No acute abnormality of the cervical spine. No acute abnormality of the thoracic spine. No acute intracranial abnormality. D/ / Jania Fam Cha, MD / Jania Fam Cha, MD Interpreting Provider: Jania Fam Cha, MD Thoracic Spine CT 11/22/18 23:07 IMPRESSION: No acute abnormality of the cervical spine. No acute abnormality of the thoracic spine. No acute intracranial abnormality. D/ / Jania Fam Cha, MD / Jania Fam Cha, MD Interpreting Provider: Jania Fam Cha, MD Consult Discharge Plan - Plan Referrals: Rashad Bullard MD [Primary Care Provider] - Palliative Quality Palliative Quality: Screen for Code Status: Yes, Screen for Goals of Care: Yes, Screen for Pain: Yes, If Pain Regimen Started, Initiate Bowel Regimen: Yes, Screen for Nausea/Vomitting: Yes Code Status: 11/23/18 08:54 Resuscitation Status: Active [RES] Routine Comment: Resuscitation Status: Full Code
[2018-11-23] MEDS: Vancomycin Oral Soln 125 MG/2.5 ML UDC PO SCH ×2 (16:12→21:54)
[2018-11-24 02:04] LABS: Hematocrit 30.8 % (35.3-44.9); Hemoglobin 9.3 g/dL (11.5-15.4); Mean Corpuscular HGB Conc 30.2 g/dL (31.6-35.5); Mean Corpuscular Hemoglobin 25.9 pg (28.0-33.3); Mean Corpuscular Volume 85.8 fL (83.0-100.0); Mean Platelet Volume 8.7 fL (9.4-12.4); Platelet Count 228 K/mcL (140-400); Red Blood Count 3.59 M/mcL (3.82-4.97); Red Cell Distribution Width 23.8 % (11.5-14.5); White Blood Count 3.5 K/mcL (4.3-11.1)
[2018-11-24 02:57] LABS: BUN/Creatinine Ratio 46 (6-26); Blood Urea Nitrogen 23 mg/dL (8-23); Calcium 9.1 mg/dL (8.6-10.3); Carbon Dioxide 24 mEq/L (23-29); Chloride 108 mEq/L (98-107); Glucose 101 mg/dL (70-105); Osmolality,Calculated 292 (280-300); Potassium 4.7 mEq/L (3.5-5.1); Sodium 139 mEq/L (136-145); eGFR For African Americans > 60 (> 60); eGFR For Non-African Americans > 60 (> 60)
--- NOTE | 2018-11-24 09:25 | Palliative Progress Note ---
Date of Encounter: 11/24/18 Time of Encounter: 15:54 - Assessment and plan (1) Advanced care planning/counseling discussion Current Visit: Yes Status: Acute Assessment and plan: Patient, family and Dr. Farias in discussion regarding code status upon my entrance in the room today. Per pt/family wishes, patients code status to be changed to DNRCC-Arrest/DNI. Palliative Care completed paperwork, placed in file to be scanned in medical record and provided family/pt with copies. ANNA assisting with placement to nursing facility. I spent 20 minutes total time with patient, family member(s) and/or surrogate discussing advance care planning to include explanation/discussion of advanced directives. Please note this time was additional time spent with patient, family and/or surrogate not involving active management of patient's conditions or treatments. Symptoms are stable currently and goals are clear. We will sign off for now. Please reconsult if further palliative issues arise. (2) Poor social situation Current Visit: Yes Status: Acute Assessment and plan: Pt reports difficult social situation at home. She reports her daughter Jodi, grandson Jeremiah and Chadd are frequently arguing and she has concerns that she is receiving the proper support she needs at home. She reports that her family is not feeding her enough food at home. She expressed that her is on crutches and he is not able to adequately care for her d/t his condition. She expressed that "he doesn't seem to care" about her getting the support she needs. Pt frequently requests to be discharged to a assisted. She voices her caregiver Massiel Welch whom she calls her granddaughter is a strong source of support to her. She voices that Massiel takes her to all of her appointments and checks on her daily at home. Pt has completed new HCPOA paperwork this admission naming her son Samy as HCPOA. ANNA assisting with placement at nursing facility. (3) Palliative care by specialist Current Visit: Yes Status: Acute Assessment and plan: Pt has capacity to make complex decisions. New HCPOA paperwork completed this admission naming her son Samy as HCPOA. (4) Neuropathy of both feet Current Visit: Yes Status: Acute Assessment and plan: Reports as chronic. Consider trial of Lidocaine patches to bilateral feet at [facility] while in bed. Pt is not interested in taking any additional medications for neuropathy. (5) Failure to thrive Current Visit: Yes Status: Acute Assessment and plan: likely r/t complex living situation and presumed lack of adequate care at home. PT/OT following, Nutrition following. Management per primary team. Qualifiers: Failure to thrive age range: in adult Qualified Code(s): R62.7 - Adult failure to thrive (6) Adenocarcinoma Current Visit: No Status: Acute Assessment and plan: Follows with [facility]--adenocarcinoma s/p anterior resection on 07/29/18. Per oncology note review and pt report, appears no active cancer. (7) Fall Current Visit: Yes Status: Acute Qualifiers: Encounter type: initial encounter Qualified Code(s): W19.XXXA - Unspecified fall, initial encounter - Time Spent With Patient Total time spent is greater than 50% in coordination of care (as documented) at patient's floor/unit and/or counseling patient: 40 minutes - Subjective Interval history: First Visit: Pt lying in bed, NAD, appears comfortable on exam. Pt is awake, alert and oriented during visit today. Pt reports slight numbness in her toes today- reports as chronic. She does not want to take any additional medications for the numbness in her feet. She continues to report loose stools. She denies pain or any additional symptoms/needs at this time. Attempted to explore goals of care with patient today, she became emotional and asked if we could further discuss when family is present. Second Visit: Patient, family and Dr. Farias in discussion regarding code status upon my entrance in the room. Per pt/family wishes, patients code status to be changed to DNRCC-Arrest/DNI. Palliative Care completed paperwork, placed in file to be scanned in medical record and provided family/pt with copies. Pt and family deny any additional symptoms/needs at this time. - Constitutional Vitals: Abnormal lab results WBC 3.5 K/mcL (4.3-11.1) L 11/24/18 00:16 RBC 3.59 M/mcL (3.82-4.97) L 11/24/18 00:16 Hgb 9.3 g/dL (11.5-15.4) L 11/24/18 00:16 Hct 30.8 % (35.3-44.9) L 11/24/18 00:16 MCH 25.9 pg (28.0-33.3) L 11/24/18 00:16 MCHC 30.2 g/dL (31.6-35.5) L 11/24/18 00:16 RDW 23.8 % (11.5-14.5) H 11/24/18 00:16 MPV 8.7 fL (9.4-12.4) L 11/24/18 00:16 Neutrophils # 1.5 K/mcL (1.6-8.9) L 11/23/18 09:22 Poikilocytosis 1+ (Not Present) A 11/23/18 09:22 Anisocytosis 2+ (Not Present) A 11/23/18 09:22 Potassium 3.1 mEq/L (3.5-5.1) L 11/23/18 00:06 Chloride 108 mEq/L (98-107) H 11/24/18 00:16 Creatinine 0.50 mg/dL (0.60-1.20) L 11/24/18 00:16 BUN/Creatinine Ratio 46 (6-26) H 11/24/18 00:16 ALT 6 Units/L (7-52) L 11/23/18 09:22 Serum Total Protein 5.0 g/dL (6.4-8.9) L 11/23/18 09:22 Albumin 3.0 g/dL (3.5-5.7) L 11/23/18 09:22 Globulin 2.0 g/dL (2.4-3.5) L 11/23/18 09:22 Prealbumin 14.0 mg/dL (17.0-34.0) L 11/24/18 00:16 HDL Cholesterol 37 mg/dL (40-59) L 11/23/18 09:22 Exam: CONSTITUTIONAL/GENERAL: Awake, interactive, cachectic, NAD, lying in bed. Ear/Nose/Mouth/Throat (EMNT): Patent, atraumatic. [place]. CARDIOVASCULAR: Pulse regular; No edema. No cyanosis/ischemia. RESPIRATORY: Unlabored. Symmetric, normal effort. Room air. GASTROINTESTINAL: Soft, non-distended. Loose stools per pt. GENITOURINARY: Voiding in briefs. MUSCULOSKELETAL: No deformities; No joint swelling or erythema. INTEGUMENTARY: No rashes or lesions noted. NEUROLOGIC: No gross motor or sensory deficits appreciated. PSYCHIATRY: Alert, attentive. Tearful at times when discussing social situation/clinical condition. Palliative Quality Palliative Quality: Screen for Code Status: Yes, Screen for Goals of Care: Yes, Screen for Pain: Yes, If Pain Regimen Started, Initiate Bowel Regimen: Yes, Screen for Nausea/Vomitting: Yes Code Status: 11/23/18 08:54 Resuscitation Status: Active [RES] Routine Comment: Resuscitation Status: Full Code - Labs CBC & Chem 7: 11/24/18 00:16 11/24/18 00:16 Labs: Laboratory Results - last 24 hr 11/23/18 11/23/18 11/24/18 09:22 09:22 00:16 WBC 2.5 L 3.5 L RBC 3.63 L 3.59 L Hgb 9.3 L 9.3 L Hct 30.6 L 30.8 L MCV 84.3 85.8 MCH 25.6 L 25.9 L MCHC 30.4 L 30.2 L RDW 23.3 H 23.8 H Plt Count 225 228 MPV 8.8 L 8.7 L Seg Neutrophils % 58.0 Lymphocytes % 24.0 Monocytes % 12.0 Eosinophils % 4.0 Basophils % 2.0 Neutrophils # 1.5 L Lymphocytes # 0.6 Monocytes # 0.3 Eosinophils # 0.1 Basophils # 0.1 Platelet Estimate Normal Poikilocytosis 1+ A Anisocytosis 2+ A Sodium 143 Potassium 3.5 Chloride 110 H Carbon Dioxide 27 BUN 15 Creatinine 0.63 Est GFR ( Amer) > 60 Est GFR (Non-Af Amer) > 60 BUN/Creatinine Ratio 24 Glucose 99 Calculated Osmolality 297 Calcium 9.5 Phosphorus 3.3 Magnesium 2.0 Total Bilirubin 0.4 AST 13 ALT 6 L Alkaline Phosphatase 40 Serum Total Protein 5.0 L Albumin 3.0 L Globulin 2.0 L Albumin/Globulin Ratio 1.5 Prealbumin Triglycerides 72 Cholesterol 101 LDL Cholesterol, Calc 50 VLDL Cholesterol, Calc 14 HDL Cholesterol 37 L Cholesterol/HDL Ratio 2.7 11/24/18 11/24/18 00:16 00:16 WBC RBC Hgb Hct MCV MCH MCHC RDW Plt Count MPV Seg Neutrophils % Lymphocytes % Monocytes % Eosinophils % Basophils % Neutrophils # Lymphocytes # Monocytes # Eosinophils # Basophils # Platelet Estimate Poikilocytosis Anisocytosis Sodium 139 Potassium 4.7 D Chloride 108 H Carbon Dioxide 24 BUN 23 Creatinine 0.50 L Est GFR ( Amer) > 60 Est GFR (Non-Af Amer) > 60 BUN/Creatinine Ratio 46 H Glucose 101 Calculated Osmolality 292 Calcium 9.1 Phosphorus Magnesium Total Bilirubin AST ALT Alkaline Phosphatase Serum Total Protein Albumin Globulin Albumin/Globulin Ratio Prealbumin 14.0 L Triglycerides Cholesterol LDL Cholesterol, Calc VLDL Cholesterol, Calc HDL Cholesterol Cholesterol/HDL Ratio Consult Discharge Plan - Plan Referrals: Rashad Bullard MD [Primary Care Provider] - (Appointment needed in 7-10 days )
[2018-11-24] MEDS: Cholestyramine 4 GM POWD.PACK PO SCH (09:46)
[2018-11-24] MEDS: Torsemide 20 MG TABLET PO SCH (09:46)
[2018-11-24] MEDS: Vancomycin Oral Soln 125 MG/2.5 ML UDC PO SCH ×4 (09:47→22:18)
--- NOTE | 2018-11-24 12:51 | Internal Med Progress Note ---
Hospitalist Progress Note - Encounter Date of Encounter: 11/24/18 Time of Encounter: 12:45 - Subjective Interval History: Pt was seen and examined at bed side. She is more alert, awake and O to self today. She does have profuse watery diarrhea now Denied any CP . SOB. Does c/o abdominal discomfort - Exam Vitals: Temp Pulse Resp BP Pulse Ox 97.5 F L 75 19 132/69 95 11/24/18 10:42 11/24/18 10:42 11/24/18 10:42 11/24/18 10:42 11/24/18 10:42 Exam: Looks very weak and lethargic Gen: Alert, awake, Oriented to self Chest: Diminished breath sounds B/L, No wheezing, No crackles, No rales Heart: S1S2+ RRR No murmurs Abd: Soft, mild discomfort in lower abd, BS +, No organomegaly Ext: No edema, pulses are palpable, No calf tenderness Neuro : No acute focal neuro deficits noticed Skin: No rash. 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 difficile colitis Current Visit: No Status: Acute Assessment and Plan: she does have profuse watery diarrhea Cont home dose of PO Vancomycin started on lactobacillus avoid PPI (5) Adenocarcinoma Current Visit: No Status: Acute Assessment and Plan: currently following with [facility] / Radiation oncology Getting chemo and Radiation therapy Will talk to Heme Onc about her overall prognosis (6) Dementia Current Visit: Yes Status: Acute Assessment and Plan: looks like she does have dementia will talk to family about further care options - Time Spent with Patient Total time spent is greater than 50% in coordination of care (as documented) at patient's floor/unit and/or counseling patient: Internal Medicine: Result - Labs CBC & Chem 7: 11/24/18 00:16 11/24/18 00:16 Labs: Short CBC 11/24/18 Range/Units 00:16 WBC 3.5 L (4.3-11.1) K/mcL Hgb 9.3 L (11.5-15.4) g/dL Hct 30.8 L (35.3-44.9) % Plt Count 228 (140-400) K/mcL BMP 11/24/18 00:16 Sodium 139 Potassium 4.7 D Chloride 108 H Carbon Dioxide 24 BUN 23 Creatinine 0.50 L Glucose 101 Calcium 9.1 Consult Discharge Plan - Plan Referrals: Rashad Bullard MD [Primary Care Provider] - (Appointment needed in 7-10 days ) (1) Failure to thrive Qualifiers: Failure to thrive age range: in adult Qualified Code(s): R62.7 - Adult failure to thrive (3) Fall Qualifiers: Encounter type: initial encounter Qualified Code(s): W19.XXXA - Unspecified fall, initial encounter (6) Dementia Qualifiers: Dementia type: Alzheimer's disease Alzheimer's disease onset: unspecified on set Dementia behavioral disturbance: without behavioral disturbance Qualified Code(s): G30.9 - Alzheimer's disease, unspecified; F02.80 - Dementia in other diseases classified elsewhere without behavioral disturbance
[2018-11-24] MEDS: Lactobacillus 1 EACH CAP.SPRINK PO SCH ×2 (16:12→22:18)
[2018-11-25 01:27] LABS: Hematocrit 33.7 % (35.3-44.9); Hemoglobin 10.3 g/dL (11.5-15.4); Mean Corpuscular HGB Conc 30.6 g/dL (31.6-35.5); Mean Corpuscular Hemoglobin 25.8 pg (28.0-33.3); Mean Corpuscular Volume 84.5 fL (83.0-100.0); Mean Platelet Volume 8.8 fL (9.4-12.4); Platelet Count 228 K/mcL (140-400); Red Blood Count 3.99 M/mcL (3.82-4.97); Red Cell Distribution Width 24.3 % (11.5-14.5); White Blood Count 3.5 K/mcL (4.3-11.1)
[2018-11-25 01:39] LABS: BUN/Creatinine Ratio 28 (6-26); Blood Urea Nitrogen 16 mg/dL (8-23); Calcium 9.7 mg/dL (8.6-10.3); Carbon Dioxide 28 mEq/L (23-29); Chloride 104 mEq/L (98-107); Glucose 100 mg/dL (70-105); Osmolality,Calculated 289 (280-300); Potassium 3.9 mEq/L (3.5-5.1); Sodium 139 mEq/L (136-145); eGFR For African Americans > 60 (> 60); eGFR For Non-African Americans > 60 (> 60)
[2018-11-25] MEDS: Lactobacillus 1 EACH CAP.SPRINK PO SCH (10:35)
[2018-11-25] MEDS: Cholestyramine 4 GM POWD.PACK PO SCH (10:35)
[2018-11-25] MEDS: Vancomycin Oral Soln 125 MG/2.5 ML UDC PO SCH ×3 (10:35→18:12)
[2018-11-25] MEDS: Torsemide 20 MG TABLET PO SCH (10:35)
--- NOTE | 2018-11-25 13:03 | Podiatry Consult Note ---
Date of Encounter: 11/25/18 Time of Encounter: 11:25 Assessment and Plan (1) Sprain of left ankle Current visit: Yes Status: Acute Assessment: -Swelling left lateral ankle s/p fall -No pain with palpation -No ecchymosis noted -2/4 PT/DP pulses -Cap refill less than 3 seconds -ROM without limitation -X-ray of left ankle showed evidence of no acute osseous abnormality of the left ankle and mild left ankle soft tissue swelling Plan: -Lace up brace LLE -Rest, limited weight bearing -Apply ice -Keep extremity elevated -Will sign off, please re-consult if feel needs further evaluation form Podiatry team Qualifiers: Encounter type: initial encounter Involved ligament of ankle: unspecified l igament Qualified Code(s): S93.402A - Sprain of unspecified ligament of left ankle, initial encounter History of Present Illness HPI: Ms. Gunn is a 83 year old female who was admitted to the hospital after a fall at home. Patient does have a past medical history of hypertension, hypothyroidism, breast cancer, adenocarcinoma of the colon, s/p open low anterior resection on 07/29/2018 getting chemo and radiation therapy and recently diagnosed C. Diff colitis. Patient fell in her bathroom and hit her head. She denies loss of consciousness. Podiatry consulted for possible sprain left ankle. Patient reports pain to left ankle. A venous Doppler was completed and impression was left lower extremity normal superficial and deep exam. X-ray of left ankle showed evidence of no acute osseous abnormality of the left ankle and mild left ankle soft tissue swelling. 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 Psychiatric history: no psych history - Past Surgical History Surgical History: cholecystectomy, hysterectomy Additional surgical history: GOITER REMOVED , , urethral stent, thyroid nodule removal - Social History Smoking Status: Never smoker Smokeless Tobacco Status: No Alcohol use: none Drug use: none - Family History Father Living Status: Hx Family Cardiac Disorders: Yes (CHF) Hx Family Cancer: Yes (Pancreatic cancer) Mother Hx Family Cancer: Yes (Lung cancer) Medications and Allergies Simvastatin [Zocor] 20 mg PO HS 365 Days tablet 07/25/16 [Rx] Lisinopril [Zestril] 5 mg PO DAILY 09/09/18 [History] Levothyroxine [Synthroid] 50 mcg PO QAM 11/03/18 [History] Omeprazole 20 mg PO BID 11/03/18 [History] Torsemide [Demadex] 20 mg PO DAILY 11/03/18 [History] Ferrous Sulfate 325 mg PO DAILY #90 tablet 11/08/18 [Rx] Cholestyramine 2 gm PO DAILY 11/15/18 [History] Allergy/AdvReac Type Severity Reaction Status Date / Time No Known Allergies Allergy Verified 11/23/18 02:59 All Systems Reviewed: The remainder of the systems were reviewed and are negative - Constitutional Additional comments: As per HPI Physical Exam - Constitutional Vitals: Temp Pulse Resp BP Pulse Ox 98.1 F 81 16 116/70 92 11/25/18 12:10 11/25/18 12:10 11/25/18 12:10 11/25/18 12:10 11/25/18 12:10 Exam: Constitutional: Alert and oriented x 3, no acute distress noted, MI'KMAQ Vascular: 2/4 PT/DP bilaterally extremities, cap refill less than 3 seconds to all digits, no pain with calf squeeze Neurological: normal plantar response Dermatological: mild swelling noted to left lateral ankle, no ecchymosis or deformity noted Musculoskeletal: ROM noted without limitation Results - Labs Result Diagrams: 11/25/18 00:38 11/25/18 00:38 Labs: Abnormal lab results WBC 3.5 K/mcL (4.3-11.1) L 11/25/18 00:38 RBC 3.59 M/mcL (3.82-4.97) L 11/24/18 00:16 Hgb 10.3 g/dL (11.5-15.4) L 11/25/18 00:38 Hct 33.7 % (35.3-44.9) L 11/25/18 00:38 MCH 25.8 pg (28.0-33.3) L 11/25/18 00:38 MCHC 30.6 g/dL (31.6-35.5) L 11/25/18 00:38 RDW 24.3 % (11.5-14.5) H 11/25/18 00:38 MPV 8.8 fL (9.4-12.4) L 11/25/18 00:38 Neutrophils # 1.5 K/mcL (1.6-8.9) L 11/23/18 09:22 Poikilocytosis 1+ (Not Present) A 11/23/18 09:22 Anisocytosis 2+ (Not Present) A 11/23/18 09:22 Potassium 3.1 mEq/L (3.5-5.1) L 11/23/18 00:06 Chloride 108 mEq/L (98-107) H 11/24/18 00:16 Creatinine 0.57 mg/dL (0.60-1.20) L 11/25/18 00:38 BUN/Creatinine Ratio 28 (6-26) H 11/25/18 00:38 ALT 6 Units/L (7-52) L 11/23/18 09:22 Serum Total Protein 5.0 g/dL (6.4-8.9) L 11/23/18 09:22 Albumin 3.0 g/dL (3.5-5.7) L 11/23/18 09:22 Globulin 2.0 g/dL (2.4-3.5) L 11/23/18 09:22 Prealbumin 14.0 mg/dL (17.0-34.0) L 11/24/18 00:16 HDL Cholesterol 37 mg/dL (40-59) L 11/23/18 09:22 H & H 11/25/18 Range/Units 00:38 Hgb 10.3 L (11.5-15.4) g/dL Hct 33.7 L (35.3-44.9) % All other labs normal. Consult Discharge Plan - Plan Referrals: Rashad Bullard MD [Primary Care Provider] - (Appointment needed in 7-10 days )
--- NOTE | 2018-11-25 15:01 | Discharge Summary ---
- NOTES TO OUTPATIENT PROVIDER Notes to Outpatient Provider: f/u with PCP in one week. f/u with Podiatry in 2 weeks. Please continue wearing boot on Left leg for your ankle sprain. Continue taking Vancomycin 125mg PO QID x 12 more days for your recurrent C. Diff infection. Date of Encounter: 11/25/18 Time of Encounter: 14:58 - Discharge Diagnosis (1) Failure to thrive Priority: Primary Status: Acute Qualifiers: Failure to thrive age range: in adult Qualified Code(s): R62.7 - Adult failure to thrive (2) Protein-calorie malnutrition, severe Priority: Primary Status: Acute (3) Fall Priority: Primary Status: Acute Qualifiers: Encounter type: initial encounter Qualified Code(s): W19.XXXA - Unspecified fall, initial encounter (4) Sprain of left ankle Priority: Secondary Status: Acute Qualifiers: Encounter type: initial encounter Involved ligament of ankle: unspecified ligament Qualified Code(s): S93.402A - Sprain of unspecified ligament of left ankle, initial encounter (5) C. difficile colitis Priority: Primary Status: Acute (6) Adenocarcinoma Priority: Secondary Status: Acute (7) Dementia Priority: Secondary Status: Acute Qualifiers: Dementia type: Alzheimer's disease Alzheimer's disease onset: unspecified onset Dementia behavioral disturbance: without behavioral disturbance Qualified Code(s): G30.9 - Alzheimer's disease, unspecified; F02.80 - Dementia in other diseases classified elsewhere without behavioral disturbance Hospital course: Ms. Gunn is a 83 year old female with known past medical history of hypertension, hypothyroidism, breast cancer, adenocarcinoma of the colon, s/p open low anterior resection on 07/29/2018 getting chemo and radiation therapy and recently diagnosed C. Diff colitis d/c d home from our hospital on 11/16/18, now she was brought into ER last night by family stating she had a mechanical fall. as per ER records she was standing up going to the bathroom when she slipped in the bathroom and fell backwards, hitting the top of her head on the bathtub.She denies loss of consciousness. She was admitted in the hospital and started her on symptomatic and supportive care. She started having profuse watery diarrhea again, so resumed her PO Vancomycin and recommend to continue for 14 days. Her diarrhea resolved now. She did c/o Left leg pain and ankle swelling. Her venous Doppler of left lower leg ruled out DVT. X-ray of left ankle showed no acute abnormality/fracture other than some soft tissue swelling. Patient was evaluated by promotions assistant sales marketing who recommend Lace up brace LLE, Rest, limited weight bearing, apply ice and Keep extremity elevated. Her diarrhea resolved and she is tolerating oral intake well. Will discharge her to ECF in stable condition today. - Time Spent with Patient Total time spent providing and/or coordinating discharge services: - Discharge Medications Prescriptions: New Vancomycin Oral Soln [Firvanq] 125 mg PO QID 12 Days #120 ml Continued Lisinopril [Zestril] 5 mg PO DAILY Levothyroxine [Synthroid] 50 mcg PO QAM Omeprazole 20 mg PO BID Torsemide [Demadex] 20 mg PO DAILY Ferrous Sulfate 325 mg PO DAILY #90 tablet Cholestyramine 2 gm PO DAILY Simvastatin [Zocor] 20 mg PO HS 365 Days tablet Home Medications: Simvastatin [Zocor] 20 mg PO HS 365 Days tablet 07/25/16 [Rx] Lisinopril [Zestril] 5 mg PO DAILY 09/09/18 [History] Levothyroxine [Synthroid] 50 mcg PO QAM 11/03/18 [History] Omeprazole 20 mg PO BID 11/03/18 [History] Torsemide [Demadex] 20 mg PO DAILY 11/03/18 [History] Ferrous Sulfate 325 mg PO DAILY #90 tablet 11/08/18 [Rx] Cholestyramine 2 gm PO DAILY 11/15/18 [History] Vancomycin Oral Soln [Firvanq] 125 mg PO QID 12 Days #120 ml 11/25/18 [Rx] Allergies/Adverse Reactions: Allergy/AdvReac Type Severity Reaction Status Date / Time No Known Allergies Allergy Verified 11/23/18 02:59 Date of admission: 11/23/18 03:38 Primary care physician: Rashad Bullard MD Consults: 11/23/18 04:55 Consult to Director Of Clinical Services [CONS] Routine Reason for SW Consult: family issues PT not being taken care of per family 11/23/18 08:52 Consult to Occupational Therapy [CONS] Routine Comment: Evaluate, develop and implement POC Reason for Consult: WEAKNESS, NEEDS PLACEMENT Does patient have active BEDREST order?: No Is patient medically & hemodynamically stable?: Yes Consult to Physical Therapy [CONS] Routine Comment: Evaluate, develop and implement POC Reason for Consult: WEAKNESS, NEEDS PLACEMENT Does patient have active BEDREST order?: No Is patient medically & hemodynamically stable?: Yes 11/23/18 08:58 Consult to Nutrition [CONS] Routine Comment: Consulting Provider: NUTRITION Reason for Dietary Consult: PO Supplementation 11/23/18 11:53 Consult to Palliative Care [CONS] Routine Comment: Consulting Provider: Palliative Care [facility] Reason for Consult: Need to discuss about goals of care Time Notified: 11:53 Call Completed: Yes 11/25/18 11:08 Consult to Podiatry [CONS] Routine Consulting Provider: [facility] Reason for Consult: left ankle pain - possible sprain Time Notified: 11:08 Call Completed: Yes - Constitutional Vitals: Temp Pulse Resp BP Pulse Ox 98.1 F 81 16 116/70 92 11/25/18 12:10 11/25/18 12:10 11/25/18 12:10 11/25/18 12:10 11/25/18 12:10 General appearance: Present: cooperative, A&O X 1, no acute distress Exam: Looks very weak and lethargic Gen: Alert, awake, Oriented to self Chest: Diminished breath sounds B/L, No wheezing, No crackles, No rales Heart: S1S2+ RRR No murmurs Abd: Soft, mild discomfort in lower abd, BS +, No organomegaly Ext:pulses are palpable, No calf tenderness Mild tenderness in Left ankle with chronic deformity and swelling. Neuro : No acute focal neuro deficits noticed Skin: No rash. - Patient Status Disposition: Transfer SNF Condition: Good Overall status at discharge: patient is back to baseline - Discharge Instructions Follow Up With: Rashad Bullard MD [Primary Care Provider] - (Appointment needed in 7-10 days ) Sam Ash DPM [Partnered Physician] - - Diet and Activity Activity: as per physical therapy, increase activity as tolerated Diet: low salt diet
--- NOTE | 2018-11-25 15:07 | Physician Discharge Referral ---
ExtendedCare Referral Info Transfer To: ECF Provider in Charge after Transfer: PCP Institutional Level of Care: Skilled - Diagnosis (1) Failure to thrive Status: Acute (2) Protein-calorie malnutrition, severe Status: Acute (3) Fall Status: Acute (4) Sprain of left ankle Status: Acute (5) C. difficile colitis Status: Acute (6) Adenocarcinoma Status: Acute (7) Dementia Status: Acute - Transfer Medications Prescriptions: Lactobacillus Acidophilus [Acidophilus] 1 each PO BID #30 capsule Vancomycin Oral Soln [Firvanq] 125 mg PO QID 12 Days #120 ml Home Medications: Simvastatin [Zocor] 20 mg PO HS 365 Days tablet 07/25/16 [Rx] Lisinopril [Zestril] 5 mg PO DAILY 09/09/18 [History] Levothyroxine [Synthroid] 50 mcg PO QAM 11/03/18 [History] Omeprazole 20 mg PO BID 11/03/18 [History] Torsemide [Demadex] 20 mg PO DAILY 11/03/18 [History] Ferrous Sulfate 325 mg PO DAILY #90 tablet 11/08/18 [Rx] Cholestyramine 2 gm PO DAILY 11/15/18 [History] Lactobacillus Acidophilus [Acidophilus] 1 each PO BID #30 capsule 11/25/18 [Rx] Vancomycin Oral Soln [Firvanq] 125 mg PO QID 12 Days #120 ml 11/25/18 [Rx] Allergies/Adverse Reactions: Allergy/AdvReac Type Severity Reaction Status Date / Time No Known Allergies Allergy Verified 11/23/18 02:59 - Respiratory Orders Smoking Cessation: Smoking cessation has been advised. For more information, call the [place] Tobacco Quit Line at 2-243-HMAZ-NOW. - Treatments List/Other: For left ankle sprain : Lace up brace LLE Rest, limited weight bearing Apply ice Keep extremity elevated CERTIFICATION: I certify that the transfer of the above named patient to an Extended Care Facility is necessary for the continuing treatment of the diagnosis listed. The above information is true and accurate reflection of patient's current condition. Confidential - Redisclosure prohibited without a patient's written consent.
[2018-11-25 15:44] VITALS: BP 101/61
== END 2018-11-25 18:30 ==
LOC: EMEROOARM 22:07 → 3BNU 22:07 → SUATTDRO 11-23 03:38 → 3BNU 11-23 04:14
PROVIDERS: ADMIT Pharmacist; ATTEND Family Medicine

== ENCOUNTER 2018-12-02 14:21 | Inpatient (IN) ==
--- NOTE | 2018-12-02 14:37 | Emergency Department Note ---
Disposition Clinical Impression: UTI (urinary tract infection) Qualifiers: Urinary tract infection type: site unspecified Hematuria presence: with hematuria Qualified Code(s): N39.0 - Urinary tract infection, site not specified Altered mental status Qualifiers: Altered mental status type: disorientation Qualified Code(s): R41.0 - Disorientation, unspecified Disposition: Admitted As Inpatient Condition: Good Referrals: Rashad Bullard MD [Primary Care Provider] - Forms: ED Satisfaction Letter, Work/School Release Time of Disposition: 18:21 Altered Mental Status HPI - General Chief Complaint: ED General Medical Stated Complaint: AMS Time Seen by Provider: 12/02/18 14:24 Source: patient, EMS Mode of arrival: EMS Limitations: no limitations Nursing Notes Reviewed: Yes Vital Signs Reviewed: Yes - History of Present Illness HPI Narrative: 83F presents from [facility] for complaints of change in mental status - senior software engineer analytics report that she was screaming for 45 minutes and seemed afraid. On presentation, she is confused and does not understand why she cannot hear. Paperwork that came with her shows deafness, this does not appear to be an acute change. Pt is also complaining of pain in her genital area, the area itself is erythematous. She also notes black stuff in her bottom. Pt communicates with a white board and does not use sign language. - Related Data Home Medications Medication Instructions Recorded Confirmed Lisinopril [Zestril] 5 mg PO DAILY 09/09/18 11/24/18 Levothyroxine [Synthroid] 50 mcg PO QAM 11/03/18 11/24/18 Omeprazole 20 mg PO BID 11/03/18 11/24/18 Torsemide [Demadex] 20 mg PO DAILY 11/03/18 11/24/18 Cholestyramine 2 gm PO DAILY 11/15/18 11/24/18 Sertraline [Zoloft] 50 mg PO DAILY 12/02/18 12/02/18 Previous Rx's Medication Instructions Recorded Simvastatin [Zocor] 20 mg PO HS 365 Days tablet 07/25/16 Ferrous Sulfate 325 mg PO DAILY #90 tablet 11/08/18 Lactobacillus Acidophilus 1 each PO BID #30 capsule 11/25/18 [Acidophilus] Vancomycin Oral Soln [Firvanq] 125 mg PO QID 12 Days #120 ml 11/25/18 Allergies Allergy/AdvReac Type Severity Reaction Status Date / Time No Known Allergies Allergy Verified 11/23/18 02:59 Limitations: ROS unobtainable due to patients medical condition Past Medical History - Past Medical History Attestation: Yes The following information was validated with the patient. Medical history: Reports: cancer, dementia, GERD, hyperlipidemia, hypertension, migraine, thyroid disease, other Surgical history: Reports: cholecystectomy, hysterectomy Psychiatric history: Reports: no psych history MUD TRUCKER history: Reports: no MUD TRUCKER history - Social History Smoking Status: Never smoker Smokeless Tobacco Status: No Alcohol use: Reports: none Drug use: Reports: none Physical Exam - General General appearance: alert - Head Head exam: atraumatic, normocephalic - Eye Eye exam: Present: normal appearance, PERRL, EOMI - ENT ENT exam: normal exam, mucous membranes dry - Neck Neck exam: Present: normal inspection, full ROM, trachea midline - Chest Chest inspection: Present: normal inspection, symmetric chest wall rise - Respiratory Respiratory exam: Present: normal lung sounds bilaterally - Cardiovascular Cardiovascular exam: Present: regular rate, normal rhythm - Abdominal Exam Abdominal exam: Present: soft, Non-Tender - Rectal Exam Wafer Fab Technician present during exam: Yes Rectal exam: Present: normal inspection, normal rectal tone - Extremities Exam Extremities exam: Present: normal inspection, full ROM - Neurological Exam Neurological exam: Present: alert - Skin Skin exam: Present: warm Course Vital Signs Temperature 97.7 F 12/02/18 14:29 Pulse Rate 96 12/02/18 14:29 Respiratory Rate 18 12/02/18 14:29 Blood Pressure 103/60 12/02/18 14:29 O2 Sat by Pulse Oximetry 95 12/02/18 14:29 Temperature 97.7 F 12/02/18 14:29 Pulse Rate 94 12/02/18 18:21 Respiratory Rate 18 12/02/18 18:21 Blood Pressure 121/58 12/02/18 18:21 O2 Sat by Pulse Oximetry 96 12/02/18 18:21 Oxygen Delivery Oxygen Delivery Room Air Altered Mental Status - MDM Narrative Medical decision making narrative: 83-year-old female who comes from a [place] [facility] with complaints of altered mental status. Patient herself is complaining of pain all over. She does not have family present at this time, will call the [place] [facility] to get a better understanding of her baseline mental status. In the meantime we will perform a sepsis workup. Pt urine is concerning for UTI and BUN/Creatinine ration is concerning for dehydration. Will give a dose of rocephin and 1L NS and discuss needs with family. Family at bedside states that the patient has been dealing with UTI's and being in and out of the hospital for the last four months. They are concerned about sending her back to her SNF. PT will be admitted to hospitalist. Pt was admitted ot Dr. Delgadillo, hospitalist, who agreed to accept the patient to his service. Pt was stable at time of disposition. Results of the workup including any imaging and/or labwork was shared with the family at bedside. Family was given an opportunity to ask questions at bedside and all of their concerns were addressed. Family verbalized understanding and agreement with plan of care. - Medical Records Medical records reviewed: Yes I reviewed the patient's medical records. - Lab Data Lab results reviewed: Yes I reviewed the patient's lab results. Result diagrams: 12/02/18 15:15 12/02/18 15:15 Lab Results 12/02/18 12/02/18 12/02/18 Range/Units 15:06 15:11 15:14 WBC (4.3-11.1) K/mcL RBC (3.82-4.97) M/mcL Hgb (11.5-15.4) g/dL Hct (35.3-44.9) % MCV (83.0-100.0) fL MCH (28.0-33.3) pg MCHC (31.6-35.5) g/dL RDW (11.5-14.5) % Plt Count (140-400) K/mcL MPV (9.4-12.4) fL Immature Gran % (0-4) % Seg Neutrophils % % Lymphocytes % % Monocytes % % Eosinophils % % Basophils % % Neutrophils # (1.6-8.9) K/mcL Lymphocytes # (0.6-4.6) K/mcL Monocytes # (0.0-1.3) K/mcL Eosinophils # (0.0-0.6) K/mcL Basophils # (0.0-0.2) K/mcL Platelet Estimate (Normal) Poikilocytosis (Not Present) Anisocytosis (Not Present) Sodium (136-145) mEq/L Potassium (3.5-5.1) mEq/L Chloride (98-107) mEq/L Carbon Dioxide (23-29) mEq/L BUN (8-23) mg/dL Creatinine (0.60-1.20) mg/dL Est GFR ( Amer) (> 60) Est GFR (Non-Af Amer) (> 60) BUN/Creatinine Ratio (6-26) Glucose (70-105) mg/dL Calculated Osmolality (280-300) Calcium (8.6-10.3) mg/dL Total Bilirubin (0.3-1.0) mg/dL Direct Bilirubin (0.0-0.2) mg/dL Indirect Bilirubin (0.0-1.2) mg/dL AST (13-39) Units/L ALT (7-52) Units/L Alkaline Phosphatase (34-104) Units/L Ammonia (16-53) mcmol/L Troponin I (< 0.04) ng/mL Serum Total Protein (6.4-8.9) g/dL Albumin (3.5-5.7) g/dL Globulin (2.4-3.5) g/dL Albumin/Globulin Ratio (1.1-2.2) TSH (0.340-5.600) mcIU/mL Urine Color Yellow (Yellow) Urine Clarity Slightly Hazy (Clear) Urine pH 5.0 (5.0-8.0) pH Units Ur Specific [place] 1.013 (1.010-1.025) Urine Protein Negative (Neg-Trace) mg/dL Urine Glucose (UA) Normal (Normal) mg/dL Urine Ketones Negative (Negative) mg/dL Urine Blood Trace H (Negative) Urine Nitrite Negative (Negative) Urine Bilirubin Negative (Negative) Urine Urobilinogen Normal (Normal) mg/dL Ur Leukocyte Esterase Large H (Negative) Urine Microscopic RBC 0-3 (0-3) per hpf Urine Microscopic WBC TNTC H (0-3) per hpf Ur Squamous Epith Cells Few (None-Few) per lpf Urine Bacteria None Seen (None-Few) per hpf Hyaline Casts Few (None-Few) per lpf Ur Culture Indicated? YES A (NO) Stool Occult Bld Scrn Negative (Negative) Urine Opiates Screen Negative (Jkwffn=277) ng/mL Ur Buprenorphine Scrn Negative (Cutoff=5) ng/mL Ur Barbiturates Screen Negative (Bgiezk=398) ng/mL Ur Phencyclidine Scrn Negative (Cutoff=25) ng/mL Ur Amphetamines Screen Negative (Swnjrz=9171) ng/mL U Benzodiazepines Scrn Negative (Lxwrxy=478) ng/mL Urine Cocaine Screen Negative (Cutoff= 300) ng/mL U Marijuana (THC) Screen Negative (Cutoff = 50) ng/mL Ur Drug Screen Interp See Below Ethyl Alcohol (Less than 10) mg/dL 12/02/18 12/02/18 12/02/18 Range/Units 15:15 15:15 15:15 WBC 5.3 (4.3-11.1) K/mcL RBC 4.51 (3.82-4.97) M/mcL Hgb 12.0 (11.5-15.4) g/dL Hct 39.4 (35.3-44.9) % MCV 87.4 (83.0-100.0) fL MCH 26.6 L (28.0-33.3) pg MCHC 30.5 L (31.6-35.5) g/dL RDW 23.9 H (11.5-14.5) % Plt Count 260 (140-400) K/mcL MPV 9.1 L (9.4-12.4) fL Immature Gran % 0.4 (0-4) % Seg Neutrophils % 68.8 % Lymphocytes % 14.8 % Monocytes % 12.6 % Eosinophils % 2.8 % Basophils % 0.6 % Neutrophils # 3.7 (1.6-8.9) K/mcL Lymphocytes # 0.8 (0.6-4.6) K/mcL Monocytes # 0.7 (0.0-1.3) K/mcL Eosinophils # 0.2 (0.0-0.6) K/mcL Basophils # 0.0 (0.0-0.2) K/mcL Platelet Estimate Normal (Normal) Poikilocytosis 1+ A (Not Present) Anisocytosis 1+ A (Not Present) Sodium 137 (136-145) mEq/L Potassium 3.8 (3.5-5.1) mEq/L Chloride 100 (98-107) mEq/L Carbon Dioxide 31 H (23-29) mEq/L BUN 29 H (8-23) mg/dL Creatinine 0.89 (0.60-1.20) mg/dL Est GFR ( Amer) > 60 (> 60) Est GFR (Non-Af Amer) > 60 (> 60) BUN/Creatinine Ratio 33 H (6-26) Glucose 115 H (70-105) mg/dL Calculated Osmolality 291 (280-300) Calcium 10.2 (8.6-10.3) mg/dL Total Bilirubin 0.5 (0.3-1.0) mg/dL Direct Bilirubin 0.1 (0.0-0.2) mg/dL Indirect Bilirubin 0.4 (0.0-1.2) mg/dL AST 13 (13-39) Units/L ALT 9 (7-52) Units/L Alkaline Phosphatase 61 (34-104) Units/L Ammonia 35 (16-53) mcmol/L Troponin I < 0.03 (< 0.04) ng/mL Serum Total Protein 6.2 L (6.4-8.9) g/dL Albumin 3.5 (3.5-5.7) g/dL Globulin 2.7 (2.4-3.5) g/dL Albumin/Globulin Ratio 1.3 (1.1-2.2) TSH 5.213 (0.340-5.600) mcIU/mL Urine Color (Yellow) Urine Clarity (Clear) Urine pH (5.0-8.0) pH Units Ur Specific [place] (1.010-1.025) Urine Protein (Neg-Trace) mg/dL Urine Glucose (UA) (Normal) mg/dL Urine Ketones (Negative) mg/dL Urine Blood (Negative) Urine Nitrite (Negative) Urine Bilirubin (Negative) Urine Urobilinogen (Normal) mg/dL Ur Leukocyte Esterase (Negative) Urine Microscopic RBC (0-3) per hpf Urine Microscopic WBC (0-3) per hpf Ur Squamous Epith Cells (None-Few) per lpf Urine Bacteria (None-Few) per hpf Hyaline Casts (None-Few) per lpf Ur Culture Indicated? (NO) Stool Occult Bld Scrn (Negative) Urine Opiates Screen (Kqegrm=560) ng/mL Ur Buprenorphine Scrn (Cutoff=5) ng/mL Ur Barbiturates Screen (Gzhmlu=783) ng/mL Ur Phencyclidine Scrn (Cutoff=25) ng/mL Ur Amphetamines Screen (Uwnrkc=7331) ng/mL U Benzodiazepines Scrn (Xoijcg=031) ng/mL Urine Cocaine Screen (Cutoff= 300) ng/mL U Marijuana (THC) Screen (Cutoff = 50) ng/mL Ur Drug Screen Interp Ethyl Alcohol < 10 (Less than 10) mg/dL - Radiology Data Radiology results reviewed: Yes I reviewed the patient's radiology results. Chest X-Ray 12/02/18 15:06 IMPRESSION: Interval improvement in left basilar atelectasis. D/ / Kayla Ludwig MD / Kayla Ludwig MD Interpreting Provider: Kayla Ludwig MD - EKG Data EKG attestation: Yes I reviewed and interpreted this EKG. EKG results narrative: Rate 93, rhythm sinus, axis normal. TN 150 and normal, QRS 127 and prolonged, QTC 479 and borderline prolonged. There is a left bundle branch present which was present on previous EKG dated 11/15/2018 there is no clinically significant ST segment elevation or depression. TPA Checklist - LKW: 3-4.5 hrs Add. Warnings/Precautions Patient/family understanding: The patient/family members have been counseled and understood the risk, benefit, and alternatives of treatment.
[2018-12-02 15:36] LABS: Basophils % 0.6 %; Eosinophils # 0.2 K/mcL (0.0-0.6); Eosinophils % 2.8 %; Hematocrit 39.4 % (35.3-44.9); Immature Granulocytes % 0.4 % (0-4); Lymphocytes # 0.8 K/mcL (0.6-4.6); Lymphocytes % 14.8 %; Mean Corpuscular HGB Conc 30.5 g/dL (31.6-35.5); Mean Corpuscular Hemoglobin 26.6 pg (28.0-33.3); Mean Corpuscular Volume 87.4 fL (83.0-100.0); Mean Platelet Volume 9.1 fL (9.4-12.4); Monocytes # 0.7 K/mcL (0.0-1.3); Monocytes % 12.6 %; Neutrophils # 3.7 K/mcL (1.6-8.9); Platelet Count 260 K/mcL (140-400); Red Blood Count 4.51 M/mcL (3.82-4.97); Red Cell Distribution Width 23.9 % (11.5-14.5); Segmented Neutrophils % 68.8 %; White Blood Count 5.3 K/mcL (4.3-11.1)
[2018-12-02 15:42] LABS: Bilirubin,Urine Negative (Negative); Blood,Urine Trace (Negative); Color,Urine Yellow (Yellow); Glucose,Urine (UA) Normal (Normal); Ketones,Urine Negative (Negative); Leukocyte Esterase,Urine Large (Negative); Nitrite,Urine Negative (Negative); Protein,Urine Negative (Neg-Trace); Specific Gravity,Urine 1.013 (1.010-1.025); Urobilinogen,Urine Normal (Normal)
[2018-12-02 15:44] LABS: Bacteria,Urine None Seen per hpf (None-Few); Hyaline Casts,Urine Few per lpf (None-Few); RBC,Urine 0-3 per hpf (0-3); Squamous Epithelial Cell,Urine Few per lpf (None-Few); WBC,Urine TNTC per hpf (0-3)
[2018-12-02 15:45] LABS: Clarity,Urine Slightly Hazy (Clear)
[2018-12-02 15:49] LABS: Amphetamine Screen,Urine Negative ng/mL (Cutoff=1000); Barbiturate Screen,Urine Negative ng/mL (Cutoff=200); Benzodiazepines Screen,Urine Negative ng/mL (Cutoff=200); Cannabinoid Screen,Urine Negative ng/mL (Cutoff = 50); Cocaine Screen,Urine Negative ng/mL (Cutoff= 300); Opiate Screen,Urine Negative ng/mL (Cutoff=300); Phencyclidine Screen,Urine Negative ng/mL (Cutoff=25)
[2018-12-02 15:57] LABS: Alanine Aminotransferase 9 Units/L (7-52); Albumin 3.5 g/dL (3.5-5.7); Albumin/Globulin Ratio 1.3 (1.1-2.2); Alkaline Phosphatase 61 Units/L (34-104); Aspartate Amino Transferase 13 Units/L (13-39); BUN/Creatinine Ratio 33 (6-26); Bilirubin,Direct 0.1 mg/dL (0.0-0.2); Bilirubin,Indirect 0.4 mg/dL (0.0-1.2); Bilirubin,Total 0.5 mg/dL (0.3-1.0); Blood Urea Nitrogen 29 mg/dL (8-23); Calcium 10.2 mg/dL (8.6-10.3); Carbon Dioxide 31 mEq/L (23-29); Chloride 100 mEq/L (98-107); Ethanol < 10 mg/dL (Less than 10); Globulin 2.7 g/dL (2.4-3.5); Glucose 115 mg/dL (70-105); Osmolality,Calculated 291 (280-300); Potassium 3.8 mEq/L (3.5-5.1); Sodium 137 mEq/L (136-145); Total Protein 6.2 g/dL (6.4-8.9); Troponin I < 0.03 ng/mL (< 0.04); eGFR For African Americans > 60 (> 60); eGFR For Non-African Americans > 60 (> 60)
[2018-12-02 15:58] LABS: Anisocytosis 1+ (Not Present)
[2018-12-02 15:59] LABS: Platelet Estimate Normal (Normal); Poikilocytosis 1+ (Not Present)
[2018-12-02 16:10] LABS: Thyroid Stimulating Hormone 5.213 mcIU/mL (0.340-5.600)
[2018-12-02] MEDS ORDERED: cefTRIAXone 1,000 MG in 0.9 % Sodium Chloride Mini Bag 100 ML IVPB STA (17:08)
[2018-12-02] MEDS ORDERED: 0.9 % Sodium Chloride 1,000 ML IVC ONE (17:47)
--- NOTE | 2018-12-02 20:00 | Internal Med History&Physical ---
Date of Encounter: 12/02/18 Time of Encounter: 21:30 Internal Medicine - H&P: HPI Chief complaint: Urinary tract infection Admitted From: Emergency Dept Plans for Post Hospital Care: Home History of present illness: Ms. Gunn is a 83 year old female Patient presented to the emergency department with altered mental status. She had been at a long term and became confused, screaming at staff and not recognizing her family members. She has a history of dementia as well as deafness. She has been having difficulty with UTIs and has been in and out of the hospital over the last several weeks. She has a significant history of C. difficile, and is currently undergoing treatment for this. Her daughter is at bedside and states that ever since she underwent an abdominal surgery a few months ago she has been in and out of the hospital multiple times. She worries about her mom being in a long term because she does not feel that she gets very good care there. The patient also states that she has difficulty with swallowing and chokes when she swallows anything. She has been at [facility], but EMS was notified and she was transported to the hospital for further management. Emergency department vital signs within normal limits CBC unremarkable BMP unremarkable, slightly elevated blood glucose of 115 Initial troponin undetectable Ammonia level 35 Stool occult blood negative Urinalysis trace blood, large leukocyte esterase, numerous white blood cells. Negative nitrite Urine tox screen negative Chest x-ray demonstrated interval improvement in the left basilar atelectasis In the emergency department patient received 1 L of IV fluids, and was started on ceftriaxone. Urine culture was obtained. Family was at bedside and stated that they would prefer patient go home with them at discharge. She was admitted to the hospital for further management of her urinary tract infection and C. difficile. Upon my assessment, patient is resting in the hospital bed in no acute distress. Family has arrived at patient's bedside as well. Patient denies chest pain, abdominal pain, nausea and vomiting. She has had diarrhea secondary to C. difficile infection which she has been undergoing treatment for. This has improved over the last few days however as per the daughter. Patient's daughter states that she is a full code. 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 Psychiatric history: no psych history - Past Surgical History Surgical History: cholecystectomy, hysterectomy Additional surgical history: GOITER REMOVED , , urethral stent, thyroid nodule removal - Social History Smoking Status: Never smoker Smokeless Tobacco Status: No Alcohol use: none Drug use: none - Family History Father Living Status: Hx Family Cardiac Disorders: Yes (CHF) Hx Family Cancer: Yes (Pancreatic cancer) Mother Hx Family Cancer: Yes (Lung cancer) Internal Medicine - H&P: Meds Simvastatin [Zocor] 20 mg PO HS 365 Days tablet 07/25/16 [Rx] Lisinopril [Zestril] 5 mg PO DAILY 09/09/18 [History] Levothyroxine [Synthroid] 50 mcg PO QAM 11/03/18 [History] Omeprazole 20 mg PO BID 11/03/18 [History] Torsemide [Demadex] 20 mg PO DAILY 11/03/18 [History] Ferrous Sulfate 325 mg PO DAILY #90 tablet 11/08/18 [Rx] Cholestyramine 2 gm PO DAILY 11/15/18 [History] Vancomycin Oral Soln [Firvanq] 125 mg PO QID 12 Days #120 ml 11/25/18 [Rx] Lactobacillus Acidophilus [Acidophilus] 1 cap PO BID 12/02/18 [History] Sertraline [Zoloft] 50 mg PO HS 12/02/18 [History] Allergy/AdvReac Type Severity Reaction Status Date / Time No Known Allergies Allergy Verified 11/23/18 02:59 All Systems PM: A 10-system review of systems was performed and is negative for pertinent findings except as documented above in the HPI. - Constitutional Vitals: Temp Pulse Resp BP Pulse Ox 97.7 F 94 18 121/58 96 12/02/18 14:29 12/02/18 18:21 12/02/18 18:21 12/02/18 18:21 12/02/18 18:21 General appearance: Present: cooperative, A&O X 3, pleasant, no acute distress, answers questions appropriately Exam: - - Head Head exam: Present: normal inspection - Eye Eye exam: Present: EOMI, normal appearance - Respiratory Respiratory exam: Present: CTAB. Absent: rales, respiratory distress, rhonchi, wheezes - Cardiovascular Cardiovascular exam: Present: RRR. Absent: diastolic murmur, systolic murmur - GI/Abdominal GI/Abdominal exam: Present: normal bowel sounds, soft. Absent: tenderness - Extremities Exam Extremities exam: Present: warm, radial pulses palpable and symmetrical. Absent: calf tenderness, pedal edema, tenderness - Neurological Exam Neurological exam: Present: no focal deficits, strengths equal and symetr throughout. Absent: motor sensory deficit, facial droop, speech deficit - Skin Skin exam: Present: dry, normal color, warm Internal Med - H&P Results - Labs CBC & Chem 7: 12/02/18 15:15 12/02/18 15:15 Labs: Short CBC 12/02/18 Range/Units 15:15 WBC 5.3 (4.3-11.1) K/mcL Hgb 12.0 (11.5-15.4) g/dL Hct 39.4 (35.3-44.9) % Plt Count 260 (140-400) K/mcL Neutrophils # 3.7 (1.6-8.9) K/mcL BMP 12/02/18 15:15 Sodium 137 Potassium 3.8 Chloride 100 Carbon Dioxide 31 H BUN 29 H Creatinine 0.89 Glucose 115 H Calcium 10.2 Cardiac Enzymes 12/02/18 Range/Units 15:15 Troponin I < 0.03 (< 0.04) ng/mL Liver Function 12/02/18 Range/Units 15:15 Total Bilirubin 0.5 (0.3-1.0) mg/dL Direct Bilirubin 0.1 (0.0-0.2) mg/dL AST 13 (13-39) Units/L ALT 9 (7-52) Units/L Alkaline Phosphatase 61 (34-104) Units/L Albumin 3.5 (3.5-5.7) g/dL Urine 12/02/18 Range/Units 15:11 Urine Color Yellow (Yellow) Urine Clarity Slightly Hazy (Clear) Urine pH 5.0 (5.0-8.0) pH Units Ur Specific [place] 1.013 (1.010-1.025) Urine Protein Negative (Neg-Trace) mg/dL Urine Glucose (UA) Normal (Normal) mg/dL - Impressions ITS Impressions Chest X-Ray 12/02/18 15:06 IMPRESSION: Interval improvement in left basilar atelectasis. D/ / Kayla Ludwig MD / Kayla Ludwig MD Interpreting Provider: Kayla Ludwig MD - Assessment and Plan (1) UTI (urinary tract infection) Current Visit: Yes Status: Acute Assessment and plan: Patient's urinalysis demonstrated large leukocyte esterase and numerous white blood cells, possibly indicating infection. Follow-up urine culture Continue ceftriaxone Monitor for worsening signs of infection Qualifiers: Urinary tract infection type: site unspecified Hematuria presence: with hematuria Qualified Code(s): N39.0 - Urinary tract infection, site not specified; R31.9 - Hematuria, unspecified (2) C. difficile colitis Current Visit: No Status: Acute Assessment and plan: Patient's had C. difficile, initially diagnosed during her previous admission. She was to continue oral vancomycin for a total of 14 days. Continue oral vancomycin Continue cholestyramine Contact precautions (3) Altered mental status Current Visit: Yes Status: Acute Assessment and plan: Patient has baseline dementia and is deaf as well. Patient has been experiencing C. dif, and now presents with urinary tract infection. Urine culture obtained, follow-up results Continue ceftriaxone Continue vancomycin oral Continue to monitor Qualifiers: Altered mental status type: disorientation Qualified Code(s): R41.0 - Disorientation, unspecified (4) Dysphagia Current Visit: Yes Status: Acute Assessment and plan: Patient states that she has difficulty swallowing, and feels that things get stuck in her throat. Nursing staff does not witness any difficulty swallowing however. Speech therapy consult Qualifiers: Dysphagia type: unspecified Qualified Code(s): R13.10 - Dysphagia, unspecified (5) Goals of care, counseling/discussion Current Visit: No Status: Acute Assessment and plan: Patient's family desires that the patient not be returned to a long term after discharge. conference services director consult (6) DVT prophylaxis Current Visit: No Status: Acute Assessment and plan: SCDs - Time Spent With Patient Total time spent is greater than 50% in coordination of care (as documented) at patient's floor/unit and/or counseling patient:
[2018-12-02] MEDS ORDERED: Naloxone 0.4 MG/ML INJ IVP PRN (22:36)
[2018-12-02] MEDS: 0.9 % Sodium Chloride 1,000 ML IVC SCH (23:13)
[2018-12-03] MEDS: Vancomycin Oral Soln 125 MG/2.5 ML UDC PO SCH ×5 (00:10→21:15)
[2018-12-03 05:52] LABS: Mean Corpuscular HGB Conc 30.3 g/dL (31.6-35.5); Mean Corpuscular Hemoglobin 26.1 pg (28.0-33.3); Mean Platelet Volume 8.8 fL (9.4-12.4); Platelet Count 191 K/mcL (140-400); Red Blood Count 3.72 M/mcL (3.82-4.97); White Blood Count 3.5 K/mcL (4.3-11.1)
[2018-12-03 05:57] LABS: Hemoglobin 9.7 g/dL (11.5-15.4)
[2018-12-03 06:10] LABS: BUN/Creatinine Ratio 42 (6-26); Blood Urea Nitrogen 27 mg/dL (8-23); Calcium 9.3 mg/dL (8.6-10.3); Carbon Dioxide 25 mEq/L (23-29); Chloride 109 mEq/L (98-107); Glucose 90 mg/dL (70-105); Osmolality,Calculated 291 (280-300); Potassium 3.8 mEq/L (3.5-5.1); Sodium 138 mEq/L (136-145); eGFR For African Americans > 60 (> 60); eGFR For Non-African Americans > 60 (> 60)
[2018-12-03] MEDS: 0.9 % Sodium Chloride 1,000 ML IVC SCH (07:09)
[2018-12-03] MEDS: Cholestyramine 4 GM POWD.PACK PO SCH (09:06)
[2018-12-03] MEDS: Lactobacillus 1 EACH CAP.SPRINK PO SCH ×2 (09:09→21:15)
[2018-12-03] MEDS: cefTRIAXone 1,000 MG in Water for inj. (sterile) 10 ML IVP SCH (09:10)
--- NOTE | 2018-12-03 14:25 | Internal Med Progress Note ---
Hospitalist Progress Note - Encounter Date of Encounter: 12/03/18 Time of Encounter: 14:22 - Subjective Interval History: No acute events. Pt seen and examined. She denies fever, chills, abdominal pain, nausea and vomiting. - Exam Vitals: Temp Pulse Resp BP Pulse Ox 37.0 C 84 17 143/57 94 12/03/18 11:08 12/03/18 11:08 12/03/18 11:08 12/03/18 11:08 12/03/18 11:08 Exam: GENERAL: Not in distress. Oriented but somnolent. HEENT: EOMI, PERRLA MOUTH: Dry oral mucosa NECK:No JVD, No lymph nodes. CHEST AND LUNGS: Normal breath sounds, no wheezes or crackles HEART: S1 and S2 normal, no murmurs ABDOMEN: Soft, nontender, no organomegaly SKIN: Normal color, no rahses, no lesions EXTREMITIES: No deformity, no edema, no tenderness, no joint swelling or clubbing NEUROLOGICAL: Normal cognition, normal motor and sensory exam. . - Assessment and Plan (1) UTI (urinary tract infection) Current Visit: Yes Status: Acute Assessment and Plan: UA highly suggestive of UTI Awaiting urine culture Continue ceftriaxone Monitor for worsening signs of infection (2) C. difficile colitis Current Visit: No Status: Acute Assessment and Plan: Patient's had C. difficile, initially diagnosed during her previous admission. She was to continue oral vancomycin for a total of 14 days. Continue oral vancomycin Continue cholestyramine Contact precautions (3) Altered mental status Current Visit: Yes Status: Acute Assessment and Plan: I remember patient from previous encounter and I think she is currently at her baseline mental status. Patient has been experiencing C. dif, and now presents with urinary tract infection. Urine culture obtained, follow-up results Continue ceftriaxone Continue vancomycin oral Continue to monitor (4) Dysphagia Current Visit: Yes Status: Acute Assessment and Plan: Patient states that she has difficulty swallowing, and feels that things get stuck in her throat. Nursing staff does not witness any difficulty swallowing however. Speech therapy consulted (5) Goals of care, counseling/discussion Current Visit: No Status: Acute Assessment and Plan: Patient's family desires that the patient not be returned to a prison after discharge. services clerk consult (6) Protein-calorie malnutrition, severe Current Visit: No Status: Acute Assessment and Plan: Patient looks malnourished with temporal wasting We will consult main entree cook and cashier for dietary recommendations. (7) DVT prophylaxis Current Visit: No Status: Acute Assessment and Plan: SCDs - Time Spent with Patient Total time spent is greater than 50% in coordination of care (as documented) at patient's floor/unit and/or counseling patient: Internal Medicine: Result - Labs CBC & Chem 7: 12/03/18 05:34 12/03/18 05:34 Labs: Short CBC 12/02/18 12/03/18 Range/Units 15:15 05:34 WBC 5.3 3.5 L (4.3-11.1) K/mcL Hgb 12.0 9.7 L D (11.5-15.4) g/dL Hct 39.4 32.0 L (35.3-44.9) % Plt Count 260 191 (140-400) K/mcL Neutrophils # 3.7 (1.6-8.9) K/mcL BMP 12/02/18 12/03/18 15:15 05:34 Sodium 137 138 Potassium 3.8 3.8 Chloride 100 109 H Carbon Dioxide 31 H 25 BUN 29 H 27 H Creatinine 0.89 0.65 Glucose 115 H 90 Calcium 10.2 9.3 Cardiac Enzymes 12/02/18 Range/Units 15:15 Troponin I < 0.03 (< 0.04) ng/mL Liver Function 12/02/18 Range/Units 15:15 Total Bilirubin 0.5 (0.3-1.0) mg/dL Direct Bilirubin 0.1 (0.0-0.2) mg/dL AST 13 (13-39) Units/L ALT 9 (7-52) Units/L Alkaline Phosphatase 61 (34-104) Units/L Albumin 3.5 (3.5-5.7) g/dL Urine 12/02/18 Range/Units 15:11 Urine Color Yellow (Yellow) Urine Clarity Slightly Hazy (Clear) Urine pH 5.0 (5.0-8.0) pH Units Ur Specific [place] 1.013 (1.010-1.025) Urine Protein Negative (Neg-Trace) mg/dL Urine Glucose (UA) Normal (Normal) mg/dL - Impressions Impressions Chest X-Ray 12/02/18 15:06 IMPRESSION: Interval improvement in left basilar atelectasis. D/ / Kayla Ludwig MD / Kayla Ludwig MD Interpreting Provider: Kayla Ludwig MD Consult Discharge Plan - Plan Referrals: Rashad Bullard MD [Primary Care Provider] - (1) UTI (urinary tract infection) Qualifiers: Urinary tract infection type: site unspecified Hematuria presence: with hematuria Qualified Code(s): N39.0 - Urinary tract infection, site not specified; R31.9 - Hematuria, unspecified (3) Altered mental status Qualifiers: Altered mental status type: disorientation Qualified Code(s): R41.0 - Disorientation, unspecified (4) Dysphagia Qualifiers: Dysphagia type: unspecified Qualified Code(s): R13.10 - Dysphagia, unspecified
[2018-12-04] MEDS ORDERED: Melatonin 3 MG TABLET PO ONE (00:30)
[2018-12-04 05:50] LABS: Basophils % 0.3 %; Eosinophils # 0.2 K/mcL (0.0-0.6); Eosinophils % 4.6 %; Hematocrit 32.6 % (35.3-44.9); Hemoglobin 10.3 g/dL (11.5-15.4); Lymphocytes # 0.6 K/mcL (0.6-4.6); Lymphocytes % 18.9 %; Mean Corpuscular HGB Conc 31.6 g/dL (31.6-35.5); Mean Corpuscular Hemoglobin 27.1 pg (28.0-33.3); Mean Corpuscular Volume 85.8 fL (83.0-100.0); Mean Platelet Volume 8.8 fL (9.4-12.4); Monocytes # 0.5 K/mcL (0.0-1.3); Monocytes % 14.6 %; Platelet Count 205 K/mcL (140-400); Red Cell Distribution Width 22.3 % (11.5-14.5); Segmented Neutrophils % 61.6 %; White Blood Count 3.2 K/mcL (4.3-11.1)
[2018-12-04 06:10] LABS: BUN/Creatinine Ratio 31 (6-26); Blood Urea Nitrogen 18 mg/dL (8-23); Calcium 9.9 mg/dL (8.6-10.3); Carbon Dioxide 27 mEq/L (23-29); Chloride 107 mEq/L (98-107); Glucose 99 mg/dL (70-105); Osmolality,Calculated 288 (280-300); Potassium 3.6 mEq/L (3.5-5.1); Sodium 138 mEq/L (136-145); eGFR For African Americans > 60 (> 60); eGFR For Non-African Americans > 60 (> 60)
[2018-12-04] MEDS: Cholestyramine 4 GM POWD.PACK PO SCH (11:18)
[2018-12-04] MEDS: Vancomycin Oral Soln 125 MG/2.5 ML UDC PO SCH ×4 (11:19→21:15)
[2018-12-04] MEDS: cefTRIAXone 1,000 MG in Water for inj. (sterile) 10 ML IVP SCH (11:19)
[2018-12-04] MEDS: Lactobacillus 1 EACH CAP.SPRINK PO SCH ×2 (11:20→21:14)
--- NOTE | 2018-12-04 11:21 | Internal Med Progress Note ---
Hospitalist Progress Note - Encounter Date of Encounter: 12/04/18 Time of Encounter: 11:18 - Subjective Interval History: Pt reported by night team to have been a bit delerious and yelled at nursing staff and anyone who went by her room. She also refused some of her oral meds. On my encounter with her this morning however, patient was pleasant, alert and oriented. She answered all my questions appropriately but admitted that she sometimes forgets things. She denies abdominal pain, fever, chills, dysuria and frequency. - Exam Vitals: Temp Pulse Resp BP Pulse Ox 36.5 C 84 18 155/68 94 12/04/18 06:50 12/04/18 06:50 12/04/18 06:50 12/04/18 06:50 12/04/18 06:50 Exam: GENERAL: Not in distress. Oriented HEENT: EOMI, PERRLA MOUTH: Dry oral mucosa NECK:No JVD, No lymph nodes. CHEST AND LUNGS: Normal breath sounds, no wheezes or crackles HEART: S1 and S2 normal, no murmurs ABDOMEN: Soft, nontender, no organomegaly SKIN: Normal color, no rashes, no lesions EXTREMITIES: No deformity, no edema, no tenderness, no joint swelling or clubbing NEUROLOGICAL: Normal cognition, normal motor and sensory exam. - Assessment and Plan (1) UTI (urinary tract infection) Current Visit: Yes Status: Acute Assessment and Plan: UA highly suggestive of UTI Awaiting urine culture Continue ceftriaxone Monitor for worsening signs of infection (2) C. difficile colitis Current Visit: No Status: Acute Assessment and Plan: Patient's had C. difficile initially diagnosed during her previous admission. Continue oral vancomycin Continue cholestyramine Contact precautions (3) Altered mental status Current Visit: Yes Status: Acute Assessment and Plan: Although patient has been agitated and was yelling at staff overnight, she was more pleasant this morning and is oriented. Patient has been experiencing C. dif, and now presents with urinary tract infection. Awaiting urine cultures Continue ceftriaxone Continue vancomycin oral Continue to monitor (4) Dysphagia Current Visit: Yes Status: Acute Assessment and Plan: Currently denies difficulty swallowing. Dietary recs per title clerk. (5) Goals of care, counseling/discussion Current Visit: No Status: Acute Assessment and Plan: Patient's family desires that the patient not be returned to a senior living after discharge. employment services director consult (6) Protein-calorie malnutrition, severe Current Visit: No Status: Acute Assessment and Plan: Patient looks malnourished with temporal wasting Dietary recs per title clerk. (7) DVT prophylaxis Current Visit: No Status: Acute Assessment and Plan: SCDs - Time Spent with Patient Total time spent is greater than 50% in coordination of care (as documented) at patient's floor/unit and/or counseling patient: Internal Medicine: Result - Labs CBC & Chem 7: 12/04/18 04:58 12/04/18 04:58 Labs: Short CBC 12/04/18 Range/Units 04:58 WBC 3.2 L (4.3-11.1) K/mcL Hgb 10.3 L (11.5-15.4) g/dL Hct 32.6 L (35.3-44.9) % Plt Count 205 (140-400) K/mcL Neutrophils # 2.0 (1.6-8.9) K/mcL BMP 12/04/18 04:58 Sodium 138 Potassium 3.6 Chloride 107 Carbon Dioxide 27 BUN 18 Creatinine 0.59 L Glucose 99 Calcium 9.9 Consult Discharge Plan - Plan Referrals: Rashad Bullard MD [Primary Care Provider] - (1) UTI (urinary tract infection) Qualifiers: Urinary tract infection type: site unspecified Hematuria presence: with hem aturia Qualified Code(s): N39.0 - Urinary tract infection, site not specified; R31.9 - Hematuria, unspecified (3) Altered mental status Qualifiers: Altered mental status type: disorientation Qualified Code(s): R41.0 - Disorientation, unspecified (4) Dysphagia Qualifiers: Dysphagia type: unspecified Qualified Code(s): R13.10 - Dysphagia, unspecified
[2018-12-04] MEDS: Acetaminophen 325 MG TABLET PO PRN (21:15)
[2018-12-05] MEDS: Acetaminophen 325 MG TABLET PO PRN (04:59)
[2018-12-05 06:39] LABS: Basophils % 0.3 %; Eosinophils # 0.2 K/mcL (0.0-0.6); Hematocrit 31.2 % (35.3-44.9); Hemoglobin 9.8 g/dL (11.5-15.4); Immature Granulocytes % 0.7 % (0-4); Lymphocytes # 0.7 K/mcL (0.6-4.6); Lymphocytes % 21.8 %; Mean Corpuscular HGB Conc 31.4 g/dL (31.6-35.5); Mean Corpuscular Hemoglobin 26.3 pg (28.0-33.3); Mean Corpuscular Volume 83.9 fL (83.0-100.0); Mean Platelet Volume 8.5 fL (9.4-12.4); Monocytes # 0.5 K/mcL (0.0-1.3); Monocytes % 15.8 %; Neutrophils # 1.7 K/mcL (1.6-8.9); Platelet Count 189 K/mcL (140-400); Red Blood Count 3.72 M/mcL (3.82-4.97); Red Cell Distribution Width 22.5 % (11.5-14.5); Segmented Neutrophils % 56.4 %
--- NOTE | 2018-12-05 06:41 | Electrocardiograph Report ---
[facility] Test Date: 2018-12-02 Pat Name: Nicole Gunn Department: EXAM25 Room: 3A41 Gender: F Halal Butcher: : 1935 Requested By: Yesenia Villa Order Number: [id number] Reading MD: Alexsander Salmon Measurements Intervals [place] Rate: 93 P: 42 LA: 150 QRS: 4 QRSD: 127 T: 95 QT: 385 QTc: 479 Interpretive Statements Sinus rhythm Left bundle branch block Electronically Signed On 12-05-2018 6:39:43 EDT by Alexsander Salmon
[2018-12-05] MEDS: cefTRIAXone 1,000 MG in Water for inj. (sterile) 10 ML IVP SCH (07:35)
[2018-12-05] MEDS: Lactobacillus 1 EACH CAP.SPRINK PO SCH ×2 (07:39→20:39)
[2018-12-05] MEDS: Cholestyramine 4 GM POWD.PACK PO SCH (07:39)
[2018-12-05 07:40] LABS: BUN/Creatinine Ratio 30 (6-26); Blood Urea Nitrogen 17 mg/dL (8-23); Calcium 9.5 mg/dL (8.6-10.3); Carbon Dioxide 25 mEq/L (23-29); Chloride 107 mEq/L (98-107); Glucose 98 mg/dL (70-105); Osmolality,Calculated 284 (280-300); Potassium 3.6 mEq/L (3.5-5.1); Sodium 136 mEq/L (136-145); eGFR For African Americans > 60 (> 60); eGFR For Non-African Americans > 60 (> 60)
[2018-12-05] MEDS: Vancomycin Oral Soln 125 MG/2.5 ML UDC PO SCH ×4 (07:41→20:39)
--- NOTE | 2018-12-05 13:57 | Internal Med Progress Note ---
Hospitalist Progress Note - Encounter Date of Encounter: 12/05/18 Time of Encounter: 13:55 - Subjective Interval History: No acute events overnight. Patient asks not to be discharged until her daughter was ready to take her home. I reassured her we we working on transitioning her to the next level of care safely. She denies abdominal pain, dysuria , freq uency, fever and chills. - Exam Vitals: Temp Pulse Resp BP Pulse Ox 36.6 C 86 16 157/69 95 12/05/18 11:45 12/05/18 11:45 12/05/18 11:45 12/05/18 11:45 12/05/18 11:45 Exam: GENERAL: Not in distress. Oriented HEENT: EOMI, PERRLA MOUTH: Moist oral mucosa NECK:No JVD, No lymph nodes. CHEST AND LUNGS: Normal breath sounds, no wheezes or crackles HEART: S1 and S2 normal, no murmurs ABDOMEN: Soft, nontender, no organomegaly SKIN: Normal color, no rashes, no lesions EXTREMITIES: No deformity, no edema, no tenderness, no joint swelling or clubbing NEUROLOGICAL: Normal cognition, normal motor and sensory exam. - Assessment and Plan (1) UTI (urinary tract infection) Current Visit: Yes Status: Acute Assessment and Plan: UA highly suggestive of UTI Urine culture yielding E.Coli Continue ceftriaxone Will transition to oral at time of discharge (2) C. difficile colitis Current Visit: No Status: Acute Assessment and Plan: Patient's had C. difficile initially diagnosed during her previous admission. Continue oral vancomycin Continue cholestyramine Contact precautions (3) Altered mental status Current Visit: Yes Status: Acute Assessment and Plan: A and Ox3. Urine culture growing E.coli Continue ceftriaxone Continue vancomycin oral Continue to monitor (4) Dysphagia Current Visit: Yes Status: Acute Assessment and Plan: Currently denies difficulty swallowing. Dietary recs per receiving tank operator. (5) Goals of care, counseling/discussion Current Visit: No Status: Acute Assessment and Plan: Patient's family desires that the patient not be returned to a [facility] after discharge. linter operator working on her transition to next level of care. (6) Protein-calorie malnutrition, severe Current Visit: No Status: Acute Assessment and Plan: Patient looks malnourished with temporal wasting Dietary recs per receiving tank operator. (7) DVT prophylaxis Current Visit: No Status: Acute Assessment and Plan: SCDs - Time Spent with Patient Total time spent is greater than 50% in coordination of care (as documented) at patient's floor/unit and/or counseling patient: Internal Medicine: Result - Labs CBC & Chem 7: 12/05/18 06:29 12/05/18 06:29 Labs: Short CBC 12/05/18 Range/Units 06:29 WBC 3.0 L (4.3-11.1) K/mcL Hgb 9.8 L (11.5-15.4) g/dL Hct 31.2 L (35.3-44.9) % Plt Count 189 (140-400) K/mcL Neutrophils # 1.7 (1.6-8.9) K/mcL BMP 12/05/18 06:29 Sodium 136 Potassium 3.6 Chloride 107 Carbon Dioxide 25 BUN 17 Creatinine 0.57 L Glucose 98 Calcium 9.5 Consult Discharge Plan - Plan Referrals: Rashad Bullard MD [Primary Care Provider] - (1) UTI (urinary tract infection) Qualifiers: Urinary tract infection type: site unspecified Hematuria presence: with hematuria Qualified Code(s): N39.0 - Urinary tract infection, site not specified; R31.9 - Hematuria, unspecified (3) Altered mental status Qualifiers: Altered mental status type: disorientation Qualified Code(s): R41.0 - Disorientation, unspecified (4) Dysphagia Qualifiers: Dysphagia type: unspecified Qualified Code(s): R13.10 - Dysphagia, unspecified
[2018-12-05] MEDS ORDERED: Melatonin 3 MG TABLET PO ONE (22:32)
[2018-12-06 07:35] LABS: Basophils % 0.3 %; Eosinophils # 0.1 K/mcL (0.0-0.6); Eosinophils % 3.8 %; Hematocrit 32.9 % (35.3-44.9); Hemoglobin 10.4 g/dL (11.5-15.4); Lymphocytes # 0.5 K/mcL (0.6-4.6); Mean Corpuscular HGB Conc 31.6 g/dL (31.6-35.5); Mean Corpuscular Hemoglobin 26.6 pg (28.0-33.3); Mean Corpuscular Volume 84.1 fL (83.0-100.0); Mean Platelet Volume 8.5 fL (9.4-12.4); Monocytes # 0.5 K/mcL (0.0-1.3); Monocytes % 13.6 %; Neutrophils # 2.2 K/mcL (1.6-8.9); Platelet Count 194 K/mcL (140-400); Red Blood Count 3.91 M/mcL (3.82-4.97); Red Cell Distribution Width 22.4 % (11.5-14.5); Segmented Neutrophils % 66.3 %; White Blood Count 3.4 K/mcL (4.3-11.1)
[2018-12-06] MEDS: Cholestyramine 4 GM POWD.PACK PO SCH (07:45)
[2018-12-06] MEDS: Torsemide 20 MG TABLET PO SCH (07:46)
[2018-12-06] MEDS: Vancomycin Oral Soln 125 MG/2.5 ML UDC PO SCH ×4 (07:46→20:59)
[2018-12-06] MEDS: Lactobacillus 1 EACH CAP.SPRINK PO SCH ×2 (07:46→20:50)
[2018-12-06 07:54] LABS: BUN/Creatinine Ratio 24 (6-26); Blood Urea Nitrogen 14 mg/dL (8-23); Calcium 10.1 mg/dL (8.6-10.3); Carbon Dioxide 27 mEq/L (23-29); Chloride 108 mEq/L (98-107); Glucose 99 mg/dL (70-105); Osmolality,Calculated 285 (280-300); Potassium 3.6 mEq/L (3.5-5.1); Sodium 137 mEq/L (136-145); eGFR For African Americans > 60 (> 60); eGFR For Non-African Americans > 60 (> 60)
--- NOTE | 2018-12-06 11:20 | Internal Med Progress Note ---
Hospitalist Progress Note - Encounter Date of Encounter: 12/06/18 Time of Encounter: 11:17 - Subjective Interval History: No acute events overnight. Patient not in distress. She denies abdominal pain, SOB, fever, chills, nausea and vomiting. - Exam Vitals: Temp Pulse Resp BP Pulse Ox 37.3 C 86 16 153/57 93 12/06/18 07:20 12/06/18 07:20 12/06/18 07:20 12/06/18 07:20 12/06/18 08:06 Exam: GENERAL: Not in distress. Oriented HEENT: EOMI, PERRLA MOUTH: Moist oral mucosa NECK:No JVD, No lymph nodes. CHEST AND LUNGS: Normal breath sounds, no wheezes or crackles HEART: S1 and S2 normal, no murmurs ABDOMEN: Soft, nontender, no organomegaly SKIN: Normal color, no rashes, no lesions EXTREMITIES: No deformity, no edema, no tenderness, no joint swelling or clubbing NEUROLOGICAL: Normal cognition, normal motor and sensory exam. - Assessment and Plan (1) UTI (urinary tract infection) Current Visit: Yes Status: Acute Assessment and Plan: UA highly suggestive of UTI Urine culture yielding E.Coli Continue ceftriaxone Will transition to oral at time of discharge (2) C. difficile colitis Current Visit: No Status: Acute Assessment and Plan: Patient is reported to have had about 4 bowel movements last night which were however scanty. Continue oral vancomycin Contact precautions (3) Altered mental status Current Visit: Yes Status: Acute Assessment and Plan: She currently alert and oriented but intermittently has delusions about the intentions of the healthcare workers around her. Sometimes states that they want to kill her and sometimes that they are the devil. Nonpharmacological measures for delirium. Urine culture growing E.coli Continue ceftriaxone Continue to monitor (4) Dysphagia Current Visit: Yes Status: Acute Assessment and Plan: Currently denies difficulty swallowing. Dietary recs per distributor advertising material. (5) Goals of care, counseling/discussion Current Visit: No Status: Acute Assessment and Plan: Patient's daughter initially wanted patient to come home and not go back to care home. Her son however, who is the POA would not wish that patient goes back to the care home or manager working on her transition to next level of care. (6) Protein-calorie malnutrition, severe Current Visit: No Status: Acute Assessment and Plan: Patient looks malnourished with temporal wasting Dietary recs per distributor advertising material. (7) DVT prophylaxis Current Visit: No Status: Acute Assessment and Plan: SCDs - Time Spent with Patient Total time spent is greater than 50% in coordination of care (as documented) at patient's floor/unit and/or counseling patient: Internal Medicine: Result - Labs CBC & Chem 7: 12/06/18 07:26 12/06/18 07:26 Labs: Short CBC 12/06/18 Range/Units 07:26 WBC 3.4 L (4.3-11.1) K/mcL Hgb 10.4 L (11.5-15.4) g/dL Hct 32.9 L (35.3-44.9) % Plt Count 194 (140-400) K/mcL Neutrophils # 2.2 (1.6-8.9) K/mcL BMP 12/06/18 07:26 Sodium 137 Potassium 3.6 Chloride 108 H Carbon Dioxide 27 BUN 14 Creatinine 0.58 L Glucose 99 Calcium 10.1 Consult Discharge Plan - Plan Referrals: Rashad Bullard MD [Primary Care Provider] - __ (1) UTI (urinary tract infection) Qualifiers: Urinary tract infection type: site unspecified Hematuria presence: with hematuria Qualified Code(s): N39.0 - Urinary tract infection, site not specified; R31.9 - Hematuria, unspecified (3) Altered mental status Qualifiers: Altered mental status type: disorientation Qualified Code(s): R41.0 - Disor ientation, unspecified (4) Dysphagia Qualifiers: Dysphagia type: unspecified Qualified Code(s): R13.10 - Dysphagia, unspecified
--- NOTE | 2018-12-06 13:36 | Emergency Department Note ---
Disposition Clinical Impression: UTI (urinary tract infection) Qualifiers: Urinary tract infection type: site unspecified Hematuria presence: with hematuria Qualified Code(s): N39.0 - Urinary tract infection, site not specified Altered mental status Qualifiers: Altered mental status type: disorientation Qualified Code(s): R41.0 - Disorientation, unspecified Disposition: Admitted As Inpatient Condition: Good Time of Disposition: 18:21 General Adult HPI - General Chief complaint: ED General Medical Stated complaint: AMS Time Seen by Provider: 12/02/18 14:24 Source: patient, EMS Mode of arrival: EMS Limitations: no limitations - History of Present Illness Pain Scale: 0 - Related Data Home Medications Medication Instructions Recorded Confirmed Lisinopril [Zestril] 5 mg PO DAILY 09/09/18 12/02/18 Levothyroxine [Synthroid] 50 mcg PO QAM 11/03/18 12/02/18 Omeprazole 20 mg PO BID 11/03/18 12/02/18 Torsemide [Demadex] 20 mg PO DAILY 11/03/18 12/02/18 Cholestyramine 2 gm PO DAILY 11/15/18 12/02/18 Lactobacillus Acidophilus 1 cap PO BID 12/02/18 12/02/18 [Acidophilus] Sertraline [Zoloft] 50 mg PO HS 12/02/18 12/02/18 Previous Rx's Medication Instructions Recorded Simvastatin [Zocor] 20 mg PO HS 365 Days tablet 07/25/16 Ferrous Sulfate 325 mg PO DAILY #90 tablet 11/08/18 Vancomycin Oral Soln [Firvanq] 125 mg PO QID 12 Days #120 ml 11/25/18 Allergies Allergy/AdvReac Type Severity Reaction Status Date / Time No Known Allergies Allergy Verified 11/23/18 02:59 Past Medical History - Past Medical History Medical history: Reports: cancer, dementia, GERD, hyperlipidemia, hypertension, migraine, thyroid disease Surgical history: Reports: cholecystectomy, hysterectomy Psychiatric history: Reports: no psych history SKIN CARE THERAPIST history: Reports: no SKIN CARE THERAPIST history - Social History Smoking Status: Never smoker Smokeless Tobacco Status: No Alcohol use: Reports: none Drug use: Reports: none Physical Exam - General Limitations: no limitations General appearance: alert Course Vital Signs Temperature 97.7 F 12/02/18 14:29 Pulse Rate 96 12/02/18 14:29 Respiratory Rate 18 12/02/18 14:29 Blood Pressure 103/60 12/02/18 14:29 O2 Sat by Pulse Oximetry 95 12/02/18 14:29 Temperature 98.7 F 12/06/18 11:28 Pulse Rate 80 12/06/18 11:28 Respiratory Rate 15 12/06/18 11:28 Blood Pressure 149/55 12/06/18 11:28 O2 Sat by Pulse Oximetry 95 12/06/18 11:28 Oxygen Delivery Oxygen Delivery Room Air Medical Decision Making - Lab Data Result diagrams: 12/06/18 07:26 12/06/18 07:26 Lab Results 12/02/18 12/02/18 12/02/18 Range/Units 15:06 15:11 15:14 WBC (4.3-11.1) K/mcL RBC (3.82-4.97) M/mcL Hgb (11.5-15.4) g/dL Hct (35.3-44.9) % MCV (83.0-100.0) fL MCH (28.0-33.3) pg MCHC (31.6-35.5) g/dL RDW (11.5-14.5) % Plt Count (140-400) K/mcL MPV (9.4-12.4) fL Immature Gran % (0-4) % Seg Neutrophils % % Lymphocytes % % Monocytes % % Eosinophils % % Basophils % % Neutrophils # (1.6-8.9) K/mcL Lymphocytes # (0.6-4.6) K/mcL Monocytes # (0.0-1.3) K/mcL Eosinophils # (0.0-0.6) K/mcL Basophils # (0.0-0.2) K/mcL Platelet Estimate (Normal) Poikilocytosis (Not Present) Anisocytosis (Not Present) Sodium (136-145) mEq/L Potassium (3.5-5.1) mEq/L Chloride (98-107) mEq/L Carbon Dioxide (23-29) mEq/L BUN (8-23) mg/dL Creatinine (0.60-1.20) mg/dL Est GFR ( Amer) (> 60) Est GFR (Non-Af Amer) (> 60) BUN/Creatinine Ratio (6-26) Glucose (70-105) mg/dL Calculated Osmolality (280-300) Calcium (8.6-10.3) mg/dL Total Bilirubin (0.3-1.0) mg/dL Direct Bilirubin (0.0-0.2) mg/dL Indirect Bilirubin (0.0-1.2) mg/dL AST (13-39) Units/L ALT (7-52) Units/L Alkaline Phosphatase (34-104) Units/L Ammonia (16-53) mcmol/L Troponin I (< 0.04) ng/mL Serum Total Protein (6.4-8.9) g/dL Albumin (3.5-5.7) g/dL Globulin (2.4-3.5) g/dL Albumin/Globulin Ratio (1.1-2.2) TSH (0.340-5.600) mcIU/mL Urine Color Yellow (Yellow) Urine Clarity Slightly Hazy (Clear) Urine pH 5.0 (5.0-8.0) pH Units Ur Specific [place] 1.013 (1.010-1.025) Urine Protein Negative (Neg-Trace) mg/dL Urine Glucose (UA) Normal (Normal) mg/dL Urine Ketones Negative (Negative) mg/dL Urine Blood Trace H (Negative) Urine Nitrite Negative (Negative) Urine Bilirubin Negative (Negative) Urine Urobilinogen Normal (Normal) mg/dL Ur Leukocyte Esterase Large H (Negative) Urine Microscopic RBC 0-3 (0-3) per hpf Urine Microscopic WBC TNTC H (0-3) per hpf Ur Squamous Epith Cells Few (None-Few) per lpf Urine Bacteria None Seen (None-Few) per hpf Hyaline Casts Few (None-Few) per lpf Ur Culture Indicated? YES A (NO) Stool Occult Bld Scrn Negative (Negative) Urine Opiates Screen Negative (Qauzgu=075) ng/mL Ur Buprenorphine Scrn Negative (Cutoff=5) ng/mL Ur Barbiturates Screen Negative (Kvdbel=026) ng/mL Ur Phencyclidine Scrn Negative (Cutoff=25) ng/mL Ur Amphetamines Screen Negative (Pnajyz=5942) ng/mL U Benzodiazepines Scrn Negative (Wbxleo=907) ng/mL Urine Cocaine Screen Negative (Cutoff= 300) ng/mL U Marijuana (THC) Screen Negative (Cutoff = 50) ng/mL Ur Drug Screen Interp See Below Ethyl Alcohol (Less than 10) mg/dL 12/02/18 12/02/18 12/02/18 Range/Units 15:15 15:15 15:15 WBC 5.3 (4.3-11.1) K/mcL RBC 4.51 (3.82-4.97) M/mcL Hgb 12.0 (11.5-15.4) g/dL Hct 39.4 (35.3-44.9) % MCV 87.4 (83.0-100.0) fL MCH 26.6 L (28.0-33.3) pg MCHC 30.5 L (31.6-35.5) g/dL RDW 23.9 H (11.5-14.5) % Plt Count 260 (140-400) K/mcL MPV 9.1 L (9.4-12.4) fL Immature Gran % 0.4 (0-4) % Seg Neutrophils % 68.8 % Lymphocytes % 14.8 % Monocytes % 12.6 % Eosinophils % 2.8 % Basophils % 0.6 % Neutrophils # 3.7 (1.6-8.9) K/mcL Lymphocytes # 0.8 (0.6-4.6) K/mcL Monocytes # 0.7 (0.0-1.3) K/mcL Eosinophils # 0.2 (0.0-0.6) K/mcL Basophils # 0.0 (0.0-0.2) K/mcL Platelet Estimate Normal (Normal) Poikilocytosis 1+ A (Not Present) Anisocytosis 1+ A (Not Present) Sodium 137 (136-145) mEq/L Potassium 3.8 (3.5-5.1) mEq/L Chloride 100 (98-107) mEq/L Carbon Dioxide 31 H (23-29) mEq/L BUN 29 H (8-23) mg/dL Creatinine 0.89 (0.60-1.20) mg/dL Est GFR ( Amer) > 60 (> 60) Est GFR (Non-Af Amer) > 60 (> 60) BUN/Creatinine Ratio 33 H (6-26) Glucose 115 H (70-105) mg/dL Calculated Osmolality 291 (280-300) Calcium 10.2 (8.6-10.3) mg/dL Total Bilirubin 0.5 (0.3-1.0) mg/dL Direct Bilirubin 0.1 (0.0-0.2) mg/dL Indirect Bilirubin 0.4 (0.0-1.2) mg/dL AST 13 (13-39) Units/L ALT 9 (7-52) Units/L Alkaline Phosphatase 61 (34-104) Units/L Ammonia 35 (16-53) mcmol/L Troponin I < 0.03 (< 0.04) ng/mL Serum Total Protein 6.2 L (6.4-8.9) g/dL Albumin 3.5 (3.5-5.7) g/dL Globulin 2.7 (2.4-3.5) g/dL Albumin/Globulin Ratio 1.3 (1.1-2.2) TSH 5.213 (0.340-5.600) mcIU/mL Urine Color (Yellow) Urine Clarity (Clear) Urine pH (5.0-8.0) pH Units Ur Specific [place] (1.010-1.025) Urine Protein (Neg-Trace) mg/dL Urine Glucose (UA) (Normal) mg/dL Urine Ketones (Negative) mg/dL Urine Blood (Negative) Urine Nitrite (Negative) Urine Bilirubin (Negative) Urine Urobilinogen (Normal) mg/dL Ur Leukocyte Esterase (Negative) Urine Microscopic RBC (0-3) per hpf Urine Microscopic WBC (0-3) per hpf Ur Squamous Epith Cells (None-Few) per lpf Urine Bacteria (None-Few) per hpf Hyaline Casts (None-Few) per lpf Ur Culture Indicated? (NO) Stool Occult Bld Scrn (Negative) Urine Opiates Screen (Qnkool=384) ng/mL Ur Buprenorphine Scrn (Cutoff=5) ng/mL Ur Barbiturates Screen (Decxnu=948) ng/mL Ur Phencyclidine Scrn (Cutoff=25) ng/mL Ur Amphetamines Screen (Ksfocb=3549) ng/mL U Benzodiazepines Scrn (Lqycey=195) ng/mL Urine Cocaine Screen (Cutoff= 300) ng/mL U Marijuana (THC) Screen (Cutoff = 50) ng/mL Ur Drug Screen Interp Ethyl Alcohol < 10 (Less than 10) mg/dL 12/03/18 12/03/18 12/04/18 Range/Units 05:34 05:34 04:58 WBC 3.5 L 3.2 L (4.3-11.1) K/mcL RBC 3.72 L 3.80 L (3.82-4.97) M/mcL Hgb 9.7 L D 10.3 L (11.5-15.4) g/dL Hct 32.0 L 32.6 L (35.3-44.9) % MCV 86.0 85.8 (83.0-100.0) fL MCH 26.1 L 27.1 L (28.0-33.3) pg MCHC 30.3 L 31.6 (31.6-35.5) g/dL RDW 23.0 H 22.3 H (11.5-14.5) % Plt Count 191 205 (140-400) K/mcL MPV 8.8 L 8.8 L (9.4-12.4) fL Immature Gran % 0.0 (0-4) % Seg Neutrophils % 61.6 % Lymphocytes % 18.9 % Monocytes % 14.6 % Eosinophils % 4.6 % Basophils % 0.3 % Neutrophils # 2.0 (1.6-8.9) K/mcL Lymphocytes # 0.6 (0.6-4.6) K/mcL Monocytes # 0.5 (0.0-1.3) K/mcL Eosinophils # 0.2 (0.0-0.6) K/mcL Basophils # 0.0 (0.0-0.2) K/mcL Platelet Estimate (Normal) Poikilocytosis (Not Present) Anisocytosis (Not Present) Sodium 138 (136-145) mEq/L Potassium 3.8 (3.5-5.1) mEq/L Chloride 109 H (98-107) mEq/L Carbon Dioxide 25 (23-29) mEq/L BUN 27 H (8-23) mg/dL Creatinine 0.65 (0.60-1.20) mg/dL Est GFR ( Amer) > 60 (> 60) Est GFR (Non-Af Amer) > 60 (> 60) BUN/Creatinine Ratio 42 H (6-26) Glucose 90 (70-105) mg/dL Calculated Osmolality 291 (280-300) Calcium 9.3 (8.6-10.3) mg/dL Total Bilirubin (0.3-1.0) mg/dL Direct Bilirubin (0.0-0.2) mg/dL Indirect Bilirubin (0.0-1.2) mg/dL AST (13-39) Units/L ALT (7-52) Units/L Alkaline Phosphatase (34-104) Units/L Ammonia (16-53) mcmol/L Troponin I (< 0.04) ng/mL Serum Total Protein (6.4-8.9) g/dL Albumin (3.5-5.7) g/dL Globulin (2.4-3.5) g/dL Albumin/Globulin Ratio (1.1-2.2) TSH (0.340-5.600) mcIU/mL Urine Color (Yellow) Urine Clarity (Clear) Urine pH (5.0-8.0) pH Units Ur Specific [place] (1.010-1.025) Urine Protein (Neg-Trace) mg/dL Urine Glucose (UA) (Normal) mg/dL Urine Ketones (Negative) mg/dL Urine Blood (Negative) Urine Nitrite (Negative) Urine Bilirubin (Negative) Urine Urobilinogen (Normal) mg/dL Ur Leukocyte Esterase (Negative) Urine Microscopic RBC (0-3) per hpf Urine Microscopic WBC (0-3) per hpf Ur Squamous Epith Cells (None-Few) per lpf Urine Bacteria (None-Few) per hpf Hyaline Casts (None-Few) per lpf Ur Culture Indicated? (NO) Stool Occult Bld Scrn (Negative) Urine Opiates Screen (Xdxgad=505) ng/mL Ur Buprenorphine Scrn (Cutoff=5) ng/mL Ur Barbiturates Screen (Yohkbq=931) ng/mL Ur Phencyclidine Scrn (Cutoff=25) ng/mL Ur Amphetamines Screen (Nsntgx=8935) ng/mL U Benzodiazepines Scrn (Ecvrbv=502) ng/mL Urine Cocaine Screen (Cutoff= 300) ng/mL U Marijuana (THC) Screen (Cutoff = 50) ng/mL Ur Drug Screen Interp Ethyl Alcohol (Less than 10) mg/dL 12/04/18 Range/Units 04:58 WBC (4.3-11.1) K/mcL RBC (3.82-4.97) M/mcL Hgb (11.5-15.4) g/dL Hct (35.3-44.9) % MCV (83.0-100.0) fL MCH (28.0-33.3) pg MCHC (31.6-35.5) g/dL RDW (11.5-14.5) % Plt Count (140-400) K/mcL MPV (9.4-12.4) fL Immature Gran % (0-4) % Seg Neutrophils % % Lymphocytes % % Monocytes % % Eosinophils % % Basophils % % Neutrophils # (1.6-8.9) K/mcL Lymphocytes # (0.6-4.6) K/mcL Monocytes # (0.0-1.3) K/mcL Eosinophils # (0.0-0.6) K/mcL Basophils # (0.0-0.2) K/mcL Platelet Estimate (Normal) Poikilocytosis (Not Present) Anisocytosis (Not Present) Sodium 138 (136-145) mEq/L Potassium 3.6 (3.5-5.1) mEq/L Chloride 107 (98-107) mEq/L Carbon Dioxide 27 (23-29) mEq/L BUN 18 (8-23) mg/dL Creatinine 0.59 L (0.60-1.20) mg/dL Est GFR ( Amer) > 60 (> 60) Est GFR (Non-Af Amer) > 60 (> 60) BUN/Creatinine Ratio 31 H (6-26) Glucose 99 (70-105) mg/dL Calculated Osmolality 288 (280-300) Calcium 9.9 (8.6-10.3) mg/dL Total Bilirubin (0.3-1.0) mg/dL Direct Bilirubin (0.0-0.2) mg/dL Indirect Bilirubin (0.0-1.2) mg/dL AST (13-39) Units/L ALT (7-52) Units/L Alkaline Phosphatase (34-104) Units/L Ammonia (16-53) mcmol/L Troponin I (< 0.04) ng/mL Serum Total Protein (6.4-8.9) g/dL Albumin (3.5-5.7) g/dL Globulin (2.4-3.5) g/dL Albumin/Globulin Ratio (1.1-2.2) TSH (0.340-5.600) mcIU/mL Urine Color (Yellow) Urine Clarity (Clear) Urine pH (5.0-8.0) pH Units Ur Specific [place] (1.010-1.025) Urine Protein (Neg-Trace) mg/dL Urine Glucose (UA) (Normal) mg/dL Urine Ketones (Negative) mg/dL Urine Blood (Negative) Urine Nitrite (Negative) Urine Bilirubin (Negative) Urine Urobilinogen (Normal) mg/dL Ur Leukocyte Esterase (Negative) Urine Microscopic RBC (0-3) per hpf Urine Microscopic WBC (0-3) per hpf Ur Squamous Epith Cells (None-Few) per lpf Urine Bacteria (None-Few) per hpf Hyaline Casts (None-Few) per lpf Ur Culture Indicated? (NO) Stool Occult Bld Scrn (Negative) Urine Opiates Screen (Rdkvme=821) ng/mL Ur Buprenorphine Scrn (Cutoff=5) ng/mL Ur Barbiturates Screen (Thdxff=331) ng/mL Ur Phencyclidine Scrn (Cutoff=25) ng/mL Ur Amphetamines Screen (Ymmwsa=3623) ng/mL U Benzodiazepines Scrn (Qmcyjv=732) ng/mL Urine Cocaine Screen (Cutoff= 300) ng/mL U Marijuana (THC) Screen (Cutoff = 50) ng/mL Ur Drug Screen Interp Ethyl Alcohol (Less than 10) mg/dL Attestation Statement - Attestation Attestation: I examined this patient and my medical decision-making was reviewed with the Resident Physician. I agree with the documented findings, disposition and treatment plan as described except to the extent set forth below. UTI with altered mental status, hemodynamically normal in the emergency department. Antibiotics administered, patient admitted.
[2018-12-06] MEDS: cefTRIAXone 1,000 MG in Water for inj. (sterile) 10 ML IVP SCH (14:09)
[2018-12-06] MEDS: Acetaminophen 325 MG TABLET PO PRN (23:16)
[2018-12-07] MEDS: Lactobacillus 1 EACH CAP.SPRINK PO SCH (07:57)
[2018-12-07] MEDS: cefTRIAXone 1,000 MG in Water for inj. (sterile) 10 ML IVP SCH (07:57)
[2018-12-07] MEDS: Cholestyramine 4 GM POWD.PACK PO SCH (07:57)
[2018-12-07] MEDS: Acetaminophen 325 MG TABLET PO PRN (07:58)
[2018-12-07] MEDS: Torsemide 20 MG TABLET PO SCH (07:58)
[2018-12-07] MEDS: Vancomycin Oral Soln 125 MG/2.5 ML UDC PO SCH (07:59)
[2018-12-07 10:59] VITALS: BP 134/48
--- NOTE | 2018-12-07 11:29 | Discharge Summary ---
- NOTES TO OUTPATIENT PROVIDER Notes to Outpatient Provider: Complete PO Vanc taper. Finished 5 days of IV [place] for acute cystitis Date of Encounter: 12/07/18 Time of Encounter: 08:45 - Discharge Diagnosis (1) UTI (urinary tract infection) Priority: Primary Status: Acute Qualifiers: Urinary tract infection type: site unspecified Hematuria presence: with hematuria Qualified Code(s): N39.0 - Urinary tract infection, site not specified; R31.9 - Hematuria, unspecified (2) Acute encephalopathy Priority: Secondary Status: Acute (3) C. difficile colitis Priority: Secondary Status: Acute (4) Dysphagia Priority: Secondary Status: Acute Qualifiers: Dysphagia type: unspecified Qualified Code(s): R13.10 - Dysphagia, unspecified (5) Goals of care, counseling/discussion Priority: Secondary Status: Acute (6) Protein-calorie malnutrition, severe Priority: Secondary Status: Acute (7) DVT prophylaxis Priority: Secondary Status: Acute Hospital course: Ms. Gunn is a 83 year old female with history of dementia, HTN, HLD, C diff colitis, who was admitted for acute toxic/metabolic encephalopathy secondary to E. coli UTI. Treated with 5 days of IV Rocephin during her stay while PO Vanc was continued to recent C. diff infection. Initially there was a concern on whether she would go back to ECF or not but after discussing with her POA, it was decided to send her back to ECF rather than with home health due to her care needs. She is to complete PO VAnc through 12/10/2018 and follow up with PCP. Discharge discussed with: patient, family, nurse, social work, case management - Time Spent with Patient Total time spent providing and/or coordinating discharge services: 32 mins - Discharge Medications Prescriptions: Continued Lisinopril [Zestril] 5 mg PO DAILY Levothyroxine [Synthroid] 50 mcg PO QAM Omeprazole 20 mg PO BID Torsemide [Demadex] 20 mg PO DAILY Ferrous Sulfate 325 mg PO DAILY #90 tablet Cholestyramine 2 gm PO DAILY Sertraline [Zoloft] 50 mg PO HS Lactobacillus Acidophilus [Acidophilus] 1 cap PO BID Vancomycin Oral Soln [Firvanq] 125 mg PO QID 12 Days #120 ml Simvastatin [Zocor] 20 mg PO HS 365 Days tablet Home Medications: Simvastatin [Zocor] 20 mg PO HS 365 Days tablet 07/25/16 [Rx] Lisinopril [Zestril] 5 mg PO DAILY 09/09/18 [History] Levothyroxine [Synthroid] 50 mcg PO QAM 11/03/18 [History] Omeprazole 20 mg PO BID 11/03/18 [History] Torsemide [Demadex] 20 mg PO DAILY 11/03/18 [History] Ferrous Sulfate 325 mg PO DAILY #90 tablet 11/08/18 [Rx] Cholestyramine 2 gm PO DAILY 11/15/18 [History] Lactobacillus Acidophilus [Acidophilus] 1 cap PO BID 12/02/18 [History] Sertraline [Zoloft] 50 mg PO HS 12/02/18 [History] Vancomycin Oral Soln [Firvanq] 125 mg PO QID 12 Days #120 ml 12/07/18 [Rx] Allergies/Adverse Reactions: Allergy/AdvReac Type Severity Reaction Status Date / Time No Known Allergies Allergy Verified 11/23/18 02:59 Date of admission: 12/04/18 14:15 Primary care physician: Rashad Bullard MD Consults: 12/03/18 00:01 Consult to Quality Control Lab Tech [CONS] Routine Reason for SW Consult: Discharge planning - Constitutional Vitals: Temp Pulse Resp BP Pulse Ox 98.2 F 76 15 134/48 96 12/07/18 10:49 12/07/18 10:49 12/07/18 10:49 12/07/18 10:49 12/07/18 10:49 General appearance: Present: cooperative, A&O X 3, pleasant, no acute distress, answers questions appropriately Exam: GENERAL: Not in distress. alert but oriented to self and place only CHEST AND LUNGS: Normal breath sounds, no wheezes or crackles HEART: S1 and S2 normal, no murmurs ABDOMEN: Soft, nontender, no organomegaly : No CVA tenderness SKIN: Normal color, no rashes, no lesions EXTREMITIES: No deformity, no edema, no tenderness, no joint swelling or clubbing NEUROLOGICAL: grossly non-focal - Patient Status Disposition: Transfer SNF Condition: Good Overall status at discharge: patient is progressing back to baseline - Discharge Instructions Instructions: Urinary Tract Infection in Women (DC), Chronic Hypertension (DC), Hypothyroidism (DC) Follow Up With: Rashad Bullard MD [Primary Care Provider] - - Diet and Activity Activity: as per physical therapy Diet: other (soft diet with strawberry ensure enlive TID)
--- NOTE | 2018-12-07 11:36 | Physician Discharge Referral ---
ExtendedCare Referral Info Institutional Level of Care: Skilled - Diagnosis (1) UTI (urinary tract infection) Priority: Primary Status: Acute (2) Acute encephalopathy Priority: Secondary Status: Acute (3) C. difficile colitis Priority: Secondary Status: Acute (4) Dysphagia Priority: Secondary Status: Acute (5) Goals of care, counseling/discussion Priority: Secondary Status: Acute (6) Protein-calorie malnutrition, severe Priority: Secondary Status: Acute (7) DVT prophylaxis Priority: Secondary Status: Acute Prognosis: Fair - Transfer Medications Home Medications: Simvastatin [Zocor] 20 mg PO HS 365 Days tablet 07/25/16 [Rx] Lisinopril [Zestril] 5 mg PO DAILY 09/09/18 [History] Levothyroxine [Synthroid] 50 mcg PO QAM 11/03/18 [History] Omeprazole 20 mg PO BID 11/03/18 [History] Torsemide [Demadex] 20 mg PO DAILY 11/03/18 [History] Ferrous Sulfate 325 mg PO DAILY #90 tablet 11/08/18 [Rx] Cholestyramine 2 gm PO DAILY 11/15/18 [History] Lactobacillus Acidophilus [Acidophilus] 1 cap PO BID 12/02/18 [History] Sertraline [Zoloft] 50 mg PO HS 12/02/18 [History] Vancomycin Oral Soln [Firvanq] 125 mg PO QID 12 Days #120 ml 12/07/18 [Rx] Allergies/Adverse Reactions: Allergy/AdvReac Type Severity Reaction Status Date / Time No Known Allergies Allergy Verified 11/23/18 02:59 - Respiratory Orders Smoking Cessation: Smoking cessation has been advised. For more information, call the [place] Tobacco Quit Line at 0-104-CONT-NOW. - Advance Directives Code Status: Full Code - Rehabiliation Orders Rehab Orders: Evaluation for Physical Therapy, Evaluation for Occupational Therapy - Diet Orders House Supplement per Dietary: Nardin Ensure enlive TID CERTIFICATION: I certify that the transfer of the above named patient to an Extended Care Facility is necessary for the continuing treatment of the diagnosis listed. The above information is true and accurate reflection of patient's current condition. Confidential - Redisclosure prohibited without a patient's written consent.
== END 2018-12-07 12:49 | DRG 689 ==
LOC: EMEROOARM 14:21 → 3ANU 14:21 → SUATTDRO 21:13 → 3ANU 21:16 → SUATTDRO 12-04 14:15
PROVIDERS: ADMIT Internal Medicine; ATTEND Internal Medicine

== ENCOUNTER 2018-12-07 19:39 | Observation (INO) ==
[2018-12-07 20:48] LABS: Basophils % 0.2 %; Eosinophils # 0.1 K/mcL (0.0-0.6); Eosinophils % 1.7 %; Hematocrit 36.8 % (35.3-44.9); Hemoglobin 11.4 g/dL (11.5-15.4); Immature Granulocytes % 0.2 % (0-4); Lymphocytes # 0.8 K/mcL (0.6-4.6); Lymphocytes % 15.1 %; Mean Corpuscular Hemoglobin 26.5 pg (28.0-33.3); Mean Corpuscular Volume 85.6 fL (83.0-100.0); Mean Platelet Volume 8.6 fL (9.4-12.4); Monocytes # 0.6 K/mcL (0.0-1.3); Monocytes % 11.5 %; Neutrophils # 3.7 K/mcL (1.6-8.9); Platelet Count 250 K/mcL (140-400); Red Cell Distribution Width 23.4 % (11.5-14.5); Segmented Neutrophils % 71.3 %
[2018-12-07 20:52] LABS: White Blood Count 5.2 K/mcL (4.3-11.1)
[2018-12-07 20:56] LABS: Prothrombin Time 11.3 Seconds (9.4-12.1)
[2018-12-07 21:08] LABS: Anisocytosis 1+ (Not Present); Platelet Estimate Normal (Normal)
[2018-12-07 21:11] LABS: Alanine Aminotransferase 8 Units/L (7-52); Albumin 3.5 g/dL (3.5-5.7); Albumin/Globulin Ratio 1.3 (1.1-2.2); Alkaline Phosphatase 60 Units/L (34-104); Aspartate Amino Transferase 13 Units/L (13-39); BUN/Creatinine Ratio 36 (6-26); Bilirubin,Direct 0.1 mg/dL (0.0-0.2); Bilirubin,Indirect 0.2 mg/dL (0.0-1.2); Bilirubin,Total 0.3 mg/dL (0.3-1.0); Blood Urea Nitrogen 27 mg/dL (8-23); Calcium 10.3 mg/dL (8.6-10.3); Carbon Dioxide 32 mEq/L (23-29); Chloride 100 mEq/L (98-107); Ethanol < 10 mg/dL (Less than 10); Globulin 2.7 g/dL (2.4-3.5); Glucose 116 mg/dL (70-105); Osmolality,Calculated 290 (280-300); Potassium 3.8 mEq/L (3.5-5.1); Sodium 137 mEq/L (136-145); Total Protein 6.2 g/dL (6.4-8.9); Troponin I < 0.03 ng/mL (< 0.04); eGFR For African Americans > 60 (> 60); eGFR For Non-African Americans > 60 (> 60)
[2018-12-08] MEDS ORDERED: Naloxone 0.4 MG/ML INJ IVP PRN (01:05)
[2018-12-08] MEDS ORDERED: Acetaminophen 325 MG TABLET PO PRN (01:05)
[2018-12-08] MEDS ORDERED: Ondansetron 4 MG/2 ML VIAL IVP PRN (01:05)
[2018-12-08 04:08] LABS: Bilirubin,Urine Negative (Negative); Blood,Urine Negative (Negative); Clarity,Urine Cloudy (Clear); Color,Urine Yellow (Yellow); Glucose,Urine (UA) Normal (Normal); Ketones,Urine Negative (Negative); Leukocyte Esterase,Urine Large (Negative); Nitrite,Urine Negative (Negative); Protein,Urine Negative (Neg-Trace); Specific Gravity,Urine 1.024 (1.010-1.025); Urobilinogen,Urine Normal (Normal)
[2018-12-08 04:11] LABS: Bacteria,Urine None Seen per hpf (None-Few); Hyaline Casts,Urine None Seen per lpf (None-Few); Squamous Epithelial Cell,Urine Moderate per lpf (None-Few); WBC,Urine TNTC per hpf (0-3)
[2018-12-08 04:18] LABS: Amphetamine Screen,Urine Negative ng/mL (Cutoff=1000); Barbiturate Screen,Urine Negative ng/mL (Cutoff=200); Benzodiazepines Screen,Urine Negative ng/mL (Cutoff=200); Cannabinoid Screen,Urine Negative ng/mL (Cutoff = 50); Cocaine Screen,Urine Negative ng/mL (Cutoff= 300); Opiate Screen,Urine Negative ng/mL (Cutoff=300); Phencyclidine Screen,Urine Negative ng/mL (Cutoff=25)
[2018-12-08 04:59] LABS: Hematocrit 34.8 % (35.3-44.9); Hemoglobin 10.7 g/dL (11.5-15.4); Mean Corpuscular HGB Conc 30.7 g/dL (31.6-35.5); Mean Corpuscular Hemoglobin 26.8 pg (28.0-33.3); Mean Platelet Volume 8.3 fL (9.4-12.4); Platelet Count 214 K/mcL (140-400); Red Cell Distribution Width 23.1 % (11.5-14.5); White Blood Count 3.9 K/mcL (4.3-11.1)
[2018-12-08 05:08] LABS: BUN/Creatinine Ratio 37 (6-26); Blood Urea Nitrogen 26 mg/dL (8-23); Calcium 10.1 mg/dL (8.6-10.3); Carbon Dioxide 30 mEq/L (23-29); Chloride 99 mEq/L (98-107); Chol/HDL Ratio 3.8 (0-4.9); Cholesterol 141 mg/dL (< 200); Glucose 97 mg/dL (70-105); HDL Cholesterol 37 mg/dL (40-59); LDL Cholesterol,Calculated 86 mg/dL (0-99); Magnesium 2.1 mg/dL (1.6-2.6); Osmolality,Calculated 293 (280-300); Potassium 3.5 mEq/L (3.5-5.1); Sodium 139 mEq/L (136-145); Triglycerides 91 mg/dL (< 150); eGFR For African Americans > 60 (> 60); eGFR For Non-African Americans > 60 (> 60)
[2018-12-08 05:24] LABS: Thyroid Stimulating Hormone 3.428 mcIU/mL (0.340-5.600)
[2018-12-08] MEDS ORDERED: Lactobacillus 1 EACH CAP.SPRINK PO SCH (09:00)
[2018-12-08] MEDS ORDERED: Torsemide 20 MG TABLET PO SCH (09:00)
[2018-12-08] MEDS: Vancomycin Oral Soln 125 MG/2.5 ML UDC PO SCH ×3 (10:35→17:07)
[2018-12-08] MEDS ORDERED: Cholestyramine 4 GM POWD.PACK PO SCH (14:00)
[2018-12-08 15:32] VITALS: BP 126/70
== END 2018-12-08 19:22 ==
LOC: EMEROOARM 19:39 → 3BNU 19:39
PROVIDERS: ADMIT Internal Medicine; ATTEND Internal Medicine